=== PATIENT | female | born 1980 | race Caucasian/White ===

== ENCOUNTER 2017-05-10 17:30 | Outpatient (RCR) | payer OTHER, SELFPAY ==
--- NOTE | 2017-04-20 08:10 | HP.PTEVAL_ITS ---
Patient's Visit Information SHAE RIOS is a 37 year old F referred to Physical Therapy by Boni BURGESS with a diagnosis of R upper adominal wall, rib pain, referred lower thoracic pain vs muscle ten. Date of Evaluation: 04/19/17 Physical Therapist: Gallo Hernandez - Visit Plan Frequency: 1x/Week Duration: 5 weeks Plan: Start with thoracic ext progression with over pressure, PA rib mobility, STM to R lateral flank and QL stretching. - Subjective Subjective: Pt. is here today for her initial evaluation with diagnosis of R upper adominal wall, rib pain, referred lower thoracic pain vs muscle tension. Pt. is a plesant 37 y.o. female who denies any mecehanism of injury. She reports her symptoms started after getting a chair massage, but is unsure if this was the actual cause. Pt. reports symptoms started at tingling, shock like pain throughout my stomach. Then it is now just on the right side. She reports having R flank pain, side and into back as well as R sided upper abominal pain. Pt. reports having increased pain with prolonged walking or standing. Decreased pain: time. She says nothing really takes it away, but slowly reduces if she sits down. She reports her pain never goes away completely. Pt. reports no left sided pain. She had a pelvic MRI- normal reading. Pt. denies any numbness or tingling at this point. Pt has no changes in B/B. Pt. is able to complete all ADLs and work activities, but does notice increased symptoms with increased activity. She reports no changes in diet correlating with onset of symptoms. Pt. is hopeful to reduce symptoms to get back to recreational walking without issues. - Pain R flank Pain Intensity (Out of 10): 3 Pain Intensity Range: 1, 5 R upper abdomen Pain Intensity (Out of 10): 0 Pain Intensity Range: 0, 4 - Objective POSTURE: Pt. has slight increase in lumbar lordosis. Pt. has equal iliac crest heights. Pt. does not present with any pelvic torsion currently. PALPATION: Pt. has increased tenderness along 9-12 ribs on R side, worst at 10-12. Pt. has increased pain at QL on R side as well. Pt. did not have any pain throughout R abdominal wall during palpation. Pt. reports this carey comes and goes. Pt. reports minimal pain with spring testing. NEUROLOGICAL: Pt. has normal sensation throughout abdomen and LEs to light and sharp touch. Pt. has 2+ patellar and achilles DTR. Pt. is able to rise on heels and toes without issues. Pt. has minimal pain with spring testing (PA testing) at T10 and T11, but does not reproduce lateral symptoms. ROM: Pt. has full lumbar and thoracic ROM. Pt. does have mild increase in symptoms with thoracic over pressure into extension, increase NW. MMT: Pt. has 5/5 bilateral strength throughout no increase in symptoms. Pt. has 4/5 upper and lower abdominal strength- did not increase symptoms. Pt. had 4/5 oblique and QL testing without increase in symptoms bilaterally. - Special Tests Thoracic Sitting: Flexion - Mechanical Response: No effect Thoracic Sitting: Flexion - Symptoms During Testing: No effect Thoracic Sitting: Flexion - Symptoms After Testing: No effect Thoracic Sitting: Extension - Mechanical Response: No effect Thoracic Sitting: Extension - Symptoms During Testing: No effect Thoracic Sitting: Extension - Symptoms After Testing: No effect Comments:: mild increase in symptoms with over pressure. Thoracic Sitting: Right rotation - Mechanical Response: No effect Thoracic Sitting: Right Rotation - Symptoms During Testing: No effect Thoracic Sitting: Right Rotation - Symptoms After Testing: No effect Thoracic Sitting: Left rotation - Mechanical Response: No effect Thoracic Sitting: Left Rotation - Symptoms During Testing: No effect Thoracic Sitting: Left Rotation - Symptoms After Testing: No effect Thoracic Lying: Prone Extension - Mechanical Response: No effect Thoracic Lying: Prone Extension - Symptoms During Testing: Increases Thoracic Lying: Prone Extension - Symptoms After Testing: No worse - Goals Goal 1:: Pt. to be I with HEP. Goal Time Frame: 4-6 Weeks Goal 2:: Pt. have end range thoracic extension with out increase in symptoms. Goal Time Frame: 4-6 Weeks Goal 3:: Pt. to have 0-1/10 pain with all recreational walking allowing for increased healthy lifestyle. Goal Time Frame: 4-6 Weeks Goal 4:: Pt. to complete all work duties with 0-1/10 pain allowing for increased quality of life. - Rehabilitation Potential Physical Therapy Diagnosis: Pt. has signs and symptoms consistent with R thoracic flank pain. Pt. has no known mechanism of injury. Pt. has some increase in symptoms with palpation of QL and with lower ribs. Pt. did not have any movement that increases symptoms. I will trial some muscle tension relief interventions and progress into ext to see if reduces symptoms. Rehabilitation Potential: Good - Anticipated Interventions Patient/Client Instruction: Educate patient on: Condition, Plan of Care, Risk Factors, Benefits of Fitness Program For the Purpose of:: To improve health and function, To foster healthy habits, To improve decision making, To facilitate caregiver knowledge, To improve self management, To prevent re-injury, To improve ability to perform tasks related to life management, To improve tolerance to ADL's Therapeutic Exercise to Include: Strength training, Power training, Body mechanics, Postural training, Flexibilty training, Passive ROM, Active ROM, Dynamic Lumbar Stabilization, Yakov Exercises For the Purpose of:: To decrease pain, To increase ROM, To improve nutrient delivery to tissue, To increase oxygenation perfusion, To improve muscle performance and motor function, To improve ability to perform ADL's, To improve health of tissue, To decrease soft tissue restriction, To increase flexibility/ ROM IF ES: Yes Cryotherapy (ice pack, ice massage): Yes Thermo therapy (hot pack): Yes Ultrasound (thermal/non thermal): Yes For the Purpose of:: To decrease pain, To increase ROM, To improve nutrient delivery to tissue, To increase oxygenation perfusion, To improve muscle performance and motor function Thank you for the opportunity to evaluate your patient. For Medicare and Medicare HMO plans, please review the plan of care and approve it. It will need to be FAXED BACK to us at [phone] for Medicare purposes. Please let me know if there are questions or concerns regarding this plan of care. Physician Signature: Date:
--- NOTE | 2017-05-12 16:51 | HP.PTREVAL ---
DR.ESMITH Alanis It has been my pleasure to treat SHAE RIOS over the last 4 visits for R upper adominal wall, rib pain, referred lower thoracic pain vs muscle ten. Please see the progress note below for an update on the physical therapy plan of care! Subjective: Pt. reports no change in symptoms. She is getting an US tomorrow of her abdomen. She contiunes to report increased R sided abdominal pain, and R flank pain. Objective/Function: Pt. has made minimal gains in PT thus far. She had a negative effect with massage, no effect with US, and no changes with all postioning. Her pain does not appear to be mechanical in nature. She has tenderness to palpation of T10-T12 ribs, but similar bilaterally. I discussed with her about referral from [facility], to look into if she has greater pain with eating fatter foods, but denies. Pt. has trialed stretching and thoracic stability exercises without reduction in symptoms. She has possibly relief with chiropractor, but pt. is unsure if she is having a good response or not. I talked with patient and we decided to follow back up with physician at this point in time. Plan Plan: Pt. to follow up with physician to determine best course of action. Goals Goal 1:: Pt. to be I with HEP. Goal Time Frame: 4-6 Weeks Goal Progress: Goal Met Goal 2:: Pt. have end range thoracic extension with out increase in symptoms. Goal Time Frame: 4-6 Weeks Goal Progress: Goal Met Goal 3:: Pt. to have 0-1/10 pain with all recreational walking allowing for increased healthy lifestyle. Goal Time Frame: 4-6 Weeks Goal Progress: Not Progressing Goal 4:: Pt. to complete all work duties with 0-1/10 pain allowing for increased quality of life. Goal Progress: Not Progressing Anticipated Interventions Patient/Client Instruction: Educate patient on: Condition, Plan of Care, Risk Factors, Benefits of Fitness Program For the Purpose of:: To improve health and function, To foster healthy habits, To improve decision making, To facilitate caregiver knowledge, To improve self management, To prevent re-injury, To improve ability to perform tasks related to life management, To improve tolerance to ADL's Therapeutic Exercise to Include: Strength training, Power training, Body mechanics, Postural training, Flexibilty training, Passive ROM, Active ROM, Dynamic Lumbar Stabilization, Yakov Exercises For the Purpose of:: To decrease pain, To increase ROM, To improve nutrient delivery to tissue, To increase oxygenation perfusion, To improve muscle performance and motor function, To improve ability to perform ADL's, To improve health of tissue, To decrease soft tissue restriction, To increase flexibility/ROM IF ES: Yes Cryotherapy (ice pack, ice massage): Yes Thermo therapy (hot pack): Yes Ultrasound (thermal/non thermal): Yes For the Purpose of:: To decrease pain, To increase ROM, To improve nutrient delivery to tissue, To increase oxygenation perfusion, To improve muscle performance and motor function Please do not hesitate to contact me at [phone] by phone or if you have questions or concerns regarding this new plan of care! Sincerely, Gallo Hernandez
== END 2017-05-10 18:00 | disposition home or self-care (01) ==
LOC: PT 17:30
PROVIDERS: Family Provider Family Medicine; PCP Family Medicine; Visit Provider Family Medicine
DX: M54.6 Pain in thoracic spine (principal); R10.11 Right upper quadrant pain; R07.81 Pleurodynia
CPT/HCPCS: 97110; 97140; 97162

== ENCOUNTER → 2017-06-26 10:03 | Outpatient (CLI) | payer OTHER, SELFPAY ==
[2017-06-26 12:32] LABS: Absolute Lymphocyte Count 2.07 X10^3/ul (0.83-4.51); Absolute Neutrophil Count 3.9 X10^3/uL (2.0-7.7); Basophil# 0.04 X10^3/uL; Basophil% 0.6 % (0-1); Eosinophil# 0.46 X10^3/uL; Eosinophils% 6.7 % (0-5); Hematocrit 45.1 % (37-47); Hemoglobin 14.7 g/dl (12.0-15.0); Lymphocyte # 2.07 X10^3/ul (4.0); Mean Corp Hgb Conc 32.6 g/gl (32-36); Mean Corpuscular Hgb 26.4 pg (27.0-32.0); Mean Corpuscular Volume 81.1 fL (81-99); Mean Platelet Vol. 12.2 fl (6.2-12.0); Monocyte# 0.46 X10^3/uL; Monocyte% 6.7 % (0-10); Neutrophil # 3.87 X10^3/uL (2.7-7.7); Neutrophil % 55.9 % (47-70); POSITIVE COUNT NO; POSITIVE DIFFERENTIAL NO; POSITIVE MORPHOLOGY NO; Platelet Count 195 K/mm3 (150-450); RBC Distribution Width CV 14.9 % (11.6-14.6); RBC Distribution Width SD 45.1 fl (35.1-43.9); Red Blood Count 5.56 M/mm3 (4.2-5.4); White Blood Count 6.9 K/mm3 (4.4-11.0)
[2017-06-26 12:50] LABS: ALB/GLOB Ratio 0.8 RATIO (0.9-2.4); AST(SGOT) 15 U/L (15-37); Alanine Aminotransfer ALT/SGPT 18 U/L (13-56); Albumin, Serum 3.4 g/dL (3.2-5.0); Alkaline Phosphatase 122 U/L (45-117); Anion Gap 7 (5-15); BUN 14 mg/dL (7-18); Calcium,Total 8.6 mg/dL (8.5-10.1); Chloride 109 mmol/L (98-107); EST Glomerular Filtration Rate 67 mL/min (>60); Est Glom Filt Rate - Afr Amer 81 mL/min (>60); Ferritin 38 ng/mL (8-252); Globulin 4.2 g/dL (2.2-4.2); Glucose 81 mg/dL (74-106); Potassium 4.2 mmol/L (3.5-5.1); Protein, Total 7.6 g/dL (6.4-8.2); Sodium Level 141 mmol/L (136-145); Thyroid Stim Hormone (TSH) 1.75 uIU/mL (0.358-3.74)
== END ==
PROVIDERS: Family Provider Family Medicine; PCP Family Medicine; Visit Provider Family Medicine
DX: L60.8 Other nail disorders (principal); L60.9 Nail disorder, unspecified
CPT/HCPCS: 36415; 80053; 82728; 84443; 85025

== ENCOUNTER → 2017-06-29 08:10 | Outpatient (CLI) | payer OTHER, SELFPAY ==
--- NOTE | 2017-06-29 08:13 | US_ITS ---
STUDY: ABDOMINAL ULTRASOUND - RIGHT UPPER QUADRANT REASON FOR VISIT: Female, 37 years old. Right upper quadrant pain. TECHNIQUE: Ultrasound evaluation of the right upper quadrant was performed with real-time and static maier-scale imaging. TECHNICAL QUALITY: Adequate. COMPARISON: None. FINDINGS: Liver: The liver measures 15.5 cm. There is normal echogenicity of the liver. The bile ducts are within normal limits. There is hepatic color flow. The direction of portal flow is hepatopetal. There is no demonstrated mass lesion. Gallbladder: Normal distended gallbladder. The gallbladder wall measures 2.6 mm. There is a negative sonographic Tamez's sign. There is no pericholecystic fluid. There are no gallstones. There is a 2.6 mm gallbladder polyp adherent to the gallbladder wall. Common Bile Duct (C.B.D.): The common bile duct measures 5.8 mm. Pancreas: Normal size of the head, body and tail of the pancreas. There is normal echogenicity of the pancreas. There is no demonstrated pancreatic mass or cyst. Right Kidney: Normal size of the right kidney. The right kidney measures 10.2 cm x 5.5 cm x 4.6 cm. Normal renal cortex. The right cortex measures 1.5 cm. There is no demonstrated renal mass or cyst. There is no right hydronephrosis. US/Gallbladder IMPRESSION: Small gallbladder polyp. Electronically Signed: Ben Duval MD at 14:32 EST Tel [phone], Service support ,
== END ==
PROVIDERS: Family Provider Family Medicine; PCP Family Medicine; Visit Provider Specialist
DX: R10.11 Right upper quadrant pain (principal)
CPT/HCPCS: 76705

== ENCOUNTER → 2017-07-26 09:46 | Outpatient (CLI) | payer OTHER, SELFPAY ==
[2017-07-26 11:52] LABS: ALB/GLOB Ratio 0.9 RATIO (0.9-2.4); AST(SGOT) 15 U/L (15-37); Alanine Aminotransfer ALT/SGPT 19 U/L (13-56); Albumin, Serum 3.5 g/dL (3.2-5.0); Alkaline Phosphatase 126 U/L (45-117); Anion Gap 7 (5-15); BUN 14 mg/dL (7-18); BUN/Creat Ratio 15.6 RATIO (10-20); Calcium,Total 8.8 mg/dL (8.5-10.1); Chloride 104 mmol/L (98-107); EST Glomerular Filtration Rate 76 mL/min (>60); Est Glom Filt Rate - Afr Amer 92 mL/min (>60); Globulin 4.1 g/dL (2.2-4.2); Glucose 79 mg/dL (74-106); Protein, Total 7.6 g/dL (6.4-8.2); Sodium Level 140 mmol/L (136-145); Thyroid Stim Hormone (TSH) 1.26 uIU/mL (0.358-3.74)
== END ==
PROVIDERS: Family Provider Family Medicine; PCP Family Medicine; Visit Provider Internal Medicine Endocrinology, Diabetes & Metabolism
DX: E03.8 Other specified hypothyroidism (principal)
CPT/HCPCS: 36415; 80053; 84443

== ENCOUNTER 2017-08-02 08:31 | Outpatient (RCR) | payer OTHER, SELFPAY ==
--- NOTE | 2017-08-02 09:37 | HP.OTEVAL ---
Patient's Visit Information SHAE RIOS is a 37 year old F, referred to Occupational Therapy by Boni Quintanilla, with a diagnosis of bilateral lymphedema. Date of Evaluation: 08/02/17 Occupational Therapist: Romy Rodriguez, BRIELLE/Wilian, CHT - Subjective Subjective: This 37 year old female was seen for inital OT eval with dx of Bilateral Lymphedema. Pt states she has had 6 years of swelling of her LE. pt states swelling goes down at night and while she is up on her feet her swelling returns. 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 pt has woked there a little over a year. pt states she does have compression socks at home but only wore them for about a week. she is not wearning them at this time. - Lymphedema (Circumferential Measure) Mid-foot: R/L 23.5cm/22.5cm Ankle: R/L 25cm/26cm Lower calf: R/L 30.5cm/30/5cm Largest calf: R/L 44.5cm/43.5cm Below knee: R/L 40.5cm/40.5cm Lower Exremity Comments: pt denies toe swelling but with palpation noted some nodules on tops of each toe. - Sensation Sensation Comments: denies - Lower Limb Functional Index Lower Extremity Functional Score: 70 - Goals Demonstrate a 20% reduction in edema by d/c: Yes Demonstrate adequate knowledge of self-massage by 2nd week: Yes Demonstrate adequate knowledge skin care/prec by 2nd week: Yes Demonstrate adequate knowledge therapeutic exercises by d/c: Yes Select approp compression garment w/donning/care/wear by d/c: Yes Voice need to replace compression garment every 4-6mo by dc: Yes - Rehabilitation General Assessment: pt demo with edema in BLE. pt demo need for skilled OT services to ed. pt re. dx and self mtg. rec'd pt initiate wearing her compression hose daily, and start skin care and lymph ec. pt is starting a pool ex program this week as well which will be benefical for her. pt to return in 2-3 weeks to ensure compressio socks are helping her mtg. her edema. pt then will be ed. on self MLD. Rehabilitation Potential: Good - Anticipated Interventions Anticipated Interventions: Education re Diagnosis, Manual Lymph Drainage, Education re Life-long lymphedema Management, Education re Skin Care and Precautions, Education re Self Massage Techniques, Education re Correct Donning Tech,Care&Wearing Sched Comp Garments, Caregiver Training - Visit Plan Frequency: Monthly Duration: 2 Months TEXT: Thank you for the opportunity to evaluate your patient. For Medicare and Medicare HMO plans, please review the plan of care and approve it. It will need to be FAXED BACK to us at [phone] for Medicare purposes. Please let me know if there are questions or concerns regarding this plan of care. Physician Signature: Date:
--- NOTE | 2017-12-19 08:47 | HP.OT.NRP ---
HP - Discharge Summary - Patient Information SHAE RIOS was seen in my office for initial evaluation on 08/02/17. The following Plan of Care was established for this patient: Initial Frequency: Monthly Initial Duration: 2 Months - Anticipated Interventions Anticipated Interventions: Education re Diagnosis, Manual Lymph Drainage, Education re Life-long lymphedema Management, Education re Skin Care and Precautions, Education re Self Massage Techniques, Education re Correct Donning Tech,Care&Wearing Sched Comp Garments, Caregiver Training This patient was last seen in our office 08/02/17. Pertinent comments regarding their Occupational therapy will appear below: PT was seen for eval only- pt did not schedule further apts and due to time laps pt is D/C at this time. At this point I will be discontinuing this patient from occupational therapy. I would be happy to see this patient again in the future if found appropriate by the physician. Thank you! Romy Rodriguez, OTR/L, CHT
== END 2017-08-02 19:00 | disposition home or self-care (01) ==
LOC: OT 08:31
PROVIDERS: Family Provider Family Medicine; PCP Family Medicine; Visit Provider Family Medicine
DX: I89.0 Lymphedema, not elsewhere classified (principal)
CPT/HCPCS: 97166

== ENCOUNTER → 2017-08-22 09:03 | Outpatient (CLI) | payer OTHER, SELFPAY ==
[2017-08-23 12:08] LABS: RNP Ab <0.2 AI (0.0-0.9); Smith Ab <0.2 AI (0.0-0.9)
[2017-08-24 14:00] LABS: ANTINUCLEAR ANTIBODIES DIRECT Negative (Negative); Anti-dsDNA Ab 1 IU/mL (0-9)
== END ==
PROVIDERS: Family Provider Family Medicine; PCP Family Medicine; Visit Provider Dermatology Pediatric Dermatology
DX: L60.1 Onycholysis (principal)
CPT/HCPCS: 36415; 86038; 86225; 86235

== ENCOUNTER → 2017-11-30 09:43 | Outpatient (CLI) | payer OTHER, SELFPAY ==
[2017-11-30 12:20] LABS: Erythrocyte Sedimentation Rate 15 mm/hr (0-20)
[2017-11-30 12:23] LABS: Absolute Lymphocyte Count 2.06 X10^3/ul (0.83-4.51); Absolute Neutrophil Count 5.9 X10^3/uL (2.0-7.7); Basophil# 0.04 X10^3/uL; Basophil% 0.4 % (0-1); Eosinophil# 0.56 X10^3/uL; Eosinophils% 6.2 % (0-5); Hematocrit 44.2 % (37-47); Lymphocyte # 2.06 X10^3/ul (4.0); Mean Corp Hgb Conc 31.7 g/gl (32-36); Mean Corpuscular Hgb 26.7 pg (27.0-32.0); Mean Corpuscular Volume 84.4 fL (81-99); Mean Platelet Vol. 11.9 fl (6.2-12.0); Monocyte# 0.36 X10^3/uL; Neutrophil # 5.94 X10^3/uL (2.7-7.7); Neutrophil % 66.3 % (47-70); Platelet Count 172 K/mm3 (150-450); RBC Distribution Width CV 14.7 % (11.6-14.6); RBC Distribution Width SD 45.3 fl (35.1-43.9); Red Blood Count 5.24 M/mm3 (4.2-5.4)
[2017-11-30 12:27] LABS: POSITIVE COUNT NO; POSITIVE DIFFERENTIAL NO; POSITIVE MORPHOLOGY NO
[2017-11-30 12:33] LABS: CRP 9.84 mg/L (0.0-3.0)
[2017-12-01 09:01] LABS: Progesterone Level 10.17 ng/mL (See Comment)
[2017-12-03 03:05] LABS: Immunoglobulin A 190 mg/dL (87-352); Immunoglobulin G 1222 mg/dL (700-1600); Immunoglobulin M 94 mg/dL (26-217)
[2017-12-04 11:22] LABS: Immunoglobulin E 171 IU/mL (0-100)
== END ==
PROVIDERS: Family Provider Family Medicine; PCP Family Medicine; Visit Provider Family Medicine
DX: R51 Headache (principal); N97.9 Female infertility, unspecified; J30.2 Other seasonal allergic rhinitis
CPT/HCPCS: 36415; 82784; 82785; 84144; 85025; 85652; 86140

== ENCOUNTER → 2017-12-05 16:51 | Outpatient (CLI) | payer OTHER, SELFPAY ==
[2017-12-05 18:09] LABS: T4 Free Direct 0.91 ng/dL (0.76-1.46); Thyroid Stim Hormone (TSH) 1.17 uIU/mL (0.358-3.74)
== END ==
PROVIDERS: Family Provider Family Medicine; PCP Family Medicine; Visit Provider Internal Medicine Endocrinology, Diabetes & Metabolism
DX: E03.8 Other specified hypothyroidism (principal)
CPT/HCPCS: 36415; 84439; 84443

== ENCOUNTER → 2017-12-17 10:25 | Outpatient (CLI) | payer OTHER, SELFPAY ==
[2017-12-21 16:09] LABS: Cortisol, Urinary Free 49 ug/L (Undefined)
[2017-12-22 11:40] LABS: Cortisol, Free 24Ur 55 ug/24 hr (0-50)
== END ==
PROVIDERS: Family Provider Family Medicine; PCP Family Medicine
DX: E24.9 Cushing's syndrome, unspecified (principal)
CPT/HCPCS: 82530

== ENCOUNTER → 2018-01-13 07:45 | Outpatient (CLI) | payer OTHER, SELFPAY | PROVIDERS: Family Provider Family Medicine; PCP Family Medicine; Visit Provider Internal Medicine Endocrinology, Diabetes & Metabolism | DX: E24.9 Cushing's syndrome, unspecified (principal) | CPT/HCPCS: 36415; 82533 ==

== ENCOUNTER → 2018-04-03 09:43 | Outpatient (CLI) | payer OTHER, SELFPAY ==
[2018-04-03 12:34] LABS: Erythrocyte Sedimentation Rate 26 mm/hr (0-20)
[2018-04-03 12:54] LABS: CRP 9.53 mg/L (0.0-3.0); Cholesterol 201 mg/dL (200); High Density Lipoprotein 50 mg/dL; Triglycerides 146 mg/dL; Very Low Density Lipoprotein 29 mg/dL (5-40)
--- OUTSIDE RECORDS SUMMARY | 2018-05-20 09:39 | XMS RPT_ITS ---
:1980 Author Organization OHIP Support Name Relationship Address Phone MOISÉS BERNARD Unavailable Unavailable + MOISÉS BERNARD Unavailable Unavailable + MOISÉS BERNARD Unavailable [address] + [place] [address] BERTRAM BUNCH Unavailable [address] + [place] [address] [facility] Unavailable [address] + [place] [address] MOISÉS BERNARD Unavailable Unavailable + SHEREE BERNARD Unavailable Unavailable Unavailable MOISÉS BERNARD Unavailable Unavailable + SHEREE BERNARD Unavailable Unavailable Unavailable MOISÉS BERNARD Unavailable [address] + [place] [address] BERTRAM BUNCH Unavailable [address] + [place] [address] [facility] Unavailable [address] + [place] [address] Moisés Bernard Unavailable Unavailable + Johnson Matos Unavailable Unavailable + MOISÉS BERNARD Unavailable [address] + [place] [address] BERTRAM BUNCH Unavailable [address] + [place] [address] [facility] Unavailable [address] + [place] [address] MOISÉS BERNARD Unavailable Unavailable + [place] [address] MOISÉS BERNARD Unavailable Unavailable + [place] [address] MOISÉS BERNARD Unavailable Unavailable + MARCO ANTONIOSHEREE Unavailable Unavailable Unavailable MOISÉS BERNARD Unavailable Unavailable + MARCO ANTONIOSUNA Unavailable Unavailable Unavailable MOISÉS BERNARD Unavailable [address] + [place] [address] JULIO C, BERTRAM Unavailable [address] + [place] [address] [facility] Unavailable [address] + [place] [address] MOISÉS BERNARD Unavailable [address] + [place] [address] JULIO C, BERTRAM Unavailable [address] + [place] [address] [facility] Unavailable [address] + [place] [address] MOISÉS BERANRD Unavailable [address] + [place] [address] JULIO C, BERTRAM Unavailable [address] + [place] [address] [facility] Unavailable [address] + [place] [address] MOISÉS BERNARD Unavailable [address] + [place] [address] JULIO C, BERTRAM Unavailable [address] + [place] [address] [facility] Unavailable [address] + [place] [address] MOISÉS BERNARD Unavailable Unavailable + [place] [address] MOISÉS BERNARD Unavailable Unavailable + [place] [address] MOISÉS BERNARD Unavailable [address] + [place] [address] JULIO C, BERTRAM Unavailable [address] + [place] [address] [facility] Unavailable [address] + [place] [address] MOISÉS BERNARD Unavailable [address] + [place] [address] JULIO C, BERTRAM Unavailable [address] + [place] [address] [facility] Unavailable [address] + [place] [address] BERNARDMOISÉS Mckeon Unavailable [address] + [place] [address] JULIO C, BERTRAM Unavailable [address] + [place] [address] [facility] Unavailable [address] + [place] [address] MARCO ANTONIO MOISÉS Unavailable Unavailable + [place] [address] MARCO ANTONIO MOISÉS Unavailable Unavailable + [place] [address] BERNARDMOISÉS Mckeon Unavailable Unavailable + [place] [address] BERNARD MOISÉS Unavailable Unavailable + [place] [address] BERNARDMOISÉS Mckeon Unavailable [address] + [place] [address] JULIO C, BERTRAM Unavailable [address] + [place] [address] [facility] Unavailable [address] + [place] [address] BERNARD MOISÉS Unavailable [address] + [place] [address] JULIO C, BERTRAM Unavailable [address] + [place] [address] [facility] Unavailable [address] + [place] [address] Care Team Providers Name Role Phone KENDY UMAÑA Attending Unavailable KENDY UMAÑA Referring Unavailable Quintanilla, Rayna Primary Care Unavailable Rayna Quintanilla Attending Unavailable Dwight, Rayna Referring Unavailable Quintanilla, Rayna Primary Care Unavailable Dwight Rayna Attending Unavailable Dwight, Rayna Primary Care Unavailable Solomon Lowry Attending Unavailable Solomon Lowry Referring Unavailable Quintanilla, Rayna Primary Care Unavailable PJ NOVA Attending Unavailable PJ NOVA Referring Unavailable Quintanilla, Rayna Primary Care Unavailable KENDY UMAÑA Attending Unavailable KENDY UMAÑA Referring Unavailable Quintanilla, Rayna Primary Care Unavailable Quintanilla, Rayna Consulting Unavailable Quintanilla, Rayna Attending Unavailable Quintanilla, Rayna Referring Unavailable Quintanilla, Rayna Primary Care Unavailable Deloris, Denisse Attending Unavailable Deloris, Denisse Referring Unavailable Quintanilla, Rayna Primary Care Unavailable Quintanilla, Rayna Attending Unavailable Quintanilla, Rayna Referring Unavailable Quintanilla, Rayna Primary Care Unavailable Solomon Lowry Consulting Unavailable WIETECHA, PJ Attending Unavailable WIETECHA, PJ Referring Unavailable Quintanilla, Rayna Primary Care Unavailable KENDY UMAÑA Attending Unavailable Quintanilla, Rayna Primary Care Unavailable WIETECHA, PJ Attending Unavailable Quintanilla, Rayna Primary Care Unavailable WIETECHA, PJ Referring Unavailable CANDI MARROQUIN MD Attending Unavailable DWIGHT AMOR, RAYNA A Primary Care Unavailable CANDI MARROQUIN MD Attending Unavailable DWIGHT AMOR, RAYNA A Primary Care Unavailable SIMON SUAZO, KOBE Wade Attending Unavailable DWIGHT AMOR, RAYNA A Primary Care Unavailable SANTIAGO JOHNSON MD Attending Unavailable DWIGHT AMOR, RAYNA A Primary Care Unavailable DWIGHT AMOR, RAYNA A Primary Care Unavailable DWIGHT AMOR, RAYNA A Attending Unavailable DWIGHT MAOR, RAYNA A Referring Unavailable VINCENT, CMV CHRISTOPHER Attending Unavailable QUINTANILLA, RAYNA A Referring Unavailable QUINTANILLA, RAYNA A Primary Care Unavailable QUINTANILLA, RAYNA A Primary Care Unavailable VINCENT, CMV CHRISTOPHER Attending Unavailable VINCENT, CMV CHRISTOPHER Referring Unavailable VINCENT, CMV CHRISTOPHER Attending Unavailable VINCENT, CMV CHRISTOPHER Referring Unavailable QUINTANILLA, RAYNA A Primary Care Unavailable VINCENT, CMV CHRISTOPHER Attending Unavailable QUINTANILLA, RAYNA A Referring Unavailable QUINTANILLA, RAYNA A Primary Care Unavailable SHOSHANA ALLISON Attending Unavailable SHOSHANA ALLISON Attending Unavailable ROSA MARIA JHA (PT) Attending Unavailable QUINTANILLA, RAYNA OG Referring Unavailable ROSA MARIA JHA (PT) Attending Unavailable QUINTANILLA, RAYNA OG Referring Unavailable Santiago Johnson Attending Unavailable Quintanilla, Rayna Referring Unavailable Quintanilla, Rayna Primary Care Unavailable PROBLEMS PROBLEMS DATE TYPE CONDITION / CODE ATTENDING STATUS SOURCE 04/25/2018 Admitting Numbness / 75() VINCENT, CMV Active [place] [facility] diagnosis [facility] Repository 04/18/2018 Admitting Unspecified VINCENT, CMV Active [facility] diagnosis disturbances of [facility] skin sensation / [facility] R20.9(ICD-10) Center Repository 04/04/2018 Admitting Female infertility, Santiago Johnson Active [facility] Diagnosis unspecified / System N97.9(ICD-10) Repository 04/03/2018 Unknown R20.9 - Unspecified KENDY UMAÑA Active [place] disturbances of Community skin sensation / Hospital R20.9(ICD-10) Repository 04/03/2018 Unknown Z01.89 - Encounter KENDY UMAÑA Active [place] for other specified Community special [facility] examinations / Repository Z01.89(ICD-10) 03/20/2018 Admitting Trigeminal VINCENT, CMV Active [facility] diagnosis Neuralgia / [facility] [phone]() [facility] Repository 12/05/2017 Unknown E03.8 - Other WIPJ IVORY Active [place] specified Community hypothyroidism / Hospital E03.8(ICD-10) Repository 12/01/2017 Unknown R51 - Headache / Rayna Quintanilla Active [place] R51(ICD-10) [facility] Hospital Repository 12/01/2017 Unknown N97.9 - Female Rayna Quintanilla Active [facility] infertility, Community unspecified / Hospital N97.9(ICD-10) Repository 08/22/2017 Unknown L60.1 - Onycholysis DelorisDenisse villa Active [place] / L60.1(ICD-10) [facility] Hospital Repository 12/19/2017 Unknown I89.0 - Lymphedema, Rayna Quintanilla Active [place] not elsewhere Community classified / Hospital I89.0(ICD-10) Repository PROCEDURES PROCEDURES No Procedure Records FoundRESULTS RESULTS PROGRESS Observed: 05/10/2018 Status: COMPLETED Source: [place] 3:05 PM [facility] REPOSITORY HNO ID: [id number] Author: Shoshana Allison Service: (none) Author Type: Psychologist Type: Progress Notes Filed: 05/10/2018 3:11 PM Note Text: [facility] Progress Note Shereehugo Bernard 05/10/2018 [id number] Provider: Shoshana Allison, PHD CPT Code: 70357 Psychotherapy 38-52 minutes Time: Approximately 50 minutes was spent in therapy. Parties Present: Patient Patient Presentation/Concerns: reviews so far directed by Dr Quintanilla her PCP at [facility]... unclear why she has the facial head pain she has that comes and goes recently a 1 or 2 or 0 but can be more and more lasting considering having a child and needs tubes cleared first ... if too difficult.. they would consider adopting Pt doing well so far .... dont want to create a pt role unnecessarily... PLAN: see her PRN MEDS: Zoloft at 52 working well to reduce worries lots of follow ups ie r/o TMJ ... Allergic reaction etc Mental Status: Mood: variable Affect: mood-congruent Thoughts/Associations:goal directed Suicidal/Homicidal Ideation: None expressed or evidenced Other Observations: None Therapy Focus Self-care, Stress management, Mood/affect regulation and Self-esteem MEDICATIONS: Per medical record: No current outpatient prescriptions on file. No current facility-administered medications for this visit. 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 Smiley II: deferred Smiley III: see med record Smiley IV: med dx Smiley V: 52 Treatment Modality/Interventions: Cognitive Behavioral Reassurance/Supportive Problem solving TREATMENT ASSESSMENT/PROGRESS: . Progressing satisfactorily. TREATMENT PLAN/GOALS: Continue in therapy focusing on self- care, affect management and self-esteem. Next appointment: as scheduled Shoshana Allison, PHD ERYTHROCYTE SED RATE Collected: 05/01/2018 Status: F Source: [place] 9:13 AM [facility] REPOSITORY TYPE CODE TESTS RESULT OUT OF RANGE REFERENCE UNITS LAB L102.0000 0-20 mm/hr Normal SED RATE 7 Performed By: #### L101.9900, L100.0100, L509.1000, L501.3620, L501.9520 #### [facility] Laboratory [facility] [place], [address] #### L3100.3450, L3100.7000, L3200.1600 #### [facility] (refer to report for specific site) refer to report for address and phone number CBC W/DIFF, AUTOMATED Collected: 05/01/2018 Status: F Source: [place] 9:13 AM [facility] REPOSITORY TYPE CODE TESTS RESULT OUT OF RANGE REFERENCE UNITS LAB L100.1000 4.4-11.0 K/mm3 Normal WBC 8.1 LAB L100.1200 4.2-5.4 M/mm3 Normal RBC 5.18 LAB L100.1300 12.0-15.0 g/dl Normal HGB 14.2 LAB L100.1400 37-47 % Normal HCT 44.7 LAB L100.1500 81-99 fL Normal MCV 86.3 LAB L100.1600 27.0-32.0 pg Normal MCH 27.4 LAB L100.1700 32-36 g/gl Low MCHC 31.8 LAB L100.1810 11.6-14.6 % Normal RDW CV 14.5 LAB L100.1820 35.1-43.9 fl High RDW SD 45.5 LAB L100.1900 150-450 K/mm3 Normal PLT 204 LAB L100.2000 6.2-12.0 fl Normal MPV 11.8 LAB L100.2100 47-70 % Normal NEUT% 68.8 LAB L100.2200 19-41 % Normal LY% 21.9 LAB L100.2300 0-10 % Normal MONO% 5.6 LAB L100.2400 0-5 % Normal EO% 3.2 LAB L100.2500 0-1 % Normal BASO% 0.4 LAB L100.2550 0.0-0.9 % Normal IM GRAN % 0.100 Result Comment: IG% - Immature Granulocytes (promyelocytes, myelocytes and metamyelocytes) > 1% indicates that a LEFT SHIFT is Present. LAB L100.2620 2.0-7.7 X10 3/uL Normal Absolute Neut 5.5 LAB L100.2720 0.83-4.51 X10 3/ul Normal Absolute Lymph 1.76 Performed By: #### L101.9900, L100.0100, L509.1000, L501.3620, L501.9520 #### [facility] [address] [place], [address] #### L3100.3450, L3100.7000, L3200.1600 #### [facility] (refer to report for specific site) refer to report for address and phone number PTHIN Collected: 05/01/2018 Status: F Source: [place] 9:13 AM [facility] REPOSITORY TYPE CODE TESTS RESULT OUT OF RANGE REFERENCE UNITS LAB L509.1000 18.4-80.1 pg/mL Normal PTHIN 77.7 Performed By: #### L101.9900, L100.0100, L509.1000, L501.3620, L501.9520 #### [facility] [address], [place], [id number] #### L3100.3450, L3100.7000, L3200.1600 #### [facility] (refer to report for specific site) refer to report for address and phone number CPK TOTAL, CREATINE Collected: 05/01/2018 Status: F Source: [place]IN[place] 9:13 AM [facility] REPOSITORY TYPE CODE TESTS RESULT OUT OF RANGE REFERENCE UNITS LAB L501.3620 26-192 U/L Normal CPK TOTAL 52 Performed By: #### L101.9900, L100.0100, L509.1000, L501.3620, L501.9520 #### [facility] [address] [place] [address], [id number] #### L3100.3450, L3100.7000, L3200.1600 #### [facility] (refer to report for specific site) refer to report for address and phone number THYROID STIM HORMONE Collected: 05/01/2018 Status: F Source: [place] (TSH) 9:13 AM [facility] REPOSITORY TYPE CODE TESTS RESULT OUT OF RANGE REFERENCE UNITS LAB L501.9520 0.358-3.74 uIU/mL Normal TSH 1.39 Performed By: #### L101.9900, L100.0100, L509.1000, L501.3620, L501.9520 #### [facility] [address] [place] [address], [id number] #### L3100.3450, L3100.7000, L3200.1600 #### [facility] (refer to report for specific site) refer to report for address and phone number PROTEIN ELECTROPH, S Collected: 05/01/2018 Status: F Source: [place] 9:13 AM [facility] REPOSITORY TYPE CODE TESTS RESULT OUT OF RANGE REFERENCE UNITS LAB L3100.3500 6.0-8.5 g/dL Normal PROTEIN,TOTAL 6.8 LAB L3100.3600 2.9-4.4 g/dL Normal ALBUMIN 3.7 LAB L3100.3700 0.0-0.4 g/dL Normal ALPHA-1 GLOBUL 0.2 LAB L3100.3800 0.4-1.0 g/dL Normal ALPHA-2 GLOBUL 0.7 LAB L3100.3900 0.7-1.3 g/dL Normal BETA GLOBULIN 1.1 LAB L3100.4000 0.4-1.8 g/dL Normal GAMMA GLOBULIN 1.1 LAB L3100.4110 Normal M-SPIKE Result Comment: NOT OBSERVED LAB L3100.4200 2.2-3.9 g/dL GLOBULIN, TOTAL Normal 3.1 LAB L3100.4300 0.7-1.7 A/G RATIO Normal 1.2 LAB L3100.4320 . INTERPRETATION Normal Comment Result Comment: Protein electrophoresis scan will follow via computer, mail, or parking meter servicer delivery. LAB L3100.4340 . Normal NOTE: Comment Result Comment: The SPE pattern appears essentially unremarkable. Evidence of monoclonal protein is not apparent. Performed By: #### L101.9900, L100.0100, L509.1000, L501.3620, L501.9520 #### [facility] [address] [place] [address]. [place], [place], [address] #### L3100.3450, L3100.7000, L3200.1600 #### [facility] (refer to report for specific site) refer to report for address and phone number ALDOLASE Collected: 05/01/2018 Status: F Source: [place] 9:13 AM [facility] REPOSITORY TYPE CODE TESTS RESULT OUT OF REFERENCE UNITS RANGE LAB L3100.7000 3.3-10.3 U/L Low ALDOLASE 2030 3.2 Result Comment: Performed at: - [facility] [id number] Vp Site: Alexandru Haque PhD, Phone: [phone] Performed at: - [facility] [id number] Vp Site: Patricio Quiroz MD, Phone: [phone] Performed By: #### L101.9900, L100.0100, L509.1000, L501.3620, L501.9520 #### [facility] [address] [place], [address] #### L3100.3450, L3100.7000, L3200.1600 #### [facility] (refer to report for specific site) refer to report for address and phone number IMMUNOGLOBULIN E Collected: 05/01/2018 Status: F Source: [place] 9:13 AM [facility] REPOSITORY TYPE CODE TESTS RESULT OUT OF REFERENCE UNITS RANGE LAB L3200.1600 0-100 IU/mL High IMMUNO E 150 Performed By: #### L101.9900, L100.0100, L509.1000, L501.3620, L501.9520 #### [facility] [address] [place], [address] #### L3100.3450, L3100.7000, L3200.1600 #### [facility] (refer to report for specific site) refer to report for address and phone number CRP Collected: 05/01/2018 Status: F Source: [place] 9:13 AM [facility] REPOSITORY TYPE CODE TESTS RESULT OUT OF RANGE REFERENCE UNITS LAB L501.6710 0.0-3.0 mg/L High 13.90 C-REACTIVE PROT Result Comment: C-Reactive Protein (CRP) provides useful information for the diagnosis, therapy and monitoring of inflammatory processes and associated diseases. For the evaluation of Relative Risk for Cardiovascular Disease, a High Sensitivity CRP (HSCRP) should be ordered. Performed By: #### L501.6710 #### [facility] [address] [facility] [place], [address] MRI BRAIN WITH AND Observed: 04/19/2018 Status: F Source: [facility] WITHOUT CONTRAST 9:31 AM [facility] REPOSITORY EXAM: MRI BRAIN WITH AND WITHOUT CONTRAST, 04/18/2018 19:03 PM COMPARISON: No prior studies available for comparison. CLINICAL INDICATIONS: 38 years Female atypical facial pains, rule out MS; RELEVANT CLINICAL HISTORY: R20.9:Facial paresthesia Attention brainstem and trigeminal nerve and include brain images to rule out MS as well.; TECHNIQUE: A series of multisequence, multiplanar images of the brain are obtained both before and after intravenous administration of gadolinium-based contrast using standard protocol. Study was performed at 1.5 Magali. CONTRAST: gadoterate Meglumine (DOTAREM) 5 MMOL/10ML injection 3-60 mL; Route of Administration: Intravenous; Dose: 19 mL. FINDINGS: No parenchymal signal abnormality. The 7th and 8th cranial nerve complexes are within normal limits. No significant angle mass The trigeminal nerves are unremarkable. No abnormal enhancement. The ventricles are normal in size and configuration for the patient's age. There is no diffusion abnormality to indicate an acute infarct. There is no evidence of intracranial hemorrhage. There is no mass lesion, mass effect, or shift of the midline structures. There is no basal cistern effacement. There is no abnormal extra-axial collection. No abnormal parenchymal enhancement. The major intracranial flow voids are present. The paranasal sinuses and mastoid air cells are clear. The orbits are unremarkable. The calvarium is intact. IMPRESSION: Normal MRI of the brain. No parenchymal signal abnormality to suggest multiple sclerosis. No abnormality of the IACs or trigeminal nerves. *CRE/GFR POC DEVICE Collected: 04/18/2018 Status: F Source: [facility] 5:25 PM [facility] REPOSITORY TYPE CODE TESTS RESULT OUT OF REFERENCE UNITS RANGE LAB CREPC 0.50-1.20 mg/dL Creatinine (poc 1.01 device) LAB GFRPC >60 mL/min/1.7 3 sq m est GFR, (poc device) >60 LAB PCSTYP *POC SAMPLE TYPE Venous ERYTHROCYTE SED RATE Collected: 04/10/2018 Status: F Source: [place] 12:23 PM [facility] REPOSITORY TYPE CODE TESTS RESULT OUT OF RANGE REFERENCE UNITS LAB L102.0000 0-20 mm/hr High SED RATE 21 Performed By: #### L101.9900 #### [facility] [place], [address] CRP Collected: 04/10/2018 Status: F Source: [place] 12:23 PM [facility] REPOSITORY TYPE CODE TESTS RESULT OUT OF RANGE REFERENCE UNITS LAB L501.6710 0.0-3.0 mg/L High 7.03 C-REACTIVE PROT Result Comment: C-Reactive Protein (CRP) provides useful information for the diagnosis, therapy and monitoring of inflammatory processes and associated diseases. For the evaluation of Relative Risk for Cardiovascular Disease, a High Sensitivity CRP (HSCRP) should be ordered. Performed By: #### L501.6710 #### [facility] [address] [place], [address] REAL COMPREHENSIVE PANEL Collected: 04/10/2018 Status: F Source: [place] 12:23 PM [facility] REPOSITORY TYPE CODE TESTS RESULT OUT OF RANGE REFERENCE UNITS LAB L3100.5500 0-9 IU/mL Normal dsDNA AB 1 Result Comment: Negative <5 Equivocal 5 - 9 Positive >9 LAB L3100.9200 0.0-0.9 AI Anti-SS-A Normal < 0.2 LAB L3100.9300 0.0-0.9 AI Anti-SS-B Normal < 0.2 LAB L3410.0427 0.0-0.9 AI ANTICHROMATIN Normal <0.2 LAB L3410.0500 0.0-0.9 AI ANTI-QUETA Normal <0.2 LAB L3410.0700 0.0-0.9 AI ANTISCLER Normal <0.2 LAB L3410.1200 0.0-0.9 AI WIRE MILL OPERATOR Ab Normal <0.2 LAB L3410.1300 0.0-0.9 AI QUINTANILLA Ab Normal <0.2 LAB L3410.4010 0.0-0.9 AI ANTI-CENT B Normal <0.2 LAB L3410.4150 . COMMENT Normal Comment Result Comment: Autoantibody Disease Association Condition Frequency --------- Antinuclear Antibody, SLE, mixed connective Direct (REAL-D) tissue diseases --------- dsDNA SLE 40 - 60% --------- Chromatin Drug induced SLE 90% SLE 48 - 97% --------- SSA (Ro) SLE 25 - 35% Sjogren's Syndrome 40 - 70% Lupus 100% --------- SSB (La) SLE 10% Sjogren's Syndrome 30% --------- Sm (anti-Quintanilla) SLE 15 - 30% --------- WIRE MILL OPERATOR Mixed Connective Tissue Disease 95% (U1 nRNP, SLE 30 - 50% anti-ribonucleoprotein) Polymyositis and/or Dermatomyositis 20% --------- Scl-70 (antiDNA Scleroderma (diffuse) 20 - 35% topoisomerase) Crest 13% --------- Queta-1 Polymyositis and/or Dermatomyositis 20 - 40% --------- Centromere B Scleroderma - Crest variant 80% Performed at: - [facility] [address] [id number] Vp Site: Alexandru Haque PhD, Phone: [phone] Performed By: #### L3100.5440 #### [facility] (refer to report for specific site) refer to report for address and phone number RF HYSTEROSALPINGOGRAPHY S/I Observed: Status: F Source: [facility] 04/04/2018 1:47 PM [facility] REPOSITORY Patient Name: SHEREE BERNARD Fluoroscopy Exam Date/Time 04/04/2018 13:37:02 EST Exam RF Hysterosalpingography S/I Ordering Physician SANTIAGO JOHNSON Accession Number [id number] [facility] Codes [id number] () Reason For Exam infertility Report Hysterosalpingogram: 04/04/2018. CLINICAL INFORMATION: Infertility testing. FINDINGS: A hysterosalpingogram was performed by Dr. Johnson. 0.1 minutes of fluoroscopic time was used for the examination. He submitted two fluoroscopic spot films for interpretation following cessation of the examination. I was not present for the examination. There is mild irregularity along the uterine cavity at the level of the fundus. This could suggest mild synechia or small submucosal fibroids. The right fallopian tube does not opacify. The left fallopian tube opacifies. 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 The fimbriated end of the left fallopian tube does not completely distend. I cannot determine whether there is free spill of contrast from the left fallopian tube. Report Dictated on Final Dictated: 04/04/2018 1:43 pm Dictating Physician: MD RENO RISA Signed Date and Time: 04/04/2018 1:52 pm Signed by: MD RENO RISA Transcribed Date and Time: 04/04/2018 1:47 ERYTHROCYTE SED RATE Collected: 04/03/2018 Status: F Source: [place] 9:50 AM [facility] REPOSITORY Order Comment: ORDERED LIPID ORDERED CRP AND SED TYPE CODE TESTS RESULT OUT OF RANGE REFERENCE UNITS LAB L102.0000 0-20 mm/hr High SED RATE 26 Performed By: #### L101.9900 #### [facility] [address] [place], [place], [address] LIPID PROFILE Collected: 04/03/2018 Status: F Source: [place] 9:50 AM [facility] REPOSITORY Order Comment: ORDERED LIPID ORDERED CRP AND SED TYPE CODE TESTS RESULT OUT OF RANGE REFERENCE UNITS LAB L501.4900 200 mg/dL High CHOL 201 Result Comment: <200 mg/dL Desirable 200-240 mg/dL Borderline >240 mg/dL High Risk LAB L501.5000 mg/dL Normal TRIG 146 Result Comment: The drugs N-Acetylcysteine and Metamizole may falsely depress this assay. Serum Triglycerides Reference Interval Normal <150 mg/dL Borderline high 150 - 199 mg/dL High 200 - 499 mg/dL Very High > or = 500 mg/dL LAB L501.6400 mg/dL Normal HDL 50 Result Comment: The drugs N-Acetylcysteine and Metamizole may falsely depress this assay. Reference Range HDL <40 mg/dL Low HDL Cholesterol HDL >or= 60 mg/dL High HDL Cholesterol LAB L501.6500 0-130 mg/dL Normal LDL 122 LAB L501.6600 5-40 mg/dL Normal VLDL 29 Performed By: #### L500.4100, L501.6710 #### [facility] [address] [place], [place], [address] CRP Collected: 04/03/2018 Status: F Source: [place] 9:50 AM [facility] REPOSITORY Order Comment: ORDERED LIPID ORDERED CRP AND SED TYPE CODE TESTS RESULT OUT OF RANGE REFERENCE UNITS LAB L501.6710 0.0-3.0 mg/L High 9.53 C-REACTIVE PROT Result Comment: C-Reactive Protein (CRP) provides useful information for the diagnosis, therapy and monitoring of inflammatory processes and associated diseases. For the evaluation of Relative Risk for Cardiovascular Disease, a High Sensitivity CRP (HSCRP) should be ordered. Performed By: #### L500.4100, L501.6710 #### [facility] [place], [address] CBC Collected: 03/29/2018 Status: F Source: [facility] 9:27 AM [facility] REPOSITORY TYPE CODE TESTS RESULT OUT OF REFERENCE UNITS RANGE LAB WBC(LOINC) 4.60-10.80 10 3/mcL WBC 8.30 LAB RBCCT(LOINC 4.20-5.40 10 6/mcL ) RBC 5.39 LAB HGB(LOINC) 12.0-16.0 G/dL Hgb 14.4 LAB HCT(LOINC) 37.0-47.0 % Hct 44.5 LAB MCV(LOINC) 80.0-94.0 fL MCV 82.6 LAB MCH(LOINC) 27.0-31.2 pg Low MCH 26.7 LAB MCHC(LOINC) 33.0-37.0 G/dL Low MCHC 32.3 LAB RDW(LOINC) 11.5-14.5 % RDW 14.5 LAB PLT(LOINC) 130-400 10 3/mcL Platelet 182 LAB MPV(LOINC) 7.4-10.4 fL MPV 9.8 Performed By: #### CBC, ADIFF, ANEU, ABOG, ANSG, REID, HPROG #### [facility] [address] [place], [place] [address] #### TESTO,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 [place] REPOSITORY Order Comment: DR LOWRY ORDERED PROGESTERONE DR DWIGHT GALE CBCD/CRP.ESR/IG TYPE CODE TESTS RESULT OUT OF RANGE REFERENCE UNITS LAB L501.6710 0.0-3.0 mg/L High 9.84 C-REACTIVE PROT Result Comment: C-Reactive Protein (CRP) provides useful information for the diagnosis, therapy and monitoring of inflammatory processes and associated diseases. For the evaluation of Relative Risk for Cardiovascular Disease, a High Sensitivity CRP (HSCRP) should be ordered. Performed By: #### L501.6710 #### [facility] [address] [place], [place], [address] PROGESTERONE LEVEL Collected: 11/30/2017 Status: F Source: [place] 9:49 [facility] REPOSITORY Order Comment: DR LOWRY ORDERED PROGESTERONE DR DWIGHT GALE CBCD/CRP.ESR/IG TYPE CODE TESTS RESULT OUT OF REFERENCE UNITS RANGE LAB L509.4001 See Comment ng/mL Progesterone Normal 10.17 Result Comment: Progesterone Reference Table: UNITS Female: Follicular 0.15 - 1.40 ng/mL Luteal 3.34 - 25.56 ng/mL Mid-luteal 4.44 - 28.03 ng/mL Postmenopausal 0.0 - 0.73 ng/mL : 1st Trimester 11.22 - 90.00 ng/mL 2nd Trimester 25.55 - 89.40 ng/mL 3rd Trimester 48.40 -422.50 ng/mL Performed By: #### L509.4001 #### [facility] [address] [place], [address] IMMUNOGLOBULINS G/A/M/E Collected: 11/30/2017 Status: F Source: [place] 9:49 AM [facility] [place] REPOSITORY Order Comment: DR LORWY ORDERED PROGESTERONE DR QUINTANILLA ORDRED CBCD/CRP.ESR/IG Is Patient Fasting? N TYPE CODE TESTS RESULT OUT OF RANGE REFERENCE UNITS LAB L3200.7275 233-4458 mg/dL Normal IMMUNO G 1222 LAB L3200.1400 87-352 mg/dL Normal IMMUNO A 190 LAB L3200.1500 26-217 mg/dL Normal IMMUNOGL M 94 LAB L3200.1600 0-100 IU/mL High IMMUNO E 171 Result Comment: Performed at: - [facility] [id number] Vp Site: Alexandru Haque PhD, Phone: [phone] Performed at: - [facility] [address] [id number] Vp Site: Prakash Cho MD, Phone: [phone] Performed By: #### L3200.1100 #### [facility] (refer to report for specific site) refer to report for address and phone number PROGRESS Observed: 08/31/2017 Status: COMPLETED Source: [place] 12:30 PM [facility] [place] REPOSITORY HNO ID: [id number] Author: Rosa Maria Jha (Pt) Service: (none) Author Type: Physical Therapist Type: Progress Notes Filed: 08/31/2017 12:31 PM Note Text: [facility] REHABILITATION AND SPORTS THERAPY PHYSICAL THERAPY DISCONTINUANCE OF CARE Plan of Care Period: Start of Care Date: 06/05/17 Last Visit Date: 07/13/2017 Therapy Program: Patient did not return for follow up care as planned. Please refer to last visit note for interventions provided for this episode of care. Assessment: Unable to formally assess goal achievement due to non-compliance with therapy plan of care. Reason for Discontinuation of Care: Patient has not returned to therapy or scheduled additional follow-up appointments. Rosa Maria Jha, PT ANTINUCLEAR ANTIBODIES Collected: 08/22/2017 Status: F Source: [place] DIRECT 9:09 AM [facility] [place] REPOSITORY TYPE CODE TESTS RESULT OUT OF RANGE REFERENCE UNITS LAB L3100.5475 Negative Normal Negative REAL-DIRECT Result Comment: Performed at: - [facility] [address] [id number] Vp Site: Alexandru Haque PhD, Phone: [phone] Performed By: #### L3100.5475, L3100.5500, L3410.1110 #### [facility] (refer to report for specific site) refer to report for address and phone number ANTI-DSDNA AB Collected: 08/22/2017 Status: F Source: [place] 9:09 AM [facility] [place] REPOSITORY TYPE CODE TESTS RESULT OUT OF RANGE REFERENCE UNITS LAB L3100.5500 0-9 IU/mL Normal dsDNA AB 1 Result Comment: Negative <5 Equivocal 5 - 9 Positive >9 Performed By: #### L3100.5475, L3100.5500, L3410.1110 #### [facility] (refer to report for specific site) refer to report for address and phone number ANTIEXTRACTABLE NUG AG Collected: 08/22/2017 Status: F Source: [place] 9:09 AM [facility] [place] REPOSITORY TYPE CODE TESTS RESULT OUT OF RANGE REFERENCE UNITS LAB L3410.1200 0.0-0.9 AI Normal WIRE MILL OPERATOR Ab <0.2 LAB L3410.1300 0.0-0.9 AI Normal QUINTANILLA Ab <0.2 Performed By: #### L3100.5475, L3100.5500, L3410.1110 #### [facility] (refer to report for specific site) refer to report for address and phone number OT GENERAL EVALUATION Observed: 08/04/2017 Status: F Source: [place] 7:41 AM [facility] [place] REPOSITORY [facility] Occupational Therapy [address] [place], [place] [address] Fax REHABILITATION SERVICES INITIAL EVALUATION MR#: [id number] Acct: [id number] Name: SHEREE BERNARD Rep #: [id number] : 1980 37 From: Romy Rodriguez OTR/L, CHT Referring Dr.: Rayna Quintanilla MD Status: REG RCR Insurance: [facility] Eval Date: SELF PAY INSURANCE Patient's Visit Information SHEREE BERNARD is a 37 year old F, referred to Occupational Therapy by Rayna Quintanilla, with a diagnosis of bilateral lymphedema. Date of Evaluation: 08/02/17 Occupational Therapist: Romy Rodriguez, OTR/L, CHT - Subjective Subjective: This 37 year old female was seen for inital OT eval with dx of Bilateral Lymphedema. Pt states she has had 6 years of swelling of her LE. pt states swelling goes down at night and while she is up on her feet her swelling returns. 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 pt has woked there a little over a year. pt states she does have compression socks at home but only wore them for about a week. she is not wearning them at this time. - Lymphedema (Circumferential Measure) Mid-foot: R/L 23.5cm/22.5cm Ankle: R/L 25cm/26cm Lower calf: R/L 30.5cm/30/5cm Largest calf: R/L 44.5cm/43.5cm Below knee: R/L 40.5cm/40.5cm Lower Exremity Comments: pt denies toe swelling but with palpation noted some nodules on tops of each toe. - Sensation Sensation Comments: denies - Lower Limb Functional Index Lower Extremity Functional Score: 70 - Goals Demonstrate a 20% reduction in edema by d/c: Yes Demonstrate adequate knowledge of self-massage by 2nd week: Yes Demonstrate adequate knowledge skin care/prec by 2nd week: Yes Demonstrate adequate knowledge therapeutic exercises by d/c: Yes Select approp compression garment w/donning/care/wear by d/c: Yes Voice need to replace compression garment every 4-6mo by dc: Yes - Rehabilitation General Assessment: pt demo with edema in BLE. pt demo need for skilled OT services to ed. pt re. dx and self mtg. rec'd pt initiate wearing her compression hose daily, and start skin care and lymph ec. pt is starting a pool ex program this week as well which will be benefical for her. pt to return in 2-3 weeks to ensure compressio socks are helping her mtg. her edema. pt then will be ed. on self MLD. Rehabilitation Potential: Good - Anticipated Interventions Anticipated Interventions: Education re Diagnosis, Manual Lymph Drainage, Education re Life-long lymphedema Management, Education re Skin Care and Precautions, Education re Self Massage Techniques, Education re Correct Donning Tech,Care AND Wearing Sched Comp Garments, Caregiver Training - Visit Plan Frequency: Monthly Duration: 2 Months TEXT: Thank you for the opportunity to evaluate your patient. For Medicare and Medicare HMO plans, please review the plan of care and approve it. It will need to be FAXED BACK to us at [phone] for Medicare purposes. Please let me know if there are questions or concerns regarding this plan of care. Physician Signature: Date: <Electronically signed by Romy SANCHEZ CHT> 08/04/17 0741 CC: Rayna Quintanilla MD MK Signed For Medicare only, by signing this I certify the plan of care. Physicians Signature Date COMPREHENSIVE METABOLIC Collected: 07/26/2017 Status: F Source: [place] DARCY 9:55 AM [facility] [place] REPOSITORY TYPE CODE TESTS RESULT OUT OF RANGE REFERENCE UNITS LAB L501.0100 74-106 mg/dL Normal GLU 79 Result Comment: Please note revised GLUCOSE reference range effective 2017. LAB L501.1000 7-18 mg/dL Normal BUN 14 LAB L501.1100 0.55-1.02 mg/dL Normal CREAT,SERUM 0.90 Result Comment: The validity of the calculated GFR AND GFRAA in patients over 70 years has not been determined. Clinical correlation is essential. LAB L501.1110 >60 mL/min Normal EST GFR 76 Result Comment: Non- GFR Calc LAB L501.1115 >60 mL/min Normal EST GFR - AA 92 Result Comment: GFR Calc LAB L501.1300 10-20 RATIO Normal BUN/CRE 15.6 LAB L501.1500 6.4-8.2 g/dL T Normal PROT 7.6 LAB L501.1800 3.2-5.0 g/dL Normal ALB 3.5 LAB L501.1950 2.2-4.2 g/dL Normal GLOB 4.1 LAB L501.2000 0.9-2.4 RATIO Normal A/G 0.9 LAB L501.2200 8.5-10.1 mg/dL CA Normal 8.8 LAB L501.4100 15-37 U/L Normal AST 15 LAB L501.4305 45-117 U/L High ALK P 126 LAB L501.4405 13-56 U/L Normal ALT 19 Result Comment: Please note revised ALT reference range effective 2017. LAB L501.4600 0.20-1.00 mg/dL Normal T BILI 0.60 LAB L501.5300 136-145 mmol/L Normal NA 140 LAB L501.5600 3.5-5.1 mmol/L Normal K 4.0 LAB L501.5900 98-107 mmol/L Normal CL 104 LAB L501.6100 21.0-32.0 mmol/L Normal CO2 29.0 LAB L501.6200 5-15 Normal GAP 7 Performed By: #### L500.4050, L501.9520 #### [facility] [address], [place], [id number] THYROID STIM HORMONE Collected: 07/26/2017 Status: F Source: [place] (TSH) 9:55 AM [facility] [place] REPOSITORY TYPE CODE TESTS RESULT OUT OF RANGE REFERENCE UNITS LAB L501.9520 0.358-3.74 uIU/mL Normal TSH 1.26 Performed By: #### L500.4050, L501.9520 #### [facility] [address], [place], [address] PROGRESS Observed: 07/13/2017 Status: COMPLETED Source: [place] 1:37 PM [facility] [place] REPOSITORY O ID: [id number] Author: Rosa Maria Jha Service: (none) Author Type: Physical Therapist Type: Progress Notes Filed: 07/13/2017 3:09 PM Note Text: Episode Visit Count: 2 Therapist That Will Oversee The Plan Of Care: Rosa Maria Jha Start of Care Date: 06/05/17 Onset Date: 01/26/18 REHABILITATION AND SPORTS THERAPY PHYSICAL THERAPY PROGRESS REPORT PLAN OF CARE UPDATE: Assessment: Sheree Bernard exhibits no change of sx since last seen. Reports poor compliance to exs. Worried about possible cardiac problems. Pain sx unchanged with exs today . She continues to be limited with functional activities d/t pain in abdominal lateral rib to back region. She is progressing slower than expected towards her therapy goals as demonstrated by: home exercise program compliance, documented subjective information on progress and appointment compliance. She will benefit from continued skilled therapy requiring progression of exs in order to improve core strength. Functional gains: None at this time Goals for Episode of Care: created on 06/05/17 through 07/03/17 Independent in home exercises/ partially achieved. Patient will decrease pain rating by 2 points to meet minimal clinical important difference for numeric pain rating scale/ not achieved yet. Stand / Walk without pain/symptoms/ not achieved. Sit 30 minutes without pain/symptoms to allow for improved functional stauts/not achieved Patient will be able to tolerate functional activities without increased symptoms./ not achieved Planned Interventions, Frequency, and Duration: 1x/week, 4 weeks Total Number of Visits Planned: 4 Patient to be seen for Therapeutic exercise PLAN FOR NEXT VISIT: May try quadriped exs, partial curl ups SUBJECTIVE: Pt had ultrasound of abdomen which was negative, seeing cardiology for swelling in legs and heart palpitations. No change of abdominal and flank pain. Pain Score: 3/10 Pain Location: Low Back/Lumbar Spine - Right Description: Aching Frequency: Continuous Post Treatment Pain Score: No Change Post Treatment Pain Description: Aching OBJECTIVE MEASURES WITH LEVEL OF FUNCTION: right anterior innominate improved with mm energy TREATMENT: Therapeutic Exercise: 1: seated isometric abdominals with scapular retraction orange rep band seated 2x10 2: hooklying isometric abdominals with alternate arm lifts 1x10 3: isometric right hip extension 8 sec hold with increased hip flexion x3 cues for improved form 4: hooklying bridges 1x10 5: prone leg lifts 1x10 6: hooklying isometric shld extension to thighs with orange rep band 2x10 7: seated purple rep band trunk flexion 2x10 Skilled Intervention: Patient was educated in proper exercise technique and purpose for exercises. Skilled judgment was provided in selection of appropriate interventions. Provided written instruction for home exercise program to facilitate proper performance and compliance. Correct performance of therapeutic exercises was facilitated with verbal and visual cuing. Educated patient on rationale for performing exercises in regards to ROM and function Billing: [facility]: Therapeutic Exercise (92184): 1:1 time: 40 minutes (3 units: 38-52 mins) Total time: 40 minutes Rosa Maria Jha PT CNTHERAPY Observed: 07/13/2017 Status: COMPLETED Source: [place] 11:00 AM [facility] REPOSITORY OT/PT/Speech Visit (PTWS) SHEREE BERNARD ([id number]) 1980 F Date Time Provider Department 07/13/17 11:00 AM ROSA MARIA JHA (PT) PTWS Date Time Provider Department Center 07/13/2017 11:00 AM [id number], LISA (PT) PTWS [facility] [place] Reason for Visit: PT Progress Note [8214] PT Discharge [752] Reason For Visit History Recorded Primary Visit Diagnosis:Chronic right-sided low back pain without sciatica [M54.5, G89.29] Allergies As of Date: 07/13/2017 (Not on File) Date Reviewed: Never Reviewed Progress Notes: Rosa Maria Jha (Pt) 07/13/2017 3:09 PM Signed Episode Visit Count: 2 Therapist That Will Oversee The Plan Of Care: Rosa Maria Jha Start of Care Date: 06/05/17 Onset Date: 01/26/18 REHABILITATION AND SPORTS THERAPY PHYSICAL THERAPY PROGRESS REPORT PLAN OF CARE UPDATE: Assessment: Sheree Marco Antonio exhibits no change of sx since last seen. Reports poor compliance to exs. Worried about possible cardiac problems. Pain sx unchanged with exs today . She continues to be limited with functional activities d/t pain in abdominal lateral rib to back region. She is progressing slower than expected towards her therapy goals as demonstrated by: home exercise program compliance, documented subjective information on progress and appointment compliance. She will benefit from continued skilled therapy requiring progression of exs in order to improve core strength. Functional gains: None at this time Goals for Episode of Care: created on 06/05/17 through 07/03/17 Independent in home exercises/ partially achieved. Patient will decrease pain rating by 2 points to meet minimal clinical important difference for numeric pain rating scale/ not achieved yet. Stand / Walk without pain/symptoms/ not achieved. Sit 30 minutes without pain/symptoms to allow for improved functional stauts/not achieved Patient will be able to tolerate functional activities without increased symptoms./ not achieved Planned Interventions, Frequency, and Duration: 1x/week, 4 weeks Total Number of Visits Planned: 4 Patient to be seen for Therapeutic exercise PLAN FOR NEXT VISIT: May try quadriped exs, partial curl ups SUBJECTIVE: Pt had ultrasound of abdomen which was negative, seeing cardiology for swelling in legs and heart palpitations. No change of abdominal and flank pain. Pain Score: 3/10 Pain Location: Low Back/Lumbar Spine - Right Description: Aching Frequency: Continuous Post Treatment Pain Score: No Change Post Treatment Pain Description: Aching OBJECTIVE MEASURES WITH LEVEL OF FUNCTION: right anterior innominate improved with mm energy TREATMENT: Therapeutic Exercise: 1: seated isometric abdominals with scapular retraction orange rep band seated 2x10 2: hooklying isometric abdominals with alternate arm lifts 1x10 3: isometric right hip extension 8 sec hold with increased hip flexion x3 cues for improved form 4: hooklying bridges 1x10 5: prone leg lifts 1x10 6: hooklying isometric shld extension to thighs with orange rep band 2x10 7: seated purple rep band trunk flexion 2x10 Skilled Intervention: Patient was educated in proper exercise technique and purpose for exercises. Skilled judgment was provided in selection of appropriate interventions. Provided written instruction for home exercise program to facilitate proper performance and compliance. Correct performance of therapeutic exercises was facilitated with verbal and visual cuing. Educated patient on rationale for performing exercises in regards to ROM and function Billing: [facility]: Therapeutic Exercise (99414): 1:1 time: 40 minutes (3 units: 38-52 mins) Total time: 40 minutes DEX Chilel Lisa (Pt) 08/31/2017 12:31 PM Signed [facility] REHABILITATION AND SPORTS THERAPY PHYSICAL THERAPY DISCONTINUANCE OF CARE Plan of Care Period: Start of Care Date: 06/05/17 Last Visit Date: 07/13/2017 Therapy Program: Patient did not return for follow up care as planned. Please refer to last visit note for interventions provided for this episode of care. Assessment: Unable to formally assess goal achievement due to non-compliance with therapy plan of care. Reason for Discontinuation of Care: Patient has not returned to therapy or scheduled additional follow-up appointments. Rosa Maria Jha PT LIPID Collected: 07/04/2017 Status: F Source: [employer] 11:41 AM [facility] REPOSITORY TYPE CODE TESTS RESULT OUT OF REFERENCE UNITS RANGE LAB CHOL(LOINC 131-200 mg/dL ) Cholesterol 187 Result Comment: Cholesterol Reference Interval: Less than 200 Desirable 200-239 Borderline high risk 240 and above High risk LAB TRIG(LOINC) 40-150 mg/dL Triglycerides 132 Result Comment: Triglyceride Reference Interval: Less than 150 Normal 150-199 Borderline high risk 200-499 High risk 500 or higher Very high risk LAB HD(LOINC) 35-90 mg/dL HDL Cholesterol 54 Result Comment: HDL Reference Interval: Less than 40 Low - high risk 60 or above Optimal/lowers risk LAB LDL(LOINC) 0-130 mg/dL LDL Cholesterol 107 Result Comment: LDL is a calculated result and requires a 12-hr fast. LDL Reference Interval: Less than 100 Optimal 100-129 Near or above optimal 130-159 Borderline high risk 160-189 High risk 190 and above Very high risk Performed By: #### LIPID #### [facility] [address] [place], [place] [address] GALLBLADDER Observed: 06/29/2017 Status: F Source: [place] 8:13 AM [facility] [place] REPOSITORY [facility] Imaging [place] [address] Gallbladder MR#: [id number] Acct: [id number] Name: SHEREE BERNARD Rep #: [id number] : 1980 F 37 From: Ben Duval MD PCP: Rayna Quintanilla MD Status: REG CLI Study: Gallbladder Date of Exam: 06/29/17 Exam# [id number] Ordering Dr: Solomon Lowry DO STUDY: ABDOMINAL ULTRASOUND - RIGHT UPPER QUADRANT REASON FOR VISIT: Female, 37 years old. Right upper quadrant pain. TECHNIQUE: Ultrasound evaluation of the right upper quadrant was performed with real-time and static maier-scale imaging. TECHNICAL QUALITY: Adequate. COMPARISON: None. FINDINGS: Liver: The liver measures 15.5 cm. There is normal echogenicity of the liver. The bile ducts are within normal limits. There is hepatic color flow. The direction of portal flow is hepatopetal. There is no demonstrated mass lesion. Gallbladder: Normal distended gallbladder. The gallbladder wall measures 2.6 mm. There is a negative sonographic Tamez's sign. There is no pericholecystic fluid. There are no gallstones. There is a 2.6 mm gallbladder polyp adherent to the gallbladder wall. Common Bile Duct (C.B.D.): The common bile duct measures 5.8 mm. Pancreas: Normal size of the head, body and tail of the pancreas. There is normal echogenicity of the pancreas. There is no demonstrated pancreatic mass or cyst. Right Kidney: Normal size of the right kidney. The right kidney measures 10.2 cm x 5.5 cm x 4.6 cm. Normal renal cortex. The right cortex measures 1.5 cm. There is no demonstrated renal mass or cyst. There is no right hydronephrosis. US/Gallbladder IMPRESSION: Small gallbladder polyp. Electronically Signed: Ben Duval MD at 14:32 EST Tel [phone], Service support , CC: Rayna Quintanilla MD; Solomon Lowry DO [employer]ing Machine Operator: Signed CBC W/DIFF, AUTOMATED Collected: 06/26/2017 Status: F Source: [place] 10:05 AM [facility] REPOSITORY TYPE CODE TESTS RESULT OUT OF RANGE REFERENCE UNITS LAB L100.1000 4.4-11.0 K/mm3 Normal WBC 6.9 LAB L100.1200 4.2-5.4 M/mm3 High RBC 5.56 LAB L100.1300 12.0-15.0 g/dl Normal HGB 14.7 LAB L100.1400 37-47 % Normal HCT 45.1 LAB L100.1500 81-99 fL Normal MCV 81.1 LAB L100.1600 27.0-32.0 pg Low MCH 26.4 LAB L100.1700 32-36 g/gl Normal MCHC 32.6 LAB L100.1810 11.6-14.6 % High RDW CV 14.9 LAB L100.1820 35.1-43.9 fl High RDW SD 45.1 LAB L100.1900 150-450 K/mm3 Normal PLT 195 LAB L100.2000 6.2-12.0 fl High MPV 12.2 LAB L100.2100 47-70 % Normal NEUT% 55.9 LAB L100.2200 19-41 % Normal LY% 30.0 LAB L100.2300 0-10 % Normal MONO% 6.7 LAB L100.2400 0-5 % High EO% 6.7 LAB L100.2500 0-1 % Normal BASO% 0.6 LAB L100.2550 0.0-0.9 % Normal IM GRAN % 0.100 Result Comment: IG% - Immature Granulocytes (promyelocytes, myelocytes and metamyelocytes) > 1% indicates that a LEFT SHIFT is Present. LAB L100.2620 2.0-7.7 X10 3/uL Normal Absolute Neut 3.9 LAB L100.2720 0.83-4.51 X10 3/ul Normal Absolute Lymph 2.07 Performed By: #### L100.0100 #### [facility] [address] [place], [place], [id number] COMPREHENSIVE METABOLIC Collected: 06/26/2017 Status: F Source: [facility] 10:05 AM [facility] REPOSITORY TYPE CODE TESTS RESULT OUT OF RANGE REFERENCE UNITS LAB L501.0100 74-106 mg/dL Normal GLU 81 Result Comment: Please note revised GLUCOSE reference range effective 2017. LAB L501.1000 7-18 mg/dL Normal BUN 14 LAB L501.1100 0.55-1.02 mg/dL Normal CREAT,SERUM 1.00 Result Comment: The validity of the calculated GFR AND GFRAA in patients over 70 years has not been determined. Clinical correlation is essential. LAB L501.1110 >60 mL/min Normal EST GFR 67 Result Comment: Non- GFR Calc LAB L501.1115 >60 mL/min Normal EST GFR - AA 81 Result Comment: GFR Calc LAB L501.1300 10-20 RATIO Normal BUN/CRE 14.0 LAB L501.1500 6.4-8.2 g/dL T Normal PROT 7.6 LAB L501.1800 3.2-5.0 g/dL Normal ALB 3.4 LAB L501.1950 2.2-4.2 g/dL Normal GLOB 4.2 LAB L501.2000 0.9-2.4 RATIO Low A/G 0.8 LAB L501.2200 8.5-10.1 mg/dL CA Normal 8.6 LAB L501.4100 15-37 U/L Normal AST 15 LAB L501.4305 45-117 U/L High ALK P 122 LAB L501.4405 13-56 U/L Normal ALT 18 Result Comment: Please note revised ALT reference range effective 2017. LAB L501.4600 0.20-1.00 mg/dL Normal T BILI 0.30 LAB L501.5300 136-145 mmol/L Normal NA 141 LAB L501.5600 3.5-5.1 mmol/L Normal K 4.2 LAB L501.5900 98-107 mmol/L High CL 109 LAB L501.6100 21.0-32.0 mmol/L Normal CO2 25.0 LAB L501.6200 5-15 Normal GAP 7 Performed By: #### L500.4050, L501.9520, L503.6550 #### [facility] [address] [place], [place], [address] THYROID STIM HORMONE Collected: 06/26/2017 Status: F Source: [place] (TSH) 10:05 AM [facility] REPOSITORY TYPE CODE TESTS RESULT OUT OF RANGE REFERENCE UNITS LAB L501.9520 0.358-3.74 uIU/mL Normal TSH 1.75 Performed By: #### L500.4050, L501.9520, L503.6550 #### [place] [facility] [address] [place], [address] FERRITIN Collected: 06/26/2017 Status: F Source: [place] 10:05 AM [facility] REPOSITORY TYPE CODE TESTS RESULT OUT OF RANGE REFERENCE UNITS LAB L503.6550 8-252 ng/mL Normal FERRITIN 38 Performed By: #### L500.4050, L501.9520, L503.6550 #### [place] [facility] [address] [place], [address] PROGRESS Observed: 06/05/2017 Status: COMPLETED Source: [place] 3:04 PM [facility] REPOSITORY HNO ID: [id number] Author: Rosa Maria (Pt) Gaurav Service: (none) Author Type: Physical Therapist Type: Progress Notes Filed: 06/05/2017 3:27 PM Note Text: Episode Visit Count: 1 Therapist That Will Oversee The Plan Of Care: Rosa Maria Jha Start of Care Date: 06/05/17 Onset Date: 01/26/18 Patient Identified by Name and Date of : Yes REHABILITATION AND SPORTS THERAPY PHYSICAL THERAPY EVALUATION PLAN OF CARE: Assessment: Sheree Bernard presents with the chief complaint of pain in right laterl rib/ flank and abominal reigon. Also history of right low back pain with sciatica to anterior right thigh. Pt with previous therapy for 2 weeks mainly stretching which failed with some increased pain. Now some relief with chiropractic treatments. Unable to reproduce pain with testing but feel that postural correction/ core strength and improvement of pelvic symmetry may improve sx. . She presents with impairments of pain and limited functional status d/t pain in right side. She may benefit from skilled therapy services to improve pain and functional status. Low Back Pain Subgroup Classification Low Back Pain Subgroup Classification: Core stabilization subgroup: recommended visits 10. Prognosis: Fair Fair due to: poor past response to therapy intervention Goals for Episode of Care: created on 06/05/17 through 07/03/17 Independent in home exercises. Patient will decrease pain rating by 2 points to meet minimal clinical important difference for numeric pain rating scale. Stand / Walk without pain/symptoms. Sit 30 minutes without pain/symptoms to allow for improved functional stauts Patient will be able to tolerate functional activities without increased symptoms. Planned Interventions, Frequency, and Duration: Current Frequency: 1x/week Duration: 4 weeks Total Number of Visits Planned: 4 Patient to be see for Planned Treatment Interventions: Therapeutic exercise;Patient/Family/Caregiver Education;Self-skilled nursing management PLAN FOR NEXT VISIT: Will advance core exs with flexion to neutral bias. check pelvic alignment Patient demonstrates good understanding of plan of care and treatment. The above goals and plan of care were discussed and agreed upon by patient/family. 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 Spine History Pain is Worse Sometimes: Sitting;Standing;Prolonged positions Sleeping Position: Side lying right > left Sleep Affected by Pain: Not affected by pain Pain Score: 3/10 Pain Location: ( right lateral rib region into flank/ abdominal / pelvis) Description: Aching Frequency: Continuous Post Treatment Pain Score: No Change Pain Location: (same) Post Treatment Pain Description: Aching OBJECTIVE MEASURES WITH LEVEL OF FUNCTION: Spine Palpation R Lumbar Spine Palpation Tenderness: ( distal lateral rib region) Lumbar Spine AROM Lumbar Flexion: Normal Lumbar Extension: ( not tested report of increased pain) Lumbar R Side-Bend: Normal Lumbar L Side-Bend: Normal Repeated Test Movements - Lumbar RFIS - Symptoms During: no effect Static Testing - Lumbar Sit Erect: no effect Repeated Test Movements - Thoracic Thoracic EXT in Sitting - Symptoms During: no effect Other Thoracic Repeated Test Movements: ( rotations are negative) Static Testing - Thoracic Sustained Thoracic Rotation/R Sitting: no effect Sustained Thoracic Rotation/L Sitting: no effect LE Strength R LE Strength: 5/5 L LE Strength: 5/5 Special Tests - Thoracic Thoracic Special Tests: Rib Compression tests Rib Compression Test: Right Positive Special Tests - Hip and Spine Hip and Spine Special Tests: ( supine long sit is long to short right for S-I) Education: Education Learning Preferences: Demonstration;Explanation;Performance;Printed Materials Barriers: None Learning/educational needs: Home exercise program;Plan of Care TREATMENT: Evaluation Therapeutic Exercise: 1: seated isometric abdominals with scapular retraction seated 2: hooklying isometric abdominals with alternate arm lifts 1x10 3: isometric right hip extension 8 sec hold with increased hip flexion x3 Skilled Intervention: Patient was educated in proper exercise technique and purpose for exercises. Skilled judgment was provided in selection of appropriate interventions. Provided written instruction for home exercise program to facilitate proper performance and compliance. Correct performance of therapeutic exercises was facilitated with verbal and visual cuing. Education regarding posture correction Patient education as noted. Assigned Home Exercise Program: 1: seated isometric abdominals with scapular retraction seated 2: hooklying isometric abdominals with alternate arm lifts 1x10 3: isometric right hip extension 8 sec hold with increased hip flexion x3 Self-Halfway Management: 1: use of towel roll for pillow sleeping/ cervical 2: improved sitting posture. Avoid left lateral lean Skilled Intervention: Skilled judgment in the selection of proper modification for activity of daily living/home management based on clinical presentation, deficits, and needs. Billing: [facility]: Evaluation - Low Complexity (59264) Therapeutic Exercise (88871): 1:1 time: 20 minutes (1 unit: 8-22 mins) Educ Home Mgmt (88384): 1:1 time: 15 minutes (1 unit: 8-22 mins) Total time: 55 minutes Rosa Maria Jha PT CNTHERAPY Observed: 06/05/2017 Status: COMPLETED Source: [place] 11:45 AM [facility] REPOSITORY OT/PT/Speech Visit (PTWS) SHEREE BERNARD ([id number]) 1980 F Date Time Provider Department 06/05/17 11:45 AM ROSA MARIA JHA (PT) PTWS Date Time Provider Department Center 06/05/2017 11:45 AM [id number]-IAIZXISAROSA MARIA JHAPT) PTWS [facility] [place] Reason for Visit: PT Eval [747] Patient Education [91] Visit Diagnosis:Chronic right-sided low back pain without sciatica [M54.5, G89.29] Allergies As of Date: 06/05/2017 (Not on File) Date Reviewed: Never Reviewed Progress Notes: Rosa Maria Jha, PT 06/05/2017 3:27 PM Signed Episode Visit Count: 1 Therapist That Will Oversee The Plan Of Care: Rosa Maria Jha Start of Care Date: 06/05/17 Onset Date: 01/26/18 Patient Identified by Name and Date of : Yes REHABILITATION AND SPORTS THERAPY PHYSICAL THERAPY EVALUATION PLAN OF CARE: Assessment: Sheree Bernard presents with the chief complaint of pain in right laterl rib/ flank and abominal reigon. Also history of right low back pain with sciatica to anterior right thigh. Pt with previous therapy for 2 weeks mainly stretching which failed with some increased pain. Now some relief with chiropractic treatments. Unable to reproduce pain with testing but feel that postural correction/ core strength and improvement of pelvic symmetry may improve sx. . She presents with impairments of pain and limited functional status d/t pain in right side. She may benefit from skilled therapy services to improve pain and functional status. Low Back Pain Subgroup Classification Low Back Pain Subgroup Classification: Core stabilization subgroup: recommended visits 10. Prognosis: Fair Fair due to: poor past response to therapy intervention Goals for Episode of Care: created on 06/05/17 through 07/03/17 Independent in home exercises. Patient will decrease pain rating by 2 points to meet minimal clinical important difference for numeric pain rating scale. Stand / Walk without pain/symptoms. Sit 30 minutes without pain/symptoms to allow for improved functional stauts Patient will be able to tolerate functional activities without increased symptoms. Planned Interventions, Frequency, and Duration: Current Frequency: 1x/week Duration: 4 weeks Total Number of Visits Planned: 4 Patient to be see for Planned Treatment Interventions: Therapeutic exercise;Patient/Family/Caregiver Education;Self-skilled nursing management PLAN FOR NEXT VISIT: Will advance core exs with flexion to neutral bias. check pelvic alignment Patient demonstrates good understanding of plan of care and treatment. The above goals and plan of care were discussed and agreed upon by patient/family. 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 Spine History Pain is Worse Sometimes: Sitting;Standing;Prolonged positions Sleeping Position: Side lying right > left Sleep Affected by Pain: Not affected by pain Pain Score: 3/10 Pain Location: ( right lateral rib region into flank/ abdominal / pelvis) Description: Aching Frequency: Continuous Post Treatment Pain Score: No Change Pain Location: (same) Post Treatment Pain Description: Aching OBJECTIVE MEASURES WITH LEVEL OF FUNCTION: Spine Palpation R Lumbar Spine Palpation Tenderness: ( distal lateral rib region) Lumbar Spine AROM Lumbar Flexion: Normal Lumbar Extension: ( not tested report of increased pain) Lumbar R Side-Bend: Normal Lumbar L Side-Bend: Normal Repeated Test Movements - Lumbar RFIS - Symptoms During: no effect Static Testing - Lumbar Sit Erect: no effect Repeated Test Movements - Thoracic Thoracic EXT in Sitting - Symptoms During: no effect Other Thoracic Repeated Test Movements: ( rotations are negative) Static Testing - Thoracic Sustained Thoracic Rotation/R Sitting: no effect Sustained Thoracic Rotation/L Sitting: no effect LE Strength R LE Strength: 5/5 L LE Strength: 5/5 Special Tests - Thoracic Thoracic Special Tests: Rib Compression tests Rib Compression Test: Right Positive Special Tests - Hip and Spine Hip and Spine Special Tests: ( supine long sit is long to short right for S-I) Education: Education Learning Preferences: Demonstration;Explanation;Performance;Printed Materials Barriers: None Learning/educational needs: Home exercise program;Plan of Care TREATMENT: Evaluation Therapeutic Exercise: 1: seated isometric abdominals with scapular retraction seated 2: hooklying isometric abdominals with alternate arm lifts 1x10 3: isometric right hip extension 8 sec hold with increased hip flexion x3 Skilled Intervention: Patient was educated in proper exercise technique and purpose for exercises. Skilled judgment was provided in selection of appropriate interventions. Provided written instruction for home exercise program to facilitate proper performance and compliance. Correct performance of therapeutic exercises was facilitated with verbal and visual cuing. Education regarding posture correction Patient education as noted. Assigned Home Exercise Program: 1: seated isometric abdominals with scapular retraction seated 2: hooklying isometric abdominals with alternate arm lifts 1x10 3: isometric right hip extension 8 sec hold with increased hip flexion x3 Self-Halfway Management: 1: use of towel roll for pillow sleeping/ cervical 2: improved sitting posture. Avoid left lateral lean Skilled Intervention: Skilled judgment in the selection of proper modification for activity of daily living/home management based on clinical presentation, deficits, and needs. Billing: [facility]: Evaluation - Low Complexity (90105) Therapeutic Exercise (06547): 1:1 time: 20 minutes (1 unit: 8-22 mins) Educ Home Mgmt (39736): 1:1 time: 15 minutes (1 unit: 8-22 mins) Total time: 55 minutes Rosa Maria Jha PT ALLERGIES ALLERGIES DATE TYPE / CODE NAME / CODE REACTION SEVERITY SOURCE Drug ranitidine Hives Unknown [place] [facility] Allergy/829431352( HCl/V457231314(RXN [facility]) ORM) Hospital Repository Drug Penicillins/O60340 Hives Unknown [place] [facility] Allergy/309028423( 0476(RXNORM) [facility]) Hospital Repository Drug ethinyl Other Unknown [place] [facility] Allergy/599750677( estradiol/T0378973 [facility]) 86(RXNORM) Hospital Repository Drug codeine/[id number] Rash Unknown [place] [facility] Allergy/319516402( (RXNORM) [facility]) Hospital Repository Drug amphetamine/Y20157 Chest Unknown [place] [facility] Allergy/684572427( 1790(RXNORM) tightness [facility]) Hospital Repository Drug benzoyl Swelling Unknown [place] [facility] Allergy/978516662( peroxide/C51486720 [facility]) 5(RXNORM) Hospital Repository Drug levothyroxine Other Unknown [place] [facility] Allergy/621511131( sodium/F719464783( [facility]) RXNORM) Hospital Repository Drug prednisone/N761102 Other Unknown [place] [facility] Allergy/314274749( 164(RXNORM) [facility]) Hospital Repository Drug norgestimate/F0060 Other Unknown [place] [facility] Allergy/673119040( 11374(RXNORM) [facility]) Hospital Repository Miscellaneous TIROSINT Chest Unknown [place] [facility] Allergy/105392572( tightness [facility]) Hospital Repository ENCOUNTERS ENCOUNTERS ADMIT/DISCHARGE ACCOUNT NUMBER ADMITTING ENCOUNTER LOCATION SOURCE CLASS 05/11/2018 [id number] Ambulatory BBuilding:[facility] Repository 05/10/2018/05/10/19 [id number] Ambulatory [address] Repository 05/01/2018 [id number] Ambulatory [facility] ding:MTLAB Repository 04/25/2018 [id number] Ambulatory Building:[facility] Repository 04/18/2018 [id number] Ambulatory Building:[facility] Repository 04/10/2018 [id number] Ambulatory [facility] ding:MTLAB Repository 04/04/2018 [id number] Ambulatory [facility] Repository 04/03/2018 [id number] Ambulatory [facility] ding:MTLAB Repository 03/29/2018/03/29/20 [id number] Ambulatory BBuilding:[address] Repository 03/22/2018/03/22/20 [id number] Ambulatory [address] Repository 03/20/2018 [id number] Ambulatory Building:[facility] Repository 03/20/2018 [id number] Ambulatory Building:[facility] Repository 01/13/2018 [id number] Ambulatory [facility] ding:LAB.FUT Repository URE 12/17/2017 [id number] Ambulatory [facility] ding:LAB.FUT Repository URE 12/05/2017 [id number] Ambulatory [facility] ding:MTLAB Repository 11/30/2017 [id number] Ambulatory [facility] ding:MTLAB Repository 10/28/2017/10/29/19 [id number] Ambulatory ABuilding:[address] Repository 08/22/2017 [id number] Ambulatory [facility] ding:MTLAB Repository 08/02/2017/08/03/19 [id number] Ambulatory [address] ding:OT Repository 07/26/2017 [id number] Ambulatory [facility] ding:LAB Repository 07/19/2017/07/20/19 [id number] Ambulatory BBuilding:[place] [address] Repository 07/13/2017/07/15/19 [id number] Ambulatory [address] Repository 07/04/2017/07/05/19 [id number] Ambulatory BBuilding:[address] Repository 06/29/2017 [id number] Ambulatory [facility] ding:USHP Repository 06/26/2017 [id number] Ambulatory [facility] ding:MFPLAB Repository 06/05/2017/06/08/19 [id number] Ambulatory [address] Repository PAYERS PAYERS ENCOUNTER GUARANTOR PAYER SUBSCRIBER SOURCE 05/11/2018 SHEREE Cinthia Lovelace [facility]: [facility] [id number] [facility] INSCOPolicy [id number] Repository [address] Number: [address] [place], [place] [id number] [place] [address]~BULSCS_APP Date:2018-05-09 04497Iif: (150) [email or web address] [id number] [phone] : Name:ROBERT CONTI 2310Mt ()Tel: ([phone]) (HA)Tel: (251) RADHA Pryor [address]HH: [phone] (wp) [phone] (wp) 05/01/2018 [facility]4[address] Insurance:[facility] [address] [place] Number: [id number] [address]Nvy: [id number] Repository Date:8977-68-39RK [address] () [address] [address]HG: 05/01/2018 Secondary NOT GIVENUNK [place] Insurance:SELF PAY [facility] Number: Effective Repository Date:2018-05-01 04/25/2018 SHEREE Primary [facility]: [place] [facility] [id number] [facility] Number: [place], [place] [id number] [place], [place] Repository [address]Mcw: (234) Date:6614-12-43Wzje [phone] Name:MANAGED CARE () () 04/18/2018 SHEREE Primary [facility] [place] [facility] [id number] [facility] Number: [place], [place] [id number] [place], [place] Repository [address]Rnc: (234) Date:2472-50-13Fuwn [phone] Name:MANAGED CARE () (WP) 04/10/2018 SHEREE E Primary SHEREE E [place] [id number] [address]ER Insurance:[facility] traci HILL Number: [id number] View Regional [facility] [address]Kph: [id number] Repository Date:9696-92-94LO BOX () [address]ST[address] [address]OZ: 04/10/2018 Secondary NOT GIVENUNK [place] Insurance:SELF PAY [facility] Number: Effective Repository Date:2018-04-10 04/04/2018 Sheree Primary Sheree Araiza [facility] ChoicePolicy Number: [id number] Repository [place] Effective Date: [place] [address]Eqj: () 04/03/2018 SHEREE E Primary SHEREE E [place] [id number] [address]ER Insurance:[facility]: [facility] SITKA tr[address] [place] Number: [id number] View Regional Medical [facility] [address]Yin: [id number] Repository Date:1686-92-76NT BOX () [address] PR[address] [address]VR: 04/03/2018 Secondary NOT GIVENUNK [place] Insurance:SELF PAY [facility] Number: Effective Repository Date:2018-04-03 03/29/2018 SHEREE E Primary SHEREE Vicente [facility]: [facility] INSCOPolicy [id number] Repository [address] Number: [address] [facility] [place] [id number] [place] [address]~BULSCS_APP Date:2018-03-29 99378Fmt: (244) [email or web address] [id number] [phone] : Name:ROBERT CONTI 2310Mt ()Tel: ([phone]) ()Tel: (462) RADHA Pryor [address]XP: [phone] (wp) [phone] (wp) 03/20/2018 SHEREE E Primary Insurance:[facility] SHEREE [facility] NORMANDOB: [facility]: [place] [facility] Hospital[facility] [id number] [facility] [address] Number: [facility] [place], [place] [id number] [place] Repository 16[address]Jpv: (234) Date:6525-69-75Xcec [id number] 66 Name:MANAGED CARE () () 03/20/2018 SHEREE E Primary Insurance:[facility] SHEREE [facility] NORMANDOB: PRIME CARE FRANKSDOB: [place] [id number] [facility] [id number] [facility] SITKA Number: [place], [place] [id number] [place], [place] Repository [address]Gxu: (234) Date:4911-46-16Qrti 31339 21 Name:MANAGED CARE () () 01/13/2018 SHEREE E Primary SHEREE E [place] [id number] DEER Insurance[facility]CORESOURCEP [facility] Number: [id number] View Regional Medical Center [address]Muo: [id number] Repository Date:6822-91-92WM [address] () [address] [place] [address]SK: 01/13/2018 Secondary NOT GIVENUNK [place] Insurance:SELF PAY [facility] Number: Effective Repository Date:2017-12-29 12/17/2017 SHEREE E Primary SHEREE E [place] [id number] DEER Insurance:CORESOURCEP [facility] Number: [id number] View Regional Medical Center [address]Vhq: [id number] Repository Date:8075-50-84QS [address] () [address] [place] [address]SL: 12/17/2017 Secondary NOT GIVENUNK [place] Insurance:SELF PAY [facility] Number: Effective Repository Date:2017-12-14 12/05/2017 SHEREE E Primary SHEREE E [place] [id number] DEER Insurance:CORESOURCEP [facility] Number: [id number] View Regional Medical Center [address]89[address]Qlq: [id number] Repository Date:8786-92-89ZW [address] ([address]) [address] [place], [place] [address]IX: 12/05/2017 Secondary NOT GIVENUNK [place] Insurance:SELF PAY [facility] Number: Effective Repository Date:2017-12-05 11/30/2017 SHEREE E Primary SHEREE E [place] [id number] DEER Insurance:CORESOURCEP FRANKSDOB: [facility] SITKA [facility] Number: [id number] View Regional Medical Center [address]Ksh: [id number] Repository Date:6195-05-62SL [address] () [address] [place] [address]AQ: 11/30/2017 Secondary NOT GIVENUNK [place] Insurance:SELF PAY [facility] Number: Effective Repository Date:2017-11-30 10/28/2017 SHEREE E Primary [facility]OURCE FRANKFLOB: [facility] [id number] [facility] Number: [id number] Repository [place] [id number] [address] [place] [address] Date:2017-10-28 - [place] [address]~BULSCS_APP [id number] 14058Ydp: (479) [email or web address] Name:[address] [phone] : Konstantin RADHA [address]QD: (HP)Tel: ([phone]) (HP)Tel: (WP) [phone] (WP) 08/22/2017 SHEREE E Primary SHEREE Penaloza [id number] Insurance:CORESOURCEP [facility] Number: [id number] Repository [address]Dnd: (685) Date:2878-52-81TS [phone] ([address]) [address] [place]YOR [address]WV: 08/22/2017 Secondary NOT GIVENUNK [place] Insurance:SELF PAY [facility] Number: Effective Repository Date:2017-08-22 08/02/2017 SHEREE E Primary SHEREE Cinthia [place] [id number] Insurance:CORESOURCEP [facility] Number: [id number], [place] [id number] Repository [address]Jyu: (234) Date:3878-97-72BB [phone] ([address]) [address] [place] [address]JL: 08/02/2017 Secondary NOT GIVENUNK [place] Insurance:SELF PAY [facility] Number: Effective Repository Date:2017-08-01 07/26/2017 SHEREE E Primary SHEREE Cinthia [place] [id number] Insurance:CORESOURCEP [facility] Number: [id number], [place] [id number] Repository [address]Kyp: (234) Date:4439-22-45DA [phone] () [address] [place] [address]OK: 07/26/2017 Secondary NOT GIVENUNK [place] Insurance:SELF PAY [facility] Number: Effective Repository Date:2017-07-26 07/19/2017 SHEREE E Primary [facility]EE [facility]: [facility] Number: [id number] Repository [facility] [id number] [place], [place] Date:2017-07-04 - [place] [address]~BULMAS_APP 8345-96-94Copd [address]40[address]Two: (311) [email or web address] Name:DOMENIC CONTI [address] [phone] : RAD[place] Pryor [address]QA: (HP)Tel: ([phone]) (HP)Tel: (WP) [phone] (WP) 07/04/2017 SHEREE E Primary SHEREE [facility]: [facility]: [facility] Number: [id number] Repository [facility] [id number] [place], [place] Date:2017-07-04 - [place] [address]~BULMAS_APP 5913-52-63Orko 25[address]Kac: ([phone]) [email or web address] Name:[address] [phone] : [place] Pryor [address]IX: (HP)Tel: (624) (HP)Tel: (WP) [phone] (WP) 06/29/2017 Sheree Primary Sheree [facility] Insurance:[facility]: [facility] Number: [id number], [place] [id number] Repository [address]Nnb: (234) Date:1451-03-93KA [phone] (HP) [address] [place]OR [address]RY: 06/29/2017 Secondary NOT GIVENUNK [place] Insurance:SELF PAY [facility] Number: Effective Repository Date:2017-06-27 06/26/2017 Sheree Primary Sheree [place] [id number] Insurance:[facility]: [facility] Number: [id number], [place] [id number] Repository [address]Zne: (234) Date:5198-75-99RP [phone] (HP) [address] [place] [address]HX: 06/26/2017 Secondary NOT GIVENUNK [place] Insurance:SELF PAY [facility] Number: Effective Repository Date:2017-06-26
== END ==
PROVIDERS: Family Provider Family Medicine; PCP Family Medicine
DX: R20.9 Unspecified disturbances of skin sensation (principal); Z01.89 Encounter for other specified special examinations
CPT/HCPCS: 36415; 80061; 85652; 86140

== ENCOUNTER → 2018-04-10 12:17 | Outpatient (CLI) | payer OTHER, SELFPAY ==
[2018-04-10 13:46] LABS: Erythrocyte Sedimentation Rate 21 mm/hr (0-20)
[2018-04-10 14:01] LABS: CRP 7.03 mg/L (0.0-3.0)
[2018-04-11 14:07] LABS: Anti-Centromere B Ab <0.2 AI (0.0-0.9); Anti-Chromatin <0.2 AI (0.0-0.9); Anti-Jo <0.2 AI (0.0-0.9); Anti-Scleroderma-70 AB <0.2 AI (0.0-0.9); RNP Ab <0.2 AI (0.0-0.9); SJOGREN'S Anti-SS-A test < 0.2 AI (0.0-0.9); SJOGREN'S Anti-SS-B test < 0.2 AI (0.0-0.9); Smith Ab <0.2 AI (0.0-0.9)
[2018-04-11 14:24] LABS: Anti-dsDNA Ab 1 IU/mL (0-9)
--- OUTSIDE RECORDS SUMMARY | 2018-07-12 22:06 | XMS RPT_ITS ---
:1980 Author Organization OHIP Support Name Relationship Address Phone MOISÉS BERNARD Unavailable Unavailable + MOISÉS BERNARD Unavailable Unavailable + MOISÉS BERNARD Unavailable [address] + [place] [address] BERTRAM BUNCH Unavailable [address] + [place] [address] [facility] Unavailable [address] + [place] [address] MOISÉS BERNARD Unavailable Unavailable + SHEREE BERNARD Unavailable Unavailable Unavailable MOISÉS BERNARD Unavailable Unavailable + SHEREE BERNARD Unavailable Unavailable Unavailable MOISÉS BERNARD Unavailable [address] + [place] [address] BERTRAM BUNCH Unavailable [address] + [place] [address] [facility] Unavailable [address] + [place] [address] Moisés Bernard Unavailable Unavailable + Johnson Matos Unavailable Unavailable + MOISÉS BERNARD Unavailable [address] + [place] [address] BERTRAM BUNCH Unavailable [address] + [place] [address] [facility] Unavailable [address] + [place] [address] MOISÉS BERNARD Unavailable Unavailable + [place] [address] MOISÉS BERNARD Unavailable Unavailable + [place] [address] MOISÉS BERNARD Unavailable Unavailable + MARCO ANTONIOSHEREE Unavailable Unavailable Unavailable MOISÉS BERNARD Unavailable Unavailable + MARCO ANTONIOSUNA Unavailable Unavailable Unavailable MOISÉS BERNARD Unavailable [address] + [place] [address] JULIO C, BERTRAM Unavailable [address] + [place] [address] [facility] Unavailable [address] + [place] [address] MOISÉS BERNARD Unavailable [address] + [place] [address] JULIO C, BERTRAM Unavailable [address] + [place] [address] [facility] Unavailable [address] + [place] [address] MOISÉS BERNARD Unavailable [address] + [place] [address] JULIO C, BERTRAM Unavailable [address] + [place] [address] [facility] Unavailable [address] + [place] [address] MOISÉS BERNARD Unavailable [address] + [place] [address] JULIO C, BERTRAM Unavailable [address] + [place] [address] [facility] Unavailable [address] + [place] [address] MOISÉS BERNARD Unavailable Unavailable + [place] [address] MOISÉS BERNARD Unavailable Unavailable + [place] [address] MOISÉS BERNARD Unavailable [address] + [place] [address] JULIO C, BERTRAM Unavailable [address] + [place] [address] [facility] Unavailable [address] + [place] [address] MOISÉS BERNARD Unavailable [address] + [place] [address] JULIO C, BERTRAM Unavailable [address] + [place] [address] [facility] Unavailable [address] + [place] [address] MOISÉS BERNARD Unavailable [address] + [place] [address] JLUIO C, BERTRAM Unavailable [address] + [place] [address] [facility] Unavailable [address] + [place] [address] MOISÉS BERNARD Unavailable Unavailable + [place] [address] MOISÉS BERNARD Unavailable Unavailable + [place] [address] MOISÉS BERNARD Unavailable Unavailable + [place] [address] MOISÉS BERNARD Unavailable Unavailable + [place] [address] MOISÉS BERNARD Unavailable [address] + [place] [address] JULIO C, BERTRAM Unavailable [address] + [place] [address] [facility] Unavailable [address] + [place] [address] MOISÉS BERNARD Unavailable [address] + [place] [address] JULIO C BERTRAM Unavailable [address] + [place] [address] [facility] Unavailable [address] + [place] [address] Care Team Providers Name Role Phone ALEXANDRU, CMV CHRISTLISAER Attending Unavailable QUINTANILLA, RAYNA A Referring Unavailable QUINTANILLA, RAYNA A Primary Care Unavailable QUINTANILLA, RAYNA A Primary Care Unavailable VINCENT, CMV CHRISTOPHER Attending Unavailable VINCENT, CMV CHRISTOPHER Referring Unavailable VINCENT, CMV CHRISTOPHER Attending Unavailable VINCENT, CMV CHRISTOPHER Referring Unavailable QUINTANILLA, RAYNA A Primary Care Unavailable VINCENT, CMV CHRISTOPHER Attending Unavailable QUINTANILLA, RAYNA A Referring Unavailable QUINTANILLA, RAYNA A Primary Care Unavailable Santiago Johnson Attending Unavailable Quintanilla, Rayna Referring Unavailable Quintanilla, Rayna Primary Care Unavailable CANDI MARROQUIN MD Attending Unavailable JIMMIE AMOR, RAYNA A Primary Care Unavailable CANDI MARROQUIN MD Attending Unavailable JIMMIE AMOR, RAYNA A Primary Care Unavailable KOBE MONTES MD Attending Unavailable JIMMIE AMOR, RAYNA A Primary Care Unavailable SANTIAGO JOHNSON MD Attending Unavailable JIMMIE AMOR, RAYNA A Primary Care Unavailable JIMMIE AMOR, RAYNA A Primary Care Unavailable JIMMIE AMOR, RAYNA A Attending Unavailable JIMMIE AMOR, RAYNA A Referring Unavailable NEERAJ ALLISON Attending Unavailable KEEGAN GENE Leif Attending Unavailable ROSA MARIA JHA (PT) Attending Unavailable QUINTANILLA, RAYNA OG Referring Unavailable ROSA MARIA JHA (PT) Attending Unavailable QUINTANILLA, RAYNA OG Referring Unavailable KENDY UMAÑA Attending Unavailable KENDY UMAÑA Referring Unavailable Quintanilla, Rayna Primary Care Unavailable Quintanilla, Rayna Attending Unavailable Quintanilla, Rayna Referring Unavailable Quintanilla, Rayna Primary Care Unavailable Solomon Lowry Attending Unavailable Sherock, Solomon Referring Unavailable Quintanilla, Rayna Primary Care Unavailable WIETECHA, PJ Attending Unavailable WIETECHA, PJ Referring Unavailable Quintanilla, Rayna Primary Care Unavailable Deloris, Denisse Attending Unavailable Deloris, Denisse Referring Unavailable Quintanilla, Rayna Primary Care Unavailable WIETECHA, PJ Attending Unavailable WIETECHA, PJ Referring Unavailable Quintanilla, Rayna Primary Care Unavailable WIETECHA, PJ Attending Unavailable Quintanilla, Rayna Primary Care Unavailable WIETECHA, PJ Referring Unavailable Quintanilla, Rayna Attending Unavailable Quintanilla, Rayna Referring Unavailable Quintanilla, Rayna Primary Care Unavailable SherockoRlfSolomon Consulting Unavailable Quintanilla, Rayna Attending Unavailable Quintanilla, Rayna Referring Unavailable Quintanilla, Rayna Primary Care Unavailable Quintanilla, Rayna Attending Unavailable Quintanilla, Rayna Primary Care Unavailable KENDY UMAÑA Attending Unavailable KENDY UMAÑA Referring Unavailable Quintanilla, Rayna Primary Care Unavailable Quintanilla, Rayna Consulting Unavailable KENDY UMAÑA Attending Unavailable Quintanilla, Rayna Primary Care Unavailable PROBLEMS PROBLEMS DATE TYPE CONDITION / CODE ATTENDING STATUS SOURCE 04/25/2018 Admitting Numbness / 75() VINCENT, CMV Active [facility] diagnosis [facility] Repository 04/18/2018 Admitting Unspecified VINCENT, CMV Active [facility] diagnosis disturbances of [facility] skin sensation / [facility] R20.9(ICD-10) Center Repository 04/04/2018 Admitting Female infertility, Santiago Johnson Active [facility] Diagnosis unspecified / System N97.9(ICD-10) Repository 04/03/2018 Unknown R20.9 - Unspecified KENDY UMAÑA Active [place] disturbances of Community skin sensation / Hospital R20.9(ICD-10) Repository 04/03/2018 Unknown Z01.89 - Encounter KENDY UMAÑA Active [place] for other specified Community special Hospital examinations / Repository Z01.89(ICD-10) 03/20/2018 Admitting Trigeminal VINCENT, 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 / [facility] [id number]() [facility] Repository 12/05/2017 Unknown E03.8 - Other WIPJ IVORY Active [place] specified Community hypothyroidism / Hospital E03.8(ICD-10) Repository 12/01/2017 Unknown R51 - Headache / Rayna Quintanilla Active [place] R51(ICD-10) Replaced By [facility] Repository 12/01/2017 Unknown N97.9 - Female Rayna Quintanilla Active [place] infertility, Community unspecified / Hospital N97.9(ICD-10) Repository 08/22/2017 Unknown L60.1 - Onycholysis DelorisDenisse villa Active [place] / L60.1(ICD-10) Replaced By [facility] Repository 12/19/2017 Unknown I89.0 - Lymphedema, Rayna Quintanilla Active [place] not elsewhere Community classified / Hospital I89.0(ICD-10) Repository PROCEDURES PROCEDURES No Procedure Records FoundRESULTS RESULTS PROGRESS Observed: 05/10/2018 Status: COMPLETED Source: [place] 3:05 PM [facility] REPOSITORY HNO ID: [id number] Author: Neeraj Allison Service: (none) Author Type: Psychologist Type: Progress Notes Filed: 05/10/2018 3:11 PM Note Text: [facility] Progress Note Shereeleif Bernard 05/10/2018 [id number] Provider: Neeraj Allison, PHD CPT Code: 47851 Psychotherapy 38-52 minutes Time: Approximately 50 minutes was spent in therapy. Parties Present: Patient Patient Presentation/Concerns: reviews so far directed by Dr Quintanilla her PCP at [facility]... 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 [place] II: deferred [place] III: see med record [place] IV: med dx [place] V: 52 Treatment Modality/Interventions: Cognitive Behavioral Reassurance/Supportive Problem solving TREATMENT ASSESSMENT/PROGRESS: . Progressing satisfactorily. TREATMENT PLAN/GOALS: Continue in therapy focusing on self- care, affect management and self-esteem. Next appointment: as scheduled Neeraj Allison, PHD ERYTHROCYTE SED RATE Collected: 05/01/2018 Status: F Source: [place] 9:13 AM [facility] REPOSITORY TYPE CODE TESTS RESULT OUT OF RANGE REFERENCE UNITS LAB L102.0000 0-20 mm/hr Normal SED RATE 7 Performed By: #### L101.9900, L100.0100, L509.1000, L501.3620, L501.9520 #### [facility] [place], [address] #### L3100.3450, L3100.7000, L3200.1600 #### [facility] (refer to report for specific site) refer to report for address and phone number CBC W/DIFF, AUTOMATED Collected: 05/01/2018 Status: F Source: [place] 9:13 AM [facility] REPOSITORY TYPE CODE TESTS RESULT [...] #### L101.9900, L100.0100, L509.1000, L501.3620, L501.9520 #### [facility] [address] [place], [address] #### L3100.3450, L3100.7000, L3200.1600 #### [facility] (refer to report for specific site) refer to report for address and phone number PTHIN Collected: 05/01/2018 Status: F Source: [place] 9:13 AM [facility] REPOSITORY TYPE CODE TESTS RESULT OUT OF RANGE REFERENCE UNITS LAB L509.1000 18.4-80.1 pg/mL Normal PTHIN 77.7 Performed By: #### L101.9900, L100.0100, L509.1000, L501.3620, L501.9520 #### [facility] [address] [place], [place], [id number] #### L3100.3450, L3100.7000, L3200.1600 #### [facility] (refer to report for specific site) refer to report for address and phone number CPK TOTAL, CREATINE Collected: 05/01/2018 Status: F Source: [place] 9:13 AM [facility] REPOSITORY TYPE CODE TESTS RESULT OUT OF RANGE REFERENCE UNITS LAB L501.3620 26-192 U/L Normal CPK TOTAL 52 Performed By: #### L101.9900, L100.0100, L509.1000, L501.3620, L501.9520 #### [facility] [address] [place] [address], [id number] #### L3100.3450, L3100.7000, L3200.1600 #### [facility] (refer to report for specific site) refer to report for address and phone number THYROID STIM HORMONE Collected: 05/01/2018 Status: F Source: [place] (TSH) 9:13 AM [facility] REPOSITORY TYPE CODE TESTS RESULT OUT OF RANGE REFERENCE UNITS LAB L501.9520 0.358-3.74 uIU/mL Normal TSH 1.39 Performed By: #### L101.9900, L100.0100, L509.1000, L501.3620, L501.9520 #### [facility] [address] [place] [address], [id number] #### L3100.3450, L3100.7000, L3200.1600 #### [facility] (refer to report for specific site) refer to report for address and phone number PROTEIN ELECTROPH, S Collected: 05/01/2018 Status: F Source: [place] 9:13 AM [facility] REPOSITORY TYPE CODE TESTS RESULT [...] scan will follow via computer, mail, or wash box operator delivery. LAB L3100.4340 . Normal NOTE: Comment Result Comment: The SPE pattern appears essentially unremarkable. Evidence of monoclonal protein is not apparent. Performed By: #### L101.9900, L100.0100, L509.1000, L501.3620, L501.9520 #### [facility] [address] [place] [address]. [place], [place], [address] #### L3100.3450, L3100.7000, L3200.1600 #### [facility] (refer to report for specific site) refer to report for address and phone number ALDOLASE Collected: 05/01/2018 Status: F Source: [place] 9:13 AM [facility] REPOSITORY TYPE CODE TESTS RESULT OUT OF REFERENCE UNITS RANGE LAB L3100.7000 3.3-10.3 U/L Low ALDOLASE 2030 3.2 Result Comment: Performed at: - [facility] [id number] Print Production Manager: Alexandru Haque PhD, Phone: [phone] Performed at: - [facility] [id number] Print Production Manager: Patricio Quiroz MD, Phone: [phone] Performed By: #### L101.9900, L100.0100, L509.1000, L501.3620, L501.9520 #### [facility] [address] [place], [address] #### L3100.3450, L3100.7000, L3200.1600 #### [facility] (refer to report for specific site) refer to report for address and phone number IMMUNOGLOBULIN E Collected: 05/01/2018 Status: F Source: [place] 9:13 AM [facility] REPOSITORY TYPE CODE TESTS RESULT OUT OF REFERENCE UNITS RANGE LAB L3200.1600 0-100 IU/mL High IMMUNO E 150 Performed By: #### L101.9900, L100.0100, L509.1000, L501.3620, L501.9520 #### [facility] [address] [place], [address] #### L3100.3450, L3100.7000, L3200.1600 #### [facility] (refer to report for specific site) refer to report for address and phone number CRP Collected: 05/01/2018 Status: F Source: [place] 9:13 AM [facility] REPOSITORY TYPE CODE TESTS RESULT OUT OF RANGE REFERENCE UNITS LAB L501.6710 0.0-3.0 mg/L High 13.90 C-REACTIVE PROT Result Comment: C-Reactive Protein (CRP) provides useful information for the diagnosis, therapy and monitoring of inflammatory processes and associated diseases. For the evaluation of Relative Risk for Cardiovascular Disease, a High Sensitivity CRP (HSCRP) should be ordered. Performed By: #### L501.6710 #### [facility] [address] [facility] [place], [address] MRI BRAIN WITH AND Observed: 04/19/2018 Status: F Source: [facility] WITHOUT CONTRAST 9:31 AM [facility] REPOSITORY EXAM: MRI BRAIN WITH AND [...] POC DEVICE Collected: 04/18/2018 Status: F Source: [facility] 5:25 PM [facility] REPOSITORY TYPE CODE TESTS RESULT OUT OF REFERENCE UNITS RANGE LAB CREPC 0.50-1.20 mg/dL Creatinine (poc 1.01 device) LAB GFRPC >60 mL/min/1.7 3 sq m est GFR, (poc device) >60 LAB PCSTYP *POC SAMPLE TYPE Venous ERYTHROCYTE SED RATE Collected: 04/10/2018 Status: F Source: [place] 12:23 PM [facility] REPOSITORY TYPE CODE TESTS RESULT OUT OF RANGE REFERENCE UNITS LAB L102.0000 0-20 mm/hr High SED RATE 21 Performed By: #### L101.9900 #### [facility] [place], [address] CRP Collected: 04/10/2018 Status: F Source: [place] 12:23 PM [facility] REPOSITORY TYPE CODE TESTS RESULT OUT OF RANGE REFERENCE UNITS LAB L501.6710 0.0-3.0 mg/L High 7.03 C-REACTIVE PROT Result Comment: C-Reactive Protein (CRP) provides useful information for the diagnosis, therapy and monitoring of inflammatory processes and associated diseases. For the evaluation of Relative Risk for Cardiovascular Disease, a High Sensitivity CRP (HSCRP) should be ordered. Performed By: #### L501.6710 #### [facility] [address] [place], [address] REAL COMPREHENSIVE PANEL Collected: 04/10/2018 Status: F Source: [place] 12:23 PM [facility] REPOSITORY TYPE CODE TESTS RESULT [...] ANTISCLER Normal <0.2 LAB L3410.1200 0.0-0.9 AI ROLLER PRINTER Ab Normal <0.2 LAB L3410.1300 0.0-0.9 AI [...] Sm (anti-Quintanilla) SLE 15 - 30% --------- ROLLER PRINTER Mixed Connective Tissue Disease 95% (U1 nRNP, SLE 30 - 50% anti-ribonucleoprotein) Polymyositis and/or Dermatomyositis 20% --------- Scl-70 (antiDNA Scleroderma (diffuse) 20 - 35% topoisomerase) Crest 13% --------- Queta-1 Polymyositis and/or Dermatomyositis 20 - 40% --------- Centromere B Scleroderma - Crest variant 80% Performed at: - [facility] [address] [id number] Print Production Manager: Alexandru Haque PhD, Phone: [phone] Performed By: #### L3100.5440 #### [facility] (refer to report for specific site) refer to report for address and phone number RF HYSTEROSALPINGOGRAPHY S/I Observed: Status: F Source: [facility] 04/04/2018 1:47 PM [facility] REPOSITORY Patient Name: SHEREE BERNARD Fluoroscopy Exam Date/Time 04/04/2018 13:37:02 EST Exam RF Hysterosalpingography S/I Ordering Physician SANTIAGO JOHNSON Accession Number [id number] [facility] Codes 56987 () Reason For Exam infertility Report Hysterosalpingogram: [...] 04/03/2018 Status: F Source: [place] 9:50 AM [facility] REPOSITORY Order Comment: ORDERED LIPID ORDERED CRP AND SED TYPE CODE TESTS RESULT OUT OF RANGE REFERENCE UNITS LAB L102.0000 0-20 mm/hr High SED RATE 26 Performed By: #### L101.9900 #### [facility] [address] [place], [place], [address] LIPID PROFILE Collected: 04/03/2018 Status: F Source: [place] 9:50 AM [facility] REPOSITORY Order Comment: ORDERED LIPID ORDERED CRP [...] 29 Performed By: #### L500.4100, L501.6710 #### [facility] [address] [place], [place], [address] CRP Collected: 04/03/2018 Status: F Source: [place] 9:50 AM [facility] REPOSITORY Order Comment: ORDERED LIPID ORDERED CRP [...] ordered. Performed By: #### L500.4100, L501.6710 #### [facility] [place], [address] CBC Collected: 03/29/2018 Status: F Source: [facility] 9:27 AM [facility] REPOSITORY TYPE CODE TESTS RESULT OUT OF [...] ADIFF, ANEU, ABOG, ANSG, REID, HPROG #### [facility] [address] [place], [place] [address] #### TESTO, PROG, VIDH, E2, LH, PROL, FSH, INSLN, RFP, TSH, FT4, HCGQ, GFR, HFP, RUBIS, DHEAS #### [address] [address] .AUTO DIFF Collected: 03/29/2018 Status: F Source: [facility] 9:27 AM [facility] REPOSITORY TYPE CODE TESTS RESULT OUT OF [...] ADIFF, ANEU, ABOG, ANSG, REID, HPROG #### [place] [address] #### TESTO, PROG, VIDH, E2, LH, PROL, FSH, INSLN, RFP, TSH, FT4, HCGQ, GFR, HFP, RUBIS, DHEAS #### [place] [address] .NEUABS Collected: 03/29/2018 Status: F Source: [facility] 9:27 AM [facility] REPOSITORY TYPE CODE TESTS RESULT OUT OF REFERENCE UNITS RANGE LAB ANEU(LOINC) 2.85-6.16 10 3/mcL Neutrophil, 5.80 Absolute Performed By: #### CBC, ADIFF, ANEU, ABOG, ANSG, REID, HPROG #### [place] [address] #### TESTO, PROG, VIDH, E2, LH, PROL, FSH, INSLN, RFP, TSH, FT4, HCGQ, GFR, HFP, RUBIS, DHEAS #### [place] [address] GEL ABO Collected: 03/29/2018 Status: F Source: [facility] 9:27 AM [facility] REPOSITORY TYPE CODE TESTS RESULT OUT OF RANGE REFERENCE UNITS LAB ABORH(LOINC ) Unknown ABO/Rh B POS Interp Performed By: #### CBC, ADIFF, ANEU, ABOG, ANSG, REID, HPROG #### [address] [address] #### TESTO, PROG, VIDH, E2, LH, PROL, FSH, INSLN, RFP, TSH, FT4, HCGQ, GFR, HFP, RUBIS, DHEAS #### [place] [address] GEL ABS Collected: 03/29/2018 Status: F Source: [facility] 9:27 AM [facility] REPOSITORY TYPE CODE TESTS RESULT OUT OF REFERENCE UNITS RANGE LAB ANSG(LOINC ) Antibody Negative ABSC Screen Gel Performed By: #### CBC, ADIFF, ANEU, ABOG, ANSG, REID, HPROG #### [place] [address] #### TESTO, PROG, VIDH, E2, LH, PROL, FSH, INSLN, RFP, TSH, FT4, HCGQ, GFR, HFP, RUBIS, DHEAS #### [place] [address] TESTO Collected: 03/29/2018 Status: F Source: [facility] 9:27 AM [facility] REPOSITORY TYPE CODE TESTS RESULT OUT OF REFERENCE UNITS RANGE LAB TESTO(LOIN 14.0-76.0 ng/dL C) Testosterone Lvl 45.3 Performed By: #### CBC, ADIFF, ANEU, ABOG, ANSG, REID, HPROG #### [place] [address] #### TESTO, PROG, VIDH, E2, LH, PROL, FSH, INSLN, RFP, TSH, FT4, HCGQ, GFR, HFP, RUBIS, DHEAS #### [place] [address] PROG Collected: 03/29/2018 Status: F Source: [facility] 9:27 AM [facility] REPOSITORY TYPE CODE TESTS RESULT OUT OF [...] ADIFF, ANEU, ABOG, ANSG, REID, HPROG #### [address] [address] #### TESTO, PROG, VIDH, E2, LH, PROL, FSH, INSLN, RFP, TSH, FT4, HCGQ, GFR, HFP, RUBIS, DHEAS #### [address] [address] VIDH Collected: 03/29/2018 Status: F Source: [facility] 9:27 AM [facility] REPOSITORY TYPE CODE TESTS RESULT OUT OF RANGE REFERENCE UNITS LAB VIDH(LOINC) ng/mL Vit. D 19 25-Hydroxy Result Comment: Interpretive Values Based on Total 25(OH)D: Severe Deficiency <20 ng/mL Mild to Moderate Deficiency 20-30 ng/mL Optimum Levels 30-100 ng/mL Toxicity Possible >100 ng/mL Performed By: #### CBC, ADIFF, ANEU, ABOG, ANSG, REID, HPROG #### [place] [address] #### TESTO, PROG, VIDH, E2, LH, PROL, FSH, INSLN, RFP, TSH, FT4, HCGQ, GFR, HFP, RUBIS, DHEAS #### [address] [address] E2 Collected: 03/29/2018 Status: F Source: [facility] 9:27 AM [facility] REPOSITORY TYPE CODE TESTS RESULT OUT OF REFERENCE UNITS RANGE LAB E2(LOINC) pg/mL Estradiol Level 30 Result Comment: Adult Female E2 Reference Ranges (04/29/11): Follicular phase 21 - 165 pg/mL Midcycle 50 - 367 pg/mL Luteal phase 40 - 259 pg/mL Post menopausal 11 - 58 pg/mL Performed By: #### CBC, ADIFF, ANEU, ABOG, ANSG, REID, HPROG #### [place] [id number] #### TESTO, PROG, VIDH, E2, LH, PROL, FSH, INSLN, RFP, TSH, FT4, HCGQ, GFR, HFP, RUBIS, DHEAS #### [address] [address] LH Collected: 03/29/2018 Status: F Source: [facility] 9:27 AM [facility] REPOSITORY TYPE CODE TESTS RESULT OUT OF RANGE REFERENCE UNITS LAB LH(LOINC) mIU/mL LH 2.8 Result Comment: Adult Female LH Reference Ranges (04/29/11): Follicular phase 1.7 - 15.0 mIU/mL Midcycle phase 21.9 - 56.6 mIU/mL Luteal phase 0.6 - 16.3 mIU/mL Post menopausal 14.2 - 52.3 mIU/mL Performed By: #### CBC, ADIFF, ANEU, ABOG, ANSG, REID, HPROG #### [address] [address] #### TESTO, PROG, VIDH, E2, LH, PROL, FSH, INSLN, RFP, TSH, FT4, HCGQ, GFR, HFP, RUBIS, DHEAS #### [address] [address] PROL Collected: 03/29/2018 Status: F Source: [facility] 9:27 AM [facility] REPOSITORY TYPE CODE TESTS RESULT OUT OF REFERENCE UNITS RANGE LAB PROL(LOINC 2.0-30.0 ng/mL ) Prolactin 15.6 Performed By: #### CBC, ADIFF, ANEU, ABOG, ANSG, REID, HPROG #### [address] [address] #### TESTO, PROG, VIDH, E2, LH, PROL, FSH, INSLN, RFP, TSH, FT4, HCGQ, GFR, HFP, RUBIS, DHEAS #### [place] [address] FSH Collected: 03/29/2018 Status: F Source: [facility] 9:27 AM [facility] REPOSITORY TYPE CODE TESTS RESULT OUT OF RANGE REFERENCE UNITS LAB FSH(LOINC) mIU/mL FSH 7.0 Result Comment: Adult Female FSH Reference Ranges (03/17/99): Follicular phase 2.5 - 10.2 mIU/mL Midcycle phase 3.4 - 33.4 mIU/mL Luteal phase 1.5 - 9.1 mIU/mL Post menopausal 23.0 -116.3 mIU/mL Adult Male: 1.4 - 18.1 mIU/mL Performed By: #### CBC, ADIFF, ANEU, ABOG, ANSG, REID, HPROG #### [address] [address] #### TESTO, PROG, VIDH, E2, LH, PROL, FSH, INSLN, RFP, TSH, FT4, HCGQ, GFR, HFP, RUBIS, DHEAS #### [place] [address] INSLN Collected: 03/29/2018 Status: F Source: [facility] 9:27 AM [facility] EMERGENCY DEPARTMENT REPOSITORY TYPE CODE TESTS RESULT OUT OF REFERENCE UNITS RANGE LAB INSLN(LOINC 2.60-37.60 mcIU/mL ) Insulin 13.10 Performed By: #### CBC, ADIFF, ANEU, ABOG, ANSG, REID, HPROG #### [place] [address] #### TESTO, PROG, VIDH, E2, LH, PROL, FSH, INSLN, RFP, TSH, FT4, HCGQ, GFR, HFP, RUBIS, DHEAS #### [place] [address] RFP Collected: 03/29/2018 Status: F Source: [facility] 9:27 AM [facility] EMERGENCY DEPARTMENT REPOSITORY TYPE CODE TESTS RESULT OUT OF [...] ADIFF, ANEU, ABOG, ANSG, REID, HPROG #### [place] [address] #### TESTO, PROG, VIDH, E2, LH, PROL, FSH, INSLN, RFP, TSH, FT4, HCGQ, GFR, HFP, RUBIS, DHEAS #### [place] [address] TSH Collected: 03/29/2018 Status: F Source: [facility] 9:27 AM [facility] EMERGENCY DEPARTMENT REPOSITORY TYPE CODE TESTS RESULT OUT OF RANGE REFERENCE UNITS LAB TSH(LOINC) 0.36-3.74 mcIU/mL TSH 1.58 Performed By: #### CBC, ADIFF, ANEU, ABOG, ANSG, REID, HPROG #### [place] [address] #### TESTO, PROG, VIDH, E2, LH, PROL, FSH, INSLN, RFP, TSH, FT4, HCGQ, GFR, HFP, RUBIS, DHEAS #### [place] [address] FT4 Collected: 03/29/2018 Status: F Source: [facility] 9:27 AM [facility] EMERGENCY DEPARTMENT REPOSITORY TYPE CODE TESTS RESULT OUT OF RANGE REFERENCE UNITS LAB FT4(LOINC) 0.76-1.46 ng/dL Free T4 1.05 Performed By: #### CBC, ADIFF, ANEU, ABOG, ANSG, REID, HPROG #### [place] [address] #### TESTO, PROG, VIDH, E2, LH, PROL, FSH, INSLN, RFP, TSH, FT4, HCGQ, GFR, HFP, RUBIS, DHEAS #### [place] [address] HCGQ Collected: 03/29/2018 Status: F Source: [facility] 9:27 AM [facility] EMERGENCY DEPARTMENT REPOSITORY TYPE CODE TESTS RESULT OUT OF [...] ADIFF, ANEU, ABOG, ANSG, REID, HPROG #### [address] [address] #### TESTO, PROG, VIDH, E2, LH, PROL, FSH, INSLN, RFP, TSH, FT4, HCGQ, GFR, HFP, RUBIS, DHEAS #### [address] [address] .GFR Collected: 03/29/2018 Status: F Source: [facility] 9:27 AM [facility] EMERGENCY DEPARTMENT REPOSITORY TYPE CODE TESTS RESULT OUT OF REFERENCE UNITS RANGE LAB GFRAA(LOINC ml/min/1.73 ) sqm GFR 90 Wallisian Result Comment: GFR Population mean for , [...] ADIFF, ANEU, ABOG, ANSG, REID, HPROG #### [address] [address] #### TESTO, PROG, VIDH, E2, LH, PROL, FSH, INSLN, RFP, TSH, FT4, HCGQ, GFR, HFP, RUBIS, DHEAS #### [address] [address] HFP Collected: 03/29/2018 Status: F Source: [facility] 9:27 AM [facility] REPOSITORY TYPE CODE TESTS [...] ADIFF, ANEU, ABOG, ANSG, REID, HPROG #### [address] [address] #### TESTO, PROG, VIDH, E2, LH, PROL, FSH, INSLN, RFP, TSH, FT4, HCGQ, GFR, HFP, RUBIS, DHEAS #### [address] [address] RUBIS Collected: 03/29/2018 Status: F Source: [facility] 9:27 AM [facility] EMERGENCY DEPARTMENT REPOSITORY TYPE CODE TESTS RESULT OUT OF [...] ADIFF, ANEU, ABOG, ANSG, REID, HPROG #### [address] [address] #### TESTO, PROG, VIDH, E2, LH, PROL, FSH, INSLN, RFP, TSH, FT4, HCGQ, GFR, HFP, RUBIS, DHEAS #### [address] [address] REID Collected: 03/29/2018 Status: F Source: [facility] 9:27 AM [facility] EMERGENCY DEPARTMENT REPOSITORY TYPE CODE TESTS RESULT OUT OF REFERENCE UNITS RANGE LAB AMH(LOINC) 0.15-7.49 ng/mL Anti Mullerian 0.95 Hormone Result Comment: Performed By: [facility] [address] [place] [address] Print Production Manager: Mayelin Simon M.D. CLIA#: [id number] Phone#: Performed By: #### CBC, ADIFF, ANEU, ABOG, ANSG, REID, HPROG #### [address] [address] #### TESTO, PROG, VIDH, E2, LH, PROL, FSH, INSLN, RFP, TSH, FT4, HCGQ, GFR, HFP, RUBIS, DHEAS #### [address] [address] 17OHP Collected: 03/29/2018 Status: F Source: [facility] 9:27 AM [facility] EMERGENCY DEPARTMENT REPOSITORY TYPE CODE TESTS RESULT OUT OF RANGE REFERENCE UNITS LAB HYPROG(LOIN C) 13.87 17-Hydroxypr ogesterone Result Comment: Reference range: <=206.00 Unit: ng/dL (NOTE) INTERPRETIVE INFORMATION for 17-Hydroxyprogesterone in females: Follicular 15 to 70 ng/dL Luteal 35 to 290 ng/dL REFERENCE INTERVAL: 17-Hydroxyprogesterone Qnt, HPLC-MS/MS Access complete set of age- and/or gender-specific reference intervals for this test in the [facility] Test Directory ([facility]). Test developed and characteristics determined by [facility]. See Compliance Statement B: [facility]/CS Performed by [facility], [address] [place] [id number] [email or web address], Gonzalez Quintero MD, Lab. Director Performed By: #### CBC, ADIFF, ANEU, ABOG, ANSG, REID, HPROG #### [address] [address] #### TESTO, PROG, VIDH, E2, LH, PROL, FSH, INSLN, RFP, TSH, FT4, HCGQ, GFR, HFP, RUBIS, DHEAS #### [address] [address] DHEAS Collected: 03/29/2018 Status: F Source: [facility] 9:27 AM [facility] EMERGENCY DEPARTMENT REPOSITORY TYPE CODE TESTS RESULT OUT OF RANGE REFERENCE UNITS LAB DHEAS(LOINC 35-430 mcg/dL ) DHEA-SO4 214 Performed By: #### CBC, ADIFF, ANEU, ABOG, ANSG, REID, HPROG #### [address] [place], [place] [address] #### TESTO, PROG, VIDH, E2, LH, PROL, FSH, INSLN, RFP, TSH, FT4, HCGQ, GFR, HFP, RUBIS, DHEAS #### [facility] [address] [place] [address] PROGRESS Observed: 03/22/2018 Status: COMPLETED Source: [place] 6:33 PM [facility] REPOSITORY HNO ID: [id number] Author: Neeraj Allison Service: (none) Author Type: Psychologist Type: Progress Notes Filed: 03/22/2018 6:49 PM Note Text: [facility] Progress Note Sheree Bernard 03/22/2018 [id number] Provider: Neeraj Allison, PHD CPT Code: 31510 Psychiatric diagnostic evaluation Time: Approximately 50 minutes [...] of complications of gastric bipass job at [employer] and loved it mom sick so returned ... still alive from cancer they said would kill her Dated long distance and secretly fellow she after 7 yrs discovered he had been cheating and gender identity issues Now to good partner ... both work at [employer]... 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 Progressing satisfactorily. TREATMENT PLAN/GOALS: Continue in therapy focusing on self- care, stress management, affect management, anxiety management and self-esteem. Next appointment: as scheduled Neeraj Allison, PHD C REACTIVE PROTEIN Collected: 03/20/2018 Status: F Source: [facility] 11:32 AM [facility] REPOSITORY TYPE CODE TESTS RESULT OUT OF REFERENCE UNITS RANGE LAB CRP <10.00 mg/L C Reactive 6.60 Protein Performed By: #### CRP, ESR, B12B, FOLSB, ANASR, SPEB, LYME #### [facility] [address] [place] [address] [address] ESR WESTERGREN Collected: 03/20/2018 Status: F Source: [facility] 11:32 AM [facility] REPOSITORY TYPE CODE TESTS RESULT OUT OF REFERENCE UNITS RANGE LAB ESR <20 mm/hr ESR Westergren 13 Performed By: #### CRP, ESR, B12B, FOLSB, ANASR, SPEB, LYME #### [facility] [address] [place] [address] [facility] [address] [place] [address] VITAMIN B12 Collected: 03/20/2018 Status: F Source: [facility] 11:32 AM [facility] REPOSITORY TYPE CODE TESTS RESULT OUT OF RANGE REFERENCE UNITS LAB B12 211-911 pg/mL 490 *Vitamin*B12 Performed By: #### CRP, ESR, B12B, FOLSB, ANASR, SPEB, LYME #### [facility] [address] [place] [address] [facility] [address] [place] [address] FOLATE, SERUM Collected: 03/20/2018 Status: F Source: [facility] 11:32 AM [facility] REPOSITORY TYPE CODE TESTS RESULT OUT OF RANGE REFERENCE UNITS LAB FOLS >5.38 ng/mL >24.0 *Folate*Seru m Performed By: #### CRP, ESR, B12B, FOLSB, ANASR, SPEB, LYME #### [facility] [address] [place] [address] [place] [address] REAL SCREEN W REFLEX Collected: 03/20/2018 Status: F Source: [facility] ABS, MULTIPLEX 11:32 AM [facility] REPOSITORY TYPE CODE TESTS RESULT OUT OF REFERENCE UNITS RANGE LAB ANARES Negative Negative REAL Screen, Multiplex LAB ANACOM This multiplexed COMMENT REAL screening detects the following autoantibodies (dsDNA, Sm, Sm/ROLLER PRINTER, ROLLER PRINTER, SS-A/Ro, SS-B/La, Queta-1, Scl-70, Chromatin, Centromere B, and Ribosomal P). Result Comment: If the original order contained any of the individual antibodies ordered separately those would have been canceled as duplicate order. Performed By: #### CRP, ESR, B12B, FOLSB, ANASR, SPEB, LYME #### [facility] [address] [place] [address] [address] [place] [address] PROTEIN ELECTROPHORESIS Collected: 03/20/2018 Status: F Source: [facility] WITH REFLEX 11:32 AM [facility] REPOSITORY TYPE CODE TESTS RESULT OUT [...] B12B, FOLSB, ANASR, SPEB, LYME #### [facility] [address] [place] [address] [facility] [address] [place] [address] LYME ANTIBODY Collected: 03/20/2018 Status: F Source: [facility] 11:32 AM [facility] REPOSITORY TYPE CODE TESTS RESULT OUT OF REFERENCE UNITS RANGE LAB LYME Negative Lyme Antibody Negative Performed By: #### CRP, ESR, B12B, FOLSB, ANASR, SPEB, LYME #### [facility] [address] [place] [address] [facility] [address] [place], [place] [address] CORTISOL SERUM Collected: 01/13/2018 Status: F Source: [place] 8:00 AM [facility] REPOSITORY TYPE CODE TESTS RESULT OUT OF REFERENCE UNITS RANGE LAB L509.6000 3.09-22.40 ug/dL Low CORTISOL 0.70 Result Comment: Adult (AM) 4.30 - 22.40 ug/dL Adult (PM) 3.09 - 16.66 ug/dL Performed By: #### L509.6000 #### [facility] [address] [place], [address] OT D/C OF NON Observed: 12/19/2017 Status: F Source: [facility] PT 9:22 AM [facility] REPOSITORY [facility] Occupational Therapy [facility] [address] [facility] [address] [place], [place] [address] Fax REHABILITATION SERVICES DISCHARGE SUMMARY MR#: [id number] Acct: [id number] Name: SHEREE BERNARD Rep #: [id number] : 1980 37 From: Romy Rodriguez OTR/L, [...] Status: F Source: [place] FREE 9:15 AM [facility] REPOSITORY TYPE CODE TESTS RESULT OUT OF RANGE REFERENCE UNITS LAB L3600.5500 Undefined ug/L Normal 49 CORTISOL,U FREE LAB L3600.5600 0-50 ug/24 hr High 55 CORTISOL,FR U24 Result Comment: This test was developed and its performance characteristics determined by [employer]. It has not been cleared or approved by the Food and Drug Administration. Performed at: [address] [id number] Print Production Manager: Prakash Cho MD, Phone: [phone] Performed By: #### L3600.5400 #### [facility] (refer to report for specific site) refer to report for address and phone number THYROID STIM HORMONE Collected: 12/05/2017 Status: F Source: [place] (TSH) 4:54 PM [facility] REPOSITORY TYPE CODE TESTS RESULT OUT OF RANGE REFERENCE UNITS LAB L501.9520 0.358-3.74 uIU/mL Normal TSH 1.17 Performed By: #### L501.9520, L506.0400 #### [facility] [address] [place], [address] T4 FREE DIRECT Collected: 12/05/2017 Status: F Source: [place] 4:54 PM [facility] REPOSITORY TYPE CODE TESTS RESULT OUT OF RANGE REFERENCE UNITS LAB L506.0400 0.76-1.46 ng/dL Normal T4 FREE 0.91 DIRECT Performed By: #### L501.9520, L506.0400 #### [facility] [address] [place], [address] ERYTHROCYTE SED RATE Collected: 11/30/2017 Status: F Source: [place] 9:49 AM [facility] REPOSITORY Order Comment: DR LOWRY ORDERED PROGESTERONE DR JIMMIE GALE CBCD/CRP.ESR/IG TYPE CODE TESTS RESULT OUT OF RANGE REFERENCE UNITS LAB L102.0000 0-20 mm/hr Normal SED RATE 15 Performed By: #### L101.9900, L100.0100 #### [facility] [address] [place], [address] CBC W/DIFF, AUTOMATED Collected: 11/30/2017 Status: F Source: [place] 9:49 AM [facility] REPOSITORY Order Comment: DR LOWRY ORDERED PROGESTERONE DR JIMMIE GALE CBCD/CRP.ESR/IG TYPE CODE TESTS RESULT OUT [...] 2.06 Performed By: #### L101.9900, L100.0100 #### [facility] [address] [place], [address] CRP Collected: 11/30/2017 Status: F Source: [place] 9:49 AM [facility] REPOSITORY Order Comment: DR LOWRY ORDERED PROGESTERONE DR JIMMIE GALE CBCD/CRP.ESR/IG TYPE CODE TESTS RESULT OUT OF RANGE REFERENCE UNITS LAB L501.6710 0.0-3.0 mg/L High 9.84 C-REACTIVE PROT Result Comment: C-Reactive Protein (CRP) provides useful information for the diagnosis, therapy and monitoring of inflammatory processes and associated diseases. For the evaluation of Relative Risk for Cardiovascular Disease, a High Sensitivity CRP (HSCRP) should be ordered. Performed By: #### L501.6710 #### [facility] [address] [facility] [place], [place], [address] PROGESTERONE LEVEL Collected: 11/30/2017 Status: F Source: [place] 9:49 [facility] REPOSITORY Order Comment: DR LOWRY ORDERED PROGESTERONE DR JIMMIE GALE CBCD/CRP.ESR/IG TYPE CODE TESTS RESULT OUT [...] -422.50 ng/mL Performed By: #### L509.4001 #### [facility] [address] [place], [address] IMMUNOGLOBULINS G/A/M/E Collected: 11/30/2017 Status: F Source: [place] 9:49 AM [facility] REPOSITORY Order Comment: DR LOWRY ORDERED PROGESTERONE DR QUINTANILLA ORDRED CBCD/CRP.ESR/IG Is Patient Fasting? N TYPE CODE TESTS RESULT OUT OF RANGE REFERENCE UNITS LAB L3200.9738 292-7800 mg/dL Normal IMMUNO G 1222 LAB L3200.1400 87-352 mg/dL Normal IMMUNO A 190 LAB L3200.1500 26-217 mg/dL Normal IMMUNOGL M 94 LAB L3200.1600 0-100 IU/mL High IMMUNO E 171 Result Comment: Performed at: - [facility] [id number] Print Production Manager: Alexandru Haque PhD, Phone: [phone] Performed at: - [facility] [address] [id number] Print Production Manager: Prakash Cho MD, Phone: [phone] Performed By: #### L3200.1100 #### [facility] (refer to report for specific site) refer to report for address and phone number PROGRESS Observed: 08/31/2017 Status: COMPLETED Source: [place] 12:30 PM [facility]IN [facility] REPOSITORY HNO ID: [id number] Author: Rosa Maria Jha (Pt) Service: (none) Author Type: Physical Therapist Type: Progress Notes Filed: 08/31/2017 12:31 PM Note Text: [facility] PHYSICAL THERAPY DISCONTINUANCE [...] Status: F Source: [place] DIRECT 9:09 AM [facility] REPOSITORY TYPE CODE TESTS RESULT OUT OF RANGE REFERENCE UNITS LAB L3100.5475 Negative Normal Negative REAL-DIRECT Result Comment: Performed at: - [facility] [address] [id number] Print Production Manager: Alexandru Haque PhD, Phone: [phone] Performed By: #### L3100.5475, L3100.5500, L3410.1110 #### [facility] (refer to report for specific site) refer to report for address and phone number ANTI-DSDNA AB Collected: 08/22/2017 Status: F Source: [place] 9:09 AM [facility] REPOSITORY TYPE CODE TESTS RESULT OUT OF RANGE REFERENCE UNITS LAB L3100.5500 0-9 IU/mL Normal dsDNA AB 1 Result Comment: Negative <5 Equivocal 5 - 9 Positive >9 Performed By: #### L3100.5475, L3100.5500, L3410.1110 #### [facility] (refer to report for specific site) refer to report for address and phone number ANTIEXTRACTABLE NUG AG Collected: 08/22/2017 Status: F Source: [place] 9:09 AM [facility] REPOSITORY TYPE CODE TESTS RESULT OUT OF RANGE REFERENCE UNITS LAB L3410.1200 0.0-0.9 AI Normal ROLLER PRINTER Ab <0.2 LAB L3410.1300 0.0-0.9 AI Normal QUINTANILLA Ab <0.2 Performed By: #### L3100.5475, L3100.5500, L3410.1110 #### [facility] (refer to report for specific site) refer to report for address and phone number OT GENERAL EVALUATION Observed: 08/04/2017 Status: F Source: [place] 7:41 AM [facility] REPOSITORY [facility] Occupational Therapy [address] [place], [place] [address] Fax REHABILITATION SERVICES INITIAL EVALUATION MR#: [id number] Acct: [id number] Name: SHEREE BERNARD Rep #: [id number] : 1980 37 From: Romy Rodriguez OTR/L, CHT Referring Dr.: Rayna Quintanilla MD Status: REG RCR Insurance: [facility] Eval Date: SELF PAY INSURANCE Patient's Visit [...] returns. 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 pt [...] to be FAXED BACK to us at [phone] for Medicare purposes. Please let me know if there are questions or concerns regarding this plan of care. Physician Signature: Date: <Electronically signed by Romy SANCHEZ CHT> 08/04/17 0741 CC: Rayna Quintanilla MD MK Signed For Medicare only, by signing this I certify the plan of care. Physicians Signature Date COMPREHENSIVE METABOLIC Collected: 07/26/2017 Status: F Source: [place] 9:55 AM [facility] REPOSITORY TYPE CODE TESTS RESULT [...] 7 Performed By: #### L500.4050, L501.9520 #### [facility] [address] [place], [place], [address] THYROID STIM HORMONE Collected: 07/26/2017 Status: F Source: [place] (TSH) 9:55 AM [facility] REPOSITORY TYPE CODE TESTS RESULT OUT OF RANGE REFERENCE UNITS LAB L501.9520 0.358-3.74 uIU/mL Normal TSH 1.26 Performed By: #### L500.4050, L501.9520 #### [facility] [address] [place], [place], [address] PROGRESS Observed: 07/13/2017 Status: COMPLETED Source: [place] 1:37 PM [facility] REPOSITORY O ID: [id number] Author: Rosa Maria Jha Service: (none) Author [...] in regards to ROM and function Billing: [facility]: Therapeutic Exercise (25294): 1:1 time: 40 minutes (3 units: 38-52 mins) Total time: 40 minutes Rosa Maria Jha PT CNTHERAPY Observed: 07/13/2017 Status: COMPLETED Source: [place] 11:00 AM [facility] REPOSITORY OT/PT/Speech Visit (PTWS) SHEREE BERNARD ([id number]) 1980 F Date Time Provider Department 07/13/17 11:00 AM ROSA MARIA JHA (PT) PTWS Date Time Provider Department Center 07/13/2017 11:00 AM [id number], LISA (PT) PTWS [facility] [place] Reason for Visit: PT Progress Note [0385] PT Discharge [752] Reason For Visit History [...] in regards to ROM and function Billing: [facility]: Therapeutic Exercise (16078): 1:1 time: 40 minutes (3 units: 38-52 mins) Total time: 40 minutes DEX Chilel Lisa (Pt) 08/31/2017 12:31 PM Signed [facility] PHYSICAL THERAPY DISCONTINUANCE [...] PT LIPID Collected: 07/04/2017 Status: F Source: [id number] 11:41 AM [facility] EMERGENCY DEPARTMENT REPOSITORY TYPE CODE TESTS RESULT OUT OF [...] high risk Performed By: #### LIPID #### [facility] [address] [place], [place] [address] GALLBLADDER Observed: 06/29/2017 Status: F Source: [place] 8:13 AM [facility] REPOSITORY [facility] Imaging [place] [address] Gallbladder MR#: [id number] Acct: [id number] Name: SHEREE BERNARD Rep #: [id number] : 1980 F 37 From: Ben Duval MD PCP: Rayna Quintanilla MD Status: REG CLI Study: Gallbladder Date of Exam: 06/29/17 Exam# [id number] Ordering Dr: Solomon Lowry DO STUDY: ABDOMINAL [...] Ben Duval MD at 14:32 EST Tel [phone], Service support , CC: Rayna Quintanilla MD; Solomon Lowry DO Fulfillment Mail Clerk: Signed CBC W/DIFF, AUTOMATED Collected: 06/26/2017 Status: F Source: [place] 10:05 AM [facility] REPOSITORY TYPE CODE TESTS RESULT [...] Lymph 2.07 Performed By: #### L100.0100 #### [facility] [address] [place], [place], [id number] COMPREHENSIVE METABOLIC Collected: 06/26/2017 Status: F Source: [facility] 10:05 AM [facility] REPOSITORY TYPE CODE TESTS RESULT [...] Performed By: #### L500.4050, L501.9520, L503.6550 #### [facility] [address] [place], [place], [address] THYROID STIM HORMONE Collected: 06/26/2017 Status: F Source: [place] (TSH) 10:05 AM [facility] REPOSITORY TYPE CODE TESTS RESULT OUT OF RANGE REFERENCE UNITS LAB L501.9520 0.358-3.74 uIU/mL Normal TSH 1.75 Performed By: #### L500.4050, L501.9520, L503.6550 #### [facility] [address] [place], [address] FERRITIN Collected: 06/26/2017 Status: F Source: [place] 10:05 AM [facility] REPOSITORY TYPE CODE TESTS RESULT OUT OF RANGE REFERENCE UNITS LAB L503.6550 8-252 ng/mL Normal FERRITIN 38 Performed By: #### L500.4050, L501.9520, L503.6550 #### [facility] [address] 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 Avoid left lateral lean Skilled Intervention: Skilled judgment in the selection of proper modification for activity of daily living/home management based on clinical presentation, deficits, and needs. Billing: [facility]: Evaluation - Low Complexity (14270) Therapeutic Exercise (91436): 1:1 time: 20 minutes (1 unit: 8-22 mins) Educ Home Mgmt (92757): 1:1 time: 15 minutes (1 unit: 8-22 mins) Total time: 55 minutes Rosa Maria Jha PT CNTHERAPY Observed: 06/05/2017 Status: COMPLETED Source: [place] 11:45 AM [facility] REPOSITORY OT/PT/Speech Visit (PTWS) SHEREE BERNARD ([id number]) 1980 F Date Time Provider Department 06/05/17 11:45 AM ROSA MARIA JHA (PT) PTWS Date Time Provider Department Center 06/05/2017 11:45 AM [id number] MARIA JHAPT) PTWS [facility] TREMAINE Reason for Visit: PT [...] see for Planned Treatment Interventions: Therapeutic exercise;Patient/Family/Caregiver Education;Self-nursing home management PLAN FOR NEXT VISIT: Will advance [...] (sciatica right with pain in front) 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 Avoid left lateral lean Skilled Intervention: Skilled judgment in the selection of proper modification for activity of daily living/home management based on clinical presentation, deficits, and needs. Billing: [facility]: Evaluation - Low Complexity (23629) Therapeutic Exercise (83129): 1:1 time: 20 minutes (1 unit: 8-22 mins) Educ Home Mgmt (91059): 1:1 time: 15 minutes (1 unit: 8-22 mins) Total time: 55 minutes Rosa Maria Jha PT ALLERGIES ALLERGIES DATE TYPE / CODE NAME / CODE REACTION SEVERITY SOURCE Drug ranitidine Hives Unknown [place] 7 Allergy/726938414( HCl/Z853410843(RXN Community SNOMED CT) ORM) Hospital Repository Drug Penicillins/H87664 Hives Unknown [place] 7 Allergy/180630792( 0476(RXNORM) Community SNOMED CT) Hospital Repository Drug ethinyl Other Unknown [place] 7 Allergy/356386700( estradiol/G0479706 Community SNOMED CT) 86(RXNORM) Hospital Repository Drug codeine/[id number] Rash Unknown [place] 7 Allergy/692412985( (RXNORM) Community SNOMED CT) Hospital Repository Drug amphetamine/B10033 Chest Unknown [place] 7 Allergy/203259472( 1790(RXNORM) tightness Community SNOM[facility]) Hospital Repository Drug benzoyl Swelling Unknown [place] 7 Allergy/547616653( peroxide/W68072045 Community SNOM[facility]) 5(RXNORM) Hospital Repository Drug levothyroxine Other Unknown [place] 7 Allergy/026388366( sodium/U815746001( Community SNOMED CT) RXNORM) Hospital Repository Drug prednisone/J785523 Other Unknown [place] 7 Allergy/719245449( 164(RXNORM) Community SNOMED [facility]) Hospital Repository Drug norgestimate/F0060 Other Unknown [place] 7 Allergy/240636914( 05302(RXNORM) Community SNOMED [facility]) Hospital Repository Miscellaneous TIROSINT Chest Unknown [place] 7 Allergy/598872923( tightness Community SNOM[facility]) Hospital Repository ENCOUNTERS ENCOUNTERS ADMIT/DISCHARGE ACCOUNT NUMBER ADMITTING ENCOUNTER LOCATION SOURCE CLASS 05/11/2018 [id number] Ambulatory BBuilding:[facility] Repository 05/10/2018/05/10/19 [id number] Ambulatory [address] Repository 05/01/2018 [id number] Ambulatory [facility] ding:MTLAB Repository 04/25/2018 [id number] Ambulatory Building:[facility] Repository 04/18/2018 [id number] Ambulatory Building:[facility] Repository 04/10/2018 [id number] Ambulatory [facility] ding:MTLAB Repository 04/04/2018 [id number] Ambulatory [facility] Repository 04/03/2018 [id number] Ambulatory [facility] ding:MTLAB Repository 03/29/2018/03/29/20 [id number] Ambulatory BBuilding:[address] Repository 03/22/2018/03/22/20 [id number] Ambulatory [address] Repository 03/20/2018 [id number] Ambulatory Building:[facility] Repository 03/20/2018 [id number] Ambulatory Building:[facility] Repository 01/13/2018 [id number] Ambulatory [facility] ding:LAB.FUT Repository URE 12/17/2017 [id number] Ambulatory [facility] ding:LAB.FUT Repository URE 12/05/2017 [id number] Ambulatory [facility] ding:MTLAB Repository 11/30/2017 [id number] Ambulatory [facility] ding:MTLAB Repository 10/28/2017/10/29/19 [id number] Ambulatory ABuilding:[address] Repository 08/22/2017 [id number] Ambulatory [facility] ding:MTLAB Repository 08/02/2017/08/03/19 [id number] Ambulatory [address] ding:OT Repository 07/26/2017 [id number] Ambulatory [facility] ding:LAB Repository 07/19/2017/07/20/19 [id number] Ambulatory BBuilding:[place] [address] Repository 07/13/2017/07/15/19 [id number] Ambulatory [address] Repository 07/04/2017/07/05/19 [id number] Ambulatory BBuilding:[address] Repository 06/29/2017 [id number] Ambulatory [facility] ding:USHP Repository 06/26/2017 [id number] Ambulatory [facility] ding:MFPLAB Repository 06/05/2017/06/08/19 [id number] Ambulatory [address] Repository PAYERS PAYERS ENCOUNTER GUARANTOR PAYER SUBSCRIBER SOURCE 05/11/2018 SHEREE [facility] [id number] [facility] INSCOPolicy [id number] Repository [address]ER MAKAH Number: [address] [place], [place] [id number] [place] [address]~BULNMS_APP Date:2018-05-09 49904Fze: (104) GABRIEL@[facility] [phone] [phone] : Name:ROBERT CONTI [address] ()Tel: (023) (DK)Tel: (335) RADHA Pryor [address]JZ: [phone] (wp) [phone] (wp) 05/01/2018 [facility]EE [facility]4[address] DEER Insurance:[facility]OB: Replaced By [facility] MAKAH traci [place] Number: [id number] New [facility] Medical Center [address]Anx: [id number] Repository Date:2979-56-49TF [address]OX () [address] [place] [address]HO: 05/01/2018 Secondary NOT GIVENUNK [place] Insurance:SELF PAY [facility] Number: Effective Repository Date:2018-05-01 04/25/2018 SHEREE Primary [facility]OB: [facility]OB: [place] [facility] [id number] [facility] Number: [place], [place] [id number] [place], [place] Repository [address]Lwk: (234) Date:1323-08-97Hank [phone] Name:MANAGED CARE () () 04/18/2018 SHEREE Primary Insurance:[facility]OB: [facility]OB: [place] [facility] [id number] [facility] Number: [place], [place] [id number] [place], [place] Repository [address]Nqm: (234) Date:8187-71-60Bhbj [phone] Name:MANAGED CARE () (WP) 04/10/2018 SHEREE E Primary SHEREE E [place] [id number] DEER Insurance:[facility]: [facility] traci [place] Number: [id number] New Mexico Medical Center [address]Hsw: [id number] Repository Date:8974-64-79BE BOX () [address] [address]OT: 04/10/2018 Secondary NOT GIVENUNK [place] Insurance:SELF PAY Community [facility] Number: Effective Repository Date:2018-04-10 04/04/2018 Sheree Primary Sheree Araiza [facility] HealthcareOB: Insurance:[facility]OB: System ChoicePolicy Number: [id number] Repository [place] Effective Date: [place] [address] () 04/03/2018 SHEREE E Primary SHEREE E [place] [id number] DEER Insurance:[facility]RE[facility]OB: [facility]placed [facility] MAKAH traci [place] Number: [id number] New Mexico Medical Center [address]Tdu: [id number] Repository Date:8110-58-60TV BOX () [address] RADHA PRYOR [address]FT: 04/03/2018 Secondary NOT GIVENUNK [place] Insurance:SELF PAY [facility] Number: Effective Repository Date:2018-04-03 03/29/2018 SHEREE E Primary SHEREE Vicente [facility]OB: Insurance:[facility]: [facility] INSCOPolicy [id number] Repository [place] MAKAH Number: [address] [facility]ITALMAHOGANYRAVALLI, [place] [id number] [place] [address]~BULNMS_APP Date:2018-03-29 53464Ocm: (019) GABRIEL@[facility] [phone] [phone] : Name:ROBERT CONTI [address]10M[address] ()Tel: (894) ()Tel: (478) RADHA Pryor [address]MR: [phone] (wp) [phone] (wp) 03/20/2018 SHEREE E Primary Insurance:[facility] SHEREE [facility] NORMANDOB: [facility]OB: [place] ADVANTAGEWickenburg Regional Hospitalicy [id number] [facility] DEER MAKAH Number: [facility] [place], [place] [id number] [place], [place] Repository [address]Mwa: (234) Date:6243-04-92Wvwh [phone] 61 Name:MANAGED CARE () () 03/20/2018 SHEREE E Primary Insurance:[facility] SHEREE [facility] NORMANDOB: PRIME CARE FRANKSDOB: [place] [id number] [facility] [id number] [facility] MAKAH Number: [place], [place] [id number] [place], [place] Repository [address]Mvz: (234) Date:1800-26-49Npgc [phone] Name:MANAGED CARE () () 01/13/2018 SHEREE E Primary SHEREE E [place] [id number] DEER Insurance:CORES[facility]P [facility]ISOB: [facility] Number: [id number] New Mexico Medical Center [address]Nak: [id number] Repository Date:3253-43-16UP BOX () [address] [place] [address]WG: 01/13/2018 Secondary NOT GIVENUNK [place] Insurance:SELF PAY [facility] Number: Effective Repository Date:2017-12-29 12/17/2017 SHEREE E Primary SHEREE E [place] [id number] DEER Insurance:CORES[facility]P [facility]ISOB: [facility] Number: [id number] [facility] [address]Xsi: [id number] Repository Date:1276-75-99ZQ BOX () [address] [place] [address]CP: 12/17/2017 Secondary NOT GIVENUNK [place] Insurance:SELF PAY [facility] Number: Effective Repository Date:2017-12-14 12/05/2017 SHEREE E Primary SHEREE E [place] [id number] DEER Insurance:COR[facility]P [facility]ISOB: [facility] Number: [id number] New Mexico Medical Center [address]Ygv: [id number] Repository Date:5141-30-99CH BOX (HP) [address]. [place], RADHA [address]SQ: 12/05/2017 Secondary NOT GIVENUNK [place] Insurance:SELF PAY [facility] Number: Effective Repository Date:2017-12-05 11/30/2017 SHEREE E Primary SHEREE E [place] [id number] DEER Insurance:CORESOURCEP FRANKSDOB: Replaced By [facility] MAKAH [facility] Number: [id number] New Mexico Medical Center [address]Bsw: [id number] Repository Date:7967-45-06UO BOX () [address] KONSTANTINRADHA BA[place] [address]IU: 11/30/2017 Secondary NOT GIVENUNK [place] Insurance:SELF PAY [facility] Number: Effective Repository Date:2017-11-30 10/28/2017 SHEREE E Primary SHEREE E [facility]OB: Insurance:CORESOURCE FRANKCTOB: [facility] [id number] [facility] Number: [id number] Repository [facility] [id number] [address] [place] [address] Date:2017-10-28 - [place] [address]~BULNMS_APP 6090-90-91Xuqw 83[address]Pge: (755) GABRIEL@[facility] Name:AP [address] [phone] : Konstantin RADHA [address]XT: (HP)Tel: (396) (HP)Tel: (WP) [phone] (WP) 08/22/2017 SHEREE E Primary SHEREE Penaloza [id number] Insurance:COR[facility]P [facility]OUISOB: [facility] Number: [id number], [place] [id number] Repository [address]Yer: (012) Date:3841-36-11CV [phone] (HP) [address] RAD[address] PRYOR [address]PJ: 08/22/2017 Secondary NOT GIVENUNK [place] Insurance:SELF PAY [facility] Number: Effective Repository Date:2017-08-22 08/02/2017 SHEREE E Primary SHEREE Cinthia [place] [id number] Insurance:[facility]P [facility]OB: [facility]placed By [facility] Number: [id number], [place] [id number] Repository [address]Hmx: (234) Date:9824-21-33XU [phone] (HP) [address]MI. RADHA PRYOR [address]AA: 08/02/2017 Secondary NOT GIVENUNK [place] Insurance:SELF PAY [facility] Number: Effective Repository Date:2017-08-01 07/26/2017 SHEREE E Primary SHEREE Cinthia [place] [id number] Insurance:CORES[facility]P [facility] LOUISOB: [facility] Number: [id number] [place], [place] [id number] Repository [address]Udt: (234) Date:8773-96-64LO [phone] () [address]. RADHA PRYOR [address]XC: 07/26/2017 Secondary NOT GIVENUNK [place] Insurance:SELF PAY [facility] Number: Effective Repository Date:2017-07-26 07/19/2017 SHEREE E Primary SHEREE [facility]OB: Insurance:[facility]ENTEROB: [facility] Number: [id number] Repository [facility] [id number] [place] Date:2017-07-04 - [place] [address]~BULMAS_APP [id number] 17[address]Ntc: (061) GABRIEL@[facility] Name:DOMENIC CONTI 2310Vt [phone] : RADHA Pryor [address]VO: (HP)Tel: (112) (HP)Tel: (WP) [phone] (WP) 07/04/2017 SHEREE E Primary SHEREE [facility]: Insurance:[facility]OUR[facility] CENTEROB: [facility] Number: [id number] Repository [facility] [id number] [place], [place] Date:2017-07-04 - [place] [address]~BULMAS_APP [id number] 58[address]Axr: (468) GABRIEL@[facility] Name:AP [address] [phone] : RADHA Pryor [address]PR: (HP)Tel: (542) (HP)Tel: (WP) [phone] (WP) 06/29/2017 Sheree Primary Sheree [facility] Insurance:[facility]: [facility] Number: [id number] City, [place] [id number] Repository [address]Blv: (234) Date:9616-97-99VC [phone] (HP) [address]. RADHA PRYOR [address]VT: 06/29/2017 Secondary NOT GIVENUNK [place] Insurance:SELF PAY [facility] Number: Effective Repository Date:2017-06-27 06/26/2017 Sheree Primary Sheree [place] [id number] Insurance:[facility]: [facility] Number: [id number] City, [place] [id number] Repository [address]Cxu: (234) Date:2188-86-04DZ [phone] (HP) 2315MT. RADHA PRYOR [address]NC: 06/26/2017 Secondary NOT GIVENUNK [place] Insurance:SELF PAY [facility] Number: Effective Repository Date:2017-06-26
== END ==
PROVIDERS: Family Provider Family Medicine; PCP Family Medicine; Referring Provider Family Medicine; Visit Provider Family Medicine
DX: R70.0 Elevated erythrocyte sedimentation rate (principal)
CPT/HCPCS: 36415; 85652; 86140; 86225; 86235

== ENCOUNTER → 2018-05-01 09:06 | Outpatient (CLI) | payer OTHER, SELFPAY ==
[2018-05-01 10:43] LABS: Erythrocyte Sedimentation Rate 7 mm/hr (0-20)
[2018-05-01 10:45] LABS: Absolute Lymphocyte Count 1.76 X10^3/ul (0.83-4.51); Absolute Neutrophil Count 5.5 X10^3/uL (2.0-7.7); Basophil# 0.03 X10^3/uL; Basophil% 0.4 % (0-1); Eosinophil# 0.26 X10^3/uL; Eosinophils% 3.2 % (0-5); Hematocrit 44.7 % (37-47); Hemoglobin 14.2 g/dl (12.0-15.0); Lymphocyte # 1.76 X10^3/ul (4.0); Lymphocyte % 21.9 % (19-41); Mean Corp Hgb Conc 31.8 g/gl (32-36); Mean Corpuscular Hgb 27.4 pg (27.0-32.0); Mean Corpuscular Volume 86.3 fL (81-99); Mean Platelet Vol. 11.8 fl (6.2-12.0); Monocyte# 0.45 X10^3/uL; Monocyte% 5.6 % (0-10); Neutrophil # 5.54 X10^3/uL (2.7-7.7); Neutrophil % 68.8 % (47-70); POSITIVE COUNT NO; POSITIVE DIFFERENTIAL NO; POSITIVE MORPHOLOGY NO; Platelet Count 204 K/mm3 (150-450); RBC Distribution Width CV 14.5 % (11.6-14.6); RBC Distribution Width SD 45.5 fl (35.1-43.9); Red Blood Count 5.18 M/mm3 (4.2-5.4); White Blood Count 8.1 K/mm3 (4.4-11.0)
[2018-05-01 11:00] LABS: PTHIN 77.7 pg/mL (18.4-80.1)
[2018-05-01 11:04] LABS: CPK Total, Creatine Kinase 52 U/L (26-192); Thyroid Stim Hormone (TSH) 1.39 uIU/mL (0.358-3.74)
[2018-05-04 08:12] LABS: Immunoglobulin E 150 IU/mL (0-100); PROEL- A/G Ratio 1.2 (0.7-1.7); PROEL- Albumin 3.7 g/dL (2.9-4.4); PROEL- Alpha-1 Globulin 0.2 g/dL (0.0-0.4); PROEL- Alpha-2 Globulin 0.7 g/dL (0.4-1.0); PROEL- Beta Globulin 1.1 g/dL (0.7-1.3); PROEL- Gamma Globulin 1.1 g/dL (0.4-1.8); PROEL- Globulin, Total 3.1 g/dL (2.2-3.9); PROEL- TOTAL PROTEIN 6.8 g/dL (6.0-8.5)
[2018-05-04 12:31] LABS: Aldolase 3.2 U/L (3.3-10.3)
== END ==
PROVIDERS: Family Provider Family Medicine; PCP Family Medicine
DX: M79.10 Myalgia, unspecified site (principal); R20.9 Unspecified disturbances of skin sensation
CPT/HCPCS: 82085; 82550; 82785; 83970; 84165; 84443; 85025; 85652; 86140

== ENCOUNTER → 2018-07-24 09:35 | Outpatient (CLI) | payer OTHER, SELFPAY ==
[2018-07-24 12:17] LABS: Absolute Lymphocyte Count 2.21 X10^3/ul (0.83-4.51); Absolute Neutrophil Count 6.5 X10^3/uL (2.0-7.7); Basophil# 0.03 X10^3/uL; Basophil% 0.3 % (0-1); Eosinophil# 0.26 X10^3/uL; Eosinophils% 2.7 % (0-5); Hemoglobin 14.4 g/dl (12.0-15.0); Lymphocyte # 2.21 X10^3/ul (4.0); Lymphocyte % 23.2 % (19-41); Mean Corp Hgb Conc 32.7 g/gl (32-36); Mean Corpuscular Hgb 27.2 pg (27.0-32.0); Mean Platelet Vol. 11.7 fl (6.2-12.0); Monocyte# 0.48 X10^3/uL; Neutrophil # 6.54 X10^3/uL (2.7-7.7); Neutrophil % 68.6 % (47-70); Platelet Count 208 K/mm3 (150-450); RBC Distribution Width CV 14.2 % (11.6-14.6); RBC Distribution Width SD 42.8 fl (35.1-43.9); White Blood Count 9.5 K/mm3 (4.4-11.0)
[2018-07-24 12:20] LABS: Erythrocyte Sedimentation Rate 12 mm/hr (0-20); POSITIVE COUNT NO; POSITIVE DIFFERENTIAL NO; POSITIVE MORPHOLOGY NO
[2018-07-24 12:41] LABS: ALB/GLOB Ratio 0.9 RATIO (0.9-2.4); AST(SGOT) 16 U/L (15-37); Alanine Aminotransfer ALT/SGPT 22 U/L (13-56); Albumin, Serum 3.6 g/dL (3.2-5.0); Alkaline Phosphatase 121 U/L (45-117); Anion Gap 7 (5-15); BUN 15 mg/dL (7-18); BUN/Creat Ratio 16.6 RATIO (10-20); Calcium,Total 8.8 mg/dL (8.5-10.1); Chloride 104 mmol/L (98-107); EST Glomerular Filtration Rate 75 mL/min (>60); Est Glom Filt Rate - Afr Amer 91 mL/min (>60); Globulin 3.8 g/dL (2.2-4.2); Glucose 89 mg/dL (74-106); Potassium 4.3 mmol/L (3.5-5.1); Protein, Total 7.4 g/dL (6.4-8.2); Sodium Level 139 mmol/L (136-145); Thyroid Stim Hormone (TSH) 1.48 uIU/mL (0.358-3.74)
[2018-07-26 14:08] LABS: Anti-Nuclear Antibody Test Negative (.)
== END ==
PROVIDERS: Family Provider Family Medicine; PCP Family Medicine; Referring Provider Family Medicine; Visit Provider Family Medicine
DX: J30.2 Other seasonal allergic rhinitis (principal); M79.89 Other specified soft tissue disorders
CPT/HCPCS: 80053; 84443; 85025; 85652; 86038; 86140

== ENCOUNTER → 2018-08-29 14:09 | Outpatient (CLI) | payer OTHER, SELFPAY ==
[2018-08-29 15:22] LABS: Color, Urine Yellow (Yellow); Glucose, Dipstick Normal (Normal); Ketone-Dipstick Negative (Negative); Leukocyte Esterase-Dipstick 25 /ul (Negative); Nitrite-Dipstick Negative (Negative); Occult Blood-Urine Negative /ul (Negative); Protein-Dipstick Negative (Negative); Specific Gravity, Urine 1.015 (1.002-1.030); Urine Bilirubin Dipstick Negative (Negative); Urine Clarity Clear (Clear); Urine Urobilinogen Normal (Normal)
[2018-08-29 15:36] LABS: Prothrombin Time (Protime)PT. 13.3 SECONDS (11.7-14.9)
[2018-08-29 15:38] LABS: Absolute Lymphocyte Count 2.03 X10^3/ul (0.83-4.51); Absolute Neutrophil Count 7.9 X10^3/uL (2.0-7.7); Basophil# 0.03 X10^3/uL; Basophil% 0.3 % (0-1); Eosinophil# 0.33 X10^3/uL; Hemoglobin 14.2 g/dl (12.0-15.0); Lymphocyte # 2.03 X10^3/ul (4.0); Lymphocyte % 18.6 % (19-41); Mean Corpuscular Hgb 27.4 pg (27.0-32.0); Mean Corpuscular Volume 82.9 fL (81-99); Mean Platelet Vol. 11.3 fl (6.2-12.0); Monocyte# 0.67 X10^3/uL; Monocyte% 6.1 % (0-10); Neutrophil # 7.85 X10^3/uL (2.7-7.7); Neutrophil % 71.8 % (47-70); Platelet Count 191 K/mm3 (150-450); RBC Distribution Width CV 14.4 % (11.6-14.6); RBC Distribution Width SD 43.6 fl (35.1-43.9); Red Blood Count 5.19 M/mm3 (4.2-5.4); White Blood Count 10.9 K/mm3 (4.4-11.0)
[2018-08-29 15:40] LABS: POSITIVE COUNT NO; POSITIVE DIFFERENTIAL NO; POSITIVE MORPHOLOGY NO
[2018-08-29 15:50] LABS: EXAGEN MAILED SPECIMEN
[2018-08-29 15:58] LABS: ALB/GLOB Ratio 0.9 RATIO (0.9-2.4); AST(SGOT) 15 U/L (15-37); Alanine Aminotransfer ALT/SGPT 26 U/L (13-56); Albumin, Serum 3.7 g/dL (3.2-5.0); Alkaline Phosphatase 119 U/L (45-117); Anion Gap 6 (5-15); BUN 13 mg/dL (7-18); BUN/Creat Ratio 15.8 RATIO (10-20); Calcium,Total 8.7 mg/dL (8.5-10.1); Chloride 105 mmol/L (98-107); Creatinine, Serum 0.82 mg/dL (0.55-1.02); EST Glomerular Filtration Rate 83 mL/min (>60); Erythrocyte Sedimentation Rate 22 mm/hr (0-20); Est Glom Filt Rate - Afr Amer 101 mL/min (>60); Globulin 4.2 g/dL (2.2-4.2); Glucose 82 mg/dL (74-106); Potassium 3.7 mmol/L (3.5-5.1); Protein, Total 7.9 g/dL (6.4-8.2); Sodium Level 138 mmol/L (136-145)
[2018-08-29 19:49] LABS: Protein, Urine (Random) 15.4 mg/dL (<11.9); Protein:Creat Ratio 84 mg/g CRE (0-200)
[2018-09-01 03:06] LABS: Hexagonal Phase Phospholipid 6 sec (0-11)
== END ==
LOC: MTLAB 14:11 → LAB 14:41
PROVIDERS: Family Provider Family Medicine; PCP Family Medicine; Referring Provider Internal Medicine Rheumatology; Visit Provider Internal Medicine Rheumatology
DX: M06.4 Inflammatory polyarthropathy (principal); F32.89 Other specified depressive episodes; F41.9 Anxiety disorder, unspecified; J30.9 Allergic rhinitis, unspecified; K21.9 Gastro-esophageal reflux disease without esophagitis
CPT/HCPCS: 36415; 80053; 81002; 82570; 84156; 85025; 85598; 85610; 85652; 85730; 86140

== ENCOUNTER → 2019-02-18 | Outpatient (CLI) | payer OTHER, SELFPAY ==
--- NOTE | 2019-02-18 09:55 | RAD_ITS ---
STUDY: X-RAY - LUMBAR SPINE REASON FOR EXAM: Female, 39 years old. abnormality. TECHNIQUE: 5 view(s) of the lumbar spine were obtained. COMPARISON: None FINDINGS: Normal lumbar lordosis. There is mild scoliosis, convexity to the left. There is a normal alignment of the vertebrae. Normal vertebral bodies and endplates. Normal disc space heights. There is no demonstrated fracture. There is no demonstrated spondylolysis of the pars interarticulares. The soft tissue structures are unremarkable. RAD/L/S Spine Min 4 Views IMPRESSION: Mild scoliosis as described above, otherwise unremarkable x-ray examination of the lumbar spine. Electronically Signed: Angela Valencia MD at 0:49 EDT , Service support ,
--- NOTE | 2019-02-18 09:55 | RAD_ITS ---
STUDY: X-RAY - THORACIC SPINE REASON FOR EXAM: Female, 39 years old. Posture abnormality. TECHNIQUE: 2 view(s) of the thoracic spine were obtained. COMPARISON: None. FINDINGS: Normal kyphosis of the thoracic spine. There is minimal scoliosis, convexity to the right. Normal thoracic vertebrae and endplates. Normal disc space heights. The soft tissue structures are unremarkable. RAD/Thoracic Spine 2 Views IMPRESSION: Possible minimal scoliosis as described above. Otherwise normal x-ray examination of the thoracic spine. Electronically Signed: Angela Valencia MD at 0:58 EDT , Service support ,
--- NOTE | 2019-02-18 09:55 | RAD_ITS ---
STUDY: X-RAY - CERVICAL SPINE REASON FOR EXAM: Female, 39 years old. Cervicalgia, head leans forward, painful TECHNIQUE: 6 view(s) of the cervical spine were obtained. COMPARISON: None FINDINGS: Normal anterior atlantoaxial articulation. Normal odontoid process. Normal cervical lordosis. Normal vertebral bodies and endplates. Normal disc space heights. Normal visualized intervertebral neuroforamina. The soft tissue structures are unremarkable. RAD/Cerv Spine 4 or 5 Views IMPRESSION: Within normal limits x-ray examination of the visualized cervical spine. Electronically Signed: Carin Terrell MD at 16:51 EDT Tel , Service support ,
[2019-02-18 12:55] LABS: BUN 14 mg/dL (7-18); Creatinine, Serum 0.93 mg/dL (0.55-1.02); Glucose 90 mg/dL (74-106)
[2019-02-18 12:56] LABS: ALB/GLOB Ratio 0.8 RATIO (0.9-2.4); AST(SGOT) 14 U/L (15-37); Alanine Aminotransfer ALT/SGPT 17 U/L (13-56); Albumin, Serum 3.4 g/dL (3.2-5.0); Alkaline Phosphatase 111 U/L (45-117); Anion Gap 6 (5-15); BUN/Creat Ratio 15.1 RATIO (10-20); Calcium,Total 8.9 mg/dL (8.5-10.1); Chloride 106 mmol/L (98-107); EST Glomerular Filtration Rate 72 mL/min (>60); Est Glom Filt Rate - Afr Amer 87 mL/min (>60); Free T3 3.3 pg/mL (2.18-3.98); Globulin 4.1 g/dL (2.2-4.2); Potassium 3.9 mmol/L (3.5-5.1); Protein, Total 7.5 g/dL (6.4-8.2); Sodium Level 138 mmol/L (136-145); T4 Free Direct 0.91 ng/dL (0.76-1.46); Thyroid Stim Hormone (TSH) 4.24 uIU/mL (0.358-3.74)
== END | disposition home or self-care (01) ==
PROVIDERS: Family Provider Family Medicine; PCP Family Medicine; Referring Provider Family Medicine; Visit Provider Family Medicine
DX: M54.2 Cervicalgia (principal); R29.3 Abnormal posture; E03.8 Other specified hypothyroidism
CPT/HCPCS: 36415; 72050; 72070; 72100; 72110; 80053; 84439; 84443; 84481

== ENCOUNTER → 2019-05-20 09:23 | Outpatient (CLI) | payer OTHER, SELFPAY ==
[2019-05-20 12:46] LABS: T4 Free Direct 1.17 ng/dL (0.76-1.46); Thyroid Stim Hormone (TSH) 2.44 uIU/mL (0.358-3.74)
== END ==
PROVIDERS: PCP Family Medicine; Referring Provider Internal Medicine Endocrinology, Diabetes & Metabolism; Visit Provider Internal Medicine Endocrinology, Diabetes & Metabolism
DX: E03.8 Other specified hypothyroidism (principal)
CPT/HCPCS: 36415; 84439; 84443

== ENCOUNTER → 2019-07-05 | Outpatient (CLI) | payer OTHER, SELFPAY ==
[2019-07-05 13:33] LABS: T4 Free Direct 1.07 ng/dL (0.76-1.46); Thyroid Stim Hormone (TSH) 1.11 uIU/mL (0.358-3.74)
== END | disposition home or self-care (01) ==
LOC: MTLAB 11:15
PROVIDERS: PCP Family Medicine; Referring Provider Internal Medicine Endocrinology, Diabetes & Metabolism; Visit Provider Internal Medicine Endocrinology, Diabetes & Metabolism
DX: E03.8 Other specified hypothyroidism (principal)
CPT/HCPCS: 36415; 84439; 84443

== ENCOUNTER → 2019-12-06 | Outpatient (CLI) | payer OTHER, SELFPAY ==
[2019-12-06 15:37] LABS: ALB/GLOB Ratio 0.8 RATIO (0.9-2.4); AST(SGOT) 13 U/L (15-37); Alanine Aminotransfer ALT/SGPT 25 U/L (13-56); Albumin, Serum 3.4 g/dL (3.2-5.0); Alkaline Phosphatase 101 U/L (45-117); Anion Gap 7 (5-15); BUN 14 mg/dL (7-18); BUN/Creat Ratio 17.3 RATIO (10-20); Calcium,Total 8.6 mg/dL (8.5-10.1); Chloride 105 mmol/L (98-107); Creatinine, Serum 0.81 mg/dL (0.55-1.02); EST Glomerular Filtration Rate 85 mL/min (>60); Est Glom Filt Rate - Afr Amer 102 mL/min (>60); Globulin 4.1 g/dL (2.2-4.2); Glucose 76 mg/dL (74-106); Potassium 3.8 mmol/L (3.5-5.1); Protein, Total 7.5 g/dL (6.4-8.2); Sodium Level 138 mmol/L (136-145); Thyroid Stim Hormone (TSH) 1.11 uIU/mL (0.358-3.74)
== END | disposition home or self-care (01) ==
LOC: MTLAB 11:29
PROVIDERS: PCP Family Medicine; Referring Provider Internal Medicine Endocrinology, Diabetes & Metabolism; Visit Provider Internal Medicine Endocrinology, Diabetes & Metabolism
DX: E03.8 Other specified hypothyroidism (principal); E55.9 Vitamin D deficiency, unspecified
CPT/HCPCS: 36415; 80053; 82306; 84443

== ENCOUNTER → 2019-12-13 | Outpatient (CLI) | payer OTHER, SELFPAY | END | disposition home or self-care (01) | LOC: LABSPEC 11:08 | PROVIDERS: PCP Family Medicine; Referring Provider Obstetrics & Gynecology Reproductive Endocrinology; Visit Provider Obstetrics & Gynecology Reproductive Endocrinology | DX: Z11.59 Encounter for screening for other viral diseases (principal) | CPT/HCPCS: 87635; 94799; U0003 ==

== ENCOUNTER → 2020-01-06 | Outpatient (CLI) | payer OTHER, SELFPAY | END | disposition home or self-care (01) | LOC: MTDU 17:11 | PROVIDERS: PCP Family Medicine; Referring Provider Obstetrics & Gynecology Reproductive Endocrinology; Visit Provider Obstetrics & Gynecology Reproductive Endocrinology | DX: Z11.59 Encounter for screening for other viral diseases (principal) | CPT/HCPCS: 87635; C9803; U0003 ==

== ENCOUNTER → 2020-02-27 14:50 | Outpatient (CLI) | payer OTHER, SELFPAY ==
[2020-02-27 18:05] LABS: T4 Free Direct 1.37 ng/dL (0.76-1.46); Thyroid Stim Hormone (TSH) 0.46 uIU/mL (0.358-3.74)
== END ==
PROVIDERS: PCP Family Medicine; Referring Provider Internal Medicine Endocrinology, Diabetes & Metabolism; Visit Provider Internal Medicine Endocrinology, Diabetes & Metabolism
DX: E03.8 Other specified hypothyroidism (principal)
CPT/HCPCS: 36415; 84439; 84443

== ENCOUNTER → 2020-05-18 16:21 | Outpatient (CLI) | payer OTHER, SELFPAY ==
[2020-05-24 07:24] LABS: Anti-Mullerian Hormone,Serum 0.935 ng/mL (.)
== END ==
PROVIDERS: PCP Family Medicine; Referring Provider Obstetrics & Gynecology Reproductive Endocrinology; Visit Provider Obstetrics & Gynecology Reproductive Endocrinology
DX: E28.9 Ovarian dysfunction, unspecified (principal)
CPT/HCPCS: 36415; 83516

== ENCOUNTER → 2020-06-01 08:52 | Outpatient (CLI) | payer OTHER, SELFPAY ==
[2020-06-01 12:44] LABS: Progesterone Level 0.43 ng/mL (See Comment)
[2020-06-01 12:45] LABS: Estradiol 29.6 pg/mL; Follicle Stimulating Hormone 5.7 mIU/mL; Luteinizing Hormone 2.8 mIU/mL
[2020-06-02 15:02] LABS: ANTINUCLEAR ANTIBODIES DIRECT Negative (Negative)
[2020-06-05 14:09] LABS: Dilute Prothrombin Time (dPT) 37.2 sec (0.0-55.0); Dilute Russell Viper Venom 45.2 sec (0.0-47.0); PTT-LA 39.4 sec (0.0-51.9); Thrombin Time 16.8 sec (0.0-23.0); dPT Confirm Ratio 1.06 Ratio (0.00-1.40)
[2020-06-05 20:46] LABS: Anti-Cardiolipin Ab, IgA, Qn < 9 APL U/mL (0-11); Anti-Cardiolipin Ab, IgG, Qn < 9 GPL U/mL (0-14); Anti-Cardiolipin Ab, IgM, Qn < 9 MPL U/mL (0-12); Anti-Thrombin 3 AG, Immunol 94 % (72-124); Antithrombin 3 Function 107 % (75-135); Beta-2-Glycoprotein I IgA <9 (0-25); Beta-2-Glycoprotein I IgG <9 (0-20); Beta-2-Glycoprotein I IgM <9 (0-32); Interpretation Comment: (.); Protein C, Functional 140 % (73-180); Protein S, Funtional 97 % (63-140)
== END ==
PROVIDERS: PCP Family Medicine; Referring Provider Obstetrics & Gynecology Reproductive Endocrinology; Visit Provider Obstetrics & Gynecology Reproductive Endocrinology
DX: E28.9 Ovarian dysfunction, unspecified (principal); Z31.41 Encounter for fertility testing
CPT/HCPCS: 36415; 81240; 81241; 81291; 82670; 83001; 83002; 83090; 84144; 85300; 85301; 85303; 85306; 86038; 86146; 86147

== ENCOUNTER → 2020-06-30 10:52 | Outpatient (CLI) | payer OTHER, SELFPAY ==
[2020-06-30 12:19] LABS: Estradiol 29.7 pg/mL; Progesterone Level 11.14 ng/mL (See Comment); hCG Titer Quant., Serum < 1 mIU/mL (1-3)
[2020-06-30 13:19] LABS: ALB/GLOB Ratio 0.9 RATIO (0.9-2.4); AST(SGOT) 10 U/L (15-37); Alanine Aminotransfer ALT/SGPT 20 U/L (13-56); Albumin, Serum 3.8 g/dL (3.2-5.0); Alkaline Phosphatase 119 U/L (45-117); Anion Gap 10 (5-15); BUN 18 mg/dL (7-18); BUN/Creat Ratio 18.8 RATIO (10-20); Calcium,Total 9.1 mg/dL (8.5-10.1); Chloride 106 mmol/L (98-107); Cholesterol 181 mg/dL (200); Creatinine, Serum 0.96 mg/dL (0.55-1.02); EST Glomerular Filtration Rate 69 mL/min (>60); Est Glom Filt Rate - Afr Amer 84 mL/min (>60); Globulin 4.3 g/dL (2.2-4.2); Glucose 85 mg/dL (74-106); High Density Lipoprotein 49 mg/dL; Potassium 3.8 mmol/L (3.5-5.1); Protein, Total 8.1 g/dL (6.4-8.2); Sodium Level 139 mmol/L (136-145); Thyroid Stim Hormone (TSH) 0.93 uIU/mL (0.358-3.74); Triglycerides 97 mg/dL; Very Low Density Lipoprotein 19 mg/dL (5-40)
== END ==
PROVIDERS: Internal Medicine Endocrinology, Diabetes & Metabolism; PCP Family Medicine
DX: E03.8 Other specified hypothyroidism (principal); E78.00 Pure hypercholesterolemia, unspecified; E04.2 Nontoxic multinodular goiter; Z32.00 Encounter for pregnancy test, result unknown
CPT/HCPCS: 36415; 80053; 80061; 82670; 84144; 84443; 84702

== ENCOUNTER 2020-07-26 01:50 | Emergency (ER) | payer OTHER, SELFPAY ==
[2020-07-26 01:51] VITALS: BP 132/72; PULSE 76; RESP 16; TEMP 36.6; O2SAT 100; BMI 45.1
--- NOTE | 2020-07-26 02:20 | CT_ITS ---
STUDY: CT BRAIN WITHOUT CONTRAST REASON FOR EXAM: Female, 40 years old. Double vision, vertigo RADIATION DOSAGE (If Supplied By Facility): CTDIvol = ( 44.99 ) mGy, DLP = ( 762.36 ) mGycm TECHNIQUE: Transaxial CT imaging of the brain was performed without administration of intravenous contrast material. Individualized dose optimization techniques were used for this CT. COMPARISON: September 09, 2016 CT scan head FINDINGS: Spur study there is either interval visualization or interval development of a well-circumscribed right parotid nodule measuring 5.1 mm. Normal calvarium. Normal size ventricles and extra-axial spaces for the patient''s age. Normal white matter tracts of the cerebral hemispheres. Normal basal ganglia and thalami. Normal brainstem. Normal cerebellum. There is no intracranial hemorrhage. There are no findings of an acute ischemic infarction. Normal visualized paranasal sinuses. CT/Brain/Head without Contrast IMPRESSION: No visualized acute hemorrhage infarct or edema. Incidental visualization of a 5.1 mm well-circumscribed nodule within the right parotid which may represent a small lymph node versus a pleomorphic adenoma or other. Given interval visualization further evaluation is suggested. Consider routine follow-up MRI with gadolinium for further evaluation. Electronically Signed: Alva De La Cruz MD at 3:28 EDT Tel , Service support ,
--- NOTE | 2020-07-26 02:20 | EKG12_ITS ---
Test Reason : DIZZINESS Blood Pressure : / mmHG Vent. Rate : 069 BPM Atrial Rate : 069 BPM P-R Int : 130 ms QRS Dur : 082 ms QT Int : 390 ms P-R-T Axes : 054 074 022 degrees QTc Int : 417 ms Normal sinus rhythm Possible Left atrial enlargement Nonspecific ST abnormality Abnormal ECG Confirmed by ORA SUAZO, DEEPTI ([id number]), newspaper editor CLINT NAPIER ([id number]) on 07/29/2020 7:49:12 AM Referred By: REYNALDO Confirmed By:DEEPTI PAYAN MD
[2020-07-26 02:46] LABS: Absolute Lymphocyte Count 2.86 X10^3/uL (0.83-4.51); Absolute Neutrophil Count 6.2 X10^3/uL (2.0-7.7); Basophil# 0.05 X10^3/uL; Basophil% 0.5 % (0-1); Eosinophil# 0.27 X10^3/uL; Eosinophils% 2.7 % (0-5); Hematocrit 44.2 % (37-47); Hemoglobin 13.9 g/dL (12.0-15.0); Lymphocyte # 2.86 X10^3/ul (4.0); Lymphocyte % 28.4 % (19-41); Mean Corp Hgb Conc 31.4 g/dL (32-36); Mean Corpuscular Hgb 26.8 pg (27.0-32.0); Mean Corpuscular Volume 85.2 fL (81-99); Mean Platelet Vol. 11.8 fl (6.2-12.0); Monocyte# 0.69 X10^3/uL; Monocyte% 6.9 % (0-10); NRBC Flagged by Analyzer 0 % (0-5); Neutrophil # 6.17 X10^3/uL (2.7-7.7); Neutrophil % 61.3 % (47-70); Platelet Count 192 K/mm3 (150-450); RBC Distribution Width CV 14.6 % (11.6-14.6); RBC Distribution Width SD 45.7 fl (35.1-43.9); Red Blood Count 5.19 M/mm3 (4.2-5.4); White Blood Count 10.1 K/mm3 (4.4-11.0)
[2020-07-26 02:55] LABS: Internal QC Validated? YES +Cl - CLEAR BKGD; Pregnancy, Serum, hCG Quali. NEGATIVE Negative
[2020-07-26 03:05] LABS: Anion Gap 5 (5-15); BUN 17 mg/dL (7-18); BUN/Creat Ratio 19.7 RATIO (10-20); Chloride 103 mmol/L (98-107); Creatinine, Serum 0.86 mg/dL (0.55-1.02); EST Glomerular Filtration Rate 78 mL/min (>60); Est Glom Filt Rate - Afr Amer 94 mL/min (>60); Estimated Creatinine Clearance 70.15 ml/min; Glucose 105 mg/dL (74-106); Potassium 3.5 mmol/L (3.5-5.1); Sodium Level 137 mmol/L (136-145)
--- NOTE | 2020-07-26 03:07 | RAD_ITS ---
STUDY: X-RAY CHEST REASON FOR EXAM: Female, 40 years old. Pt became dizzy and had double vision around 0130. TECHNIQUE: Single AP portable view of the chest. COMPARISON: November 04, 2015 chest x-ray FINDINGS: The lungs are clear and expanded. There is no demonstrated pleural abnormality. Normal size heart. Normal mediastinum and natalia. Normal visualized pulmonary arteries. Normal visualized aortic arch and descending thoracic aorta. Normal visualized thoracic spine. Normal visualized ribs, clavicles, and shoulders. There is no demonstrated abnormality of the visualized soft tissue structures of the upper abdomen. RAD/Chest 1 View (Portable) IMPRESSION: Normal x-ray examination of the chest. Electronically Signed: Alva De La Cruz MD at 3:43 EDT Tel , Service support ,
[2020-07-26] MEDS: 0.9% Normal Saline 1,000 ML 150 ML IV (03:29)
--- NOTE | 2020-07-26 03:37 | ED.DCSUM_ITS ---
History of Present Illness Chief Complaint: Dizziness Informant: Patient Onset: Today Current Severity: Mild Maximum Severity: Moderate Narrative: Patient presents secondary to dizziness and double vision. Patient states that she was sitting on her bed looking at Facebook around 1:30 AM when she suddenly felt dizzy as if the room was spinning. She states it felt like her vision was double as well. She was able to get up and walk down the butler to find her . He is not able to drive currently secondary to seizure history so 911 was called. On arrival here patient was able to ambulate into the exam room wi thout difficulty. Patient states that her symptoms are improved but not completely resolved. She denies headache. She does state that they were at a yesterday and have had a lot of stress recently. She did not sleep much last night. She states she is a history of anxiety and panic attacks but has not had one in quite some time. There were certain aspects of sharad's episode that were similar, but not all could be attributed to her panic disorder. - Past Medical History (1) Hypothyroid Status: Chronic (2) Anxiety Status: Chronic Past Medical History - Allergies and Home Meds Allergies/Adverse Reactions: Allergies codeine Allergy (Verified 07/26/20 01:56) Rash Penicillins Allergy (Verified 07/26/20 01:56) Hives amphetamine Adverse Reaction (Verified 07/26/20 01:56) Chest tightness benzoyl peroxide Adverse Reaction (Verified 07/26/20 01:56) Swelling ethinyl estradiol [From Ortho Tri-Cyclen (28)] Adverse Reaction (Verified 07/26/20 01:56) Other norgestimate [From Ortho Tri-Cyclen (28)] Adverse Reaction (Verified 07/26/20 01:56) Other prednisone Adverse Reaction (Verified 07/26/20 01:56) Other ranitidine HCl [From Zantac] Adverse Reaction (Verified 07/26/20 01:56) Hives TIROSINT Adverse Reaction (Uncoded 09/09/16 14:09) Chest tightness Primary Care Physician: Boni Quintanilla MD [Primary Care Provider] - Prior records reviewed: Yes Lives: Spouse/ Significant Other Smoking Status: Never smoker Review of Systems General: Denies: Chills, Fever Eyes: Reports: Diplopia ENT: Denies: Bilateral ear pain Cardiovascular: Denies: Chest pain, Palpitations Respiratory: Denies: Dyspnea, Cough Gastrointestinal: Denies: Abdominal pain, Nausea, Vomiting Musculoskeletal: Denies: Swelling, Extremity Pain Skin: Denies: Rash Neurological: Denies: Headache, Parasthesia Hematologic: Denies: Easy bruising, Easy bleeding Allergy: Denies: Uticaria Physical Exam Vital Signs/Narrative: Vital Signs Temp Pulse Resp BP Pulse Ox 07/26/20 01:51 97.9 F 76 16 132/72 H 100 Inital Vital Signs reviewed: Yes General: Well nourished, Well developed Head: Normocephalic Neck: Supple Cardiovascular: Regular rate, Regular rhythm Respiratory: No distress, CTA bilaterally Abdomen: Soft, Nontender Extremities: Nontender Skin: Normal color, No rash Neurological: Alert, Oriented x3, Normal Strength, Normal Sensation, - - NIH equals 0 including normal [id number] testing. Psychological: Normal affect Diagnostic/Tx/Re-eval Chest X-Ray - ED: 1 View, Read by ED Physician, Normal, Heart, Lungs, Mediastinum Impressions Brain CT 07/26/20 02:20 IMPRESSION: No visualized acute hemorrhage infarct or edema. Incidental visualization of a 5.1 mm well-circumscribed nodule within the right parotid which may represent a small lymph node versus a pleomorphic adenoma or other. Given interval visualization further evaluation is suggested. Consider routine follow-up MRI with gadolinium for further evaluation. Electronically Signed: Alva De La Cruz MD at 3:28 EDT Tel , Service support , 07/26/20 02:20 Brain/Head without Contrast [CT] Stat 07/26/20 03:07 Chest 1 View (Portable) [RAD] Stat Laboratory Results 07/26/20 07/26/20 07/26/20 02:40 02:40 02:40 WBC 10.1 RBC 5.19 Hgb 13.9 Hct 44.2 MCV 85.2 MCH 26.8 L MCHC 31.4 L RDW Std Deviation 45.7 H RDW Coeff of Gerard 14.6 Plt Count 192 MPV 11.8 Immature Gran % (Auto) 0.200 Neut % (Auto) 61.3 Lymph % (Auto) 28.4 [place] % (Auto) 6.9 Eos % (Auto) 2.7 Baso % (Auto) 0.5 Absolute Neuts (auto) 6.2 Absolute Lymphs (auto) 2.86 Nucleated RBC % 0 Sodium 137 Potassium 3.5 Chloride 103 Carbon Dioxide 29.0 Anion Gap 5 BUN 17 Creatinine 0.86 Estim Creat Clear Calc 70.15 Est GFR (MDRD) Af Amer 94 Est GFR (MDRD) Non-Af 78 BUN/Creatinine Ratio 19.7 Glucose 105 Calcium 9.0 Troponin I < 0.015 Serum , Qual NEGATIVE - EKG Initial EKG Interpretation: Sinus Rhythm - Sinus at 69 with no acute ischemia. - Medical Decision Making Portable chest x-ray per my interpretation is unremarkable. Lab work is unremarkable. CT scan of the head is normal. On repeat evaluation patient states that she feels significantly improved. She did turn her head to the side a little bit ago and had some slight dizzy sensation. I did discuss with her that this may very well be peripheral in nature. We discussed the possibility of this being central or stroke etiology. At this time symptoms do not all correlate. Patient feels comfortable discharge to home and will follow up closely with her primary care physician. She was advised if she has any rec urrent issues she should return to the emergency room immediately. ED Disposition - Plan for ED Patient: Disposition: Home or Assisted Living Diagnosis: Vertigo Instructions: ED BPV Vertigo Referrals: Boni Quintanilla MD [Primary Care Provider] - As soon as possible
[2020-07-26 03:52] VITALS: BP 111/61; PULSE 70; RESP 18; O2SAT 99
== END 2020-07-26 03:56 | disposition home or self-care (01) ==
PROVIDERS: Emergency Provider Emergency Medicine; PCP Family Medicine
DX: R42 Dizziness and giddiness (principal); E03.9 Hypothyroidism, unspecified; Z79.899 Other long term (current) drug therapy
CPT/HCPCS: 70450; 71045; 80048; 84484; 84703; 85025; 93005; 99285; J7030; A4216

== ENCOUNTER → 2020-08-04 15:09 | Outpatient (CLI) | payer OTHER, SELFPAY ==
[2020-07-26 01:51] VITALS: BMI 45.1
--- NOTE | 2020-08-04 15:14 | US_ITS ---
STUDY: SUPERFICIAL ULTRASOUND - RIGHT PAROTID GLAND REASON FOR EXAM: Female, 40 years old. MASS OF SALIVARY GLAND,OTHER DISEASES OF SALIVARY GLANDS TECHNIQUE: A superficial ultrasound was performed with real-time and static maier-scale imaging. COMPARISON: None. FINDINGS: Multiple longitudinal and transverse ultrasound images the right parotid gland demonstrate a 6 x 5 mm oval hypoechoic mass with some central increased echogenicity likely consistent with a lymph node. US/Head/Neck Soft Tissue IMPRESSION: Ultrasound confirms a 6 mm probable lymph node within the right parotid gland. Electronically Signed: Ronal Fuller MD at 8:13 EDT Tel , Service support ,
== END ==
PROVIDERS: PCP Family Medicine; Referring Provider Otolaryngology; Visit Provider Otolaryngology
DX: K11.8 Other diseases of salivary glands (principal)
CPT/HCPCS: 76536

== ENCOUNTER → 2020-08-31 10:42 | Outpatient (CLI) | payer OTHER, SELFPAY ==
[2020-08-31 12:44] LABS: Estradiol 63.8 pg/mL
[2020-08-31 12:56] LABS: Progesterone Level 3.69 ng/mL (See Comment); hCG Titer Quant., Serum < 1 mIU/mL (1-3)
== END ==
PROVIDERS: PCP Family Medicine
DX: Z32.00 Encounter for pregnancy test, result unknown (principal)
CPT/HCPCS: 36415; 82670; 84144; 84702

== ENCOUNTER → 2020-12-25 12:14 | Outpatient (CLI) | payer OTHER, SELFPAY ==
[2020-12-25 14:59] LABS: Absolute Lymphocyte Count 2.28 X10^3/uL (0.83-4.51); Absolute Neutrophil Count 5.6 X10^3/uL (2.0-7.7); Basophil# 0.05 X10^3/uL; Basophil% 0.6 % (0-1); Eosinophil# 0.36 X10^3/uL; Eosinophils% 4.2 % (0-5); Hematocrit 42.6 % (37-47); Hemoglobin 13.8 g/dL (12.0-15.0); Lymphocyte # 2.28 X10^3/ul (0.83-4.51); Lymphocyte % 26.4 % (19-41); Mean Corp Hgb Conc 32.4 g/dL (32-36); Mean Corpuscular Hgb 26.4 pg (27.0-32.0); Mean Corpuscular Volume 81.5 fL (81-99); Mean Platelet Vol. 11.6 fl (6.2-12.0); Monocyte# 0.38 X10^3/uL; Monocyte% 4.4 % (0-10); NRBC Flagged by Analyzer 0 % (0-5); Neutrophil # 5.57 X10^3/uL (2.7-7.7); Neutrophil % 64.3 % (47-70); Platelet Count 208 K/mm3 (150-450); RBC Distribution Width CV 14.3 % (11.6-14.6); RBC Distribution Width SD 41.9 fl (35.1-43.9); Red Blood Count 5.23 M/mm3 (4.2-5.4); White Blood Count 8.7 K/mm3 (4.4-11.0)
[2020-12-25 15:14] LABS: Anion Gap 5 (5-15); BUN 15 mg/dL (7-18); BUN/Creat Ratio 19.5 RATIO (10-20); Calcium,Total 8.8 mg/dL (8.5-10.1); Chloride 105 mmol/L (98-107); Cholesterol 174 mg/dL (200); Creatinine, Serum 0.77 mg/dL (0.55-1.02); EST Glomerular Filtration Rate 89 mL/min (>60); Est Glom Filt Rate - Afr Amer 107 mL/min (>60); Glucose 85 mg/dL (74-106); High Density Lipoprotein 57 mg/dL; Potassium 4.1 mmol/L (3.5-5.1); Sodium Level 136 mmol/L (136-145); Triglycerides 107 mg/dL; Very Low Density Lipoprotein 21 mg/dL (5-40)
== END ==
PROVIDERS: PCP Family Medicine; Referring Provider Family Medicine; Visit Provider Family Medicine
DX: E66.01 Morbid (severe) obesity due to excess calories (principal)
CPT/HCPCS: 36415; 80048; 80061; 85025

== ENCOUNTER 2021-01-07 15:38 | Outpatient (RCR) | payer OTHER, SELFPAY | END 2021-01-21 23:59 | LOC: NS 15:38 | PROVIDERS: PCP Family Medicine; Visit Provider Family Medicine | DX: Z71.3 Dietary counseling and surveillance (principal); E66.01 Morbid (severe) obesity due to excess calories; Z68.42 Body mass index [BMI] 45.0-49.9, adult | CPT/HCPCS: 97802 ==

== ENCOUNTER → 2021-01-07 16:37 | Outpatient (CLI) | payer OTHER, SELFPAY ==
[2021-01-07 17:45] LABS: CRP 8.65 mg/L (0.0-3.0)
[2021-01-10 09:59] LABS: ANTINUCLEAR ANTIBODIES DIRECT Negative (Negative)
[2021-01-14 16:09] LABS: Complement C3 158 mg/dL (82-167)
[2021-01-14 17:10] LABS: HLA B27 Negative (.)
== END ==
PROVIDERS: PCP Family Medicine; Visit Provider Family Medicine
DX: M35.00 Sjogren syndrome, unspecified (principal)
CPT/HCPCS: 36415; 81374; 86038; 86140; 86160

== ENCOUNTER 2021-01-08 15:30 | Outpatient (RCR) | payer OTHER, SELFPAY ==
--- NOTE | 2020-11-25 18:47 | HP.PTEVAL_ITS ---
Patient's Visit Information SHAE RIOS is a 40 year old F referred to Physical Therapy by Dr. 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 Date of Evaluation: 11/25/20 Physical Therapist: SURINDER Chun - Visit Plan Frequency: 1-2x /Week Duration: 6 Weeks Plan: 1-2X/ week (as pt has a high co-pay) for foam rolling, gastroc stretching, DF strengthening, gait training with HEP and modalities if needed. Pt was fitted for orthotics today as well - Subjective Pt reports that she is not sure she can do $40 a visit for 12 visits and wants more of a HEP when we can. Pt reports that she has had foot pain for several years and mentioned it recently that if she stretches her achilles and it keene and almost vibrates. The arches of her feet have hurt for years and had to stop roller sakating cause it hurt to bad. If she does zacarias litter she has to squat for each scoop. She has increase pain first thing in the morning and increase pain for those first 10 steps. Sitting for too long and go to get up then her feet hurt and aching. She does have a foot massager at home and it has the balls under her foot and it aches when she is done with it. She uses it about once a week. Now her achilles bother her also. She does not get a lot of physical activity outside of work or everynight they go for about 1 mile loop walk and her feet are ok doing that.. She is more sore after resting and getting back up. She stands on the outside of her feet, she sits with her toes curled under her. She has one hip longer than the other - Pain R foot pain Pain Intensity (Out of 10): 3 L foot pain Pain Intensity (Out of 10): 3 - Objective R ankle DF -6 degrees from neutral. L ankle DF -2 degrees from neutral. Palpation: tender along the achilles of B Ankles but worse on the L, tender along the bottom of her feet along the medial arch/plantar fascia. B ankle MMT: DF, PF, INV and EV 4/5. Extremely tight B achilles tendons. Posture: sits in a chair with PPT with toes PF under B feet. Gait: walks with decrease DF but walks with increase toe extension only. She walks on the ouside of B feet. Pt can heel and toe raise but does increase some pain - Goals Goal 1:: I HEP Goal Time Frame: 6-8 Weeks Goal 2:: Pt to be able to get out of bed in the morning or after sitting for awhile with decreased pain by 50% Goal Time Frame: 6-8 Weeks Goal 3:: Increase B ankle DF to neutral Goal Time Frame: 6-8 Weeks - Rehabilitation Potential Rehabilitation Potential: Good - Anticipated Interventions Patient/Client Instruction: Educate patient on: Condition, Plan of Care For the Purpose of:: To decrease pain, To increase ROM, To improve nutrient delivery to tissue, To improve muscle performance and motor function, To improve ability to perform ADL's, To increase tolerance to activity/condition/position, To improve performance and independence with ADL's, To improve gait and locomotor functions, To improve health of tissue, To decrease soft tissue restriction, To increase flexibility/ROM, To improve balance Therapeutic Exercise to Include: Strength training, Balance training, Flexibilty training, Gait and locomotor training, Neuromotor development, Passive ROM, Acti ve ROM For the Purpose of:: To decrease pain, To increase ROM, To improve nutrient delivery to tissue, To improve muscle performance and motor function, To improve ability to perform ADL's, To increase tolerance to activity/condition/position, To improve performance and independence with ADL's, To improve gait and locomotor functions, To improve health of tissue, To decrease soft tissue restriction, To increase flexibility/ROM, To improve balance Functional Training to Include: Gait training For the Purpose of:: To improve gait and locomotor functions Manual Therapy Techniques to Include: Mobilization, Passive ROM, Soft tissue mobilization For the Purpose of:: To decrease pain, To increase ROM, To improve nutrient delivery to tissue, To improve muscle performance and motor function Cryotherapy (ice pack, ice massage): Yes Thermo therapy (hot pack): Yes Ultrasound (thermal/non thermal): Yes For the Purpose of:: To decrease pain, To increase ROM, To improve nutrient delivery to tissue Thank you for the opportunity to evaluate your patient. For Medicare and Medicare HMO plans, please review the plan of care and approve it. It will need to be FAXED BACK to us at [phone] for Medicare purposes. For Medicare only, by signing this I certify the plan of care. Please let me know if there are questions or concerns regarding this plan of care. Physician Signature: Date:
--- NOTE | 2021-03-31 17:06 | HP.PT.NRP ---
SHAE RIOS was seen in my office for initial evaluation on 11/25/20. The following Plan of Care was established for this patient: Initial Frequency: 1-2x /Week Initial Duration: 6 Weeks Patient/Client Instruction: Educate patient on: Condition, Plan of Care For the Purpose of:: To decrease pain, To increase ROM, To improve nutrient delivery to tissue, To improve muscle performance and motor function, To improve ability to perform ADL's, To increase tolerance to activity/condition/position, To improve performance and independence with ADL's, To improve gait and locomotor functions, To improve health of tissue, To decrease soft tissue restriction, To increase flexibility/ROM, To improve balance Therapeutic Exercise to Include: Strength training, Balance training, Flexibilty training, Gait and locomotor training, Neuromotor development, Passive ROM, Active ROM For the Purpose of:: To decrease pain, To increase ROM, To improve nutrient delivery to tissue, To improve muscle performance and motor function, To improve ability to perform ADL's, To increase tolerance to activity/condition/position, To improve performance and independence with ADL's, To improve gait and locomotor functions, To improve health of tissue, To decrease soft tissue restriction, To increase flexibility/ROM, To improve balance Functional Training to Include: Gait training For the Purpose of:: To improve gait and locomotor functions Manual Therapy Techniques to Include: Mobilization, Passive ROM, Soft tissue mobilization For the Purpose of:: To decrease pain, To increase ROM, To improve nutrient delivery to tissue, To improve muscle performance and motor function Cryotherapy (ice pack, ice massage): Yes Thermo therapy (hot pack): Yes Ultrasound (thermal/non thermal): Yes For the Purpose of:: To decrease pain, To increase ROM, To improve nutrient delivery to tissue This patient was last seen in our office 01/08/21. Pertinent comments regarding their Physical therapy will appear below: Pt no showed for her last PT appointment and did not reschedule and will be discharged from our care at this time. At this point I will be discontinuing this patient from physical therapy. I would be happy to see this patient again in the future if found appropriate by the physician. Thank you! Perla Aburto, MPT Balance/Gait/Functional tests - Balance/Special Test Scores Lower Extremity Functional Score: 46
== END 2021-01-08 19:00 | disposition home or self-care (01) ==
LOC: PT 15:30
PROVIDERS: PCP Family Medicine; Visit Provider Family Medicine
DX: M72.2 Plantar fascial fibromatosis (principal); M76.62 Achilles tendinitis, left leg
CPT/HCPCS: 97110; 97162; 97760; 97763

== ENCOUNTER 2021-01-25 11:46 | Outpatient (RCR) | payer OTHER, SELFPAY | END 2021-02-21 23:59 | LOC: NS 11:46 | PROVIDERS: PCP Family Medicine; Visit Provider Family Medicine | DX: Z71.3 Dietary counseling and surveillance (principal); E66.01 Morbid (severe) obesity due to excess calories; Z68.42 Body mass index [BMI] 45.0-49.9, adult | CPT/HCPCS: 97802 ==

== ENCOUNTER → 2021-02-03 11:30 | Outpatient (CLI) | payer OTHER, SELFPAY ==
[2021-02-03 15:38] LABS: Vitamin D,25 Hydroxy 38.3 ng/mL
[2021-02-03 15:49] LABS: ALB/GLOB Ratio 0.8 RATIO (0.9-2.4); AST(SGOT) 13 U/L (15-37); Alanine Aminotransfer ALT/SGPT 21 U/L (13-56); Albumin, Serum 3.4 g/dL (3.2-5.0); Alkaline Phosphatase 106 U/L (45-117); Anion Gap 9 (5-15); BUN 15 mg/dL (7-18); BUN/Creat Ratio 17.9 RATIO (10-20); Calcium,Total 8.9 mg/dL (8.5-10.1); Chloride 103 mmol/L (98-107); Cholesterol 186 mg/dL (200); Creatinine, Serum 0.84 mg/dL (0.55-1.02); EST Glomerular Filtration Rate 80 mL/min (>60); Est Glom Filt Rate - Afr Amer 97 mL/min (>60); Globulin 4.1 g/dL (2.2-4.2); Glucose 82 mg/dL (74-106); High Density Lipoprotein 54 mg/dL; Potassium 3.8 mmol/L (3.5-5.1); Protein, Total 7.5 g/dL (6.4-8.2); Sodium Level 138 mmol/L (136-145); Thyroid Stim Hormone (TSH) 1.19 uIU/mL (0.358-3.74); Triglycerides 147 mg/dL; Very Low Density Lipoprotein 29 mg/dL (5-40)
== END ==
PROVIDERS: PCP Family Medicine; Referring Provider Internal Medicine Endocrinology, Diabetes & Metabolism; Visit Provider Internal Medicine Endocrinology, Diabetes & Metabolism
DX: E03.8 Other specified hypothyroidism (principal); E55.9 Vitamin D deficiency, unspecified; E78.00 Pure hypercholesterolemia, unspecified
CPT/HCPCS: 36415; 80053; 80061; 82306; 84443

== ENCOUNTER → 2021-03-02 | Outpatient (CLI) | payer OTHER, SELFPAY | END | disposition home or self-care (01) | PROVIDERS: PCP Family Medicine; Visit Provider Family Medicine | DX: Z11.52 Encounter for screening for COVID-19 (principal) | CPT/HCPCS: 87635; U0005; U0003 ==

== ENCOUNTER 2021-03-08 10:00 | Outpatient (RCR) | payer OTHER, SELFPAY | END 2021-03-23 23:59 | LOC: NS 10:00 | PROVIDERS: PCP Family Medicine; Referring Provider Family Medicine; Visit Provider Family Medicine | DX: Z71.3 Dietary counseling and surveillance (principal); E66.01 Morbid (severe) obesity due to excess calories; Z68.42 Body mass index [BMI] 45.0-49.9, adult | CPT/HCPCS: 97803 ==

== ENCOUNTER 2021-04-01 11:24 | Outpatient (RCR) | payer OTHER, SELFPAY | END 2021-04-23 23:59 | LOC: NS 11:24 | PROVIDERS: PCP Family Medicine; Referring Provider Family Medicine; Visit Provider Family Medicine | DX: Z71.3 Dietary counseling and surveillance (principal); E66.01 Morbid (severe) obesity due to excess calories; Z68.42 Body mass index [BMI] 45.0-49.9, adult | CPT/HCPCS: 97803 ==

== ENCOUNTER 2021-04-08 14:00 | Emergency (ER) | payer OTHER, SELFPAY ==
[2021-04-08 14:01] VITALS: BP 143/77; PULSE 80; RESP 16; TEMP 36.1; O2SAT 99; BMI 43.9
--- NOTE | 2021-04-08 15:04 | ED.VIS.DYS ---
HPI History of Present Illness Chief Complaint: Shortness of Breath Narrative Narrative: 41-year-old female presenting with right-sided flank pain and tightness across the upper abdomen which has been going on for years intermittently. She states she does feel dyspneic at times. She is also a chronic issue. She was seen by her primary care doctor in the past and put on medication for allergies and she states this was not helping after about a week and she followed up with another doctor in the office and they told her she might have asthma and gave her albuterol. She does admit that the albuterol intermittently helps with shortness of breath. She states she was lost to follow-up last year due to the Covid pandemic and has not seen anybody from pulmonology. Patient is concerned because she has a 9 pound weight loss that is unintentional and she thinks she might have cancer. She denies fever, chills but does admit to a recent increase in her cough. She thought this was due to GERD that she has been taking Tums and this has improved the symptoms so her primary care provider put her on Protonix for the last 4 days and she seems to have 1 coffee a day. She states that she had COVID-19 in March of last year and she had mild symptoms of a headache but no respiratory issues. [facility] Medical History Allergies Anxiety Hypothyroidism Home Medications cholecalciferol (vitamin D3) [Vitamin D] 1,000 unit PO DAILY 06/11/15 [History Last Taken Unknown] hydroxychloroquine 600 mg PO DAILY 07/26/20 [History Last Taken Unknown] levothyroxine 75 mcg PO DAILY 07/26/20 [History Last Taken Unknown] [id number] acid 1 each PO DAILY 07/26/20 [History Last Taken Unknown] progesterone micronized 100 mg PO DAILY 07/26/20 [History Last Taken Unknown] Allergy/AdvReac Type Severity Reaction Status Date / Time codeine Allergy Rash Verified 04/08/21 14:05 Penicillins Allergy Hives Verified 04/08/21 14:05 amphetamine AdvReac Chest Verified 04/08/21 14:05 tightness benzoyl peroxide AdvReac Swelling Verified 04/08/21 14:05 ethinyl estradiol AdvReac Other Verified 04/08/21 14:05 [From Ortho Tri-Cyclen (28)] norgestimate AdvReac Other Verified 04/08/21 14:05 [From Ortho Tri-Cyclen (28)] prednisone AdvReac Other Verified 04/08/21 14:05 ranitidine HCl [From Zantac] AdvReac Hives Verified 04/08/21 14:05 TIROSINT AdvReac Chest Uncoded 04/08/21 14:05 tightness Social History Smoking Status: Never smoker ROS ROS ED Constitutional Constitutional ED: Denies chills or fever(s) Eyes Eyes: Denies blurry vision or diplopia ENT ENT ED: Denies rhinorrhea or sore throat Respiratory/Chest Respiratory/Chest: Reports cough, dyspnea and dyspnea on exertion Gastrointestinal Gastrointestinal: Reports other Details: Right flank pain ; Denies constipation, diarrhea, nausea or vomiting Genitourinary Genitourinary ED: Denies dysuria or hematuria Musculoskeletal Musculoskeletal: Denies arthralgias or myalgias Integumentary Denies abscess or rash Neurologic Neurologic: Denies headache(s) or paresthesias Psychiatric Psychiatric: Reports anxiety; Denies depression EXAM Physical Exam Const Vital Signs: 04/08/21 14:01 04/08/21 15:40 04/08/21 16:53 Temperature 96.9 F L Temperature Source Temporal Pulse Rate 80 70 Respiratory Rate 16 21 H Blood Pressure 143/77 H 145/77 H Blood Pressure Mean 99 99 Pulse Ox 99 100 98 Oxygen Delivery Method Room Air Room Air Room Air Positive well nourished General Appearance ED: NAD; Negative for pallor HEENT Reports moist mucous membranes atraumatic Eyes PERRL and EOMs intact bilaterally Resp normal respiratory effort and clear to auscultation bilaterally Cardio regular rate and regular rhythm Back/Spine normal to inspection Extremity normal to inspection General Extremety ED: Negative for edema or tenderness General Extremity: Negative for edema Neuro oriented x3, CN's II-XII intact bilaterally and no sensory deficits noted Sensorium / Orientation: alert Motor Exam: strength 5/5 throughout Psych mental status grossly normal Mood & Affect: anxious Skin General Skin Exam: Negative for jaundice or pallor Rashes: no rashes MDM MDM MDM Narrative Medical decision making narrative: Patient presenting with multiple complaints including lower back pain, right upper back pain, right flank pain, shortness of breath. She states she has unintentional weight loss of 9 pounds. Given this I did do blood work and imaging and I did check an EKG. EKG on my interpretation shows normal sinus rhythm ventricular rate of 70 bpm without sign of ischemic change. CBC and CMP are unremarkable with exception of an alkaline phosphatase of 119 potassium of 3.3. D-dimer is negative at 0.31. High-sensitivity troponin is 4. TSH and T4 are normal. Chest x-ray my interpretation shows no acute cardiopulmonary process and the radiologist does agree. Urinalysis is negative for infection. Patient was counseled that her work-up is ultimately negative for any acute findings and that she will need to follow-up with her PCP. After discussion she and her believe they might have been Google searching symptoms too much. The patient does admit that she is anxious. I counseled her that we found nothing acute and that she would be safe for follow-up outpatient. She is amenable to this. Impression: 1. Unintentional weight loss 2. Dyspnea 3. Lumbar back pain 4. Right flank pain Lab Data Attestation: I reviewed the patient's lab results. Labs: Laboratory Results - last 24 hr 04/08/21 04/08/21 04/08/21 15:20 15:20 15:20 WBC 9.8 RBC 5.43 H Hgb 14.6 Hct 44.9 MCV 82.7 MCH 26.9 L MCHC 32.5 RDW Std Deviation 41.9 RDW Coeff of Gerard 14.0 Plt Count 207 MPV 11.3 Immature Gran % (Auto) 0.200 Neut % (Auto) 74.7 H Lymph % (Auto) 19.5 [place] % (Auto) 4.1 Eos % (Auto) 1.0 Baso % (Auto) 0.5 Absolute Neuts (auto) 7.3 Absolute Lymphs (auto) 1.92 Nucleated RBC % 0 D-Dimer Quant (PE/DVT) 0.31 Sodium 139 Potassium 3.3 L Chloride 105 Carbon Dioxide 26.0 Anion Gap 8 BUN 16 Creatinine 0.96 Estim Creat Clear Calc 62.23 Est GFR (MDRD) Af Amer 84 Est GFR (MDRD) Non-Af 69 BUN/Creatinine Ratio 16.7 Glucose 97 Calcium 8.7 Total Bilirubin 0.70 Direct Bilirubin 0.15 AST 14 L ALT 24 Alkaline Phosphatase 119 H Troponin I High Sens 4 Total Protein 8.6 H Albumin 3.9 Globulin 4.7 H TSH 0.74 Free T4 1.34 Urine Color Urine Clarity Urine pH Ur Specific [place] Urine Protein Urine Glucose (UA) Urine Ketones Urine Occult Blood Urine Nitrite Urine Bilirubin Urine Urobilinogen Ur Leukocyte Esterase Urine RBC Urine WBC Ur Squamous Epith Cells Urine Bacteria Urine Mucus 04/08/21 Unknown WBC RBC Hgb Hct MCV MCH MCHC RDW Std Deviation RDW Coeff of Gerard Plt Count MPV Immature Gran % (Auto) Neut % (Auto) Lymph % (Auto) [place] % (Auto) Eos % (Auto) Baso % (Auto) Absolute Neuts (auto) Absolute Lymphs (auto) Nucleated RBC % D-Dimer Quant (PE/DVT) Sodium Potassium Chloride Carbon Dioxide Anion Gap BUN Creatinine Estim Creat Clear Calc Est GFR (MDRD) Af Amer Est GFR (MDRD) Non-Af BUN/Creatinine Ratio Glucose Calcium Total Bilirubin Direct Bilirubin AST ALT Alkaline Phosphatase Troponin I High Sens Total Protein Albumin Globulin TSH Free T4 Urine Color Yellow Urine Clarity Clear Urine pH 6.0 Ur Specific [place] 1.015 Urine Protein Negative Urine Glucose (UA) Normal Urine Ketones Negative Urine Occult Blood 10 H Urine Nitrite Negative Urine Bilirubin Negative Urine Urobilinogen Normal Ur Leukocyte Esterase Negative Urine RBC 0 SEEN Urine WBC 0 SEEN Ur Squamous Epith Cells 0-5 SEEN Urine Bacteria 0 SEEN Urine Mucus 0 SEEN Radiography Diagnostic Testing: Clinical Impression(s) from Imaging Studies Chest X-Ray 04/08/21 15:34 IMPRESSION: Normal x-ray examination of the chest. Electronically Signed: Ben Duval MD at 15:49 EST , Service support , Discharge Plan Triage Chief Complaint: Shortness of Breath Other Complaint: General Illness ED Provider: [place] Dx/Rx/DC Orders Instructions: ED Dyspnea, ED Back and Neck Pain, General Prescriptions: No Action cholecalciferol (vitamin D3) [Vitamin D3] 1,000 UNIT tablet 1,000 unit PO DAILY RF: 0 levothyroxine 75 MCG tablet 75 mcg PO DAILY RF: 0 hydroxychloroquine 200 MG tablet 600 mg PO DAILY RF: 0 progesterone micronized 100 MG capsule 100 mg PO DAILY RF: 0 [id number] 1 EACH tablet 1 each PO DAILY RF: 0 Primary Care Provider: Boni Quintanilla Referrals: Boni Quintanilla MD [Primary Care Provider] - Disposition Disposition: Home, Self Care Discharge Date/Time: 04/08/21 17:24
--- NOTE | 2021-04-08 15:08 | EKG12_ITS ---
Test Reason : Blood Pressure : / mmHG Vent. Rate : 070 BPM Atrial Rate : 070 BPM P-R Int : 136 ms QRS Dur : 090 ms QT Int : 382 ms P-R-T Axes : 033 027 005 degrees QTc Int : 412 ms Normal sinus rhythm Nonspecific ST abnormality Abnormal ECG Confirmed by GA SUAZO, JANA ([id number]), editorial cartoonist JOHN NULL ([id number]) on 04/09/2021 12:29:10 PM Referred By: SKY Confirmed By:JANA KOROMA MD
[2021-04-08 15:15] LABS: Bacteria 0 SEEN /hpf (None Seen); Mucous, Urine 0 SEEN /hpf (<or=2+); Red Blood Cells-Urine 0 SEEN /hpf (0-5); White Blood Cells 0 SEEN /hpf (0-5)
[2021-04-08 15:18] LABS: Color, Urine Yellow (Yellow); Glucose, Dipstick Normal (Normal); Ketone-Dipstick Negative (Negative); Leukocyte Esterase-Dipstick Negative /ul (Negative); Nitrite-Dipstick Negative (Negative); Occult Blood-Urine 10 /ul (Negative); Protein-Dipstick Negative (Negative); Specific Gravity, Urine 1.015 (1.002-1.030); Urine Bilirubin Dipstick Negative (Negative); Urine Clarity Clear (Clear); Urine Urobilinogen Normal (Normal)
[2021-04-08 15:29] LABS: Squamous Epithelial Cells - UA 0-5 SEEN /hpf (5-10)
--- NOTE | 2021-04-08 15:34 | RAD_ITS ---
STUDY: X-RAY CHEST REASON FOR EXAM: Female, 41 years old. Chest pain TECHNIQUE: Single AP portable view of the chest. COMPARISON: Comparison is made with prior study dated 07/26/2020. FINDINGS: EKG electrodes are seen. The lungs are clear and expanded. There is no demonstrated pleural abnormality. Normal size heart. Normal mediastinum and natalia. Normal visualized pulmonary arteries. Normal visualized aortic arch and descending thoracic aorta. Normal visualized thoracic spine. Normal visualized ribs, clavicles, and shoulders. There is no demonstrated abnormality of the visualized soft tissue structures of the upper abdomen. RAD/Chest 1 View (Portable) IMPRESSION: Normal x-ray examination of the chest. Electronically Signed: Ben Duval MD at 15:49 EST , Service support ,
[2021-04-08 15:37] LABS: Absolute Lymphocyte Count 1.92 X10^3/uL (0.83-4.51); Absolute Neutrophil Count 7.3 X10^3/uL (2.0-7.7); Basophil# 0.05 X10^3/uL; Basophil% 0.5 % (0-1); Hematocrit 44.9 % (37-47); Hemoglobin 14.6 g/dL (12.0-15.0); Lymphocyte # 1.92 X10^3/ul (0.83-4.51); Lymphocyte % 19.5 % (19-41); Mean Corp Hgb Conc 32.5 g/dL (32-36); Mean Corpuscular Hgb 26.9 pg (27.0-32.0); Mean Corpuscular Volume 82.7 fL (81-99); Mean Platelet Vol. 11.3 fl (6.2-12.0); Monocyte% 4.1 % (0-10); NRBC Flagged by Analyzer 0 % (0-5); Neutrophil # 7.34 X10^3/uL (2.7-7.7); Neutrophil % 74.7 % (47-70); Platelet Count 207 K/mm3 (150-450); RBC Distribution Width SD 41.9 fl (35.1-43.9); Red Blood Count 5.43 M/mm3 (4.2-5.4); White Blood Count 9.8 K/mm3 (4.4-11.0)
[2021-04-08 15:40] VITALS: O2SAT 100
[2021-04-08 15:53] LABS: D-Dimer Quantitative (DVT/PE) 0.31 FEU/ug/m (0.27-0.49)
[2021-04-08 16:27] LABS: AST(SGOT) 14 U/L (15-37); Alanine Aminotransfer ALT/SGPT 24 U/L (13-56); Albumin, Serum 3.9 g/dL (3.2-5.0); Alkaline Phosphatase 119 U/L (45-117); Anion Gap 8 (5-15); BUN 16 mg/dL (7-18); BUN/Creat Ratio 16.7 RATIO (10-20); Bilirubin, Direct 0.15 mg/dL (0.00-0.30); Calcium,Total 8.7 mg/dL (8.5-10.1); Chloride 105 mmol/L (98-107); Creatinine, Serum 0.96 mg/dL (0.55-1.02); EST Glomerular Filtration Rate 69 mL/min (>60); Est Glom Filt Rate - Afr Amer 84 mL/min (>60); Estimated Creatinine Clearance 62.23 ml/min; Globulin 4.7 g/dL (2.2-4.2); Glucose 97 mg/dL (74-106); Potassium 3.3 mmol/L (3.5-5.1); Protein, Total 8.6 g/dL (6.4-8.2); Sodium Level 139 mmol/L (136-145); T4 Free Direct 1.34 ng/dL (0.76-1.46); Thyroid Stim Hormone (TSH) 0.74 uIU/mL (0.358-3.74); Troponin-I HS 4 pg/mL (3.0-54.0)
[2021-04-08 16:53] VITALS: BP 145/77; PULSE 70; RESP 21; O2SAT 98
== END 2021-04-08 17:24 | disposition home or self-care (01) ==
PROVIDERS: Emergency Provider Student in an Organized Health Care Education/Training Program; PCP Family Medicine
DX: R63.4 Abnormal weight loss (principal); Z68.41 Body mass index [BMI] 40.0-44.9, adult; R06.02 Shortness of breath; R10.11 Right upper quadrant pain; M54.50 Low back pain, unspecified; E03.9 Hypothyroidism, unspecified; Z79.899 Other long term (current) drug therapy
CPT/HCPCS: 71045; 80048; 80076; 81001; 84439; 84443; 84484; 85025; 85379; 93005; 99284; J7030; A4216

== ENCOUNTER 2021-04-20 18:20 | Outpatient (CLI) | payer OTHER, SELFPAY ==
[2021-04-20 18:38] VITALS: BP 133/82; PULSE 66; RESP 16; TEMP 36.9; O2SAT 100; BMI 43.9
[2021-04-20] MEDS: 0.9% Saline Lock 10 ML Syringe IV (18:48)
[2021-04-20 19:17] VITALS: BP 128/82; PULSE 64; RESP 16; TEMP 37.1; O2SAT 100
[2021-04-20 20:14] VITALS: BP 130/84; PULSE 62; RESP 16; TEMP 36.9; O2SAT 99
== END 2021-04-20 20:20 | disposition home or self-care (01) ==
LOC: MS3OUT 18:20 → MS3 18:21
PROVIDERS: PCP Family Medicine; Referring Provider Nurse Practitioner Adult Health; Visit Provider Nurse Practitioner Adult Health
DX: U07.1 COVID-19 (principal)
CPT/HCPCS: J7050; M0245; Q0245; A4216

== ENCOUNTER 2021-06-21 13:30 | Outpatient (RCR) | payer OTHER, SELFPAY | END 2021-06-21 23:59 | LOC: NS 13:30 | PROVIDERS: PCP Family Medicine; Referring Provider Family Medicine; Visit Provider Family Medicine | DX: Z71.3 Dietary counseling and surveillance (principal); E66.01 Morbid (severe) obesity due to excess calories; Z68.42 Body mass index [BMI] 45.0-49.9, adult | CPT/HCPCS: 97803 ==

== ENCOUNTER 2021-07-19 13:00 | Outpatient (RCR) | payer OTHER, SELFPAY | END 2021-07-22 23:59 | LOC: NS 13:00 | PROVIDERS: PCP Family Medicine; Referring Provider Family Medicine; Visit Provider Family Medicine | DX: Z71.3 Dietary counseling and surveillance (principal); E66.01 Morbid (severe) obesity due to excess calories; Z68.42 Body mass index [BMI] 45.0-49.9, adult | CPT/HCPCS: 97803 ==

== ENCOUNTER 2021-08-18 13:02 | Outpatient (RCR) | payer OTHER, SELFPAY | END 2021-08-21 23:59 | LOC: NS 13:02 | PROVIDERS: PCP Family Medicine; Referring Provider Family Medicine; Visit Provider Family Medicine | DX: Z71.3 Dietary counseling and surveillance (principal); E66.01 Morbid (severe) obesity due to excess calories; Z68.42 Body mass index [BMI] 45.0-49.9, adult | CPT/HCPCS: 97803 ==

== ENCOUNTER 2021-09-06 14:32 | Outpatient (RCR) | payer OTHER, SELFPAY | END 2021-09-21 23:59 | LOC: NS 14:32 | PROVIDERS: PCP Family Medicine; Referring Provider Family Medicine; Visit Provider Family Medicine | DX: Z71.3 Dietary counseling and surveillance (principal); E66.01 Morbid (severe) obesity due to excess calories; Z68.42 Body mass index [BMI] 45.0-49.9, adult | CPT/HCPCS: 97803 ==

== ENCOUNTER → 2021-09-22 | Outpatient (CLI) | payer OTHER, SELFPAY ==
[2021-09-22 13:42] LABS: ALB/GLOB Ratio 0.9 RATIO (0.9-2.4); AST(SGOT) 12 U/L (15-37); Alanine Aminotransfer ALT/SGPT 22 U/L (13-56); Albumin, Serum 3.5 g/dL (3.2-5.0); Alkaline Phosphatase 99 U/L (45-117); Anion Gap 7 (5-15); BUN 18 mg/dL (7-18); BUN/Creat Ratio 20.8 RATIO (10-20); Calcium,Total 9.1 mg/dL (8.5-10.1); Chloride 105 mmol/L (98-107); Creatinine, Serum 0.87 mg/dL (0.55-1.02); EST Glomerular Filtration Rate 77 mL/min (>60); Est Glom Filt Rate - Afr Amer 93 mL/min (>60); Globulin 4.1 g/dL (2.2-4.2); Glucose 93 mg/dL (74-106); Potassium 4.1 mmol/L (3.5-5.1); Protein, Total 7.6 g/dL (6.4-8.2); Sodium Level 139 mmol/L (136-145); Thyroid Stim Hormone (TSH) 1.26 uIU/mL (0.358-3.74); Vitamin D,25 Hydroxy 60.6 ng/mL
== END | disposition home or self-care (01) ==
LOC: LAB 11:41
PROVIDERS: PCP Family Medicine; Visit Provider Internal Medicine Endocrinology, Diabetes & Metabolism
DX: E03.8 Other specified hypothyroidism (principal); E04.2 Nontoxic multinodular goiter; E55.9 Vitamin D deficiency, unspecified
CPT/HCPCS: 36415; 80053; 82306; 84443

== ENCOUNTER 2021-10-18 10:30 | Outpatient (RCR) | payer OTHER, SELFPAY | END 2021-10-21 23:59 | LOC: NS 10:30 | PROVIDERS: PCP Family Medicine; Referring Provider Family Medicine; Visit Provider Family Medicine | DX: Z71.3 Dietary counseling and surveillance (principal); E66.01 Morbid (severe) obesity due to excess calories; Z68.42 Body mass index [BMI] 45.0-49.9, adult | CPT/HCPCS: 97803 ==

== ENCOUNTER → 2021-10-26 | Outpatient (CLI) | payer OTHER, SELFPAY ==
--- NOTE | 2021-10-26 16:16 | RAD_ITS ---
EXAM: XR ABDOMEN, 2 VIEWS AND XR CHEST, 1 VIEW CLINICAL INDICATION: EPIGASTRIC PAIN TECHNIQUE: Frontal view of the chest, frontal view of the abdomen/pelvis and upright or decubitus view of the abdomen. This report was created using [employer] report generation technology. COMPARISON: None. FINDINGS: CHEST: LUNGS AND PLEURAL SPACES: Unremarkable. No consolidation or edema. No pneumothorax. No effusion. HEART: Unremarkable. Cardiac silhouette not enlarged. MEDIASTINUM: Central airways and mediastinal contour are unremarkable. ABDOMEN: INTRAPERITONEAL SPACE: No free air. GASTROINTESTINAL TRACT: Unremarkable. Non-obstructive. No bowel or stomach distention. ORGANS: Unremarkable as visualized. No organomegaly. No abnormal calcifications. TUBES, LINES AND DEVICES: None. BONES/JOINTS: No acute findings. SOFT TISSUES: No acute findings. RAD/Acute Abdomen Inc Chest IMPRESSION: Negative chest and abdominal series. Electronically Signed: Chase Hui MD at 20:49 EDT Reading Location ID and State: [facility] / [place] , Service support ,
== END | disposition home or self-care (01) ==
LOC: MTRAD 16:12
PROVIDERS: PCP Family Medicine; Referring Provider Family Medicine; Visit Provider Family Medicine
DX: R10.13 Epigastric pain (principal)
CPT/HCPCS: 74022

== ENCOUNTER 2021-11-09 11:33 | Outpatient (RCR) | payer OTHER, SELFPAY | END 2021-11-21 23:59 | LOC: NS 11:33 | PROVIDERS: PCP Family Medicine; Referring Provider Family Medicine; Visit Provider Family Medicine | DX: Z71.3 Dietary counseling and surveillance (principal); E66.01 Morbid (severe) obesity due to excess calories; Z68.42 Body mass index [BMI] 45.0-49.9, adult | CPT/HCPCS: 97803 ==

== ENCOUNTER 2021-11-23 10:08 | Outpatient (RCR) | payer OTHER, SELFPAY | END 2021-12-22 23:59 | LOC: NS 10:08 | PROVIDERS: PCP Family Medicine; Referring Provider Family Medicine; Visit Provider Family Medicine | DX: Z71.3 Dietary counseling and surveillance (principal); E66.01 Morbid (severe) obesity due to excess calories; Z68.42 Body mass index [BMI] 45.0-49.9, adult | CPT/HCPCS: 97803 ==

== ENCOUNTER 2022-01-20 10:00 | Outpatient (RCR) | payer OTHER, SELFPAY | END 2022-01-21 23:59 | LOC: NS 10:00 | PROVIDERS: PCP Family Medicine; Referring Provider Family Medicine; Visit Provider Family Medicine | DX: Z71.3 Dietary counseling and surveillance (principal); E66.01 Morbid (severe) obesity due to excess calories; Z68.42 Body mass index [BMI] 45.0-49.9, adult | CPT/HCPCS: 97803 ==

== ENCOUNTER 2022-02-10 11:04 | Outpatient (RCR) | payer BC, SELFPAY | END 2022-02-21 23:59 | LOC: NS 11:04 | PROVIDERS: PCP Family Medicine; Referring Provider Family Medicine; Visit Provider Family Medicine | DX: Z71.3 Dietary counseling and surveillance (principal); E66.01 Morbid (severe) obesity due to excess calories; Z68.42 Body mass index [BMI] 45.0-49.9, adult | CPT/HCPCS: 97803 ==

== ENCOUNTER 2022-03-10 11:34 | Outpatient (RCR) | payer BC, SELFPAY | END 2022-03-23 23:59 | LOC: NS 11:34 | PROVIDERS: PCP Family Medicine; Referring Provider Family Medicine; Visit Provider Family Medicine | DX: Z71.3 Dietary counseling and surveillance (principal); E66.01 Morbid (severe) obesity due to excess calories; Z68.42 Body mass index [BMI] 45.0-49.9, adult | CPT/HCPCS: 97803 ==

== ENCOUNTER 2022-03-31 11:06 | Outpatient (RCR) | payer BC, SELFPAY | END 2022-04-23 23:59 | LOC: NS 11:06 | PROVIDERS: PCP Family Medicine; Referring Provider Family Medicine; Visit Provider Family Medicine | DX: Z71.3 Dietary counseling and surveillance (principal); E66.01 Morbid (severe) obesity due to excess calories; Z68.42 Body mass index [BMI] 45.0-49.9, adult | CPT/HCPCS: 97803 ==

== ENCOUNTER 2022-05-18 11:00 | Outpatient (RCR) | payer BC, SELFPAY | END 2022-05-24 23:59 | LOC: NS 11:00 | PROVIDERS: PCP Family Medicine; Referring Provider Family Medicine; Visit Provider Family Medicine | DX: Z71.3 Dietary counseling and surveillance (principal); E66.01 Morbid (severe) obesity due to excess calories; Z68.42 Body mass index [BMI] 45.0-49.9, adult | CPT/HCPCS: 97803 ==

== ENCOUNTER → 2022-05-26 | Outpatient (CLI) | payer BC, SELFPAY ==
[2022-05-26 18:12] LABS: Vitamin D,25 Hydroxy 49.1 ng/mL
[2022-05-26 18:30] LABS: ALB/GLOB Ratio 0.9 RATIO (0.9-2.4); AST(SGOT) 16 U/L (15-37); Alanine Aminotransfer ALT/SGPT 22 U/L (13-56); Albumin, Serum 3.5 g/dL (3.2-5.0); Alkaline Phosphatase 96 U/L (45-117); Anion Gap 7 (5-15); BUN 17 mg/dL (7-18); BUN/Creat Ratio 18.2 RATIO (10-20); Chloride 106 mmol/L (98-107); Creatinine, Serum 0.93 mg/dL (0.55-1.02); EST Glomerular Filtration Rate 71 mL/min (>60); Est Glom Filt Rate - Afr Amer 85 mL/min (>60); Glucose 108 mg/dL (74-106); Potassium 3.9 mmol/L (3.5-5.1); Protein, Total 7.5 g/dL (6.4-8.2); Sodium Level 140 mmol/L (136-145); Thyroid Stim Hormone (TSH) 1.02 uIU/mL (0.358-3.74)
== END | disposition home or self-care (01) ==
LOC: MTLAB 14:38
PROVIDERS: PCP Family Medicine; Referring Provider Internal Medicine Endocrinology, Diabetes & Metabolism; Visit Provider Internal Medicine Endocrinology, Diabetes & Metabolism
DX: E03.8 Other specified hypothyroidism (principal); E55.9 Vitamin D deficiency, unspecified
CPT/HCPCS: 36415; 80053; 82306; 84443

== ENCOUNTER → 2022-06-03 | Outpatient (CLI) | payer BC, SELFPAY ==
[2022-06-03 15:50] LABS: ALB/GLOB Ratio 0.8 RATIO (0.9-2.4); AST(SGOT) 16 U/L (15-37); Alanine Aminotransfer ALT/SGPT 22 U/L (13-56); Albumin, Serum 3.4 g/dL (3.2-5.0); Alkaline Phosphatase 87 U/L (45-117); Anion Gap 8 (5-15); BUN 20 mg/dL (7-18); BUN/Creat Ratio 23.1 RATIO (10-20); Calcium,Total 9.2 mg/dL (8.5-10.1); Chloride 104 mmol/L (98-107); Creatinine, Serum 0.87 mg/dL (0.55-1.02); EST Glomerular Filtration Rate 77 mL/min (>60); Est Glom Filt Rate - Afr Amer 93 mL/min (>60); Globulin 4.1 g/dL (2.2-4.2); Glucose 78 mg/dL (74-106); Potassium 3.8 mmol/L (3.5-5.1); Protein, Total 7.5 g/dL (6.4-8.2); Sodium Level 139 mmol/L (136-145); Thyroid Stim Hormone (TSH) 1.16 uIU/mL (0.358-3.74)
== END | disposition home or self-care (01) ==
LOC: MTLAB 11:39
PROVIDERS: PCP Family Medicine; Referring Provider Internal Medicine Endocrinology, Diabetes & Metabolism; Visit Provider Internal Medicine Endocrinology, Diabetes & Metabolism
DX: E03.8 Other specified hypothyroidism (principal)
CPT/HCPCS: 36415; 80053; 84439; 84443

== ENCOUNTER → 2022-06-24 | Outpatient (CLI) | payer BC, SELFPAY ==
[2022-06-24 11:08] LABS: Progesterone Level 0.53 ng/mL (See Comment)
[2022-06-24 11:12] LABS: hCG Titer Quant., Serum < 1 mIU/mL (1-3)
[2022-06-24 11:23] LABS: Estradiol 29.9 pg/mL; Follicle Stimulating Hormone 5.4 mIU/mL; Luteinizing Hormone 1.6 mIU/mL
== END | disposition home or self-care (01) ==
LOC: WOBLAB 10:08
PROVIDERS: Visit Provider Obstetrics & Gynecology Reproductive Endocrinology
DX: Z31.83 Encounter for assisted reproductive fertility procedure cycle (principal)
CPT/HCPCS: 36415; 82670; 83001; 83002; 84144; 84443; 84702

== ENCOUNTER → 2022-06-29 | Outpatient (CLI) | payer BC, SELFPAY ==
[2022-06-29 11:47] LABS: Estradiol 76.8 pg/mL; Luteinizing Hormone 2.1 mIU/mL; Progesterone Level 0.29 ng/mL (See Comment)
== END | disposition home or self-care (01) ==
LOC: WOBLAB 10:55
PROVIDERS: Visit Provider Obstetrics & Gynecology Reproductive Endocrinology
DX: Z31.83 Encounter for assisted reproductive fertility procedure cycle (principal)
CPT/HCPCS: 36415; 82670; 83002; 84144

== ENCOUNTER → 2022-07-01 | Outpatient (CLI) | payer BC, SELFPAY ==
[2022-07-01 10:38] LABS: Luteinizing Hormone 1.3 mIU/mL
[2022-07-01 11:41] LABS: Progesterone Level < 0.21 ng/mL (See Comment)
== END | disposition home or self-care (01) ==
LOC: WOBLAB 09:42
PROVIDERS: Visit Provider Obstetrics & Gynecology Reproductive Endocrinology
DX: Z31.83 Encounter for assisted reproductive fertility procedure cycle (principal)
CPT/HCPCS: 36415; 82670; 83002; 84144

== ENCOUNTER → 2022-07-04 | Outpatient (CLI) | payer BC, SELFPAY ==
[2022-07-04 11:36] LABS: Estradiol 397.2 pg/mL; Luteinizing Hormone 1.1 mIU/mL
[2022-07-04 11:38] LABS: Progesterone Level < 0.21 ng/mL (See Comment)
== END | disposition home or self-care (01) ==
LOC: WOBLAB 10:36
PROVIDERS: Visit Provider Obstetrics & Gynecology Reproductive Endocrinology
DX: Z31.83 Encounter for assisted reproductive fertility procedure cycle (principal)
CPT/HCPCS: 36415; 82670; 83002; 84144

== ENCOUNTER 2022-07-13 11:30 | Outpatient (RCR) | payer BC, SELFPAY | END 2022-07-22 23:59 | LOC: NS 11:30 | PROVIDERS: PCP Family Medicine; Referring Provider Family Medicine; Visit Provider Family Medicine | DX: Z71.3 Dietary counseling and surveillance (principal); E66.01 Morbid (severe) obesity due to excess calories; Z68.42 Body mass index [BMI] 45.0-49.9, adult | CPT/HCPCS: 97803 ==

== ENCOUNTER → 2022-08-16 | Outpatient (CLI) | payer OTHER, SELFPAY ==
[2022-08-16 11:31] LABS: Progesterone Level 0.33 ng/mL (See Comment)
[2022-08-16 11:32] LABS: hCG Titer Quant., Serum < 1 mIU/mL (1-3)
[2022-08-16 11:37] LABS: Estradiol 127.7 pg/mL; Luteinizing Hormone 3.4 mIU/mL; Thyroid Stim Hormone (TSH) 1.36 uIU/mL (0.358-3.74)
== END | disposition home or self-care (01) ==
LOC: WOBLAB 10:22
PROVIDERS: PCP Family Medicine; Visit Provider Obstetrics & Gynecology Reproductive Endocrinology
DX: Z31.83 Encounter for assisted reproductive fertility procedure cycle (principal)
CPT/HCPCS: 36415; 82670; 83001; 83002; 84144; 84443; 84702

== ENCOUNTER → 2022-08-23 | Outpatient (CLI) | payer OTHER, SELFPAY ==
[2022-08-23 09:59] LABS: Estradiol 134.8 pg/mL; Luteinizing Hormone 2.4 mIU/mL
[2022-08-23 10:00] LABS: Progesterone Level 0.34 ng/mL (See Comment)
== END | disposition home or self-care (01) ==
LOC: WOBLAB 09:06
PROVIDERS: PCP Family Medicine; Visit Provider Obstetrics & Gynecology Reproductive Endocrinology
DX: Z31.49 Encounter for other procreative investigation and testing (principal)
CPT/HCPCS: 36415; 82670; 83002; 84144

== ENCOUNTER 2022-08-31 11:14 | Outpatient (RCR) | payer OTHER, SELFPAY | END 2022-09-21 23:59 | LOC: NS 11:14 | PROVIDERS: PCP Family Medicine; Referring Provider Family Medicine; Visit Provider Family Medicine | DX: Z71.3 Dietary counseling and surveillance (principal); E66.01 Morbid (severe) obesity due to excess calories; Z68.42 Body mass index [BMI] 45.0-49.9, adult | CPT/HCPCS: 97803 ==

== ENCOUNTER → 2022-09-13 | Outpatient (CLI) | payer OTHER, SELFPAY | END | disposition home or self-care (01) | PROVIDERS: PCP Family Medicine; Referring Provider Obstetrics & Gynecology Reproductive Endocrinology; Visit Provider Obstetrics & Gynecology Reproductive Endocrinology | DX: Z31.41 Encounter for fertility testing (principal) | CPT/HCPCS: 36415 ==

== ENCOUNTER → 2022-09-28 | Outpatient (CLI) | payer OTHER, SELFPAY ==
[2022-09-28 15:47] LABS: Absolute Lymphocyte Count 2.51 X10^3/uL (0.83-4.51); Absolute Neutrophil Count 5.2 X10^3/uL (2.0-7.7); Basophil# 0.04 X10^3/uL; Basophil% 0.5 % (0-1); Eosinophil# 0.17 X10^3/uL; Eosinophils% 2.1 % (0-5); Hematocrit 41.2 % (37-47); Hemoglobin 12.9 g/dL (12.0-15.0); Lymphocyte # 2.51 X10^3/ul (0.83-4.51); Lymphocyte % 30.5 % (19-41); Mean Corp Hgb Conc 31.3 g/dL (32-36); Mean Corpuscular Volume 86.4 fL (81-99); Mean Platelet Vol. 12.4 fl (6.2-12.0); Monocyte# 0.34 X10^3/uL; Monocyte% 4.1 % (0-10); NRBC Flagged by Analyzer 0 % (0-5); Neutrophil # 5.16 X10^3/uL (2.7-7.7); Neutrophil % 62.7 % (47-70); Platelet Count 202 K/mm3 (150-450); RBC Distribution Width CV 13.8 % (11.6-14.6); RBC Distribution Width SD 43.8 fl (35.1-43.9); Red Blood Count 4.77 M/mm3 (4.2-5.4); White Blood Count 8.2 K/mm3 (4.4-11.0)
== END | disposition home or self-care (01) ==
PROVIDERS: PCP Family Medicine; Referring Provider Family Medicine; Visit Provider Family Medicine
DX: R10.9 Unspecified abdominal pain (principal)
CPT/HCPCS: 36415; 85025

== ENCOUNTER → 2022-09-29 | Outpatient (CLI) | payer OTHER, SELFPAY ==
--- NOTE | 2022-09-29 07:51 | CT_ITS ---
STUDY: CT ABDOMEN AND PELVIS WITHOUT CONTRAST REASON FOR EXAM: Female, 42 years old. Diffuse abdominal pain worse in the left lower quadrant. RADIATION DOSAGE (If Supplied By Facility): CTDIvol = ( 22.4 ) mGy, DLP = ( 1068.88 ) mGycm TECHNIQUE: Transaxial images were obtained from the dome of the diaphragm to the symphysis pubis without oral contrast, and without intravenous contrast. Sagittal and coronal images were reconstructed. Individualized dose optimization techniques were used for this CT. COMPARISON: None. FINDINGS: The visualized lung bases are unremarkable. The visualized portions of the heart are within normal limits. Normal liver. Normal gallbladder and extrahepatic biliary system. Normal spleen. Normal pancreas. Normal bilateral adrenal glands. Normal right kidney. Normal left kidney. Normal visualized stomach. Normal small intestine. Normal colon. The appendix is visualized and appears normal. Normal abdominal aorta. Normal inferior vena cava. There is borderline retroperitoneal lymphadenopathy with enlarged nodes no greater than 10mm in the short axis diameter. Normal urinary bladder. Follicles are seen in the left ovary. Normal abdominal wall. Normal osseous structures. CT/Abdomen/Pel W ORAL Cont Only IMPRESSION: Follicles seen in the left ovary. No acute abnormality is seen. Electronically Signed: Ben Duval MD at 13:15 EDT ,
== END | disposition home or self-care (01) ==
PROVIDERS: PCP Family Medicine; Referring Provider Family Medicine; Visit Provider Family Medicine
DX: R10.9 Unspecified abdominal pain (principal)
CPT/HCPCS: 74176

== ENCOUNTER → 2022-10-04 | Outpatient (CLI) | payer OTHER, SELFPAY ==
[2022-10-04 09:55] LABS: Erythrocyte Sedimentation Rate 16 mm/hr (0-30)
[2022-10-04 09:57] LABS: Absolute Lymphocyte Count 2.17 X10^3/uL (0.83-4.51); Absolute Neutrophil Count 5.1 X10^3/uL (2.0-7.7); Basophil# 0.05 X10^3/uL; Basophil% 0.6 % (0-1); Eosinophil# 0.22 X10^3/uL; Eosinophils% 2.7 % (0-5); Hematocrit 42.5 % (37-47); Hemoglobin 13.5 g/dL (12.0-15.0); Lymphocyte # 2.17 X10^3/ul (0.83-4.51); Lymphocyte % 27.1 % (19-41); Mean Corp Hgb Conc 31.8 g/dL (32-36); Mean Corpuscular Hgb 27.2 pg (27.0-32.0); Mean Corpuscular Volume 85.7 fL (81-99); Mean Platelet Vol. 11.8 fl (6.2-12.0); Monocyte# 0.49 X10^3/uL; Monocyte% 6.1 % (0-10); NRBC Flagged by Analyzer 0 % (0-5); Neutrophil # 5.07 X10^3/uL (2.7-7.7); Neutrophil % 63.3 % (47-70); Platelet Count 188 K/mm3 (150-450); RBC Distribution Width SD 43.5 fl (35.1-43.9); Red Blood Count 4.96 M/mm3 (4.2-5.4)
[2022-10-04 10:29] LABS: ALB/GLOB Ratio 0.9 RATIO (0.9-2.4); AST(SGOT) 14 U/L (15-37); Alanine Aminotransfer ALT/SGPT 16 U/L (13-56); Albumin, Serum 3.3 g/dL (3.2-5.0); Alkaline Phosphatase 95 U/L (45-117); Anion Gap 5 (5-15); BUN 18 mg/dL (7-18); BUN/Creat Ratio 21.3 RATIO (10-20); CRP 5.97 mg/L (0.0-3.0); Calcium,Total 8.5 mg/dL (8.5-10.1); Chloride 107 mmol/L (98-107); Creatinine, Serum 0.84 mg/dL (0.55-1.02); EST Glomerular Filtration Rate 79 mL/min (>60); Est Glom Filt Rate - Afr Amer 96 mL/min (>60); Globulin 3.6 g/dL (2.2-4.2); Glucose 94 mg/dL (74-106); Protein, Total 6.9 g/dL (6.4-8.2); Sodium Level 138 mmol/L (136-145)
== END | disposition home or self-care (01) ==
PROVIDERS: PCP Family Medicine; Referring Provider Family Medicine; Visit Provider Family Medicine
DX: R10.9 Unspecified abdominal pain (principal); R59.0 Localized enlarged lymph nodes
CPT/HCPCS: 36415; 80053; 85025; 85652; 86140

== ENCOUNTER 2022-10-16 19:51 | Emergency (ER) | payer OTHER, SELFPAY ==
[2022-10-16 19:52] VITALS: BP 142/85; PULSE 88; RESP 19; TEMP 36.8; O2SAT 99; BMI 44.9
--- NOTE | 2022-10-16 20:18 | CT_ITS ---
STUDY: CT ABDOMEN AND PELVIS WITHOUT CONTRAST REASON FOR EXAM: Female, 42 years old. LLQ pain RADIATION DOSAGE (If Supplied By Facility): CTDIvol = ( 22.30 ) mGy, DLP = ( 1063.88 ) mGycm TECHNIQUE: Transaxial images were obtained from the dome of the diaphragm to the symphysis pubis with oral contrast, and without intravenous contrast. Sagittal and coronal images were reconstructed. Individualized dose optimization techniques were used for this CT. COMPARISON: 09/29/2022 FINDINGS: The visualized lung bases are unremarkable. The visualized portions of the heart are within normal limits. Normal liver. The gallbladder is contracted. Normal spleen. Normal pancreas. Normal bilateral adrenal glands. Normal right kidney. Normal left kidney. Normal visualized stomach. Normal small intestine. Normal colon. The appendix is visualized and appears normal. Normal abdominal aorta. Normal inferior vena cava. Normal retroperitoneum. Normal urinary bladder. Normal abdominal wall. Mild levoscoliosis of the lumbar spine. CT/Abdomen/Pel W ORAL Cont Only IMPRESSION: Normal unenhanced CT of the abdomen and pelvis. Electronically Signed: Ronal Fuller MD at 22:30 EDT ,
--- NOTE | 2022-10-16 20:19 | EX.ED.DYSGE1 ---
HPI History of Present Illness Chief Complaint: Abd Pain Informant: patient and spouse/S.O. Onset/Context/Timing Onset: Month(s) Current Severity: Moderate Maximum Severity: Moderate Narrative Narrative: Patient presents secondary to left lower quadrant abdominal pain. She has had pain for the last 2 months. She initially thought it was secondary to an ovarian cyst. She has been undergoing fertility treatment. She states she is not currently on any hormones. She had a pelvic ultrasound that showed no evidence of a left ovarian cyst. She had a saline ultrasound that revealed an abnormal lining to her uterus. She is currently awaiting hysteroscopy. Patient has been seen by her PCP and had blood work as well as a CT scan performed that showed no significant abnormalities. She is scheduled to see Dr. Salas for GI consult as well as a possible MRI of her abdomen. She states this morning she rolled over in bed and felt as if something was pushing in her abdomen and this triggered her anxiety and she is concerned that she has a tumor in her abdomen that has not been diagnosed. [facility] Medical History (Updated 10/16/22 @ 22:[address] Barby Wu MD) Allergies Anxiety Hypothyroidism IBS (irritable bowel syndrome) Home Medications cholecalciferol (vitamin D3) 25 mcg (1,000 unit) tablet (Vitamin D3) 1,000 unit PO DAILY 06/11/15 [History Last Taken Unknown] hydroxychloroquine 200 mg tablet 600 mg PO DAILY 07/26/20 [History Last Taken Unknown] levothyroxine 75 mcg tablet 75 mcg PO DAILY 07/26/20 [History Last Taken Unknown] vit 122-ferrous fumarate 27 mg iron-folic acid 800 mcg tablet 1 each PO DAILY 07/26/20 [History Last Taken Unknown] albuterol sulfate 90 mcg/actuation aerosol inhaler 90 mcg inhalation PRN PRN Shortness Of Breath 04/20/21 [History Last Taken Unknown] coenzyme Q10 150 mg capsule (Co Q-10) 150 mg PO DAILY 04/20/21 [History Last Taken Unknown] fluticasone propionate 50 mcg/actuation nasal spray,suspension 2 spray intranasal DAILY 04/20/21 [History Last Taken Unknown] loratadine 10 mg tablet 10 mg PO DAILY 04/20/21 [History Last Taken Unknown] montelukast 10 mg tablet (Singulair) 10 mg PO DAILY 04/20/21 [History Last Taken Unknown] pantoprazole 20 mg tablet,delayed release (Protonix) 20 mg PO DAILY 04/20/21 [History Last Taken Unknown] Allergy/AdvReac Type Severity Reaction Status Date / Time codeine Allergy Rash Verified 10/16/22 19:52 Penicillins Allergy Hives Verified 10/16/22 19:52 amphetamine AdvReac Chest Verified 10/16/22 19:52 tightness benzoyl peroxide AdvReac Swelling Verified 10/16/22 19:52 ethinyl estradiol AdvReac Other Verified 10/16/22 19:52 [From Ortho Tri-Cyclen (28)] norgestimate AdvReac Other Verified 10/16/22 19:52 [From Ortho Tri-Cyclen (28)] prednisone AdvReac Other Verified 10/16/22 19:52 ranitidine HCl [From Zantac] AdvReac Hives Verified 10/16/22 19:52 Family History (Updated 10/16/22 @ 20:23 by Waleska Crocker) Other Infertility Social History Smoking Status: Never smoker ROS ROS ED Constitutional Constitutional ED: Denies chills or fever(s) Eyes Eyes: Denies change in vision or discharge from eye(s) ENT ENT ED: Denies discharge from eye(s), rhinorrhea or sore throat Cardiovascular Cardiovascular: Denies chest pain or palpitations Respiratory/Chest Respiratory/Chest: Denies cough or dyspnea Gastrointestinal Gastrointestinal: Reports abdominal pain and diarrhea; Denies nausea or vomiting Genitourinary Genitourinary ED: Denies difficulty urinating or dysuria Musculoskeletal Musculoskeletal: Denies back pain or extremity pain Integumentary Denies Abrasions or rash Neurologic Neurologic: Denies headache(s) or weakness Psychiatric Psychiatric: Reports anxiety; Denies depression Allergic/Immunologic Allergic/Immunologic ED: Denies lip swelling or urticaria EXAM Physical Exam Const Vital Signs: 10/16/22 19:52 Temperature 98.3 F Temperature Source Temporal Pulse Rate 88 Respiratory Rate 19 H Blood Pressure 142/85 H Blood Pressure Mean 104 Pulse Ox 99 Positive well nourished and well developed General Appearance ED: well developed HEENT Reports moist mucous membranes Eyes PERRL and EOMs intact bilaterally Chest Wall inspection of chest normal and palpation of chest normal Resp normal respiratory effort and clear to auscultation bilaterally Cardio regular rate and regular rhythm GI GI Narrative: Abdomen is soft with mild tenderness in the left lower quadrant. No guarding or rebound. No palpable masses. No hernias Extremity normal to inspection Neuro oriented x3 and no sensory deficits noted Motor Exam: strength 5/5 throughout Psych Mood & Affect: anxious Skin no rashes or lesions noted MDM MDM MDM Narrative Medical decision making narrative: Labwork obtained to evaluate for leukocytosis, anemia, and electrolyte derangement. Urinalysis obtained to evaluate for infection/hematuria. CT scan of the abdomen pelvis obtained with p.o. contrast. I did have a long talk with the patient regarding the work-up she is already had. I explained that I can repeat her lab work and imaging studies, however I am not able to obtain any biopsies or an MRI tonight. Lab Data Attestation: I reviewed the patient's lab results. Labs: Laboratory Results - last 24 hr 10/16/22 10/16/22 10/16/22 20:26 20:30 20:30 WBC 10.7 RBC 5.08 Hgb 13.8 Hct 42.6 MCV 83.9 MCH 27.2 MCHC 32.4 RDW Std Deviation 42.2 RDW Coeff of Gerard 13.7 Plt Count 245 MPV 11.5 Immature Gran % (Auto) 0.300 Neut % (Auto) 72.1 H Lymph % (Auto) 21.9 Graham % (Auto) 4.2 Eos % (Auto) 1.0 Baso % (Auto) 0.5 Absolute Neuts (auto) 7.7 Absolute Lymphs (auto) 2.34 Nucleated RBC % 0 Sodium 140 Potassium 3.5 Chloride 104 Carbon Dioxide 27.0 Anion Gap 9 BUN 19 H Creatinine 1.09 H Estim Creat Clear Calc 54.26 Est GFR (MDRD) Af Amer 71 Est GFR (MDRD) Non-Af 59 L BUN/Creatinine Ratio 17.4 Glucose 161 H Calcium 9.1 Serum , Qual Urine Color Yellow Urine Clarity Clear Urine pH 5.0 Ur Specific [place] 1.030 Urine Protein 30 H Urine Glucose (UA) 50 H Urine Ketones 5 H Urine Occult Blood Negative Urine Nitrite Negative Urine Bilirubin Negative Urine Urobilinogen Normal Ur Leukocyte Esterase Negative Urine RBC 0 SEEN Urine WBC 0 SEEN Ur Squamous Epith Cells 0-5 SEEN Urine Bacteria 0 SEEN Urine Mucus 0 SEEN 10/16/22 20:30 WBC RBC Hgb Hct MCV MCH MCHC RDW Std Deviation RDW Coeff of Gerard Plt Count MPV Immature Gran % (Auto) Neut % (Auto) Lymph % (Auto) Graham % (Auto) Eos % (Auto) Baso % (Auto) Absolute Neuts (auto) Absolute Lymphs (auto) Nucleated RBC % Sodium Potassium Chloride Carbon Dioxide Anion Gap BUN Creatinine Estim Creat Clear Calc Est GFR (MDRD) Af Amer Est GFR (MDRD) Non-Af BUN/Creatinine Ratio Glucose Calcium Serum , Qual NEGATIVE Urine Color Urine Clarity Urine pH Ur Specific [place] Urine Protein Urine Glucose (UA) Urine Ketones Urine Occult Blood Urine Nitrite Urine Bilirubin Urine Urobilinogen Ur Leukocyte Esterase Urine RBC Urine WBC Ur Squamous Epith Cells Urine Bacteria Urine Mucus Radiography Diagnostic Testing: Clinical Impression(s) from Imaging Studies Abdomen CT 10/16/22 20:18 IMPRESSION: Normal unenhanced CT of the abdomen and pelvis. Electronically Signed: Ronal Fuller MD at 22:30 EDT , Treatment and Re-Evaluation :: CBC reveals a white count of 10.7 with hemoglobin of 13.8. 72% neutrophils noted. Chemistry studies remarkable only for a BUN of 19 and a creatinine of 1.09. Appears her baseline creatinine is around 0.85. Her glucose is 161 but she did state that she just ate prior to arrival. test is negative. Urinalysis does reveal 50 of glucose in her urine and 5 ketones. No evidence of infection. At this time I attempted to reassure the patient that her work-up for me is unremarkable. I see no evidence of any masses or tumors. I did recommend follow-up for her hysteroscopy as well as her GI appointment. Discharge Plan Triage Chief Complaint: Abd Pain ED Provider: Barby Wu Dx/Rx/DC Orders Clinical Impression: Abdominal pain Instructions: ED Abdominal Pain Unkn Cause Fem Prescriptions: No Action cholecalciferol (vitamin D3) [Vitamin D3] 1,000 UNIT tablet 1,000 unit PO DAILY levothyroxine 75 MCG tablet 75 mcg PO DAILY Label Comments: take 1 tablet by mouth every morning hydroxychloroquine 200 MG tablet 600 mg PO DAILY [id number] 1 EACH tablet 1 each PO DAILY Co Q-10 150 mg Capsule 150 mg PO DAILY pantoprazole [Protonix] 20 mg Tablet,Delayed Release (Dr/Ec) 20 mg PO DAILY montelukast [Singulair] 10 mg Tablet 10 mg PO DAILY albuterol sulfate 90 mcg/actuation HFA aerosol inhaler 90 mcg INHALATION PRN PRN (Reason: Shortness Of Breath) fluticasone propionate [Flonase] 50 mcg/actuation [place],Suspension 2 spray INTRANASAL DAILY loratadine 10 mg Tablet 10 mg PO DAILY Primary Care Provider: Boni Quintanilla Referrals: Boni Quintanilla MD [Primary Care Provider] - Activity Restrictions/Additional Instructions: Follow-up with Dr. Salas for your GI appointment as well as with [facility] for your hysteroscopy. Disposition Disposition: Home, Self Care
[2022-10-16 20:33] LABS: Bacteria 0 SEEN /hpf (None Seen); Mucous, Urine 0 SEEN /hpf (<or=2+); Red Blood Cells-Urine 0 SEEN /hpf (0-5); White Blood Cells 0 SEEN /hpf (0-5)
[2022-10-16 20:38] LABS: Absolute Lymphocyte Count 2.34 X10^3/uL (0.83-4.51); Absolute Neutrophil Count 7.7 X10^3/uL (2.0-7.7); Basophil# 0.05 X10^3/uL; Basophil% 0.5 % (0-1); Eosinophil# 0.11 X10^3/uL; Hematocrit 42.6 % (37-47); Hemoglobin 13.8 g/dL (12.0-15.0); Lymphocyte # 2.34 X10^3/ul (0.83-4.51); Lymphocyte % 21.9 % (19-41); Mean Corp Hgb Conc 32.4 g/dL (32-36); Mean Corpuscular Hgb 27.2 pg (27.0-32.0); Mean Corpuscular Volume 83.9 fL (81-99); Mean Platelet Vol. 11.5 fl (6.2-12.0); Monocyte# 0.45 X10^3/uL; Monocyte% 4.2 % (0-10); NRBC Flagged by Analyzer 0 % (0-5); Neutrophil # 7.72 X10^3/uL (2.7-7.7); Neutrophil % 72.1 % (47-70); Platelet Count 245 K/mm3 (150-450); RBC Distribution Width CV 13.7 % (11.6-14.6); RBC Distribution Width SD 42.2 fl (35.1-43.9); Red Blood Count 5.08 M/mm3 (4.2-5.4); White Blood Count 10.7 K/mm3 (4.4-11.0)
[2022-10-16 20:52] LABS: Color, Urine Yellow (Yellow); Glucose, Dipstick 50 mg/dl (Normal); Ketone-Dipstick 5 mg/dl (Negative); Leukocyte Esterase-Dipstick Negative /ul (Negative); Nitrite-Dipstick Negative (Negative); Occult Blood-Urine Negative /ul (Negative); Protein-Dipstick 30 mg/dl (Negative); Urine Bilirubin Dipstick Negative (Negative); Urine Clarity Clear (Clear); Urine Urobilinogen Normal (Normal)
[2022-10-16 20:56] LABS: Internal QC Validated? YES +Cl - CLEAR BKGD; Pregnancy, Serum, hCG Quali. NEGATIVE Negative
[2022-10-16 20:58] LABS: Squamous Epithelial Cells - UA 0-5 SEEN /hpf (5-10)
[2022-10-16 21:01] LABS: Anion Gap 9 (5-15); BUN 19 mg/dL (7-18); BUN/Creat Ratio 17.4 RATIO (10-20); Calcium,Total 9.1 mg/dL (8.5-10.1); Chloride 104 mmol/L (98-107); Creatinine, Serum 1.09 mg/dL (0.55-1.02); EST Glomerular Filtration Rate 59 mL/min (>60); Est Glom Filt Rate - Afr Amer 71 mL/min (>60); Estimated Creatinine Clearance 54.26 ml/min; Glucose 161 mg/dL (74-106); Potassium 3.5 mmol/L (3.5-5.1); Sodium Level 140 mmol/L (136-145)
[2022-10-16 22:45] VITALS: RESP 16
== END 2022-10-16 22:46 | disposition home or self-care (01) ==
PROVIDERS: Emergency Provider Emergency Medicine; PCP Family Medicine; Visit Provider Emergency Medicine
DX: R10.32 Left lower quadrant pain (principal); F41.9 Anxiety disorder, unspecified
CPT/HCPCS: 74176; 80048; 81001; 84703; 85025; 99283

== ENCOUNTER 2022-11-08 09:33 | Outpatient (RCR) | payer OTHER, SELFPAY | END 2022-11-21 23:59 | LOC: NS 09:33 | PROVIDERS: PCP Family Medicine; Referring Provider Family Medicine; Visit Provider Family Medicine | DX: Z71.3 Dietary counseling and surveillance (principal); E66.01 Morbid (severe) obesity due to excess calories; Z68.42 Body mass index [BMI] 45.0-49.9, adult | CPT/HCPCS: 97803 ==

== ENCOUNTER → 2022-11-23 | Outpatient (CLI) | payer OTHER, SELFPAY ==
[2022-11-23 12:51] LABS: Anion Gap 2 (5-15); BUN 19 mg/dL (7-18); BUN/Creat Ratio 18.6 RATIO (10-20); Calcium,Total 8.8 mg/dL (8.5-10.1); Chloride 105 mmol/L (98-107); Creatinine, Serum 1.02 mg/dL (0.55-1.02); EST Glomerular Filtration Rate 64 mL/min (>60); Est Glom Filt Rate - Afr Amer 77 mL/min (>60); Glucose 113 mg/dL (74-106); Sodium Level 138 mmol/L (136-145)
== END | disposition home or self-care (01) ==
PROVIDERS: PCP Family Medicine; Referring Provider Family Medicine; Visit Provider Family Medicine
DX: R79.89 Other specified abnormal findings of blood chemistry (principal)
CPT/HCPCS: 36415; 80048

== ENCOUNTER → 2022-12-27 | Outpatient (CLI) | payer OTHER, SELFPAY ==
[2022-12-27 13:03] LABS: ALB/GLOB Ratio 0.9 RATIO (0.9-2.4); AST(SGOT) 13 U/L (15-37); Alanine Aminotransfer ALT/SGPT 20 U/L (13-56); Albumin, Serum 3.4 g/dL (3.2-5.0); Alkaline Phosphatase 113 U/L (45-117); Anion Gap 6 (5-15); BUN 19 mg/dL (7-18); BUN/Creat Ratio 19.3 RATIO (10-20); Calcium,Total 8.4 mg/dL (8.5-10.1); Chloride 108 mmol/L (98-107); Creatinine, Serum 0.99 mg/dL (0.55-1.02); EST Glomerular Filtration Rate 66 mL/min (>60); Est Glom Filt Rate - Afr Amer 80 mL/min (>60); Globulin 3.8 g/dL (2.2-4.2); Glucose 100 mg/dL (74-106); Potassium 4.3 mmol/L (3.5-5.1); Protein, Total 7.2 g/dL (6.4-8.2); Sodium Level 139 mmol/L (136-145); T4 Free Direct 1.13 ng/dL (0.76-1.46); Thyroid Stim Hormone (TSH) 1.02 uIU/mL (0.358-3.74)
== END | disposition home or self-care (01) ==
PROVIDERS: PCP Family Medicine; Referring Provider Internal Medicine Endocrinology, Diabetes & Metabolism; Visit Provider Internal Medicine Endocrinology, Diabetes & Metabolism
DX: E03.8 Other specified hypothyroidism (principal)
CPT/HCPCS: 36415; 80053; 84439; 84443

== ENCOUNTER 2023-01-18 10:44 | Outpatient (RCR) | payer OTHER, SELFPAY | END 2023-01-21 23:59 | LOC: NS 10:44 | PROVIDERS: PCP Family Medicine; Referring Provider Family Medicine; Visit Provider Family Medicine | DX: Z71.3 Dietary counseling and surveillance (principal); E66.01 Morbid (severe) obesity due to excess calories; Z68.42 Body mass index [BMI] 45.0-49.9, adult | CPT/HCPCS: 97803 ==

== ENCOUNTER 2023-02-07 10:45 | Outpatient (CLI) | payer OTHER, SELFPAY ==
[2023-02-07 15:12] LABS: Absolute Lymphocyte Count 2.31 X10^3/uL (0.83-4.51); Absolute Neutrophil Count 4.7 X10^3/uL (2.0-7.7); Basophil# 0.05 X10^3/uL; Basophil% 0.6 % (0-1); Eosinophil# 0.24 X10^3/uL; Eosinophils% 3.1 % (0-5); Hematocrit 44.6 % (37-47); Hemoglobin 13.9 g/dL (12.0-15.0); Lymphocyte # 2.31 X10^3/ul (0.83-4.51); Lymphocyte % 29.8 % (19-41); Mean Corp Hgb Conc 31.2 g/dL (32-36); Mean Corpuscular Hgb 25.8 pg (27.0-32.0); Mean Corpuscular Volume 82.7 fL (81-99); Mean Platelet Vol. 11.5 fl (6.2-12.0); Monocyte# 0.44 X10^3/uL; Monocyte% 5.7 % (0-10); NRBC Flagged by Analyzer 0 % (0-5); Neutrophil # 4.67 X10^3/uL (2.7-7.7); Neutrophil % 60.3 % (47-70); Platelet Count 193 K/mm3 (150-450); RBC Distribution Width CV 14.5 % (11.6-14.6); RBC Distribution Width SD 43.1 fl (35.1-43.9); Red Blood Count 5.39 M/mm3 (4.2-5.4); White Blood Count 7.8 K/mm3 (4.4-11.0)
[2023-02-07 15:41] LABS: hCG Titer Quant., Serum < 1 mIU/mL (1-3)
[2023-02-07 17:07] LABS: HIV - WCH Non-Reactive (Nonreactive); Hepatitis B Surface Antigen Non-Reactive (Nonreactive); Hepatitis C Antibody Non-Reactive (Nonreactive); Progesterone Level 2.61 ng/mL (See Comment); Rubella IgG Reactive (Nonreactive); Syphilis Antibodies Non-reactive; Vitamin D,25 Hydroxy 67.5 ng/mL
[2023-02-07 19:32] LABS: Hemoglobin A1c 5.4 % (3.8-5.6)
[2023-02-07 20:45] LABS: ALB/GLOB Ratio 0.8 RATIO (0.9-2.4); AST(SGOT) 17 U/L (15-37); Alanine Aminotransfer ALT/SGPT 24 U/L (13-56); Albumin, Serum 3.4 g/dL (3.2-5.0); Alkaline Phosphatase 96 U/L (45-117); Anion Gap 5 (5-15); BUN 18 mg/dL (7-18); Calcium,Total 8.8 mg/dL (8.5-10.1); Chloride 106 mmol/L (98-107); Creatinine, Serum 0.95 mg/dL (0.55-1.02); EST Glomerular Filtration Rate 69 mL/min (>60); Est Glom Filt Rate - Afr Amer 84 mL/min (>60); Estradiol 76.2 pg/mL; Follicle Stimulating Hormone 5.2 mIU/mL; Glucose 99 mg/dL (74-106); Luteinizing Hormone 7.2 mIU/mL; Potassium 4.4 mmol/L (3.5-5.1); Prolactin 8.8 ng/mL; Protein, Total 7.4 g/dL (6.4-8.2); Sodium Level 137 mmol/L (136-145); T4 Free Direct 1.27 ng/dL (0.76-1.46)
[2023-02-11 18:07] LABS: Anti-Mullerian Hormone,Serum 0.609 ng/mL (.); V-Zoster IgG (Immunity) 542 index (Immune >165)
== END 2023-02-07 23:59 | disposition home or self-care (01) ==
LOC: MTLAB 10:45
PROVIDERS: PCP Family Medicine; Referring Provider Internal Medicine Endocrinology, Diabetes & Metabolism; Visit Provider Internal Medicine Endocrinology, Diabetes & Metabolism
DX: E03.8 Other specified hypothyroidism (principal); E04.2 Nontoxic multinodular goiter; E55.9 Vitamin D deficiency, unspecified; Z31.41 Encounter for fertility testing
CPT/HCPCS: 36415; 80053; 82306; 82670; 83001; 83002; 83036; 83516; 84144; 84146; 84403; 84439; 84443; 84702; 85025; 86703; 86762; 86780; 86787; 86803; 87340

== ENCOUNTER 2023-04-04 10:40 | Outpatient (RCR) | payer OTHER, SELFPAY | END 2023-04-23 23:59 | LOC: NS 10:40 | PROVIDERS: PCP Family Medicine; Referring Provider Family Medicine; Visit Provider Family Medicine | DX: Z71.3 Dietary counseling and surveillance (principal); E66.01 Morbid (severe) obesity due to excess calories; Z68.42 Body mass index [BMI] 45.0-49.9, adult; F45.21 Hypochondriasis | CPT/HCPCS: 97803 ==

== ENCOUNTER → 2023-04-10 | Outpatient (CLI) | payer OTHER, SELFPAY ==
[2023-04-10 10:51] LABS: hCG Titer Quant., Serum 6 mIU/mL (1-3)
[2023-04-10 10:58] LABS: Progesterone Level 46.69 ng/mL (See Comment)
== END | disposition home or self-care (01) ==
LOC: LAB 09:39
PROVIDERS: PCP Family Medicine; Referring Provider Obstetrics & Gynecology Reproductive Endocrinology; Visit Provider Obstetrics & Gynecology Reproductive Endocrinology
DX: Z32.00 Encounter for pregnancy test, result unknown (principal)
CPT/HCPCS: 36415; 84144; 84702

== ENCOUNTER → 2023-04-12 | Outpatient (CLI) | payer OTHER, SELFPAY ==
[2023-04-12 10:56] LABS: hCG Titer Quant., Serum 1 mIU/mL (1-3)
[2023-04-12 10:59] LABS: Estradiol 861.5 pg/mL; Thyroid Stim Hormone (TSH) 2.37 uIU/mL (0.358-3.74)
== END | disposition home or self-care (01) ==
LOC: LAB 10:20
PROVIDERS: PCP Family Medicine; Referring Provider Obstetrics & Gynecology Reproductive Endocrinology; Visit Provider Obstetrics & Gynecology Reproductive Endocrinology
DX: Z32.01 Encounter for pregnancy test, result positive (principal)
CPT/HCPCS: 36415; 82670; 84144; 84443; 84702

== ENCOUNTER → 2023-05-06 | Outpatient (CLI) | payer OTHER, SELFPAY ==
--- OUTSIDE RECORDS SUMMARY | 2023-05-06 08:33 | XMS RPT_ITS | CCD ---
Author Name Unknown Address [address] [facility] [address] [place] [address] Organization [facility] Care Team Providers Care Ekg/Ecg Technician Name Role Phone Santiago Johnson Attending Unavailable Dwight, Rayna Referring Unavailable Dwight, Rayna Primary Care Unavailable Santiago Johnson Attending Unavailable Quintanilla, Rayna Referring Unavailable Quintanilla, Rayna Primary Care Unavailable Santiago Johnson Attending Unavailable Quintanilla, Rayna Referring Unavailable Dwight, Rayna Primary Care Unavailable RAYNA QUINTANILLA MD Primary Care Physician Laurel PT, Rosa Maria Unavailable Unavailable Rayna Quintanilla MD Primary Care Provider CHECK, MARCO H Attending Unavailable CHECK, MARCO H Attending Unavailable CHECK, MARCO H Attending Unavailable Rayna Quintanilla MD Primary Care Provider Rayna Quintanilla MD Primary Care Provider Rayna Quintanilla MD Primary Care Provider Rayna Quintanilla MD Primary Care Provider KATYA ARTIS Attending Unavailable QUINTANILLA, RAYNA OG Primary Care Unavailable KATYA ARTIS Attending Unavailable DWIGHT, RAYNA OG Primary Care Unavailable DWIGHT RAYNA OG Primary Care Unavailable KATYA ARTIS Attending Unavailable RAYNA QUINTANILLA MD Primary Care Physician Rayna Quintanilla MD Primary Care Provider RAYNA QUINTANILLA Primary Care Unavailable SANTIAGO JOHNSON Attending UnavailDAFNE Osman Attending Unavailable QUINTANILLA, RAYNA A Primary Care Unavailable QUINTANILLA, RAYNA A Primary Care Unavailable SANTIAGO JOHNSON Admitting UnavailSANTIAGO Elliott Attending Unavailabl e QUINTANILLA, RAYNA A Primary Care Unavailable SIMONE QUINTANA Referring Unavailable QUINTANILLA, RAYNA A Primary Care Unavailable SANTIAGO JOHNSON Referring UnavailSUN Farr Referring Unavailable QUINTANILLA, RAYNA A Primary Care Unavailable QUINTANILLA, RAYNA A Primary Care Unavailable KATYA ARTIS Referring Unavailable KATYA ARTIS Attending Unavailable QUINTANILLA, RAYNA A Primary Care Unavailable QUINTANILLA, RAYNA A Primary Care Unavailable NANY SWEET Attending Unavailable DAFNE VALDIVIA Referring Unavailable QUINTANILLA, RAYNA A Primary Care Unavailable SUN ELMORE Referring Unavailable QUINTANILLA, RAYNA A Primary Care Unavailable JOSE MANUEL MIRAMONTES Referring Unavaila ADARSH Madodx Attending Unavailable DWIGHT SUAZO, RAYNA A Primary Care Unavailable CATARINA SUAZO, SUN LANDIN Attending Srinivas ELMORE MD, SUN LANDIN Attending Srinivas QUINTANILLA MD, RAYNA A Primary Care Unavailable SOLOMON LOWRY DO Attending Unavailab Petrona SUAZO, RAYNA A Primary Care Unavailable CATARINA SUAZO, SUN LANDIN Attending Srinivas QUINTANILLA MD, RAYNA A Primary Care Unavailable DWIGHT SUAZO, RAYNA A Primary Care Unavailable TORIBIO EID, ERICKSON George Attending Unavailuriel ELMORE MD, SUN LANDIN Attending Srinivas QUINTANILLA MD, RAYNA A Primary Care Unavailable CATARINA SUAZO, SUN LANDIN Attending Srinivas QUINTANILLA MD, RAYNA A Primary Care Unavailable DWIGHT SUAZO, RAYNA A Primary Care Unavailable CATARINA SUAZO, SUN LANDIN Attending Srinivas QUINTANILLA MD, RAYNA A Primary Care Unavailable CATARINA SUAZO, SUN LANDIN Attending Srinivas QUINTANILLA MD, RAYNA A Primary Care Unavailable CATARINA SUAZO, SUN LANDIN Attending Srinivas QUINTANILLA MD, RAYNA A Primary Care Unavailable CATARINA SUAZO, SUN LANDIN Attending Srinivas elias Allergies Allergy Classification Reported Allergen(s) Allergy Type Date of Onset Reaction(s) Facility (20 sources) Acetaminophen / HYDROcodone; Translations: [acetaminophen-hyd rocodone] Drug Allergy 2 Rash [facility] Work Phone: (6 sources) Albuterol; Translations: [albuterol] Drug Allergy [facility] Work Phone: (6 sources) Amphetamine / Dextroamphetamine; Translations: [amphetamine-dextr oamphetamine] Drug Allergy Irregular heart rate [facility] Work Phone: (20 sources) Benzoyl Peroxide; Translations: [benzoyl peroxide topical] Drug Allergy 8 Swelling [facility] Work Phone: (20 sources) Codeine; Translations: [codeine] Drug Allergy 8 Rash [facility] Work Phone: (6 sources) Ethinyl Estradiol / norgestimate; Translations: [ethinyl estradiol-norgesti mate] Drug Allergy [facility] Work Phone: (20 sources) levothyroxine; Translations: [levothyroxine] Drug Allergy 8 Mental Status Change, Other: See Comments [facility] Work Phone: Medications Current Medications Medication Drug Class(es) Dates Sig (Normalized) Sig (Original) Alpha Lipoic Acid (4 sources) Start: 01-26-2022 Alpha Lipoic Acid Oral, 0 Refill(s) Start Date: 01/26/22 Status: Ordered docusate sodium 100 mg oral capsule (2 sources) Start: 12-01-2022 End: 12-04-2022 take 1 capsule by mouth every twelve hours as needed docusate sodium (COLACE) 100 mg capsule Take 1 capsule by mouth twice daily as needed for constipation for up to 3 days. 12 capsule 1 12/01/2022 12/04/2022 Active Completed/Discontinued Medications Medication Drug Class(es) Dates Sig (Normalized) Sig (Original) acetaminophen 500 mg oral tablet (3 sources) Start: 12-01-2022 End: 12-06-2022 take 2 tablets by mouth every eight hours acetaminophen (TYLENOL EXTRA STRENGTH) 500 mg tablet Take 2 tablets by mouth every 8 hours for 5 days. 30 tablet 1 12/01/2022 12/06/2022 Problems Active Problems Problem Classification Problem Date Documented Da te Episodic/Chronic Abdominal pain (20 sources) Abdominal colic; Translations: [Abdominal pain] Onset: 03-04-2019 05-30-2019 Episodic Adjustment disorders (4 sources) Adjustment disorder with mixed anxiety and depressed mood; Translations: [Adjustment disorder with mixed anxiety and depressed mood] Onset: 03-08-2022 Chronic Cardiac dysrhythmias (6 sources) Palpitations 05-30-2019 Episodic Past or Other Problems Problem Classification Problem Date Documented Da te Episodic/Chronic Allergic reactions (5 sources) Allergy to penicillin; Translations: [Allergy status to penicillin] Onset: 12-05-2022 12-01-2022 Episodic E Codes: Adverse effects of medical drugs (2 sources) Ranitidine adverse reaction; Translations: [Adverse effect of histamine H2-receptor blockers, initial encounter] Onset: 12-05-2022 12-05-2022 Episodic Headache; including migraine (20 sources) Chronic daily headache; Translations: [Chronic daily headache] Onset: 05-13-2019 05-13-2019 Episodic Inflammatory diseases of female pelvic organs (8 sources) Female pelvic peritoneal adhesions (postinfective); Translations: [Female pelvic peritoneal adhesions] Onset: 05-31-2018 12-09-2022 Episodic Malaise and fatigue (20 sources) Malaise and fatigue; Translations: [Other malaise] Onset: 12-06-2018 12-06-2018 Episodic Other connective tissue disease (20 sources) Muscle pain; Translations: [Myalgia, unspecified site] Onset: 12-06-2018 12-06-2018 Episodic Other connective tissue disease (20 sources) Transient neurological symptoms; Translations: [Other symptoms and signs involving the nervous system] Onset: 12-09-2020 12-09-2020 Episodic Other eye disorders (20 sources) Pain of bilateral eyes; Translations: [Ocular pain, bilateral] Onset: 10-01-2019 10-01-2019 Episodic Other female genital disorders (6 sources) Polyp of corpus uteri; Translations: [Polyp of corpus uteri] Onset: 12-09-2022 12-09-2022 Episodic Other gastrointestinal disorders (20 sources) Diarrhea; Translations: [Diarrhea, unspecified] Onset: 03-04-2019 03-04-2019 Episodic Other nervous system disorders (20 sources) Trigeminal nerve disorder; Translations: [Disorder of trigeminal nerve, unspecified] Onset: 12-06-2018 12-06-2018 Episodic Other nervous system disorders (20 sources) Atypical facial pain; Translations: [Atypical facial pain] Onset: 05-13-2019 05-13-2019 Episodic Other nervous system disorders (20 sources) Paresthesia; Translations: [Paresthesia of skin] Onset: 05-13-2019 05-13-2019 Episodic Other non-traumatic joint disorders (20 sources) Multiple joint pain; Translations: [Pain in unspecified joint] Onset: 12-06-2018 12-06-2018 Episodic Other skin disorders (1 source) Localized swelling, mass and lump, unspecified; Translations: [Localized superficial swelling, mass, or lump] Onset: 05-13-2022 Episodic Spondylosis; intervertebral disc disorders; other back problems (20 sources) Chronic low back pain; Translations: [Chronic right-sided low back pain] Onset: 06-05-2017 06-05-2017 Episodic Viral infection (1 source) Disease caused by 2019-nCoV; Translations: [COVID-19] Onset: 04-23-2021 Results Test Name Value Interpretation Reference Range Facil ity Vital Signs Date Time Vital Sign Value Performing Clinician Facility 12-05-2022 12:10-0400 Body temperature 97.9 [degF] Adarsh Griffith APRN.EARTH SCIENCE TECHNICIAN Work Phone: [facility] 12-05-2022 12:10-0400 Diastolic blood pressure 84 mm[Hg] Adarsh Griffith LAMINATION ASSEMBLER.EARTH SCIENCE TECHNICIAN Work Phone: [facility] 12-05-2022 12:10-0400 Heart rate 59 /min Adarsh Griffith APRN.EARTH SCIENCE TECHNICIAN Work Phone: [facility] 12-05-2022 12:10-0400 Respiratory rate 16 /min Adarsh Griffith APRN.EARTH SCIENCE TECHNICIAN Work Phone: [facility] 12-05-2022 12:10-0400 SaO2% (BldA) [Mass fraction] 98 % Adarsh Griffith LAMINATION ASSEMBLER.EARTH SCIENCE TECHNICIAN Work Phone: [facility] 12-05-2022 12:10-0400 Systolic blood pressure 123 mm[Hg] Adarsh Griffith LAMINATION ASSEMBLER.EARTH SCIENCE TECHNICIAN Work Phone: [facility] 12-05-2022 10:10-0400 Body height 157.5 cm Adarsh Griffith LAMINATION ASSEMBLER.EARTH SCIENCE TECHNICIAN Work Phone: [facility] 12-05-2022 10:10-0400 Body weight 112.04 kg Adarsh Griffith LAMINATION ASSEMBLER.EARTH SCIENCE TECHNICIAN Work Phone: [facility] 12-02-2022 14:30-0400 Body height 157.5 cm Pst 1 [facility] 12-02-2022 14:30-0400 Body temperature 98.6 [degF] Pst 1 [facility] 12-02-2022 14:30-0400 Body weight 112.76 kg Pst 1 [facility] 12-02-2022 14:30-0400 Diastolic blood pressure 84 mm[Hg] Pst 1 [facility] 12-02-2022 14:30-0400 Heart rate 71 /min Pst 1 [facility] 12-02-2022 14:30-0400 Respiratory rate 16 /min Pst 1 [facility] 12-02-2022 14:30-0400 SaO2% (BldA) [Mass fraction] 99 % Pst 1 [facility] 12-02-2022 14:30-0400 Systolic blood pressure 130 mm[Hg] Pst 1 [facility] 10-26-2022 08:34-0400 Body height 157.5 cm Santiago Johnson MD Work Phone: [facility] 10-26-2022 08:34-0400 Body weight 111.58 kg Santiago Johnson MD Work Phone: [facility] 10-26-2022 08:34-0400 Diastolic blood pressure 68 mm[Hg] Santiago Johnson MD Work Phone: [facility] 10-26-2022 08:34-0400 Heart rate 58 /min Santiago Johnson MD Work Phone: [facility] 10-26-2022 08:34-0400 Systolic blood pressure 129 mm[Hg] Santiago Johnson MD Work Phone: [facility] 03-29-2022 12:46-0500 Body height 157.5 cm Wendy Escobar MD Work Phone: [facility] 03-29-2022 12:46-0500 Body weight 113.4 kg Wendy Escobar MD Work Phone: [facility] 03-01-2022 08:19-0500 Body height 157.5 cm Santiago Johnson MD Work Phone: [facility] 03-01-2022 08:19-0500 Body weight 108.86 kg Santiago Johnson MD Work Phone: [facility] 03-01-2022 08:19-0500 Diastolic blood pressure 74 mm[Hg] Santiago Johnson MD Work Phone: [facility] 03-01-2022 08:19-0500 Systolic blood pressure 133 mm[Hg] Santiago Johnson MD Work Phone: [facility] 02-21-2022 12:25-0400 Diastolic blood pressure 61 mm[Hg] Rhea Pham MD Work Phone: [facility] 02-21-2022 12:25-0400 Heart rate 52 /min Rhea Pham MD Work Phone: [facility] 02-21-2022 12:25-0400 Respiratory rate 16 /min Rhea Pham MD Work Phone: [facility] 02-21-2022 12:25-0400 SaO2% (BldA) [Mass fraction] 96 % Rhea Pham MD Work Phone: [facility] 02-21-2022 12:25-0400 Systolic blood pressure 125 mm[Hg] Rhea Pham MD Work Phone: [facility] 02-21-2022 11:56-0400 Body temperature 97.7 [degF] Rhea Pham MD Work Phone: [facility] 02-21-2022 10:19-0400 Body height 157.5 cm Rhea Pham MD Work Phone: [facility] 02-21-2022 10:19-0400 Body weight 111.13 kg Rhea Pham MD Work Phone: [facility] 11-22-2021 09:29-0400 Body temperature 97.7 [degF] Prakash Arevalo Jr., MD Work Phone: [facility] 11-22-2021 09:29-0400 Body weight 111.4 kg Prakash Arevalo Jr., MD Work Phone: [facility] 11-22-2021 09:29-0400 Diastolic blood pressure 74 mm[Hg] Prakash Arevalo Jr., MD Work Phone: [facility] 11-22-2021 09:29-0400 Heart rate 52 /min Prakash Arevalo Jr., MD Work Phone: [facility] 11-22-2021 09:29-0400 Respiratory rate 20 /min Prakash Arevalo Jr., MD Work Phone: [facility] 11-22-2021 09:29-0400 SaO2% (BldA) [Mass fraction] 99 % Prakash Arevalo Jr., MD Work Phone: [facility] 11-22-2021 09:29-0400 Systolic blood pressure 122 mm[Hg] Prakash Arevalo Jr., MD Work Phone: [facility] 06-29-2021 08:17-0500 Body height 157.5 cm Santiago Johnson MD Work Phone: [facility] 06-29-2021 08:17-0500 Body weight 104.33 kg Santiago Johnson MD Work Phone: [facility] 04-23-2021 09:50-0500 Diastolic blood pressure 89 mm[Hg] DR JEFFERY CEDENO MD [facility] 04-23-2021 09:50-0500 Heart rate 68 /min DR JEFFERY CEDENO MD [facility] 04-23-2021 09:50-0500 Mean blood pressure 108 mm[Hg] DR JEFFERY CEDENO MD [facility] 04-23-2021 09:50-0500 Respiratory rate 18 /min DR JEFFERY CEDENO MD [facility] 04-23-2021 09:50-0500 Systolic blood pressure 147 mm[Hg] DR JEFFERY CEDENO MD [facility] 04-23-2021 06:57-0500 Diastolic blood pressure 96 mm[Hg] DR JEFFERY CEDENO MD [facility] 04-23-2021 06:57-0500 Heart rate 65 /min DR JEFFERY CEDENO MD [facility] 04-23-2021 06:57-0500 Mean blood pressure 115 mm[Hg] DR JEFFERY CEDENO MD [facility] 04-23-2021 06:57-0500 Respiratory rate 18 /min DR JEFFERY CEDENO MD [facility] 04-23-2021 06:57-0500 Systolic blood pressure 153 mm[Hg] DR JEFFERY CEDENO MD [facility] 04-23-2021 00:58-0500 Diastolic blood pressure 96 mm[Hg] DR JEFFERY CEDENO MD [facility] 04-23-2021 00:58-0500 Heart rate 70 /min DR JEFFERY CEDENO MD [facility] 04-23-2021 00:58-0500 Respiratory rate 20 /min DR JEFFERY CEDENO MD [facility] 04-23-2021 00:58-0500 Systolic blood pressure 153 mm[Hg] DR JEFFERY CEDENO MD [facility] 04-22-2021 16:53-0500 Body temperature 98.06 [degF] DR JEFFERY CEDENO MD [facility] 04-22-2021 16:53-0500 Body weight 108.[address] JEFFERY CEDENO MD [facility] 04-18-2021 00:56-0500 Body temperature 97.52 [degF] DR AKANKSHA FITZPATRICK DO [facility] 04-18-2021 00:56-0500 Diastolic blood pressure 96 mm[Hg] DR AKANKSHA FITZPATRICK DO [facility] 04-18-2021 00:56-0500 Heart rate 75 /min DR AKANKSHA FITZPATRICK DO [facility] 04-18-2021 00:56-0500 Mean blood pressure 112 mm[Hg] DR AKANKSHA FITZPATRICK DO [facility] 04-18-2021 00:56-0500 Respiratory rate 16 /min DR AKANKSHA FITZPATRICK DO [facility] 04-18-2021 00:56-0500 Systolic blood pressure 144 mm[Hg] DR AKANKSHA FITZPATRICK DO [facility] Encounters Encounter Date Encounter Type Care Provider Facility Start: 04-26-2023 End: 04-27-2023 ambulatory RAYNA QUINTANILLA MD Facility:[facility] Start: 04-26-2023 End: 04-26-2023 Patient encounter procedure SUN ELMORE MD [facility] Start: 04-19-2023 End: 04-20-2023 ambulatory SUN ELMORE MD Facility:[facility] Start: 04-03-2023 End: 04-04-2023 ambulatory RAYNA QUINTANILLA Facility:[facility] Start: 03-31-2023 End: 03-31-2023 ambulatory RAYNA QUINTANILLA Facility:[facility] Start: 03-31-2023 End: 03-31-2023 ambulatory Nany Quintanilla PT [facility] Phone[facility] Start: 03-31-2023 End: 03-31-2023 Manual pelvic examination Nany Quintanilla PT Work Phone: [facility] Physical Therapy Procedures Date Procedure Procedure Detail Performing Clinician Start: 12-05-2022 ALLERGEN SKIN TEST-PENICILLIN Adarsh todd LAMINATION ASSEMBLER.EARTH SCIENCE TECHNICIAN Work Phone: Start: 02-21-2022 End: 02-21-2022 Follicle puncture oocyte retrieval any method Rhea Pham MD Work Phone: Start: 02-19-2022 Us pelvic nonobstetric image dcmtn limited/f/u Za Mindzora LAMINATION ASSEMBLER.[employer] Work Phone: Start: 02-18-2022 Us pelvic nonobstetric image dcmtn limited/f/u Za Mindzora LAMINATION ASSEMBLER.[employer] Work Phone: Start: 02-18-2022 Assay of estradiol Za Mindzora LAMINATION ASSEMBLER.[employer] Work Phone: Start: 02-15-2022 Us pelvic nonobstetric image dcmtn limited/f/u Za Mindzora LAMINATION ASSEMBLER.[employer] Work Phone: Start: 02-15-2022 Assay of estradiol Za Mindzora LAMINATION ASSEMBLER.[employer]ER Work Phone: Start: 02-09-2022 Us pelvic nonobstetric image dcmtn limited/f/u Za Mindzora LAMINATION ASSEMBLER.[employer] Work Phone: Start: 02-09-2022 Assay of estradiol Za Mindzora LAMINATION ASSEMBLER.[employer] Work Phone: Start: 12-23-2021 Mri lower extrem oth/thn jt w/o & w/contr matr Simone Quintana PA-C Work Phone: Start: 11-21-2021 Adult depression screening assessment Prakash Arevalo Jr., MD Work Phone: Start: 11-14-2021 [facility] ULTRASOUND GUIDED PROCEDURE Juan Jose Meyer MD Work Phone: Start: 11-12-2021 Radiologic examination tibia & fibula 2 views Simone Quintana PA-C Work Phone: Start: 11-12-2021 Assay of estradiol Kim Dudziak LAMINATION ASSEMBLER.[facility] Work Phone: Start: 07-09-2021 Adult depression screening assessment Santiago Johnson MD Work Phone: Start: 03-24-2019 Electrocardiographic monitor and recorder, device (physical object) DR AKANKSHA FITZPATRICK DO Plan of Treatment Date Care Activity Detail Author Start: 06-16-2032 Urine microalbumin profile DTaP,Tdap,Td Vaccine (2 - Td or Tdap) [facility] Start: 12-23-2022 Influenza vaccination [facility] Start: 11-21-2022 Adult depression screening assessment DEPRESSION SCREENING [facility] Start: 07-09-2022 Adult depression screening assessment DEPRESSION SCREENING [facility] Start: 04-24-2022 DEPRESSION ASSESSMENT DEPRESSION ASSESSMENT [facility] Start: 04-13-2022 End: 03-20-2023 Mri lower extrem oth/thn jt w/o & w/contr matr MRI LOWER LEG WO/W IVCON RT Radiology Routine Localized superficial swelling, mass, or lump Expected: 04/13/2022, Expires: 03/20/2023 [facility] Work Phone: Immunizations Immunization Date Immunization Notes Care Provider Fa cility 04-01-2022 influenza virus vacc ine, unspecified formulation Santiago Johnson MD Work Phone: [facility] 03-24-2021 influenza, injectabl e, quadrivalent, preservative free Santiago Johnson MD Work Phone: [facility] 02-12-2020 influenza, injectabl e, quadrivalent, contains preservative Santiago Johnson MD Work Phone: [facility] 04-24-2011 TD(adult) unspecifie d formulation Santiago Johnson MD Work Phone: [facility] Payers Date Payer Category Payer Unknown [id number] 2022 Unknown [id number] 2022 Unknown [id number] 2022 Unknown 2022 Unknown [id number] 2020 Private Health Insurance [facility] CHO[facility] PLUS [id number] 2020-Present [phone] [id number] 2020 Private Health Insurance [facility] CHOICE PLUS [id number] 2020-Present [phone] [address] [place] [address] O [id number] 2020 Unknown [id number] 1982 Unknown [id number] [id number]. 2.8 1982 Unknown [id number] [id number]. 2. 1982 Unknown [id number] 2.16.840.1.402598.3.579. 2. 1982 Unknown [id number] 2.16.840.1.547008.3.579. 2. 1982 Unknown [id number] 2.16.840.1.562573.3.579. 2. 1982 Unknown [id number] 2.16.840.1.985279.3.579. 2. 1982 Unknown [id number] 2.16.840.1.182774.3.579. 2. 1982 Unknown [id number] 2.16.840.1.533762.3.579. 2. 1982 Unknown [id number] 2.16.840.1.703647.3.579. 2. 1982 Unknown [id number] 2.16.840.1.023087.3.579. 2. 1982 Unknown [id number] 2.16.840.1.661219.3.579. 2. 1982 Unknown [id number] 2.16.840.1.174369.3.579. 2. 1982 Unknown [id number] 2.16.840.1.450482.3.579. 2. 1982 Unknown [id number] 2.16.840.1.815488.3.579. 2. 1982 Unknown [id number] 2.16.840.1.682717.3.579. 2. 1982 Unknown [id number] 2.16.840.1.427702.3.579. 2.627 1982 Unknown [id number]. 2.627 Social History Date Type Detail Facility Start: 06-07-2019 End: 02-18-2022 Never smoked tobacco (finding) [facility] Start: 1980 Sex Assigned At Female A [facility] Start: 07-14-2018 End: 02-18-2022 Tobacco use and exposure Smokeless tobacco non-user [facility] Work Phone: Start: 06-29-2021 End: 12-21-2022 Alcohol intake Current drinker of alcohol (finding) [facility] Start: 02-10-2021 History SDOH Alcohol Comment rarely [facility] Start: 06-29-2021 End: 03-01-2022 Exposure to SARS-CoV-2 (event) Not sure [facility] Start: 10-22-2021 End: 11-01-2021 Exposure to SARS-CoV-2 (event) Unable to assess [facility] Start: 06-10-2022 End: 10-26-2022 History of Social function [facility] Start: 06-10-2022 End: 10-26-2022 Tobacco use panel [facility] Adult Depression Screening Assessment 3 [facility] Start: 03-17-2021 Gender identity Identifies as female gender (finding) [facility] Start: 03-17-2021 Sexual orientation Heterosexual (fin oralia) [facility] Medical Equipment Procedure Code Equipment Code Equipment Origin al Text Equipment Identifier Dates Start: 10-18-2021 End: 12-01-2022 Clinical Notes 05-13-2019 to 04-26-2023 Nany Sweet, PT - 03/31/2023 11:27 AM Nany Camarillo, PT - 03/31/2023 10:39 AM ESTTelephone Encounter - Dafne Valdivia PA-C - 01/04/2023 5:38 PM EDTPatient InstructionsRadiology Note Date & Type Note Facility 01-03-2024 Note ORIGINAL EXAMINATION: TRANSVAGINAL PELVIC ULTRASOUND 04/26/2023 TECHNIQUE: Transvaginal pelvic ultrasound was performed. COMPARISON: 04/19/2023 HISTORY: ORDERING SYSTEM PROVIDED HISTORY: Reason for Exam: Z31.83 ENCOUNTER FOR ASSISTED REPRODUCTIVE FERTILITY PROCEDURE CYCLE FINDINGS: Measurements: Uterus: 8.7 x 4 x 3.7 cm Endometrial stripe: 9.5 mm Right Ovary:3.5 x 2.7 x 2.1 cm Left Ovary: 3.3 x 2.2 x 1.9 cm Ultrasound Findings: Uterus: Uterus demonstrates normal myometrial echotexture. Endometrial stripe: Endometrial stripe is within normal limits and trilaminar. Right Ovary: There are 3 follicles in the ovary 2 of which are more than 1 cm. These are 12 x 13 x 13 mm and 13 x 12 x 12 mm. Left Ovary: There are only 2 subcentimeter follicles in the ovary that are 8 mm and 9 mm. Free Fluid: No evidence of free fluid. IMPRESSION: Multiple ovarian follicles as described above. I have personally reviewed the images of this examination and agree with the resident's findings and interpretation. Interpreted by: Brandt Prescott MD Preliminary Report By: Brandt Prescott MD Electronically signed By Brandt Prescott MD Dictated Date: 04/26/2023 12:09:41 PM Prelim Date: 04/26/2023 12:14:33 PM Sign Date: 04/26/2023 12:14:33 PM Ordering Provider: [facility] 03-31-2023 Note HNO ID: [id number] Author: Nany Sweet, DEX Service: ? Author Type: Physical Therapist Type: Progress Notes Filed: 03/31/2023 11:45 AM Note Text: Episode Visit Count: 1 Therapist That Will Accept/Oversee The Plan Of Care: Nany Quintanilla Start of Care Date: 03/31/23 Onset Date: 12/09/22 Patient Identified by Name and Date of : Yes REHABILITATION AND SPORTS THERAPY PHYSICAL THERAPY EVALUATION PLAN OF CARE: Assessment: Sheree Bernard presents with chief complaint of pelvic pain that interferes with altered sexual function, bladder function, physical activities . She presents with impairments in decreased flexibility in BLE; impaired bladder, bowel, and sexual function. Pelvic floor muscle assessment deferred this date. PROMIS? (Patient-Reported Outcomes Measurement Information System) scores were reviewed and physical function domain and self efficacy domain identified as within normal limits. Prognosis for therapy is Good due to: current objective clinical presentation . She will benefit from skilled therapy services to meet the goals established for this plan of care as noted below. Goals for Episode of Care: created on 03/31/23 through 06/29/23 [place] in home exercise program. Patient will increase flexibility of BLE to WNL to decrease pain. Patient to correctly isolate pelvic floor muscles without compensatory patterns to improve bladder control.-TBA Patient reports nocturia 0-1 times to demonstrate normalized bladder function. Patient reports at least 85% less bladder urgency to avoid incontinent episodes. Patient reports at least 85% improvement in bladder leaks while coughing/sneezing compared to evaluation in order to increase bladder function in activities of daily living. Patient reports increased ability to fully empty bladder/bowels at least 85% of the time to normalize bladder/bowel function. Patient displays decreased muscle spasms in pelvic floor to allow for decreased pain levels, improved bladder/bowel function.-TBA Patient to report at least 85% improvement in pain with sexual intercourse. Patient Goals: improve pain Planned Interventions, Frequency, and Duration: Current Frequency: 1x/week Duration: 4 weeks (reassess at 4 weeks and progress as indicated) Total Number of Visits Planned: 4 Planned Treatment Interventions: Therapeutic exercise (45950), Manual therapy (49710), Self-long term management (50046), Patient/Family/Caregiver Education PLAN FOR NEXT VISIT: possible PF mm assessment, progress stretches Patient demonstrates good understanding of plan of care and treatment. The above goals and plan of care were discussed and agreed upon by patient/family. SUBJECTIVE: Pt reports long history of infertility. Pt reports multiple trials of IVF. Pt reports having a transvaginal US in in August 2022. Pt reports severe abdominal pain afterwards, had HSG testing the next day. Pt reports abnormalities were found, HSG testing cancelled. Pt reports continued pelvic pain since then. Pt reports having surgery in November to look for endometriosis, no endo tissue found. Pt reports cervical pain and abdominal tension has gone away since then for the most part but occasionally has abdominal tension during stressful situations. Pt reports LLQ pain is present. Pt reports since surgery, she has had painful orgasm, has been avoiding sex because of this. 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 Pt reports experiencing a lot of loss, has anxiety over health concerns. Pt reports she's had bladder issues her entire life, chronic UI. 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 Intake Information: Prescription present PAST MEDICAL HISTORY Diagnosis Date GERD (gastroesophageal reflux disease) Hypothyroidism (acquired) Irritable bowel syndrome (IBS) Migraines Trigeminal neuralgia Raynaud's syndrome PAST SURGICAL HISTORY Procedure Laterality Date EXCISION PILONIDAL CYST/SINUS SIMPLE 1999 PAST SURGICAL HISTORY OF wisdom teeth PAST SURGICAL HISTORY OF egg retrival x 6 TRANSCERVICAL CATHJ FALLOPIAN TUBE RSANDI Bilateral reopened occluded bilateral fallopian tubes Previous Treatment: Surgery , Muscle relaxer , NSAIDs Falls Interview: No positive findings with falls interview Aquatic Screen: No Pain: Post Treatment Pain Post Treatment Pain Level: No Change PROMIS Scales Higher is Better 03/31/2023 01/05/2021 Phys Func - Score 49 (within normal limits) 47 (within normal limits) Phys Func - Percentile 46% 38% Self-Eff Symptom - Score 40 (Average) - Self-Eff Symptom - Percentile 16% - T-scores: m (more content not included)... [facility] 03-31-2023 History of Present illness Narrative Program_ID:[id number] Access Code: [email or web address] URL: [email or web address] Date: 03-31-2023 Prepared By: Nany Program Notes Exercises - Supine Hamstring Stretch - 1 x daily - x weekly - 3 sets - reps - Supine Figure 4 Piriformis Stretch - 1 x daily - x weekly - 3 sets - reps - Supine Diaphragmatic Breathing - 1 x daily - x weekly - sets - reps - Supine Butterfly Groin Stretch - 1 x daily - x weekly - sets - reps Patient Education - cc Pelvic Floor - Urgency Triggers - cc Pelvic Floor - Bladder Aldo - Irritants - cc Pelvic Floor - Bladder Retention and Urge Suppression - Pelvic Floor - Bladder Emptying Ideas - Pelvic Floor - Bladder Health & Emptying Techniques - Pelvic Floor - Bowel Movement Education - cc Pelvic Floor - Constipation Massage Episode Visit Count: 1 Therapist That Will Accept/Oversee The Plan Of Care: Nany Quintanilla Start of Care Date: 03/31/23 Onset Date: 12/09/22 Patient Identified by Name and Date of : Yes REHABILITATION AND SPORTS THERAPY PHYSICAL THERAPY EVALUATION PLAN OF CARE: Assessment: Sheree Bernard presents with chief complaint of pelvic pain that interferes with altered sexual function, bladder function, physical activities . She presents with impairments in decreased flexibility in BLE; impaired bladder, bowel, and sexual function. Pelvic floor muscle assessment deferred this date. PROMIS (Patient-Reported Outcomes Measurement Information System) scores were reviewed and physical function domain and self efficacy domain identified as within normal limits. Prognosis for therapy is Good due to: current objective clinical presentation . She will benefit from skilled therapy services to meet the goals established for this plan of care as noted below. Goals for Episode of Care: created on 03/31/23 through 06/29/23 [place] in home exercise program. Patient will increase flexibility of BLE to WNL to decrease pain. Patient to correctly isolate pelvic floor muscles without compensatory patterns to improve bladder control.-TBA Patient reports nocturia 0-1 times to demonstrate normalized bladder function. Patient reports at least 85% less bladder urgency to avoid incontinent episodes. Patient reports at least 85% improvement in bladder leaks while coughing/sneezing compared to evaluation in order to increase bladder function in activities of daily living. Patient reports increased ability to fully empty bladder/bowels at least 85% of the time to normalize bladder/bowel function. Patient displays decreased muscle spasms in pelvic floor to allow for decreased pain levels, improved bladder/bowel function.-TBA Patient to report at least 85% improvement in pain with sexual intercourse. Patient Goals: improve pain Planned Interventions, Frequency, and Duration: Current Frequency: 1x/week Duration: 4 weeks (reassess at 4 weeks and progress as indicated) Total Number of Visits Planned: 4 Planned Treatment Interventions: Therapeutic exercise (82607), Manual therapy (86118), Self-long term management (59349), Patient/Family/Caregiver Education PLAN FOR NEXT VISIT: possible PF mm assessment, progress stretches Patient demonstrates good understanding of plan of care and treatment. The above goals and plan of care were discussed and agreed upon by patient/family. SUBJECTIVE: Pt reports long history of infertility. Pt reports multiple trials of IVF. Pt reports having a transvaginal US in in August 2022. Pt reports severe abdominal pain afterwards, had HSG testing the next day. Pt reports abnormalities were found, HSG testing cancelled. Pt reports continued pelvic pain since then. Pt reports having surgery in November to look for endometriosis, no endo tissue found. Pt reports cervical pain and abdominal tension has gone away since then for the most part but occasionally has abdominal tension during stressful situations. Pt reports LLQ pain is present. Pt reports since surgery, she has had painful orgasm, has been avoiding sex because of this. 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 Pt reports experiencing a lot of loss, has anxiety over health concerns. Pt reports she's had bladder issues her entire life, chronic UI. 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 Intake Information: Prescription present PAST MEDICAL HISTORY Diagnosis Date GERD (gastroesophageal reflux disease) Hypothyroidism (acquired) Irritable bowel syndrome (IBS) Migraines Trigeminal neuralgia Raynaud's syndrome PAST SURGICAL HISTORY Procedure Laterality Date EXCISION PILONIDAL CYST/SINUS SIMPLE 1999 PAST SURGICAL HISTORY OF wisdom teeth PAST SURGICAL HISTORY OF egg retrival x 6 TRANSCERVICAL CATHJ FALLOPIAN TUBE RS&I Bilateral reopened occluded bilateral fallopian tubes Previous Treatment: Surgery , Muscle relaxer , NSAIDs Falls Interview: No positive findings with falls interview Aquatic Screen: No Pain: Post Treatment Pain Post Treatment Pain Level: No Change PROMIS Scales Higher is Better 03/31/2023 01/05/2021 Phys Func - Score 49 (within normal limits) 47 (within normal limits) Phys Func - Percentile 46% 38% Self-Eff Symptom - Score 40 (Average) - Self-Eff Symptom - Percentile 16% - T-scores: mean of general population = 50. 5 points is clinically meaningfully difference Percentiles provide an indication of how the patient's score ranks in relation to the general population. Higher percentile rankings indicate better function/quality of life. 50th percentile is the average of the general population and indicates half of respondents had a worse score. OBJECTIVE MEASURES WITH LEVEL OF FUNCTION: Pelvic Floor Pregnancies: 0 Pain with penetration: Pain with orgasm Urinary/Bowel History : Urinary History, Bowel History Difficulty starting stream: No Incomplete emptying: Sometimes Stress Incontinence: Laughing, Cough/sneeze Urgency: Yes Frequency of Urgency Episodes: feels like someone is always pressing on my bladder Frequency of Leaks Secondary to Urge: my underwear always has a wet spot Nocturia (times per night): 5 Daytime Frequency (hours): 2-3 Fluid Intake: Water (8 oz measurements) Water : 4 Difficulty evacuating / Excessive Straining: No Incomplete emptying: Sometimes Bowel Movement Frequency: 2x/day Fecal incontinence: No Pelvic Floor Muscle Assessment Consent for pelvic assessment/testing and treatment: (PF mm assessment deferred this date.) LE AROM R LE AROM: WFL L LE AROM: WFL LE Flexibility Flexibility: Hamstring Flexibility, Hip Adductor, Hip External Rotation Flexibility, Hip Internal Rotation Flexibility R Hamstring Flexibility: Mod restrictions L Hamstring Flexibility: Mod restrictions R Adductor Flexibility: WNL L Adductor Flexibility: WNL R Hip Internal Rotation Flexibility: Min restrictions L Hip Internal Rotation Flexibility: Min restrictions R Hip External Rotation Flexibility: Min restrictions L Hip External Rotation Flexibility: Min restrictions LE Strength Trunk Strength: Lower Abdominals: 5/5 R LE Strength: 5/5 L LE Strength: 5/5 Education: Education Learning Preferences: Demonstration, Explanation, Performance, Printed Materials Barriers: None Learning/educational needs: Home exercise program, Plan of Care Education Provided: Yes, see treatment interventions for education provided Education Provided To: Patient Education Mode/Type: Demonstration, Explanation/Discussion, Literature/Printed Materials, Performance Response to Education/Teach Back: States/Identifies, Return Demonstration TREATMENT: PT Treatment Interventions: Therapeutic Exercise, Self-Usp Management Evaluation Therapeutic Exercise: 1: *supine 90/90 hamstring stretch, [id number] each 2: *figure-4 stretch, [id number] each 3: *diaphragmatic breathing paired with supine adductor stretch, x5min Skilled Intervention: Patient was educated in proper exercise technique and purpose for exercises. Reviewed and educated patient on additions/changes for home exercise program as above (*). Skilled judgment was used in selection of appropriate interventions. Provided written instruction for home exercise program to facilitate proper performance and compliance. Self-Usp Management: 1: Reviewed pelvic floor anatomy and function with 3D pelvic model 2: Reviewed typical vs dysfunctional bladder and bowel health 3: Reviewed bladder irritants, importance of water intake 4: Reviewed urinary urgency suppression techniques 5: Reviewed toileting techniques to fully empty bladder and bowels without straining 6: *self-colon massage Skilled Intervention: Skilled judgment in the selection of proper modification for activity of daily living/home management based on clinical presentation, deficits, and needs. Provided written instruction for activities of daily living techniques to facilitate proper performance and compliance. Billing * Evaluation Moderate Complexity: 1 Unit Therapeutic Exercise Treatment Minutes: 10 Self-Care/Home Management Treatment Minutes: 16 Skilled Treatment Time Minutes (timed and untimed codes): 58 Total Session Time (minutes): 58 Session Start Time : 1041 Session Stop Time : 1139 Nany Quintanilla PT documented in this encounter [facility] 03-17-2023 Note ORIGINAL EXAMINATION: TRANSVAGINAL PELVIC ULTRASOUND 03/17/2023 8:13 am COMPARISON: Prior hysterosonogram dated 09/12/2022. HISTORY: ORDERING SYSTEM PROVIDED HISTORY: Reason for Exam: Encounter for assisted reproductive fertility procedure cycle FINDINGS: Transabdominal sonographic examination of the pelvis was performed. Transvaginal scanning was also performed. The uterus is 6.7 x 4.2 x 3.2 cm. The endometrium does not appear thickened, and measures 3.3 mm. The endometrium demonstrates a homogeneous appearance. Right ovary: The right ovary measures 2.7 x 2.4 x 2.3 cm. There is positive arterial and venous Doppler flow and waveforms to the right ovary. No adnexal mass is seen. There is a single follicle appreciated measuring 1.9 x 2.1 x 1.6 cm. There is a single rounded septation seen within this follicle. Left ovary: The left ovary measures 2.2 x 2.2 x 1.4 cm. There is positive arterial and venous Doppler flow and waveforms to the left ovary. No adnexal mass is seen. There are a total of 4 follicle seen. The largest follicles measure 0.7 x 0.8 x 0.3 cm and 0.9 x 0.9 x 0.7 cm respectively. There is no free fluid within the cul-de-sac. IMPRESSION: Non thickened endometrium measuring 3.3 mm as above. 4 follicles seen of the left ovary and a single follicle seen of the right ovary containing a single septation. Interpreted by: Salomón Kee MD Preliminary Report By: Salomón Kee MD Electronically signed By Salomón Kee MD Dictated Date: 03/17/2023 8:19:23 AM Prelim Date: 03/17/2023 8:26:13 AM Sign Date: 03/17/2023 8:26:13 AM Ordering Provider: [facility] 01-04-2023 Miscellaneous Notes Pt is planning FET with [facility], since that's where the embryo's are. There is no HSG order from Dr. Johnson in the chart. Sent a SC to Dr. Johnson to verify if chromopertubation was done during her laparoscopy with hysteroscopy. Dafne Valdivia PA-C January 04, 2023 5:[address] Johnson, tubal patency was checked with Saline. Tubes patent Sending a MC to the pt. Dafne Valdivia PA-C January 05, 2023 4:57 PM Patient had a surgery with Dr. Johnson recently and wanted to know if any dye was flushed through her tubes during the procedure. And if so, would she still need to have the HSG that he had ordered. documented in this encounter [facility] 12-29-2022 Miscellaneous Notes Duplicate message. Closing encounter. Dafne Valdivia PA-C December 29, 2022 11:01 AM documented in this encounter [facility] 12-21-2022 Note HNO ID: [id number] Author: Dafne Valdivia PA-C Service: ? Author Type: Physician Spray I Painter Type: Progress Notes Filed: 12/21/2022 3:36 PM Note Text: VIRTUAL VISIT PROGRESS NOTE This is a virtual visit. It required patient-provider interaction for the medical decision making as documented below. Patient name and birthday verified: Yes Location of patient: [place] Persons Present: patient I have communicated my name and active licensure. The patient's identity and physical location were verified at the time of this visit. Either the patient or their legal real estate representative has been informed of the risks and benefits of -- and alternatives to -- treatment through a remote evaluation and consents to proceed with the evaluation remotely. FLEET DIRECTOR POSTOP PROGRESS NOTE SERVICE DATE: 12/21/2022 SERVICE TIME: 12/09/2022 POST-OP DAY # 13 SUBJECTIVE: Sheree Bernard is a 42 year old POD# 13 s/p LAPAROSCOPIC DIAGNOSTIC LOOK ABDOMEN / PERITONEUM / OMENTUM [92431] HYSTEROSCOPY SURGICAL W/SAMPLING BIOPSY OF ENDOMETRIUM AND/OR POLYPECTOMY W/ OR W/O DANDC (TRUCLEAR) . H/o dysmenorrhea, abdominal pain. PLAN: Laparoscopy endometriosis, possible lysis of adhesions Hysteroscopy DANDC The truclear morcellator was used to remove multiple endometrial polyps. Then the truclear morcellator was used to globally sample the endometrial lining. The hysteroscopy was removed and the Humi manipulator was placed. Findings: Uterus: multiple endometrial polyps, otherwise normal appearing endometrium. Right Ovary: Normal Left Ovary: Normal Right Fallopian Tube: Normal Left Fallopian Tube: Normal Posterior cul-de-sac: Normal Appendix: Seen: normal Liver: Seen: normal Other: no endometriosis visualized FINAL DIAGNOSIS A. Endometrium, curettage: - Proliferative endometrium with focal features consistent with polyp. Patient pt is doing well overall. Has had pelvic pain , especially in the RLQ for a about a week after the surgery, but then it subsided. Has been alternating Advil and Tylenol at that time, which helped. States she is still experiencing the upper abdominal pain and LLQ pain , as before the surgery. Rates as 3/10 on pain scale. Not taking OTC pain meds any more. Still has pain at the navel when pressing it to the hard object. States had minimal bleed from the navel, due to scraping off the scab. Currently denies any abnormal vaginal discharge, fever/chills, SOB, chest pain, swelling of the extremities. Incisions are healing well: no redness, swelling or puss discharge. Pt is planning FET with [facility], since that's where the embryo's are. OBJECTIVE: General: well nourished, in no distress ASSESSMENT AND PLAN Discussed with Dr. Johnson. message with feedback provided SIGNATURE: Dafne Valdivia PA-C PATIENT NAME: Sheree Bernard DATE: December 21, 2022 TIME: 12:26 PM PAGER/CONTACT #: I spent a total of 40 minutes on the date of the service which included preparing to see the patient, obtaining and/or reviewing separately obtained history, counseling and educating the patient/family/caregiver, communicating with other HCPs (not separately reported), and communicating results to the patient/family/caregiver. [facility] 12-21-2022 History of Present illness Narrative VIRTUAL VISIT PROGRESS NOTE This is a virtual visit. It required patient-provider interaction for the medical decision making as documented below. Patient name and birthday verified: Yes Location of patient: [place] Persons Present: patient I have communicated my name and active licensure. The patient's identity and physical location were verified at the time of this visit. Either the patient or their legal real estate representative has been informed of the risks and benefits of -- and alternatives to -- treatment through a remote evaluation and consents to proceed with the evaluation remotely. FLEET DIRECTOR POSTOP PROGRESS NOTE SERVICE DATE: 12/21/2022 SERVICE TIME: 12/09/2022 POST-OP DAY # 13 SUBJECTIVE: Sheree Bernard is a 42 year old POD# 13 s/p LAPAROSCOPIC DIAGNOSTIC LOOK ABDOMEN / PERITONEUM / OMENTUM [74720] HYSTEROSCOPY SURGICAL W/SAMPLING BIOPSY OF ENDOMETRIUM &/OR POLYPECTOMY W/ OR W/O D&C (TRUCLEAR) . H/o dysmenorrhea, abdominal pain. PLAN: Laparoscopy endometriosis, possible lysis of adhesions Hysteroscopy D&C The truclear morcellator was used to remove multiple endometrial polyps. Then the truclear morcellator was used to globally sample the endometrial lining. The hysteroscopy was removed and the Humi manipulator was placed. Findings: Uterus: multiple endometrial polyps, otherwise normal appearing endometrium. Right Ovary: Normal Left Ovary: Normal Right Fallopian Tube: Normal Left Fallopian Tube: Normal Posterior cul-de-sac: Normal Appendix: Seen: normal Liver: Seen: normal Other: no endometriosis visualized FINAL DIAGNOSIS A. Endometrium, curettage: - Proliferative endometrium with focal features consistent with polyp. Patient pt is doing well overall. Has had pelvic pain , especially in the RLQ for a about a week after the surgery, but then it subsided. Has been alternating Advil and Tylenol at that time, which helped. States she is still experiencing the upper abdominal pain and LLQ pain , as before the surgery. Rates as 3/10 on pain scale. Not taking OTC pain meds any more. Still has pain at the navel when pressing it to the hard object. States had minimal bleed from the navel, due to scraping off the scab. Currently denies any abnormal vaginal discharge, fever/chills, SOB, chest pain, swelling of the extremities. Incisions are healing well: no redness, swelling or puss discharge. Pt is planning FET with [facility], since that's where the embryo's are. OBJECTIVE: General: well nourished, in no distress ASSESSMENT & PLAN Discussed with Dr. Johnson. message with feedback provided SIGNATURE: Dafne Valdivia PA-C PATIENT NAME: Sheree Bernard DATE: December 21, 2022 TIME: 12:26 PM PAGER/CONTACT #: I spent a total of 40 minutes on the date of the service which included preparing to see the patient, obtaining and/or reviewing separately obtained history, counseling and educating the patient/family/caregiver, communicating with other HCPs (not separately reported), and communicating results to the patient/family/caregiver. documented in this encounter [facility] 12-12-2022 Miscellaneous Notes Summary: Upcoming [facility] Appointment Spoke to pt who stated she had surgery with Dr Johnson on 12/09/2022. She would like to maintain the Dr Spring Appointment till after her pathology is discussed as she feels she may need a second opinion after her results on 12/21/2022. documented in this encounter [facility] 12-09-2022 Note HNO ID: [id number] Author: Nando Gutierrez RN Service: General Surgery Author Type: Registered Nurse Type: Nursing Progress Note Filed: 12/09/2022 4:40 PM Note Text: Other: patient dressed independently [facility] 12-09-2022 Note HNO ID: [id number] Author: Nando Gutierrez RN Service: General Surgery Author Type: Registered Nurse Type: Nursing Progress Note Filed: 12/09/2022 4:07 PM Note Text: Other: patient sat up eating and drinking [facility] 12-09-2022 Note HNO ID: [id number] Author: Perla Banuelos RN Service: Nursing Author Type: Registered Nurse Type: Nursing Progress Note Filed: 12/09/2022 1:34 PM Note Text: THE FLUID DEFICIT FOR HYSTEROSCOPY IS 355 CC [facility] 12-09-2022 Note HNO ID: [id number] Author: Sherron Solorio APRN.STEAMTABLE WORKER Service: Anesthesiology Author Type: Nurse Stars Analytical Lead Type: Anesthesia Procedure Notes Filed: 12/09/2022 12:47 PM Note Text: ANESTHESIOLOGY PROCEDURE NOTE Airway General Information Procedure Start Time/Medication Administration: 12/09/2022 12:40 PM Patient location during procedure: OR Timeout Performed Pre-procedure: timeout performed Consent Obtained: Yes Patient identity confirmed: arm band Staffing Anesthesiologist: Nigel Moyer MD STEAMTABLE WORKER: Sherron Solorio APRN.STEAMTABLE WORKER Indications and Patient Condition Indications for airway management: anesthesia and airway protection Preoxygenated: yes anesthesia circuit Patient position: sniffing Method: asleep Difficult Mask: No Final Airway Details Final airway type: endotracheal airway Final Endotracheal Airway: ETT Cuffed: yes Successful intubation technique: direct laryngoscopy Devices used: intubating stylet Endotracheal tube insertion site: oral Blade: Mica Blade size: #4 ETT size (mm): 7.0 Measured from: lips Measurement (cm): 22 Placement verified by: chest auscultation Cormack-Lehane Classification: grade I - full view of glottis Number of attempts at approach: 1 Ventilation between attempts: BVM Airway not difficult SIGNATURE: Sherron Solorio APRN.STEAMTABLE WORKER PATIENT NAME: Sheree Bernard DATE: December 09, 2022 TIME: 12:46 PM CSN: [id number] [facility] 12-09-2022 Instructions Adarsh Griffith APRN.EARTH SCIENCE TECHNICIAN - 12/09/2022 8:32 AM EDT - May use beta lactam antibiotics in the future - Return at earliest convenience for graded dose challenge with famotidine. Stop all antihistamines 5-7 days prior to appointment documented in this encounter [facility] 12-07-2022 Note HNO ID: [id number] Author: Vivian Zhu APRN.CNP Service: Anesthesiology Author Type: Nurse Practitioner Type: Progress Notes Filed: 12/07/2022 1:06 PM Note Text: Summary: Anesthesia Reviewed HANDP and BMI with Dr. Moyer. Patient with METS >5. Patient is okay to proceed with surgery at [facility]. No immediate anesthesia concerns at this time. [facility] 12-05-2022 Note HNO ID: [id number] Author: Zina Gurrola Service: ? Author Type: ? Type: Progress Notes Filed: 12/09/2022 8:33 AM Note Text: Amoxicillin Oral Challenge Informed consent for Amoxicillin oral challenge obtained per Kalee Griffith. 1140- Amoxicillin ([facility] lot [id number], exp. 11/2024) 1 ml oral suspension po given per Kalee Griffith orders. 1210- BP-123/81 HR-59, RR-16, PO2-98% Patient without signs of symptoms of allergic reaction. 1210- Amoxicillin ([facility] lot [id number], exp.11/2024) 9 ml oral suspension po given per Kalee Griffith's orders. 1241- Amoxicillin Oral Challenge completed. Pt. without signs or symptoms of allergic reaction. BP-145/84 HR-60, RR,-16 PO2-99% 1250- Pt. seen per Kalee Griffith prior to leaving office. Yamila Gurrola RN [facility] 12-05-2022 Note HNO ID: [id number] Author: Adarsh Griffith APRN.EARTH SCIENCE TECHNICIAN Service: ? Author Type: Nurse Specialist Type: Progress Notes Filed: 12/09/2022 8:33 AM Note Text: [facility] Allergy AND Clinical Immunology Jose Manuel Miramontes MD has requested consultation for penicillin allergy. My progress note with assessment and recommendations from today's appointment will be electronically routed to Jose Manuel Miramontes MD. Chief Complaint: penicillin allergy Historian: patient HPI Ms. Bernard is a 42 year old female with a history of endometriosis and a candidate for surgical intervention in clinic for work up of penicillin allergy. Patient took oral penicillin in 2005. She had itching and facial hives within 30 minutes of taking the first dose. She went to the ED for treatment. She has avoided it ever since. She took ranitidine in the remote past and had itching and facial hives within 20 minutes. 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 [employer] PAST MEDICAL HISTORY Diagnosis Date GERD (gastroesophageal reflux disease) Hypothyroidism (acquired) Irritable bowel syndrome (IBS) Migraines Trigeminal neuralgia Raynaud's syndrome PAST SURGICAL HISTORY Procedure Laterality Date EXCISION PILONIDAL CYST/SINUS SIMPLE 1999 PAST SURGICAL HISTORY OF wisdom teeth PAST SURGICAL HISTORY OF egg retrival x 6 TRANSCERVICAL CATHJ FALLOPIAN TUBE RSANDI Bilateral reopened occluded bilateral fallopian tubes FAMILY HISTORY Problem Relation Age of Onset Glaucoma Mother Cataract Mother COPD Mother Lung Cancer Mother other (polio) Father other (Chronic migraine) Maternal Uncle Social History Tobacco Use Smoking status: Never Smokeless tobacco: Never Vaping Use Vaping Use: Never used Substance Use Topics Alcohol use: Yes Comment: rarely Drug use: Never Social History Tobacco Use Smoking status: Never Smokeless tobacco: Never Current Outpatient Medications Medication Sig pantoprazole DR (PROTONIX) 40 mg tablet naltrexone capsule 4.5 mg (CPD) Take 4.5 mg by mouth once daily. oxyCODONE IR (ROXICODONE) 5 mg immediate release tablet Take 1 tablet by mouth every 6 hours as needed for pain for up to 7 doses. acetaminophen (TYLENOL EXTRA STRENGTH) 500 mg tablet Take 2 tablets by mouth every 8 hours for 5 days. ibuprofen (MOTRIN) 800 mg tablet Take 1 tablet by mouth every 8 hours for 5 days. levocarnitine HCl (QDPWWA-Q-XIJWIZGNA MISC) Vitamin E, dl, acetate, (VITAMIN E) 200 unit capsule Take 200 Units by mouth once daily. melatonin 3 mg tablet Take 1 tablet at 9PM nightly except on those nights working until midnight. ubidecarenone (COQ-10 ORAL) Take 1 tablet by mouth. cholecalciferol, vitamin D3, (VITAMIN D3) 100 mcg (4,000 unit) cap omega-3s/dha/epa/algal oil (MEGARED ADVANCED OMEGA-3 ALGAE ORAL) vit calc,iron,folic ( VITAMIN ORAL) levothyroxine 75 mcg cap Take by mouth once daily. hydroxychloroquine (PLAQUENIL) 200 mg tablet Take 200 mg by mouth. fluticasone (FLONASE) 50 mcg/actuation nasal spray 1 [place]. No current facility-administered medications for this visit. ALLERGIES Allergen Reactions Amphetamine Other: See Comments Benzoin Compound Other: See Comments Benzyl peroxide causes swelling and severe dryness Benzoyl Peroxide Swelling swelling Codeine Rash rash Diclofenac Sodium Hives Iodinated Contrast * Other: See Comments Norgestimate Other: See Comments Bad Migraines with ortho tri cyclen lo in HS. Has been fine with Microgestin OCP Penicillins Hives Hives itching Phentermine Other: See Comments Prednisone Other: See Comments migraines Ranitidine Hives Hives itching Tirosint [Levothyro* Mental Status Change, Other: See Comments Severe depression, chest pain Review of Systems Constitutional: Negative for chills and fever. HENT: Positive for congestion. Negative for postnasal drip, rhinorrhea, sore throat and trouble swallowing. Eyes: Negative for redness and itching. Respiratory: Negative for cough, chest tightness, shortness of breath and wheezing. Cardiovascular: Negative for chest pain. Gastrointestinal: Positive for abdominal pain. Negative for diarrhea, nausea and vomiting. Musculoskeletal: Negative for arthralgias and joint swelling. Skin: Negative for rash. Neurological: Negati (more content not included)... [facility] 12-05-2022 History of Present illness Narrative Amoxicillin Oral Challenge Informed consent for Amoxicillin oral challenge obtained per Kalee Griffith. 1140- Amoxicillin ([facility] lot [id number], exp. 11/2024) 1 ml oral suspension po given per J. Damieni orders. 1210- BP-123/81 HR-59, RR-16, PO2-98% Patient without signs of symptoms of allergic reaction. 1210- Amoxicillin ([facility] lot [id number], exp.11/2024) 9 ml oral suspension po given per J. Kubicki's orders. 1241- Amoxicillin Oral Challenge completed. Pt. without signs or symptoms of allergic reaction. BP-145/84 HR-60, RR,-16 PO2-99% 1250- Pt. seen per Kalee Griffith prior to leaving office. Yamila Gurrola RN [facility] Allergy & Clinical Immunology Jose Manuel Miramontes MD has requested consultation for penicillin allergy. My progress note with assessment and recommendations from today's appointment will be electronically routed to Jose Manuel Miramontes MD. Chief Complaint: penicillin allergy Historian: patient HPI Ms. Bernard is a 42 year old female with a history of endometriosis and a candidate for surgical intervention in clinic for work up of penicillin allergy. Patient took oral penicillin in 2005. She had itching and facial hives within 30 minutes of taking the first dose. She went to the ED for treatment. She has avoided it ever since. She took ranitidine in the remote past and had itching and facial hives within 20 minutes. 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[employer]) PAST MEDICAL HISTORY Diagnosis Date GERD (gastroesophageal reflux disease) Hypothyroidism (acquired) Irritable bowel syndrome (IBS) Migraines Trigeminal neuralgia Raynaud's syndrome PAST SURGICAL HISTORY Procedure Laterality Date EXCISION PILONIDAL CYST/SINUS SIMPLE 1999 PAST SURGICAL HISTORY OF wisdom teeth PAST SURGICAL HISTORY OF egg retrival x 6 TRANSCERVICAL CATHJ FALLOPIAN TUBE RS&I Bilateral reopened occluded bilateral fallopian tubes FAMILY HISTORY Problem Relation Age of Onset Glaucoma Mother Cataract Mother COPD Mother Lung Cancer Mother other (polio) Father other (Chronic migraine) Maternal Uncle Social History Tobacco Use Smoking status: Never Smokeless tobacco: Never Vaping Use Vaping Use: Never used Substance Use Topics Alcohol use: Yes Comment: rarely Drug use: Never Social History Tobacco Use Smoking status: Never Smokeless tobacco: Never Current Outpatient Medications Medication Sig pantoprazole DR (PROTONIX) 40 mg tablet naltrexone capsule 4.5 mg (CPD) Take 4.5 mg by mouth once daily. oxyCODONE IR (ROXICODONE) 5 mg immediate release tablet Take 1 tablet by mouth every 6 hours as needed for pain for up to 7 doses. acetaminophen (TYLENOL EXTRA STRENGTH) 500 mg tablet Take 2 tablets by mouth every 8 hours for 5 days. ibuprofen (MOTRIN) 800 mg tablet Take 1 tablet by mouth every 8 hours for 5 days. levocarnitine HCl (QGAQIX-T-DLWNWLRXQ MISC) Vitamin E, dl, acetate, (VITAMIN E) 200 unit capsule Take 200 Units by mouth once daily. melatonin 3 mg tablet Take 1 tablet at 9PM nightly except on those nights working until midnight. ubidecarenone (COQ-10 ORAL) Take 1 tablet by mouth. cholecalciferol, vitamin D3, (VITAMIN D3) 100 mcg (4,000 unit) cap omega-3s/dha/epa/algal oil (MEGARED ADVANCED OMEGA-3 ALGAE ORAL) vit calc,iron,folic ( VITAMIN ORAL) levothyroxine 75 mcg cap Take by mouth once daily. hydroxychloroquine (PLAQUENIL) 200 mg tablet Take 200 mg by mouth. fluticasone (FLONASE) 50 mcg/actuation nasal spray 1 [place]. No current facility-administered medications for this visit. ALLERGIES Allergen Reactions Amphetamine Other: See Comments Benzoin Compound Other: See Comments Benzyl peroxide causes swelling and severe dryness Benzoyl Peroxide Swelling swelling Codeine Rash rash Diclofenac Sodium Hives Iodinated Contrast * Other: See Comments Norgestimate Other: See Comments Bad Migraines with ortho tri cyclen lo in HS. Has been fine with Microgestin OCP Penicillins Hives Hives itching Phentermine Other: See Comments Prednisone Other: See Comments migraines Ranitidine Hives Hives itching Tirosint [Levothyro* Mental Status Change, Other: See Comments Severe depression, chest pain Review of Systems Constitutional: Negative for chills and fever. HENT: Positive for congestion. Negative for postnasal drip, rhinorrhea, sore throat and trouble swallowing. Eyes: Negative for redness and itching. Respiratory: Negative for cough, chest tightness, shortness of breath and wheezing. Cardiovascular: Negative for chest pain. Gastrointestinal: Positive for abdominal pain. Negative for diarrhea, nausea and vomiting. Musculoskeletal: Negative for arthralgias and joint swelling. Skin: Negative for rash. Neurological: Negative for dizziness, syncope, weakness, light-headedness and numbness. Hematological: Negative for adenopathy. Psychiatric/Behavioral: The patient is nervous/anxious. Blood pressure 125/85, pulse 85, temperature 36.1 C (97 F), temperature source Temporal, resp. rate 18, height 157.5 cm (5' 2 ), weight 112 kg (247 lb), last menstrual period 10/08/2022, SpO2 99 %. Body mass index is 45.18 kg/m . Physical Exam Vitals reviewed. Constitutional: General: She is not in acute distress. Appearance: Normal appearance. She is not ill-appearing. HENT: Nose: Mucosal edema and rhinorrhea present. Mouth/Throat: Mouth: Mucous membranes are moist. Pharynx: Oropharynx is clear. Eyes: Conjunctiva/sclera: Conjunctivae normal. Cardiovascular: Rate and Rhythm: Normal rate and regular rhythm. Heart sounds: Normal heart sounds. Pulmonary: Effort: Pulmonary effort is normal. Breath sounds: Normal breath sounds. Lymphadenopathy: Cervical: No cervical adenopathy. Upper Body: Right upper body: No supraclavicular adenopathy. Left upper body: No supraclavicular adenopathy. Comments: No head adenopathy. Skin: General: Skin is warm and dry. Findings: No rash. Neurological: Mental Status: She is alert. Psychiatric: Mood and Affect: Mood normal. Behavior: Behavior is cooperative. Allergy Skin Testing & Oral Drug Challenge: Skin testing performed percutaneously and intradermally to penicillin G and PrePen. Results were negative and personally reviewed and interpreted by me. Risks, benefits, and alternatives were discussed with patient regarding oral amoxicillin challenge, including risk for anaphylaxis. Consent obtained. Patient received oral amoxicillin 250 mg/5 mL in 2 divided doses of 25 mg PO and 225 mg PO. The patient was observed for 61 minutes with no reaction. Assessment and Recommendations (L50.9) Hives (primary encounter diagnosis) (Z88.0) Personal history of allergy to penicillin Previous history of penicillin allergy. Patient without evidence of an IgE-mediated penicillin allergy. The testing and challenge does not predict [id number] reactions to beta lactams (i.e. hepatitis, TENS, SJS,etc.). - May use beta lactam antibiotics in the future (T47.0X5A) Adverse effect of ranitidine History suggests an IgE-mediated reaction to ranitidine. Patient would like options if she should need H2-blockers in the future. - Return at earliest convenience for graded dose challenge with famotidine I spent a total of 51 minutes on the date of the service which included preparing to see the patient, [id number] patient care, completing clinical documentation, obtaining and/or reviewing separately obtained history, performing a medically appropriate examination, counseling and educating the patient/family/caregiver, ordering medications, tests, or procedures, independently interpreting results (not separately reported), and communicating results to the patient/family/caregiver. AVS provided to patient via [employer] and included a recap of today's appointment and medical plan. Adarsh Griffith APRN.EARTH SCIENCE TECHNICIAN Allergy & Clinical Immunology documented in this encounter [facility] 12-02-2022 Note HNO ID: [id number] Author: Savanna Magana APRN.CNP Service: ? Author Type: Nurse Practitioner Type: Progress Notes Filed: 12/02/2022 2:54 PM Note Text: [facility] please review with anesthesia re: BMI 45.47. Scheduled 12-09-2022 Dr. Johnson, laparoscopy, VIKAS with general anesthesia. PMHX: Hypothyroid Morbid obesity (HCC) BMI 45.47 5'2 248# BP 130/84 Pulse 71 Temp 98.6 Resp 16 Ht 5' 2 (1.58m) Wt 248 lb 9.6 oz (112.8kg) SpO2 99% LMP 10/08/2022 BMI 45.46 kg/(m2). METS>5 [facility] 12-02-2022 History of Present illness Narrative [facility] TIMOTHY please review with anesthesia re: BMI 45.47. Scheduled 12-09-2022 Dr. Johnson, laparoscopy, VIKAS with general anesthesia. PMHX: Hypothyroid Morbid obesity (HCC) BMI 45.47 5'2 248# BP 130/84 Pulse 71 Temp 98.6 Resp 16 Ht 5' 2 (1.58m) Wt 248 lb 9.6 oz (112.8kg) SpO2 99% LMP 10/08/2022 BMI 45.46 kg/(m^2). METS>5 documented in this encounter [facility] 12-02-2022 History and physical note HISTORY AND PHYSICAL EXAMINATION SERVICE DATE: 12/02/2022 SERVICE TIME: 2:49 PM PRIMARY CARE PHYSICIAN: Rayna Quintanilla MD REASON FOR VISIT: Sheree Bernard is a 42 year old female who is scheduled for Procedure(s): LAPAROSCOPY, SURGICAL; WITH FULGURATION OR EXCISION OF LESIONS OF THE OVARY, PELVIC VISCERA, OR PERITONEAL SURFACE BY ANY METHOD (N/A) LAPAROSCOPY WITH LYSIS SALPINGOLYSIS/OVARIOLYSIS ADHESIONS (Bilateral) HYSTEROSCOPY SURGICAL W/SAMPLING BIOPSY OF ENDOMETRIUM &/OR POLYPECTOMY W/ OR W/O D&C (TRUCLEAR) (N/A) at the request of Dr. Santiago Johnson for. My final recommendation will be communicated back to the requesting physician by way of shared medical record or letter.Visit type: PST. The reason for this visit is to perform a comprehensive review of the patient's past medical history, assess their current health status and obtain any additional testing required based on anesthesia guidelines. We will also identify any potential anesthesia problems or contraindications to the planned procedure. Subjective The patient has the following: ACTIVE PROBLEM LIST Chronic Right-Sided Low Back Pain Malaise and Fatigue Trigeminal Neuropathy Myalgia Polyarthralgia Diarrhea Abdominal Pain Gastroesophageal Reflux Disease Without Esophagitis Atypical Facial Pain Intractable Chronic Migraine Without Aura and Without Status Migrainosus Chronic Migraine Without Aura, With Intractable Migraine, So Stated, With Status Migrainosus Bilateral Occipital Neuralgia Chronic Daily Headache Cervicalgia Cervical Radicular Pain Paresthesias Primary Stabbing Headache Eye Pain, Bilateral Ndph (New Daily Persistent Headache) Transient Neurological Symptoms Preop Examination Morbid Obesity (Hcc) COVID-19 Immunization Status COVID-19 VACCINE (Series Information) Completed 04/01/2022 Imm Admin: COVID-19 vaccine, age 12+ yr, bivalent (PFIZER-BIONTECH) 03/19/2021 Imm Admin: COVID-19 original vaccine, age 12+ yr, monovalent (PFIZER-BIONTECH - PURPLE TOP) 08/12/2020 Imm Admin: COVID-19 original vaccine, age 12+ yr, monovalent (PFIZER-BIONTECH - PURPLE TOP) Only the first 3 history entries have been loaded, but more history exists. CHIEF COMPLAINT: Endometriosis HPI: Patient presents with history of infertility x several years. Has done 10 cycles of IVF unsuccessfully. Reports several months of abdominal pain, pain today 07/01. Menses are regular. LMP 8-7-23. G0 REVIEW OF SYSTEMS: General: No weight loss, malaise or fevers. Neurological: Migraines, occipital neuralgia Negative for: seizures and strokes. Respiratory: Denies coughing, wheezing, SOB Cardiovascular: Denies chest pain or CHF GI: Negative for: abdominal pain, nausea and vomiting. : Negative for: frequent urination and urgency. FLEET DIRECTOR: See HPI. Endocrine: Hypothyroid Negative for: diabetes mellitus. Hematology: Denies cancer or bleeding/clotting disorder Psych: Negative for: anxiety and depression. Musculoskeletal: Joint pain PAST MEDICAL HISTORY Diagnosis Date GERD (gastroesophageal reflux disease) Hypothyroidism (acquired) Irritable bowel syndrome (IBS) Migraines Trigeminal neuralgia Raynaud's syndrome PAST SURGICAL HISTORY Procedure Laterality Date EXCISION PILONIDAL CYST/SINUS SIMPLE 1999 PAST SURGICAL HISTORY OF wisdom teeth PAST SURGICAL HISTORY OF egg retrival x 6 TRANSCERVICAL CATHJ FALLOPIAN TUBE RS&I Bilateral reopened occluded bilateral fallopian tubes FAMILY HISTORY Problem Relation Age of Onset Glaucoma Mother Cataract Mother COPD Mother Lung Cancer Mother other (polio) Father other (Chronic migraine) Maternal Uncle Social History Tobacco Use Smoking status: Never Smokeless tobacco: Never Vaping Use Vaping Use: Never used Substance Use Topics Alcohol use: Yes Comment: rarely Drug use: Never Prior to Admission medications as of 12/02/22 1407 Medication Sig Last Dose Taking acetaminophen (TYLENOL EXTRA STRENGTH) 500 mg tablet Take 2 tablets by mouth every 8 hours for 5 days. Yes levocarnitine HCl (RHRQBK-A-[id number] MISC) Yes melatonin 3 mg tablet Take 1 tablet at 9PM nightly except on those nights working until midnight. Yes ubidecarenone (COQ-10 ORAL) Take 1 tablet by mouth. Yes cholecalciferol, vitamin D3, (VITAMIN D3) 100 mcg (4,000 unit) cap Yes omega-3s/dha/epa/algal oil (MEGARED ADVANCED OMEGA-3 ALGAE ORAL) Yes vit calc,iron,folic ( VITAMIN ORAL) Yes levothyroxine 75 mcg cap Take by mouth once daily. Yes hydroxychloroquine (PLAQUENIL) 200 mg tablet Take 200 mg by mouth. Yes oxyCODONE IR (ROXICODONE) 5 mg immediate release tablet Take 1 tablet by mouth every 6 hours as needed for pain for up to 7 doses. Senna 8.6 mg tab Take 2 tablets by mouth twice daily as needed for constipation for up to 3 days. ibuprofen (MOTRIN) 800 mg tablet Take 1 tablet by mouth every 8 hours for 5 days. docusate sodium (COLACE) 100 mg capsule Take 1 capsule by mouth twice daily as needed for constipation for up to 3 days. alpha lipoic acid (LIPOIC ACID ORAL) Take by mouth. Vitamin E, dl, acetate, (VITAMIN E) 200 unit capsule Take 200 Units by mouth once daily. fluticasone (FLONASE) 50 mcg/actuation nasal spray 1 [place]. No medication comments found. ALLERGIES Allergen Reactions Amphetamine Other: See Comments Benzoin Compound Other: See Comments Benzyl peroxide causes swelling and severe dryness Benzoyl Peroxide Swelling swelling Codeine Rash rash Diclofenac Sodium Hives Iodinated Contrast * Other: See Comments Norgestimate Other: See Comments Bad Migraines with ortho tri cyclen lo in HS. Has been fine with Microgestin OCP Penicillins Hives Hives itching Phentermine Other: See Comments Prednisone Other: See Comments migraines Ranitidine Hives Hives itching Ranitidine Bismuth * Itching, Hives Tirosint [Levothyro* Mental Status Change, Other: See Comments Severe depression, chest pain Objective PHYSICAL EXAM: General: alert and oriented and healthy appearance. Skin: Warm, dry, no diaphoresis. HEENT: Normocephalic, atraumatic, no lymphadenopathy. Cardiovascular: regular rate and rhythm, normal S1 and S2, no rub, murmurs, or gallop. Respiratory: normal breath sounds, no wheezes or crackles. Abdomen: Soft, nontender, BSx4. Extremities: no deformity, no edema or tenderness, no joint swelling or clubbing. Neurological: normal cognition and motor skills. PAIN ASSESSMENT: VITALS: BP 130/84 Pulse 71 Temp 98.6 Resp 16 Ht 5' 2 (1.58m) Wt 248 lb 9.6 oz (112.8kg) SpO2 99% LMP 10/08/2022 BMI 45.46 kg/(m^2). Diagnostic tests reviewed for today's visit: Lab Value Units Date High Low HB No results within date range. HCT No results within date range. WBC No results within date range. PLT No results within date range. NA No results within date range. K No results within date range. GLUC No results within date range. BUN No results within date range. CREAT No results within date range. PTSEC No results within date range. INR No results within date range. APTT No results within date range. ALT No results within date range. AST No results within date range. TBILI No results within date range. TSH 1.870 mIU/L 08/11/2022 4.200 0.270 Lab Value Units Date High Low HCGQT No results within date range. UHCG No results within date range. HCG, BODY* No results within date range. Lab Value Units Date High Low ABORHD No results within date range. ABSCREEN No results within date range. Hemoglobin A1C (%) Date Value 08/11/2022 5.1 No results found for this or any previous visit (from the past 8760 hour(s)). Recent Results (from the past 51230 hour(s)) ECHO Collection Time: 06/02/21 3:37 PM Impression CONCLUSIONS: - Exam indication: Suspected pulmonary hypertension - The left ventricle is normal in size. Left ventricular systolic function is normal. EF = 63 5% (2D biplane) - The right ventricle is normal in size. Right ventricular systolic function is normal. - There are no significant valvular abnormalities. - The patient has not had a prior CC echocardiographic exam for comparison. * * * Final * * * Assessment Preop examination medical conditions which may affect the valarie-operative course were addressed in the visit today. Morbid obesity (HCC) BMI 45.47 5'2 248# [place] Activity Status Index: METS: Climb a flight of stairs or walk up a hill (5.50 METs) DASI Score: 5.5 Patient denies any chest pain or undue shortness of breath with the above physical activity. ARISCAT Score: Age: <=50 Preoperative SpO2: >=96% Respiratory infection in the last month: No Preoperative anemia: No Surgical incision: peripheral Duration of surgery: <2 hrs Emergency procedure: No ARISCAT Score: 0 ANESTHESIA FINDINGS: Intubation History: No history of difficult intubation Significant Anesthesia Considerations: potential slow emergence Airway History: No history of difficult airway I - PHYSICAL EVALUATION AIRWAY Patient intubated: No. DENTAL Dental findings: teeth intact. II - ANESTHESIA PLAN Anesthetic Plan: general Beta Bharath Monitoring Plan Post Procedure Analgesic Plan Prepared for Surgery: CONSULTS: Planned Anesthetic: general The Following Tests/Procedures Have Been Initiated: No orders of the defined types were placed in this encounter. FAMILY HISTORY OF ANESTHESIA:No known history of adverse anesthetic event Anticoagulation: None Implantable Devices: None Assessment/Plan PLAN Planned Procedure: Procedure(s): LAPAROSCOPY, SURGICAL; WITH FULGURATION OR EXCISION OF LESIONS OF THE OVARY, PELVIC VISCERA, OR PERITONEAL SURFACE BY ANY METHOD (N/A) LAPAROSCOPY WITH LYSIS SALPINGOLYSIS/OVARIOLYSIS ADHESIONS (Bilateral) HYSTEROSCOPY SURGICAL W/SAMPLING BIOPSY OF ENDOMETRIUM &/OR POLYPECTOMY W/ OR W/O D&C (TRUCLEAR) (N/A) Pre-op testing-medical conditions which may affect the valarie-operative course were addressed in the visit today. CONSULTS No consults pending The Following Tests/Procedures Have Been Initiated: No labs ordered in Epic per surgeon I spent a total of 40 minutes on the date of the service which included preparing to see the patient, [id number] patient care, completing clinical documentation, obtaining and/or reviewing separately obtained history, performing a medically appropriate examination, and counseling and educating the patient/family/caregiver. Instructions Given to Patient: Instructions located in the after visit summary. Hibiclens and instructions given to patient. Verbalizes understanding of instructions. Patient given verbal and written preop instructions and voices comprehension and compliance. SIGNATURE: Savanna Magana APRN.CNP PATIENT NAME: Sheree Bernard DATE: December 02, 2022 TIME: 12:23 PM PAGER/CONTACT #: documented in this encounter [facility] 12-01-2022 Miscellaneous Notes Confirmed patient's name and date of over the phone. Patient is scheduled for upcoming surgical procedure. Necessary postoperative medications were prescribed and sent to her preferred pharmacy. documented in this encounter [facility] 12-01-2022 Instructions Savanna Magana APRN.[employer]ER - 12/01/2022 10:18 AM EDT PATIENT PREOPERATIVE INSTRUCTIONS Santiago Johnson, * has scheduled you for your procedure at this surgery center: [facility] [address] [place] [address] ROOM 104 Please read below carefully for your personalized instructions. Date of Surgery: December 09, 2022 -Your surgeon's office will call you with your ARRIVAL TIME for surgery the afternoon before surgery with a scheduled arrival time. If you are scheduled for a Monday surgery they will call you Monday for your arrival time. -Please be aware that emergency situations arise, which may delay or change your surgical time. If this happens, your surgeon's office will notify you as soon as possible and regret any inconvenience. Blood Thinning Medications: - Stop NSAIDS (Ibuprofen, Advil, Aleve, Motrin, Celebrex, Mobic, etc.) 7 days before surgery, as directed by your surgeon. - Stop Vitamin E, fish oil, Ginko, Bill's Wort, flax seed oil, multivitamins, CBD oil, marijuana and other over the counter herbals and dietary supplements 7 days before surgery. This would not apply to cancer patients who are prescribed Marinol or any other prescription form of marijuana or CBD. - If you take any of the following blood thinners, please contact your surgeon and the physician who prescribes it for you in order to get perioperative instructions as soon as possible: Aspirin,Coumadin, Plavix, Eliquis, Pradaxa, Xarelto, Lovenox, Brilinta, Effient, Savaysa, etc. Pain Medications: - You may take Tylenol (Acetaminophen) or any of your current prescribed pain medications that do not contain aspirin or NSAIDS as needed. Dietary Restrictions: - No solid food or liquids after midnight except medications listed below with a sip of water. Medications: Approved medications to take the morning of surgery with a sip of water: Dexamethasone You may take BP, heart, thyroid, anxiety/depression, seizure, and pain medications excluding NSAIDS (see above list of NSAIDS) Use inhalers as prescribed. Please bring inhalers. Preoperative Medication Instructions for Patients with Diabetes Mellitus: Please follow up with the provider that manages your diabetes and how to prepare you for surgery. Do not take the morning of surgery; Trajenta, Metformin, Actos/Pioglitazone and Amaryl/Glimepiride. For the following Medications, please HOLD 2 DAYS PRIOR TO SURGERY: Glucotrol/Glipizide, Januvia/Sitagliptin, Glyburide, Prandin/Repaglinide, Starlix/Nateglinide, Symlin/Pramlintide, For the following Medications, please HOLD 3 DAYS PRIOR TO SURGERY: Canagliflozin/Invokana, Dapagliflozin/Farxiga ,Empagliflozin/Jardiance, Invokamet/canagliflozin and metformin, Xigduo XR/ dapagliglozin and metformin, Glyxambi/ empagliflozin and metformin, Syndardy/ empagliflozin and metformin For the following Medications, please HOLD 4 DAYS PRIOR TO SURGERY: Ertugliflozin/Steglatro For the following Medications, please HOLD 7 DAYS PRIOR TO SURGERY: GLP-1 AGONIST: Adlyxin (lixisenatide), Bydureon BCise (exenatide suspension), Byetta (exenatide), Mounjaro (tirzepatide), Ozempic (semaglutide injection), Rybelsus (semaglutide tablets), Tanzeum (albiglutide), Trulicity (dulaglutide), Victoza (liraglutide), Wegovy (semaglutide), Saxenda (liraglutide) Insulin Medication Instructions: Please follow up with the provider that manages your Insulin and how to prepare you for surgery. If you start any new medications after today's visit, please contact the surgeon's office. Important Reminders: - If you use CPAP/BIPAP, bring the machine with you to the surgery center. - If you are prescribed inhalers for breathing, continue using them AND bring them to the surgery center. - Candy, mints, gum and tobacco products are NOT permitted the morning of surgery. - Hearing aids, dentures and glasses may be worn the morning of surgery - NO jewelry, body piercings, makeup, hairpins or contacts are to be worn the day of surgery. - NO lotion, creams, powders or deodorants on the skin the day of surgery -If you have a stimulator, implant or pump that requires a remote, please bring the remote with you the day of surgery. - You will need to have someone else (Family or friend) drive you home once discharged from the hospital. You cannot take a cab or Uber. You are not allowed to drive yourself home after surgery. You will need someone to stay with you for 24 hours after surgery. -Hibiclens with instructions given day of PST. -Bring urine specimen if applicable. -Surgery Center visitation: Pre surgery- ASC only allows 1 family member into preop. No children allowed into preop. If the family member does bring their child/children, no one will be allowed back to preop. We have very limited space in each room. Recovery Room- No visitors in recovery room unless patient is a minor If you develop symptoms such as a fever, cold, or flu, or have other changes to your health within TWO DAYS of scheduled surgery or the morning of surgery, please contact the surgery center above. Personal Belongings: - Leave ALL valuables and money at home or with family members. - You will need a form of ID and insurance card to check in the morning of surgery. - You will have to wear a hospital gown during your stay but if you wish to bring undergarments for after surgery you may. Savanna Magana APRN.[employer]ER documented in this encounter [facility] 11-04-2022 Miscellaneous Notes Patient called again for surgery. She hasnt heard from anyone. Informed patient we are waiting from orders from the doctor in order to schedule Patient called again about getting set up and scheduled for surgery. Patient is calling to schedule surgery after her consult with Dr. Johnson on 10/26 documented in this encounter [facility] 10-26-2022 Consult note Formatting of th is note is different from the original. Date of Consult: 10/26/2022 Consultation Requested By: Self-referred Sheree Bernard is a 42 year old female presenting with the following history: HISTORY OF PRESENT ILLNESS: Sheree Bernard is a 42 year old female AMA Menstrual cycle regular: 29-30 PBM Failed: CC + IUI Failed: LET + IUI [employer] (has in house financing) Followed It Starts With the Egg 11/2019: Retrieved 5, Mature 3 Synthroid, Zoloft, Plaquenil, Naltrexone 4.5 mg, Vit C 500 mg, Vit D 2,000, Vit E 134 mg, Theralogics Core, R-lipoic Acid 240, Ovasitol 2,000 mg BID, Osgood 3, Ubiquinol 300, Melatonin 5 mg, Dexamethasone 0.5 mg Priming Omnitrope (free vial q21 days) 6 unit(s) X2 months prior to 1st G-f 300, Menopur 150, Lupron 4 mg, Pregnyl 10K Seravital, Omnitrope, G-f 150, Menopur 450 [id number]: Retrieved 4, Mature 2 Calcium ionophore: [facility] PCT: sperm Sperm DFI: 11% Karyotypes: Normal AMH: 0.94. AMH 0.8 HSG: Normal PMHx: GERD, IBS. Migraine headaches PSHx: Pilonidal cyst Meds: MVI Desire for future fertility Discussed IVF cycle planning Discussed pushing past a larger lead follicle in effort to recruit follicles from the smaller remaining cohort Discussed desire to use Menopur Discussed low, slow stimulation Discussed last IVF cycle started weird copious cervical mucous like mid-cycle Discussed not starting IVF stimulation unless menses definitive Discussed sperm DFA concerns Discussed G-f 300-450, Menopur 150, Cetrotide. Dual trigger Discussed Omnitrope 6u daily X2 months Discussed vit C,vit D, vit E, ovisitol. Osgood 3, ubiquinol, R-lipoic acid, low-dose naltrexone, melatonin, DHEA X 2 months, seravital Discussed Ca2+ ionophore Discussed had 2, day 2 embryos for fresh ET: 7 cell and 5 cell: Negative hCG Discussed has new/reset insurance provider Discussed fresh vs frozen ET *Discussed has 3 blasts frozen at [facility] *Discussed Receptiva POS: Endometriosis or hydrosalpinx. *Discussed SIS at [place]: Complicated *Discussed CT X2: Normal *Discussed continuing abdominal/pelvic pain *Discussed Laparoscopy, Hysteroscopy 41 year old male partner without proven fertility PMHx: Denies PSHx: Denies Meds: Lisinopril Fish oil 3,000 mg, Vit D 2,000. Lipoic acid, Conception XR, Ubiquinol, MVI, Keto diet SA: Abnormal Notes from previous encounter: 41 year old female AMA Menstrual cycle regular: 29-30 PBM Failed: CC + IUI Failed: LET + IUI [facility] (has in house financing) Followed It Starts With the Egg 11/2019: Retrieved 5, Mature 3 Synthroid, Zoloft, Plaquenil, Naltrexone 4.5 mg, Vit C 500 mg, Vit D 2,000, Vit E 134 mg, Theralogics Core, R-lipoic Acid 240, Ovasitol 2,000 mg BID, Osgood 3, Ubiquinol 300, Melatonin 5 mg, Dexamethasone 0.5 mg Priming Omnitrope (free vial q21 days) 6 unit(s) X2 months prior to 1st G-f 300, Menopur 150, Lupron 4 mg, Pregnyl 10K Seravital, Omnitrope, G-f 150, Menopur 450 [id number]: Retrieved 4, Mature 2 Calcium ionophore: [facility] PCT: sperm Sperm DFI: 11% Karyotypes: Normal AMH: 0.94. AMH 0.8 HSG: Normal PMHx: GERD, IBS. Migraine headaches PSHx: Pilonidal cyst Meds: MVI Desire for future fertility Discussed IVF cycle planning Discussed pushing past a larger lead follicle in effort to recruit follicles from the smaller remaining cohort Discussed desire to use Menopur Discussed low, slow stimulation Discussed last IVF cycle started weird copious cervical mucous like mid-cycle Discussed not starting IVF stimulation unless menses definitive Discussed sperm DFA concerns *Discussed G-f 300-450, Menopur 150, Cetrotide. Dual trigger *Discussed Omnitrope 6u daily X2 months *Discussed vit C,vit D, vit E, ovisitol. Osgood 3, ubiquinol, R-lipoic acid, low-dose naltrexone, melatonin, DHEA X 2 months, seravital *Discussed Ca2+ ionophore 40 year old male partner without proven fertility PMHx: Denies PSHx: Denies Meds: Lisinopril Fish oil 3,000 mg, Vit D 2,000. Lipoic acid, Conception XR, Ubiquinol, MVI, Keto diet SA: Abnormal Notations from previous visit: 41 year old female AMA Menstrual cycle regular: 29-30 PBM Failed: CC + IUI Failed: LET + IUI [facility] (has in house financing) Followed It Starts With the Egg 11/2019: Retrieved 5, Mature 3 Synthroid, Zoloft, Plaquenil, Naltrexone 4.5 mg, Vit C 500 mg, Vit D 2,000, Vit E 134 mg, Theralogics Core, R-lipoic Acid 240, Ovasitol 2,000 mg BID, Osgood 3, Ubiquinol 300, Melatonin 5 mg, Dexamethasone 0.5 mg Priming Omnitrope (free vial q21 days) 6 unit(s) X2 months prior to 1st G-f 300, Menopur 150, Lupron 4 mg, Pregnyl 10K Seravital, Omnitrope, G-f 150, Menopur 450 [id number]: Retrieved 4, Mature 2 Calcium ionophore: Marco [facility] PCT: sperm Sperm DFI: 11% Karyotypes: Normal AMH: 0.94. AMH 0.8 HSG: Normal PMHx: GERD, IBS. Migraine headaches PSHx: Pilonidal cyst Meds: MVI Primary infertility Desire for future fertility Discussed IVF cycle planning Discussed pushing past a larger lead follicle in effort to recruit follicles from the smaller remaining cohort Discussed desire to use Menopur Discussed low, slow stimulation *Discussed last IVF cycle started weird copious cervical mucous like mid-cycle *Discussed not starting IVF stimulation unless menses definitive *Discussed sperm DFA concerns 40 year old male partner without proven fertility PMHx: Denies PSHx: Denies Meds: Lisinopril Fish oil 3,000 mg, Vit D 2,000. Lipoic acid, Conception XR, Ubiquinol, MVI, Keto diet SA: Abnormal Notations from previous visit: 41 year old female AMA Menstrual cycle regular: 29-30 PBM Failed: CC + IUI Failed: LET + IUI [facility] (has in house financing) Followed It Starts With the Egg 11/2019: Retrieved 5, Mature 3 Synthroid, Zoloft, Plaquenil, Naltrexone 4.5 mg, Vit C 500 mg, Vit D 2,000, Vit E 134 mg, Theralogics Core, R-lipoic Acid 240, Ovasitol 2,000 mg BID, Osgood 3, Ubiquinol 300, Melatonin 5 mg, Dexamethasone 0.5 mg Priming Omnitrope (free vial q21 days) 6 unit(s) X2 months prior to 1st G-f 300, Menopur 150, Lupron 4 mg, Pregnyl 10K Seravital, Omnitrope, G-f 150, Menopur 450 [id number]: Retrieved 4, Mature 2 Calcium ionophore: [facility] PCT: sperm Sperm DFI: 11% Karyotypes: Normal AMH: 0.94. AMH 0.8 HSG: Normal PMHx: GERD, IBS. Migraine headaches PSHx: Pilonidal cyst Meds: MVI Primary infertility Desire for future fertility *Discussed IVF cycle planning *Discussed pushing past a larger lead follicle in effort to recruit follicles from the smaller remaining cohort *Discussed desire to use Menopur *Discussed low, slow stimulation 40 year old male partner without proven fertility PMHx: Denies PSHx: Denies Meds: Lisinopril Fish oil 3,000 mg, Vit D 2,000. Lipoic acid, Conception XR, Ubiquinol, MVI, Keto diet SA: Abnormal Notations from previous visit: 40 year old female AMA Menstrual cycle regular: 29-30 PBM Failed: CC + IUI Failed: LET + IUI [facility] (has in house financing) Followed It Starts With the Egg 11/2019: Retrieved 5, Mature 3 Synthroid, Zoloft, Plaquenil, Naltrexone 4.5 mg, Vit C 500 mg, Vit D 2,000, Vit E 134 mg, Theralogics Core, R-lipoic Acid 240, Ovasitol 2,000 mg BID, Osgood 3, Ubiquinol 300, Melatonin 5 mg, Dexamethasone 0.5 mg Priming Omnitrope (free vial q21 days) 6 unit(s) X2 months prior to 1st G-f 300, Menopur 150, Lupron 4 mg, Pregnyl 10K Seravital, Omnitrope, G-f 150, Menopur 450 [id number]: Retrieved 4, Mature 2 [facility]: [facility] Sperm DFI: 11% Karyotypes: Normal AMH: 0.94 HSG: Normal PMHx: PSHx: Meds: MVI Primary infertility Desire for future fertility 40 year old male partner without proven fertility PMHx: Denies PSHx: Denies Meds: Lisinopril Fish oil 3,000 mg, Vit D 2,000. Lipoic acid, Conception XR, Ubiquinol, MVI, Keto diet SA: Not completed to date Obstetric History T0 L0 SAB0 IAB0 Ectopic0 Multiple0 Live Births0 Fertility Evaluations and Treatments: Eval Checklist Results Date Comments HSG Normal Hysteroscopy Normal Laparoscopy Normal OPK (Ovulation Predictor Kit) Normal Ovarian Ferdinand Abnormal Saline Ultrasound Abnormal Semen Analysis Abnormal Ultrasound Normal Other (See comments) Not done MENSTRUAL HISTORY: Menarche Age: 15 Length of Cycle: Regular Days: Menstrual Flow: Moderate Menstrual Symptoms: Breast Tenderness,Bloating Patient's last menstrual period was 10/08/2022. PAST MEDICAL HISTORY Diagnosis Date Allergies GERD (gastroesophageal reflux disease) Hypothyroidism (acquired) Irritable bowel syndrome (IBS) Migraines Trigeminal neuralgia Raynaud's syndrome PAST SURGICAL HISTORY Procedure Laterality Date EXCISION PILONIDAL CYST/SINUS SIMPLE 1999 TRANSCERVICAL CATHJ FALLOPIAN TUBE RS&I Bilateral reopened occluded bilateral fallopian tubes FAMILY HISTORY Problem Relation Age of Onset Glaucoma Mother Cataract Mother COPD Mother Lung Cancer Mother other (polio) Father other (Chronic migraine) Maternal Uncle ETHNICITY: White OCCUPATION/EXERCISE: Occupation: Exercise: Partner Information Partner's Name: Moisés Bernard Partner's : 02/06/1985 Partner's Partner's Ethnicity: NOT or Partner's Race: White Legally ?: Yes Do they have children together?: No Any other Previous Pregnancies?: No Use of alchol: occ Use of Drugs: none MEDICATIONS: Current Outpatient Medications on File Prior to Visit Medication Sig levocarnitine HCl ([id number]-[id number] MISC) alpha lipoic acid (LIPOIC ACID ORAL) Take by mouth. Vitamin E, dl, acetate, (VITAMIN E) 200 unit capsule Take 200 Units by mouth once daily. melatonin 3 mg tablet Take 1 tablet at 9PM nightly except on those nights working until midnight. ubidecarenone (COQ-10 ORAL) Take 1 tablet by mouth. cholecalciferol, vitamin D3, (VITAMIN D3) 100 mcg (4,000 unit) cap omega-3s/dha/epa/algal oil (MEGARED ADVANCED OMEGA-3 ALGAE ORAL) vit calc,iron,folic ( VITAMIN ORAL) levothyroxine 75 mcg cap Take by mouth once daily. hydroxychloroquine (PLAQUENIL) 200 mg tablet Take 200 mg by mouth. fluticasone (FLONASE) 50 mcg/actuation nasal spray 1 [place]. Norethindrone Acet-Ethinyl Est (MICROGESTIN 05/13) 1-20 mg-mcg per tablet Start day 1 of full flow period, active pills only. Take 1 pill by mouth daily at bedtime. (Patient not taking: Reported on 10/26/2022) chorionic gonadotropin (NOVAREL) 10,000 unit solr 10,000 Units one time only for 1 dose. leuprolide (LUPRON) 1 mg/0.2 mL For microdose leuprolide: inject leuprolide 0.5ml into bacteriostatic sodium chloride 10ml. Inject 40 mcg/0.2ml subcutaneously twice daily (Patient not taking: Reported on 10/26/2022) chorionic gonadotropin (PREGNYL) 10,000 unit solr 10,000 Units as directed. Mix vials as directed per nursing in office. Administer subcutaneous. (Patient not taking: Reported on 10/26/2022) Needle, Disp, 27 G (BD DISPOSABLE NEEDLES) 27 gauge x 1/2 ndle To be used to inject HCG trigger (Patient not taking: Reported on 10/26/2022) Syringe with Needle, Disp, (SYRINGE 3CC/20GX1 ) To be used to mix, draw up and inject HCG trigger (Patient not taking: Reported on 10/26/2022) Syringe-Needle, Safety,Disp Un 5 mL 20 gauge x 1 syrg To be used to mix low dose HCG (Patient not taking: Reported on 10/26/2022) Insulin Syringe-Needle U-100 0.5 mL 29 gauge x 1/2 To be used to draw up and inject low dose HCG and inject microdose Lupron twice daily (Patient not taking: Reported on 10/26/2022) Needle, Disp, 20 G 20 gauge x 1 ndle To be used to mix the microdose Lupron (Patient not taking: Reported on 10/26/2022) Syringe, Disposable, 1 mL To be used to mix the microdose Lupron (Patient not taking: Reported on 10/26/2022) somatropin (OMNITROPE) 5.8 mg solr injection Inject 6 units daily for priming starting 1 month before IVF stimulation (Patient not taking: Reported on 10/26/2022) estradiol (VIVELLE-DOT) 0.1 mg/24 hr Apply 2 patches to abdomen and change every 3 days (Patient not taking: Reported on 10/26/2022) progesterone (CPD) Insert 400 mg progesterone vaginally in AM and 400 mg progesterone vaginally in PM (Patient not taking: Reported on 10/26/2022) bacteriostatic sodium chloride 0.9% 0.9 % injection To be used to mix microdose lupron (Patient not taking: Reported on 10/26/2022) dexAMETHasone (DECADRON) 0.5 mg tablet Take 1 tablet by mouth once daily. (Patient not taking: No sig reported) pantoprazole DR (PROTONIX) 40 mg tablet Take 40 mg by mouth once daily. (Patient not taking: No sig reported) No current facility-administered medications on file prior to visit. ALLERGIES: Amphetamine, Benzoin Compound, Benzoyl Peroxide, Codeine, Diclofenac Sodium, Hydrocodone-Acetaminophen, Iodinated Contrast Media, Norgestimate, Penicillins, Phentermine, Prednisone, Ranitidine, Ranitidine Bismuth Citrate, and Tirosint [Levothyroxine] ASSESSMENT: 42 year old female AMA Menstrual cycle regular: 29-30 PBM Failed: CC + IUI Failed: LET + IUI [facility] (has in house financing) Followed It Starts With the Egg 11/2019: Retrieved 5, Mature 3 Synthroid, Zoloft, Plaquenil, Naltrexone 4.5 mg, Vit C 500 mg, Vit D 2,000, Vit E 134 mg, Theralogics Core, R-lipoic Acid 240, Ovasitol 2,000 mg BID, Osgood 3, Ubiquinol 300, Melatonin 5 mg, Dexamethasone 0.5 mg Priming Omnitrope (free vial q21 days) 6 unit(s) X2 months prior to 1st G-f 300, Menopur 150, Lupron 4 mg, Pregnyl 10K Seravital, Omnitrope, G-f 150, Menopur [id number]: Retrieved 4, Mature 2 Calcium ionophore: Marco [facility] [place] PCT: sperm Sperm DFI: 11% Karyotypes: Normal AMH: 0.94. AMH 0.8 HSG: Normal PMHx: GERD, IBS. Migraine headaches PSHx: Pilonidal cyst Meds: MVI Desire for future fertility Discussed IVF cycle planning Discussed pushing past a larger lead follicle in effort to recruit follicles from the smaller remaining cohort Discussed desire to use Menopur Discussed low, slow stimulation Discussed last IVF cycle started weird copious cervical mucous like mid-cycle Discussed not starting IVF stimulation unless menses definitive Discussed sperm DFA concerns Discussed G-f 300-450, Menopur 150, Cetrotide. Dual trigger Discussed Omnitrope 6u daily X2 months Discussed vit C,vit D, vit E, ovisitol. Osgood 3, ubiquinol, R-lipoic acid, low-dose naltrexone, melatonin, DHEA X 2 months, seravital Discussed Ca2+ ionophore Discussed had 2, day 2 embryos for fresh ET: 7 cell and 5 cell: Negative hCG Discussed has new/reset insurance provider Discussed fresh vs frozen ET *Discussed has 3 blasts frozen at [facility] *Discussed Receptiva POS: Endometriosis or hydrosalpinx. *Discussed SIS at [place]: Complicated *Discussed CT X2: Normal *Discussed continuing abdominal/pelvic pain *Discussed Laparoscopy, Hysteroscopy 41 year old male partner without proven fertility PMHx: Denies PSHx: Denies Meds: Lisinopril Fish oil 3,000 mg, Vit D 2,000. Lipoic acid, Conception XR, Ubiquinol, MVI, Keto diet SA: Abnormal Notes from previous encounter: 41 year old female AMA Menstrual cycle regular: 29-30 PBM Failed: CC + IUI Failed: LET + IUI [facility] (has in house financing) Followed It Starts With the Egg 11/2019: Retrieved 5, Mature 3 Synthroid, Zoloft, Plaquenil, Naltrexone 4.5 mg, Vit C 500 mg, Vit D 2,000, Vit E 134 mg, Theralogics Core, R-lipoic Acid 240, Ovasitol 2,000 mg BID, Osgood 3, Ubiquinol 300, Melatonin 5 mg, Dexamethasone 0.5 mg Priming Omnitrope (free vial q21 days) 6 unit(s) X2 months prior to 1st G-f 300, Menopur 150, Lupron 4 mg, Pregnyl 10K Seravital, Omnitrope, G-f 150, Menopur [id number]: Retrieved 4, Mature 2 Calcium ionophore: Marco Gallegos [facility] PCT: sperm Sperm DFI: 11% Karyotypes: Normal AMH: 0.94. AMH 0.8 HSG: Normal PMHx: GERD, IBS. Migraine headaches PSHx: Pilonidal cyst Meds: MVI Desire for future fertility Discussed IVF cycle planning Discussed pushing past a larger lead follicle in effort to recruit follicles from the smaller remaining cohort Discussed desire to use Menopur Discussed low, slow stimulation Discussed last IVF cycle started weird copious cervical mucous like mid-cycle Discussed not starting IVF stimulation unless menses definitive Discussed sperm DFA concerns Discussed G-f 300-450, Menopur 150, Cetrotide. Dual trigger Discussed Omnitrope 6u daily X2 months Discussed vit C,vit D, vit E, ovisitol. Osgood 3, ubiquinol, R-lipoic acid, low-dose naltrexone, melatonin, DHEA X 2 months, seravital Discussed Ca2+ ionophore Discussed had 2, day 2 embryos for fresh ET: 7 cell and 5 cell: Negative hCG Discussed has new/reset insurance provider Discussed fresh vs frozen ET 40 year old male partner without proven fertility PMHx: Denies PSHx: Denies Meds: Lisinopril Fish oil 3,000 mg, Vit D 2,000. Lipoic acid, Conception XR, Ubiquinol, MVI, Keto diet SA: Abnormal Notations from previous visit: 41 year old female AMA Menstrual cycle regular: 29-30 PBM Failed: CC + IUI Failed: LET + IUI [facility] (has in house financing) Followed It Starts With the Egg 11/2019: Retrieved 5, Mature 3 Synthroid, Zoloft, Plaquenil, Naltrexone 4.5 mg, Vit C 500 mg, Vit D 2,000, Vit E 134 mg, Theralogics Core, R-lipoic Acid 240, Ovasitol 2,000 mg BID, Osgood 3, Ubiquinol 300, Melatonin 5 mg, Dexamethasone 0.5 mg Priming Omnitrope (free vial q21 days) 6 unit(s) X2 months prior to 1st G-f 300, Menopur 150, Lupron 4 mg, Pregnyl 10K Seravital, Omnitrope, G-f 150, Menopur [id number]: Retrieved 4, Mature 2 Calcium ionophore: Marco [facility] PCT: sperm Sperm DFI: 11% Karyotypes: Normal AMH: 0.94. AMH 0.8 HSG: Normal PMHx: GERD, IBS. Migraine headaches PSHx: Pilonidal cyst Meds: MVI Desire for future fertility Discussed IVF cycle planning Discussed pushing past a larger lead follicle in effort to recruit follicles from the smaller remaining cohort Discussed desire to use Menopur Discussed low, slow stimulation Discussed last IVF cycle started weird copious cervical mucous like mid-cycle Discussed not starting IVF stimulation unless menses definitive Discussed sperm DFA concerns *Discussed G-f 300-450, Menopur 150, Cetrotide. Dual trigger *Discussed Omnitrope 6u daily X2 months *Discussed vit C,vit D, vit E, ovisitol. Osgood 3, ubiquinol, R-lipoic acid, low-dose naltrexone, melatonin, DHEA X 2 months, seravital *Discussed Ca2+ ionophore 40 year old male partner without proven fertility PMHx: Denies PSHx: Denies Meds: Lisinopril Fish oil 3,000 mg, Vit D 2,000. Lipoic acid, Conception XR, Ubiquinol, MVI, Keto diet SA: Abnormal Notations from previous visit: 41 year old female AMA Menstrual cycle regular: 29-30 PBM Failed: CC + IUI Failed: LET + IUI [facility] (has in house financing) Followed It Starts With the Egg 11/2019: Retrieved 5, Mature 3 Synthroid, Zoloft, Plaquenil, Naltrexone 4.5 mg, Vit C 500 mg, Vit D 2,000, Vit E 134 mg, Theralogics Core, R-lipoic Acid 240, Ovasitol 2,000 mg BID, Osgood 3, Ubiquinol 300, Melatonin 5 mg, Dexamethasone 0.5 mg Priming Omnitrope (free vial q21 days) 6 unit(s) X2 months prior to 1st G-f 300, Menopur 150, Lupron 4 mg, Pregnyl 10K Seravital, Omnitrope, G-f 150, Menopur 450 [id number]: Retrieved 4, Mature 2 Calcium ionophore: Marco Gallegos [facility] [place] PCT: sperm Sperm DFI: 11% Karyotypes: Normal AMH: 0.94. AMH 0.8 HSG: Normal PMHx: GERD, IBS. Migraine headaches PSHx: Pilonidal cyst Meds: MVI Desire for future fertility Discussed IVF cycle planning Discussed pushing past a larger lead follicle in effort to recruit follicles from the smaller remaining cohort Discussed desire to use Menopur Discussed low, slow stimulation *Discussed last IVF cycle started weird copious cervical mucous like mid-cycle *Discussed not starting IVF stimulation unless menses definitive *Discussed sperm DFA concerns 40 year old male partner without proven fertility PMHx: Denies PSHx: Denies Meds: Lisinopril Fish oil 3,000 mg, Vit D 2,000. Lipoic acid, Conception XR, Ubiquinol, MVI, Keto diet SA: Abnormal Notations from previous visit: 41 year old female AMA Menstrual cycle regular: 29-30 PBM Failed: CC + IUI Failed: LET + IUI [facility] (has in house financing) Followed It Starts With the Egg 11/2019: Retrieved 5, Mature 3 Synthroid, Zoloft, Plaquenil, Naltrexone 4.5 mg, Vit C 500 mg, Vit D 2,000, Vit E 134 mg, Theralogics Core, R-lipoic Acid 240, Ovasitol 2,000 mg BID, Osgood 3, Ubiquinol 300, Melatonin 5 mg, Dexamethasone 0.5 mg Priming Omnitrope (free vial q21 days) 6 unit(s) X2 months prior to 1st G-f 300, Menopur 150, Lupron 4 mg, Pregnyl 10K Seravital, Omnitrope, G-f 150, Menopur 450 [id number]: Retrieved 4, Mature 2 Calcium ionophore: Marco Gallegos [facility] [place] PCT: sperm Sperm DFI: 11% Karyotypes: Normal AMH: 0.94. AMH 0.8 HSG: Normal PMHx: GERD, IBS. Migraine headaches PSHx: Pilonidal cyst Meds: MVI Primary infertility Desire for future fertility *Discussed IVF cycle planning *Discussed pushing past a larger lead follicle in effort to recruit follicles from the smaller remaining cohort *Discussed desire to use Menopur *Discussed low, slow stimulation 40 year old male partner without proven fertility PMHx: Denies PSHx: Denies Meds: Lisinopril Fish oil 3,000 mg, Vit D 2,000. Lipoic acid, Conception XR, Ubiquinol, MVI, Keto diet SA: Abnormal Notations from previous visit: 40 year old female AMA Menstrual cycle regular: 29-30 PBM Failed: CC + IUI Failed: LET + IUI [facility] (has in house financing) Followed It Starts With the Egg 11/2019: Retrieved 5, Mature 3 Synthroid, Zoloft, Plaquenil, Naltrexone 4.5 mg, Vit C 500 mg, Vit D 2,000, Vit E 134 mg, Theralogics Core, R-lipoic Acid 240, Ovasitol 2,000 mg BID, Osgood 3, Ubiquinol 300, Melatonin 5 mg, Dexamethasone 0.5 mg Priming Omnitrope (free vial q21 days) 6 unit(s) X2 months prior to 1st G-f 300, Menopur 150, Lupron 4 mg, Pregnyl 10K Seravital, Omnitrope, G-f 150, Menopur 450 [id number]: Retrieved 4, Mature 2 Calcium ionophore: Marco Gallegos [facility] PCT: sperm Sperm DFI: 11% Karyotypes: Normal AMH: 0.94 HSG: Normal PMHx: PSHx: Meds: MVI Primary infertility Desire for future fertility 40 year old male partner without proven fertility PMHx: Denies PSHx: Denies Meds: Lisinopril Fish oil 3,000 mg, Vit D 2,000. Lipoic acid, Conception XR, Ubiquinol, MVI, Keto diet SA: Not completed to date PLAN: Laparoscopy endometriosis, possible lysis of adhesions Hysteroscopy D&C Notes from previous encounter: IVF cycle planning: Started Omnitrope priming already Repeat IVF stimulation: Same Protocol as IVF #4 Embryo banking planned Likely FETs STI/FDA infectious disease screening tests SIS prior to FET Carrier screening Financial Team: Discuss medical insurance benefits and likely [id number] costs of IVF. IVF nurse coordinator: Schedule IVF nurse teaching. Order meds. Prepare IVF cycle schedule/flowsheet. Sign consents. Dr Johnson: Review lab test results. Determine IVF stimulation protocol and medications dosage. Consultation with couple prior to IVF start if questions, abnormal lab test values or other concerns arise. Notations from previous visit: IVF cycle planning: STI/FDA infectious disease screening tests SIS of office hysteroscopy Salma C: Discuss medical insurance benefits and likely [id number] costs of IVF. IVF nurse coordinator: Schedule IVF nurse teaching. Order meds. Prepare IVF cycle schedule/flowsheet. Sign consents. Dr Johnson: Review lab test results. Determine IVF stimulation protocol and medications dosage. Consultation with couple prior to IVF start if questions, abnormal lab test values or other concerns arise. Notations from previous visit: IVF cycle planning: No OCP Antagonist. G-f 100. Menopur 75. Consider Omnitrope HCG trigger only STI/FDA infectious disease screening tests Office hysteroscopy or SIS prior to FET Salma C: Discuss medical insurance benefits and likely [id number] costs of IVF. IVF nurse coordinator: Schedule IVF nurse teaching. Order meds. Prepare IVF cycle schedule/flowsheet. Sign consents. Dr Johnson: Review lab test results. Confirm IVF stimulation protocol and medications dosage. Consultation with couple prior to IVF start if questions, abnormal lab test values or other concerns arise. Notations from previous visit: Fasting insulin IVF cycle planning: Antagonist. G-f 300. LD hCG 200. Consider Omnitrope Wants to discuss calcium ionophore in culture media STI/FDA infectious disease screening tests Office hysteroscopy Salma C: Discuss medical insurance benefits and likely [id number] costs of IVF. IVF nurse coordinator: Schedule IVF nurse teaching. Order meds. Prepare IVF cycle schedule/flowsheet. Sign consents. Dr Johnson: Review lab test results. Determine IVF stimulation protocol and medications dosage. Consultation with couple prior to IVF start if questions, abnormal lab test values or other concerns arise. I spent a total of 36 minutes on the date of the service which included preparing to see the patient, [id number] patient care, completing clinical documentation, obtaining and/or reviewing separately obtained history, counseling and educating the patient/family/caregiver, ordering medications, tests, or procedures, communicating with other HCPs (not separately reported), independently interpreting results (not separately reported), communicating results to the patient/family/caregiver, and care coordination (not separately reported). Santiago Johnson MD November 07, 2022 5:24 AM documented in this encounter [facility] 08-22-2022 Evaluation + Plan note Future Scheduled TestsUS Hysterosonogram 08/22/22XR Hysterosalpingography 08/23/22 [facility] 06-10-2022 Note HNO ID: [id number] Author: Katya Artis PSYD Service: ? Author Type: Psychologist Type: Progress Notes Filed: 06/10/2022 2:47 PM Note Text: Behavioral Sleep Medicine Follow up Katya Artis PSYD Indiviudal Psychotherapy - 25 mins With the current coronavirus outbreak, we want to minimize the risk of exposing patients to this illness. I have reviewed this patient's chart and, per patient's request for an opportunity to be seen without having to present to the office, feel appropriate that this appointment be made a virtual visit. Those taking part in visit: patient and psychologist via [employer]. Consent for this visit received from patient. Session # 04 TREATMENT MODALITIES: CBTI, CBT for Circadian Rhythm Disorder Motivational Interviewing SUBJECTIVE/OBJECTIVE: Patient update: She has been working on taking the melatonin earlier and has been more consistent - feels that this has helped with sleep onset Reviewed stimulus control guidelines to address conditioned arousal and strengthen the bed as a cue for sleep and weaken it as a cue for wakefulness *Establish a regular morning rise time. This will help strengthen the circadian clock regulating sleep and wakefulness. Collaboratively developed for 9-9:30am waketime *Delay bedtime until sleepy. This will increase the probability that you will fall asleep quickly. It is important to distinguish between fatigue and sleepiness. Fatigue is a state of low energy, physical or mental. Sleepiness is a state of having to struggle to stay awake. *If unable to fall asleep, either at the beginning or in the middle of the night, get out of bed and return to bed only when sleepy again. *Avoid excessive napping during the day. A brief nap (15 to 30 minutes), taken approximately 7 to 9 hours after rise time, can be refreshing and is not likely to disturb nocturnal sleep. Pt did complete sleep logs, reviewed in session. Day Nap (mins) In bed Try sleep IZAIAH (mins) #Wake WASO (mins) Awake Out of bed Quality TIB TST SE -Apr 0 0130 0130 60 2 0 1030 1130 3 10.0 8.0 80% 0 0200 0200 60 1 0 1030 1100 3 9.0 7.5 83% 60 0030 0030 60 1 0 1030 1030 3 10.0 9.0 90% 0 0130 0130 150 4 0 0700 0800 1 6.5 3.0 46% 0 0030 0030 120 2 0 1000 1030 4 10.0 7.5 75% 0 0100 0100 60 1 0 0900 1000 4 9.0 7.0 78% 0 0200 0200 30 2 180 1100 1130 1 9.5 5.5 58% Average 9 1:17 1:17 77 1.9 26 9:47 10:25 2.7 9.1 6.8 74% TST+nap 6.9 Rx: 7.4 Currently undergoing 9th round of IVF so has decreased logging, having harder time keeping consistent with schedule so will get back on track next week DIAGNOSIS: Chronic Insomnia Delayed Sleep-Wake phase sleep disorder Adjustment Disorder with depressed mood and anxiety PROGRESS TO DATE: [facility]pc Progress: Progress Short Term Condition: Progress GOALS/OBJECTIVES/INTERVENTIONS: 1. Continue with CBTI and CBT for delayed phase 2. Continue tracking sleep, medication use, and anything that may have impacted sleep (+/-) on sleep logs. 3. Consistent waketime 9:30am 4. Low dosage of melatonin at 9pm 5. Delay bedtime until sleepy - buffer zone/wind down time after work with goal to be in bed by 12am Katya Artis Psy.D., [facility], Psychologist ([place] License [id number]) [facility] 05-13-2022 Note HNO ID: [id number] Author: RT Paddy(R) Service: Emergency Medicine Author Type: Technologist Type: Progress Notes Filed: 05/13/2022 12:32 PM Note Text: Radiology Service Progress Note DATE OF SERVICE: May 13, 2022 TIME: 12:02 PM PATIENT IDENTITY VERIFICATION COMPLETED USING TWO (2) STANDARD IDENTIFIERS: Name and Date of confirmed by patient verbally. FALL SCREENING: Has the patient had 2 falls in the last year or 1 fall with injury or currently using an Ambulatory Assistive Device (Walker, Cane, Wheelchair, Crutches, etc.)? No PATIENT GENDER DATA: Female. status: : No status: NO. PATIENT RELEVANT IMPLANT DATA REVIEWED: Yes ALLERGIES: Reviewed and unchanged CONTRAST ALLERGY: NO. EXAM: MRI - CONTRAST TYPE: GROUP I OR GROUP III RISK FACTORS: N/A CREATININE: Creatinine Date Value Ref Range Status 07/19/2021 0.75 0.58 - 0.96 mg/dL Final 05/19/2021 0.87 0.58 - 0.96 mg/dL Final 12/04/2018 0.79 0.58 - 0.96 mg/dL Final Estimated Glomerular Filtration Rate Date Value Ref Range Status 07/19/2021 104 >=60 mL/min/1.73m? Final Comment: Estimated Glomerular Filtration Rate (eGFR) is calculated using the 2020 CKD-EPI creatinine equation. This equation utilizes serum creatinine, sex, and age as parameters. The creatinine assay has traceable calibration to isotope dilution-mass spectrometry. Refer to KDIGO guidelines for clinical interpretation. In patients with unstable renal function, e.g. those with acute kidney injury, the eGFR may not accurately reflect actual GFR. eGFR- Date Value Ref Range Status 05/19/2021 >60 Final P.O.C.T. RESULTS: N/A May 13, 2022 TREATMENT: N/A PERIPHERAL IV DATA: Ambulatory: A peripheral IV was started in the Right hand with a Butterfly: 23 gauge. RADIOLOGY DEPARTMENT: MR; Exam(s) Completed: Lower MSK: Tib/Fib, right SIGNATURE: Trina Mahoney RDMS, RVT- Brent ([facility]) PATIENT NAME: Sheree Bernard DATE: May 13, 2022 TIME: 12:02 PM [facility] 05-13-2022 History of Present illness Narrative Radiology Service Progress Note DATE OF SERVICE: May 13, 2022 TIME: 12:02 PM PATIENT IDENTITY VERIFICATION COMPLETED USING TWO (2) STANDARD IDENTIFIERS: Name and Date of confirmed by patient verbally. FALL SCREENING: Has the patient had 2 falls in the last year or 1 fall with injury or currently using an Ambulatory Assistive Device (Walker, Cane, Wheelchair, Crutches, etc.)? No PATIENT GENDER DATA: Female. status: : No status: NO. PATIENT RELEVANT IMPLANT DATA REVIEWED: Yes ALLERGIES: Reviewed and unchanged CONTRAST ALLERGY: NO. EXAM: MRI - CONTRAST TYPE: GROUP I OR GROUP III RISK FACTORS: N/A CREATININE: Creatinine Date Value Ref Range Status 07/19/2021 0.75 0.58 - 0.96 mg/dL Final 05/19/2021 0.87 0.58 - 0.96 mg/dL Final 12/04/2018 0.79 0.58 - 0.96 mg/dL Final Estimated Glomerular Filtration Rate Date Value Ref Range Status 07/19/2021 104 >=60 mL/min/1.73m Final Comment: Estimated Glomerular Filtration Rate (eGFR) is calculated using the 2020 CKD-EPI creatinine equation. This equation utilizes serum creatinine, sex, and age as parameters. The creatinine assay has traceable calibration to isotope dilution-mass spectrometry. Refer to KDIGO guidelines for clinical interpretation. In patients with unstable renal function, e.g. those with acute kidney injury, the eGFR may not accurately reflect actual GFR. eGFR- Date Value Ref Range Status 05/19/2021 >60 Final P.O.C.T. RESULTS: N/A May 13, 2022 TREATMENT: N/A PERIPHERAL IV DATA: Ambulatory: A peripheral IV was started in the Right hand with a Butterfly: 23 gauge. RADIOLOGY DEPARTMENT: MR; Exam(s) Completed: Lower MSK: Tib/Fib, right SIGNATURE: Trina Mahoney RDMS, RVT- Brent ([facility]) PATIENT NAME: Sheree Bernard DATE: May 13, 2022 TIME: 12:02 PM documented in this encounter [facility] 05-04-2022 Note HNO ID: [id number] Author: Katya Artis PSYD Service: ? Author Type: Psychologist Type: Progress Notes Filed: 05/04/2022 11:43 AM Note Text: Behavioral Sleep Medicine Follow up Katya Artis PSYD Indiviudal Psychotherapy - 30 mins With the current coronavirus outbreak, we want to minimize the risk of exposing patients to this illness. I have reviewed this patient's chart and, per patient's request for an opportunity to be seen without having to present to the office, feel appropriate that this appointment be made a virtual visit. Those taking part in visit: patient and psychologist via [email or web address]. Consent for this visit received from patient. Session # 03 TREATMENT MODALITIES: CBTI, CBT for Circadian Rhythm Disorder Motivational Interviewing SUBJECTIVE/OBJECTIVE: Patient update: Pt notes that when on [employer] trip her sleep was disrupted due to multiple factors - temperature, snoring of her and mother in law. She has been working on taking the melatonin earlier but has been somewhat inconsistent - discussed strategies to help her remember to take eralier. Doing better with falling back asleep after awakening and sleep quality is improved Pt did complete sleep logs, reviewed in session. Day TIB TST SE 20-Nov 0 0200 0200 60 3 150 1100 1130 1 9.5 5.5 58% 0 0200 0200 60 2 0 1000 1015 3 8.3 7.0 85% 0 0100 0100 60 5 0 0900 0900 3 8.0 7.0 88% 0 0330 0330 60 2 0 1100 1130 3 8.0 6.5 81% 0 0200 0200 60 2 0 0600 0830 1 6.5 3.0 46% 0 0200 0200 60 3 0 0930 1000 3 8.0 6.5 81% 0 0200 0200 210 2 0 1000 1000 2 8.0 4.5 56% Average 0 2:04 2:04 81 2.7 21 9:30 10:06 2.3 8.0 5.7 71% TST+nap 5.7 Rx: 6.2 Day Nap (mins) In bed Try sleep IZAIAH (mins) #Wake WASO (mins) Awake Out of bed Quality TIB TST SE -Apr 0-Apr 229 0230 60 1 0 0900 0900 2 6.5 5.5 85% 0 0000 0000 60 2 0 0800 0830 4 8.5 7.0 82% 0 0100 0100 30 2 0 1000 1030 4 9.5 8.5 89% 0 0330 0330 120 0 0 0900 0900 3 0 0120 0120 90 2 0 1000 1000 4 8.7 7.2 83% 0 0030 0030 120 1 0 1130 1300 4 12.5 9.0 72% Average 0 1:28 1:28 80 1.3 0 9:35 10:00 3.5 9.1 7.4 81% TST+nap 7.4 Rx: 7.9 Reviewed stimulus control guidelines to address conditioned arousal and strengthen the bed as a cue for sleep and weaken it as a cue for wakefulness *Establish a regular morning rise time. This will help strengthen the circadian clock regulating sleep and wakefulness. Collaboratively developed for 9:30am waketime *Delay bedtime until sleepy. This will increase the probability that you will fall asleep quickly. It is important to distinguish between fatigue and sleepiness. Fatigue is a state of low energy, physical or mental. Sleepiness is a state of having to struggle to stay awake. *If unable to fall asleep, either at the beginning or in the middle of the night, get out of bed and return to bed only when sleepy again. *Avoid excessive napping during the day. A brief nap (15 to 30 minutes), taken approximately 7 to 9 hours after rise time, can be refreshing and is not likely to disturb nocturnal sleep. 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 Continue with CBTI and CBT for delayed phase 2. Continue tracking sleep, medication use, and anything that may have impacted sleep (+/-) on sleep logs. 3. Consistent waketime 9:30am 4. Low dosage of melatonin at 9pm 5. Delay bedtime until sleepy - buffer zone/wind down time after work Mychart message check in 30 mins, follow up in 4-6 weeks Katya Artis Psy.D., [facility], Psychologist ([place] License [id number]) [facility] 05-04-2022 History of Present illness Narrative Behavioral Sleep Medicine Follow up Katya Artis PSYD Indiviudal Psychotherapy - 30 mins With the current coronavirus outbreak, we want to minimize the risk of exposing patients to this illness. I have reviewed this patient's chart and, per patient's request for an opportunity to be seen without having to present to the office, feel appropriate that this appointment be made a virtual visit. Those taking part in visit: patient and psychologist via [employer]. Consent for this visit received from patient. Session # 03 TREATMENT MODALITIES: CBTI, CBT for Circadian Rhythm Disorder Motivational Interviewing SUBJECTIVE/OBJECTIVE: Patient update: Pt notes that when on [employer] trip her sleep was disrupted due to multiple factors - temperature, snoring of her and mother in law. She has been working on taking the melatonin earlier but has been somewhat inconsistent - discussed strategies to help her remember to take eralier. Doing better with falling back asleep after awakening and sleep quality is improved Pt did complete sleep logs, reviewed in session. Day TIB TST SE 20-Nov 0 0200 0200 60 3 150 1100 1130 1 9.5 5.5 58% 0 0200 0200 60 2 0 1000 1015 3 8.3 7.0 85% 0 0100 0100 60 5 0 0900 0900 3 8.0 7.0 88% 0 0330 0330 60 2 0 1100 1130 3 8.0 6.5 81% 0 0200 0200 60 2 0 0600 0830 1 6.5 3.0 46% 0 0200 0200 60 3 0 0930 1000 3 8.0 6.5 81% 0 0200 0200 210 2 0 1000 1000 2 8.0 4.5 56% Average 0 2:04 2:04 81 2.7 21 9:30 10:06 2.3 8.0 5.7 71% TST+nap 5.7 Rx: 6.2 Day Nap (mins) In bed Try sleep IZAIAH (mins) #Wake WASO (mins) Awake Out of bed Quality TIB TST SE 1-Butch 0-Apr 229 0230 60 1 0 0900 0900 2 6.5 5.5 85% 0 0000 0000 60 2 0 0800 0830 4 8.5 7.0 82% 0 0100 0100 30 2 0 1000 1030 4 9.5 8.5 89% 0 0330 0330 120 0 0 0900 0900 3 0 0120 0120 90 2 0 1000 1000 4 8.7 7.2 83% 0 0030 0030 120 1 0 1130 1300 4 12.5 9.0 72% Average 0 1:28 1:28 80 1.3 0 9:35 10:00 3.5 9.1 7.4 81% TST+nap 7.4 Rx: 7.9 Reviewed stimulus control guidelines to address conditioned arousal and strengthen the bed as a cue for sleep and weaken it as a cue for wakefulness *Establish a regular morning rise time. This will help strengthen the circadian clock regulating sleep and wakefulness. Collaboratively developed for 9:30am waketime *Delay bedtime until sleepy. This will increase the probability that you will fall asleep quickly. It is important to distinguish between fatigue and sleepiness. Fatigue is a state of low energy, physical or mental. Sleepiness is a state of having to struggle to stay awake. *If unable to fall asleep, either at the beginning or in the middle of the night, get out of bed and return to bed only when sleepy again. *Avoid excessive napping during the day. A brief nap (15 to 30 minutes), taken approximately 7 to 9 hours after rise time, can be refreshing and is not likely to disturb nocturnal sleep. ASSESSMENT: PHQ PHQ-9 Score: 12 [10-14 = Moderate Depression] not at all on item #9 PHQ-9 03/04/2022 04/05/2022 05/04/2022 Score 14 16 12 MIKAEL MIKAEL-7 Total Score: 12 [10-14 = Moderate Anxiety] MIKAEL - 7 SCORES 03/04/2022 04/05/2022 05/04/2022 MIKAEL-7 Score 18 18 12 Estimated Average sleep time per night = 7-7.5 hrs DIAGNOSIS: Chronic Insomnia Delayed Sleep-Wake phase sleep disorder Adjustment Disorder with depressed mood and anxiety PROGRESS TO DATE: Fpc Progress: Progress Short Term Condition: Progress GOALS/OBJECTIVES/INTERVENTIONS: 1. Continue with CBTI and CBT for delayed phase 2. Continue tracking sleep, medication use, and anything that may have impacted sleep (+/-) on sleep logs. 3. Consistent waketime 9:30am 4. Low dosage of melatonin at 9pm 5. Delay bedtime until sleepy - buffer zone/wind down time after work Mychart message check in 30 mins, follow up in 4-6 weeks Katya Artis Psy.D., [facility], Psychologist ([place] License [id number]) documented in this encounter [facility] 04-05-2022 Note HNO ID: [id number] Author: Katya Artis PSYD Service: ? Author Type: Psychologist Type: Progress Notes Filed: 04/05/2022 2:15 PM Note Text: Behavioral Sleep Medicine Follow up Katya Artis PSYD Indiviudal Psychotherapy - 42mins With the current coronavirus outbreak, we want to minimize the risk of exposing patients to this illness. I have reviewed this patient's chart and, per patient's request for an opportunity to be seen without having to present to the office, feel appropriate that this appointment be made a virtual visit. Those taking part in visit: patient and psychologist via [employer]. Consent for this visit received from patient. Session # 02 TREATMENT MODALITIES: Solution Focused Psychotherapy CBT for Circadian Rhythm Disorder and Insomnia Motivational Interviewing SUBJECTIVE/OBJECTIVE: Patient update: Pt completed sleep logs and will send them to provider at a later time. Reviewed overall baseline sleep patterns for the past 2 weeks without making changes Getting to bed as late as 5:30am and waking up at 10am [employer] with a deadline so this decreased sleep time as well as increased hours at evening job Clenching teeth really hard when she is falling asleep - tried OTC mouth guard but unable to use- working on getting customized bite guard from dentist Lots of tension and tightness in face/jaw/forehead as she is falling asleep [employer] - uncomfortable if the sheets are wrinkled sh Lots of tension overall- high stress with fertility issues, recent of family members Will have 5 nights off work and away at [facility] so will be interested Reviewed plan to work on sleep Take low dosage melatonin at 9pm - brainstormed strategies so that she has with her even when not at home Buffer zone/wind down strategies out of bed Reviewed stimulus control guidelines to address conditioned arousal and strengthen the bed as a cue for sleep and weaken it as a cue for wakefulness *Establish a regular morning rise time. This will help strengthen the circadian clock regulating sleep and wakefulness. Collaboratively developed set waketime of 9am to begin plan *Delay bedtime until sleepy. This will increase the probability that you will fall asleep quickly. It is important to distinguish between fatigue and sleepiness. Fatigue is a state of low energy, physical or mental. Sleepiness is a state of having to struggle to stay awake. Discussed at length via previous [employer] message *If unable to fall asleep, either at the beginning or in the middle of the night, get out of bed and return to bed only when sleepy again. - reading in chair in bedroom until drowsy *Avoid excessive napping during the day. A brief nap (15 to 30 minutes), taken approximately 7 to 9 hours after rise time, can be refreshing and is not likely to disturb nocturnal sleep. 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 Delay bedtime until sleepy - buffer zone/wind down activities in chair 2. Consistent waketime of 9am 3. Relaxation strategies - will send PMR resources 4. Low dosage of melatonin at 9pm Follow up in 3 weeks Katya Artis Psy.D., [facility], Psychologist ([place] License [id number]) [facility] 04-05-2022 History of Present illness Narrative Behavioral Sleep Medicine Follow up Katya Artis PSYD Indiviudal Psychotherapy - 42mins With the current coronavirus outbreak, we want to minimize the risk of exposing patients to this illness. I have reviewed this patient's chart and, per patient's request for an opportunity to be seen without having to present to the office, feel appropriate that this appointment be made a virtual visit. Those taking part in visit: patient and psychologist via [email or web address]. Consent for this visit received from patient. Session # 02 TREATMENT MODALITIES: Solution Focused Psychotherapy CBT for Circadian Rhythm Disorder and Insomnia Motivational Interviewing SUBJECTIVE/OBJECTIVE: Patient update: Pt completed sleep logs and will send them to provider at a later time. Reviewed overall baseline sleep patterns for the past 2 weeks without making changes Getting to bed as late as 5:30am and waking up at 10am [employer] with a deadline so this decreased sleep time as well as increased hours at evening job Clenching teeth really hard when she is falling asleep - tried OTC mouth guard but unable to use- working on getting customized bite guard from dentist Lots of tension and tightness in face/jaw/forehead as she is falling asleep [employer] - uncomfortable if the sheets are wrinkled sh Lots of tension overall- high stress with fertility issues, recent of family members Will have 5 nights off work and away at [facility] so will be interested Reviewed plan to work on sleep Take low dosage melatonin at 9pm - brainstormed strategies so that she has with her even when not at home Buffer zone/wind down strategies out of bed Reviewed stimulus control guidelines to address conditioned arousal and strengthen the bed as a cue for sleep and weaken it as a cue for wakefulness *Establish a regular morning rise time. This will help strengthen the circadian clock regulating sleep and wakefulness. Collaboratively developed set waketime of 9am to begin plan *Delay bedtime until sleepy. This will increase the probability that you will fall asleep quickly. It is important to distinguish between fatigue and sleepiness. Fatigue is a state of low energy, physical or mental. Sleepiness is a state of having to struggle to stay awake. Discussed at length via previous [employer] message *If unable to fall asleep, either at the beginning or in the middle of the night, get out of bed and return to bed only when sleepy again. - reading in chair in bedroom until drowsy *Avoid excessive napping during the day. A brief nap (15 to 30 minutes), taken approximately 7 to 9 hours after rise time, can be refreshing and is not likely to disturb nocturnal sleep. 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 Delay bedtime until sleepy - buffer zone/wind down activities in chair 2. Consistent waketime of 9am 3. Relaxation strategies - will send PMR resources 4. Low dosage of melatonin at 9pm Follow up in 3 weeks Katya Artis Psy.D., [facility], Psychologist ([place] License [id number]) documented in this encounter [facility] 03-29-2022 History of Present illness Narrative [facility] March 29, 2022 Virtual Consult Consent obtained for phone/virtual consult- Sheree Bernard and Moisés Marco Antonio 1980 Dr Johnson pt wishing a second opinion. Sheree Bernard is a 42 year old.G 0 P 0 Ab 0 She presents with follow up. Has done 4 IUIs and 8 IVF cycles. First two cycles failed fertilization and [facility]. Then had several cancelled cycles dur to poor stim. She has low AMH. sperm count if normal and low morphology. He has had full investigation including karyotype and DNA fragmentation. Patient wants second opinion Patient wants to discuss new ivf cycle versus using donor eggs Last Office Visit 03-01-22 Dr Johnson Sheree Bernard is a 42 year old.G 0 P 0 Ab 0 She presents with recent failed cycles x2 at [facility]. 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 Given that patient wants to do two cycles prior to insurance expiring in June, recommend duostim, antagonist protocol with FSH 450, LDhcg 200, omnitrope Discussed with patient that the earliest that this may be feasible would be in April Discussed donor egg. Patient and would like to get more information. Discussed my egg bank and making appointment with IVF director Dr. Escobar to review options Menstrual Hx: Menarche: 15 Cycle length: 29-30 day Duration: 3-5 days Flow: medium Other: cramps Past Medical Hx: PAST MEDICAL HISTORY Diagnosis Date Allergies GERD (gastroesophageal reflux disease) Hypothyroidism (acquired) Irritable bowel syndrome (IBS) Migraines Trigeminal neuralgia Raynaud's syndrome Past Surgical Hx: PAST SURGICAL HISTORY Procedure Laterality Date EXCISION PILONIDAL CYST/SINUS SIMPLE 1999 TRANSCERVICAL CATHJ FALLOPIAN TUBE RS&I Bilateral reopened occluded bilateral fallopian tubes Social History Tobacco Use Smoking status: Never Smokeless tobacco: Never Vaping Use Vaping Use: Never used Substance Use Topics Alcohol use: Yes Comment: rarely Drug use: Never Review of Systems: General: No weight loss, malaise or fevers Respiratory: No cough, hemoptysis, asthma, recent chest infection, wheezing Cardiovascular: No history of chest pain, palpitation, orthopnea, cyanosis, pedal edema Gastrointestinal: No blood in stool, pain with BM, tarry stool, persistent diarrhea or constipation Genitourinary: negative Endocrine: No history of thyroid disorder, diabetes, cold intolerance, heat intolerance, polydypsia Musculoskeletal: Negative I have reviewed the above past medical history and review of systems as completed by my RN. 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 They are however interested in proceeding with use of known frozen donor egg and thus having difficulty finding such eggs. Option of donor embryos were also discussed with them but they are uncomfortable with this option also. I addressed multiple questions and concerns but I do not recommend another IVF cycle using her own oocytes, given her prior 8 cycles. I spent a total of 30 minutes on the date of the service which included preparing to see the patient, [id number] patient care, completing clinical documentation, and counseling and educating the patient/family/caregiver. Wendy Escboar MD documented in this encounter [facility] 03-08-2022 Note HNO ID: [id number] Author: Katya Artis PSYD Service: ? Author Type: Psychologist Type: Progress Notes Filed: 03/08/2022 5:01 PM Note Text: [facility] CBT-Initiate Virtual Group March 08, 2022 Time: 3-4pm Provider: Chandra [id number]: Virtual Group Psychotherapy The CBT-Initiate virtual group is a one-time group that serves as the start of Cognitive Behavioral Therapy for Insomnia (CBT-I) . The following topics were introduced and discussed amongst the group: -Psychoeducation on basic healthy sleep, how sleep changes with age, the 2 Process Model, and the 3-P Model of Insomnia -What is Insomnia AND What is CBT-I -Sleep Hygiene -Stimulus Control -Psychoeducation on sleep medications Ms. Bernard paid good attention during the group, and made several contributions to the discussion. Her understanding of the material presented appeared good. ASSESSMENT: Insomnia Severity Index Total Score: 19 (03/04/2022 1:27 AM) DIAGNOSIS: Chronic Insomnia Delayed Sleep-Wake phase sleep disorder Adjustment Disorder with depressed mood and anxiety GOALS/OBJECTIVES/INTERVENTIONS: Pt was provided the following handouts from today's class Sleep Psychoeducation Sleep Hygiene AND Stimulus Control Sleep Diaries 2. All participants were encouraged to implement Sleep Hygiene AND Stimulus Control techniques, as well as track their sleep via Sleep Diaries 3. Pt is scheduled for follow-up with [facility] provider who completed initial evaluation for remaining sessions of CBT-I Katya Artis PSYD Psychologist [facility] 03-08-2022 History of Present illness Narrative [facility] CBT-Initiate Virtual Group March 08, 2022 Time: 3-4pm Provider: Chandra [id number]: Virtual Group Psychotherapy The CBT-Initiate virtual group is a one-time group that serves as the start of Cognitive Behavioral Therapy for Insomnia (CBT-I) . The following topics were introduced and discussed amongst the group: -Psychoeducation on basic healthy sleep, how sleep changes with age, the 2 Process Model, and the 3-P Model of Insomnia -What is Insomnia & What is CBT-I -Sleep Hygiene -Stimulus Control -Psychoeducation on sleep medications Ms. Bernard paid good attention during the group, and made several contributions to the discussion. Her understanding of the material presented appeared good. ASSESSMENT: Insomnia Severity Index Total Score: 19 (03/04/2022 1:27 AM) DIAGNOSIS: Chronic Insomnia Delayed Sleep-Wake phase sleep disorder Adjustment Disorder with depressed mood and anxiety GOALS/OBJECTIVES/INTERVENTIONS: Pt was provided the following handouts from today's class Sleep Psychoeducation Sleep Hygiene & Stimulus Control Sleep Diaries 2. All participants were encouraged to implement Sleep Hygiene & Stimulus Control techniques, as well as track their sleep via Sleep Diaries 3. Pt is scheduled for follow-up with [facility] provider who completed initial evaluation for remaining sessions of CBT-I Katya Artis PSYD Psychologist documented in this encounter [facility] 03-03-2022 Miscellaneous Notes Called patient to number listed, verified pt. Reviewed allergy to norgestimate Patient reports very bad migraines in HS form ortho tri cyclen lo. Reports she has taken microgestin in the past with no issues. Ayla Henry RN March 03, 2022 10:44 AM Missed Ayla's call (Newest Message First) Yamile Rodriguez Sec routed conversation to [facility] Pool Attempted to call patient to f/u on [employer] LVM to call the office Ayla Henry RN March 03, 2022 8:59 AM Called patient to number listed, verified pt. Patient had OV with Dr. Johnson / Demetrio Miguel yesterday. The plan for the next cycle is to start OCP. OCP pended. She reports the discussed duostim (note not complete at this time) Advised that she needs to speak with financial about this since she will be doing 2 cycles back to back. Verbalizes understanding. Advised due for annual in March, she will schedule. Ayla Henry RN March 02, 2022 2:59 PM Pt calling about her control whats plan , she knows the lab closes in March . documented in this encounter [facility] 03-01-2022 History of Present illness Narrative Consult from: Self-referred Sheree Bernard is a 42 year old.G 0 P 0 Ab 0 She presents with recent failed cycles x2 at [facility]. [facility] IVF #[facility]- 3 eggs, 2 mature, 2 fert, 0 blastocysts; failed fresh transfer of 2 embryos (microdose with FSH 450, LDhcg 200, omnitrope 6U) [facility] IVF #2- 2 eggs, 1 mature, 0 fert (microdose with FSH 450, LDhcg 200, omnitrope 6U) Last Office Visit 12-22-21 ASSESSMENT: 41 year old female AMA Menstrual cycle regular: 29-30 PBM Failed: CC + IUI Failed: LET + IUI [facility] (has in house financing) Followed It Starts With the Egg 11/2019: Retrieved 5, Mature 3 Synthroid, Zoloft, Plaquenil, Naltrexone 4.5 mg, Vit C 500 mg, Vit D 2,000, Vit E 134 mg, Theralogics Core, R-lipoic Acid 240, Ovasitol 2,000 mg BID, Osgood 3, Ubiquinol 300, Melatonin 5 mg, Dexamethasone 0.5 mg Priming Omnitrope (free vial q21 days) 6 unit(s) X2 months prior to 1st G-f 300, Menopur 150, Lupron 4 mg, Pregnyl 10K Seravital, Omnitrope, G-f 150, Menopur 450 [id number]: Retrieved 4, Mature 2 Calcium ionophore: Marco Gallegos [facility] PCT: sperm Sperm DFI: 11% Karyotypes: Normal AMH: 0.94. AMH 0.8 HSG: Normal PMHx: GERD, IBS. Migraine headaches PSHx: Pilonidal cyst Meds: MVI Desire for future fertility Discussed IVF cycle planning Discussed pushing past a larger lead follicle in effort to recruit follicles from the smaller remaining cohort Discussed desire to use Menopur Discussed low, slow stimulation Discussed last IVF cycle started weird copious cervical mucous like mid-cycle Discussed not starting IVF stimulation unless menses definitive Discussed sperm DFA concerns *Discussed G-f 300-450, Menopur 150, Cetrotide. Dual trigger *Discussed Omnitrope 6u daily X2 months *Discussed vit C,vit D, vit E, ovisitol. Osgood 3, ubiquinol, R-lipoic acid, low-dose naltrexone, melatonin, DHEA X 2 months, seravital *Discussed Ca2+ ionophore *Discussed had 2, day 2 embryos for fresh ET: 7 cell and 5 cell: Negative hCG *Discussed has new/reset insurance provider *Discussed fresh vs frozen ET 40 year old male partner without proven fertility PMHx: Denies PSHx: Denies Meds: Lisinopril Fish oil 3,000 mg, Vit D 2,000. Lipoic acid, Conception XR, Ubiquinol, MVI, Keto diet SA: Abnormal Menstrual Hx: Menarche: 15 Cycle length: 28-29 days Duration: 3-5 days Flow: medium Other: cramps Past Medical Hx: PAST MEDICAL HISTORY Diagnosis Date Allergies GERD (gastroesophageal reflux disease) Hypothyroidism (acquired) Irritable bowel syndrome (IBS) Migraines Trigeminal neuralgia Raynaud's syndrome Past Surgical Hx: PAST SURGICAL HISTORY Procedure Laterality Date EXCISION PILONIDAL CYST/SINUS SIMPLE 1999 TRANSCERVICAL CATHJ FALLOPIAN TUBE RS&I Bilateral reopened occluded bilateral fallopian tubes Social History Tobacco Use Smoking status: Never Smokeless tobacco: Never Vaping Use Vaping Use: Never used Substance Use Topics Alcohol use: Yes Comment: rarely Drug use: Never Review of Systems: General: No weight loss, malaise or fevers Respiratory: No cough, hemoptysis, asthma, recent chest infection, wheezing Cardiovascular: No history of chest pain, palpitation, orthopnea, cyanosis, pedal edema Gastrointestinal: No blood in stool, pain with BM, tarry stool, persistent diarrhea or constipation Genitourinary: negative Endocrine: No history of thyroid disorder, diabetes, cold intolerance, heat intolerance, polydypsia Musculoskeletal: Negative I have reviewed the above past medical history and review of systems as completed by my Fellow. Assessment- VIET, advanced reproductive age, male factor infertility, multiple failed cycles with failed fert Plan- Data re: duostim reviewed with primary benefit of shortened time between cycles. Given that patient wants to do two cycles prior to insurance expiring in June, recommend duostim, antagonist protocol with FSH 450, LDhcg 200, omnitrope Discussed with patient that the earliest that this may be feasible would be in April Discussed donor egg. Patient and would like to get more information. Discussed my egg bank and making appointment with IVF director Dr. Escobar to review options Shelbi Miguel MD Reproductive Endocrinology and Infertility Fellow, PGY-7 I spent a total of 29 minutes on the date of the service which included preparing to see the patient, [id number] patient care, completing clinical documentation, obtaining and/or reviewing separately obtained history, counseling and educating the patient/family/caregiver, communicating with other HCPs (not separately reported), independently interpreting results (not separately reported), and communicating results to the patient/family/caregiver. Santiago Johnson MD documented in this encounter [facility] 02-23-2022 Miscellaneous Notes Patient called by lab to give fertilization results. Informed patient that there was no change in fert result. Culture will be terminated today. Ronnie Vaughn February 23, 2022 10:06 AM Patient called by lab to give fertilization results. No fertilization seen so far. We will hold till tomorrow. Ronnie Vaughn February 22, 2022 12:37 PM documented in this encounter [facility] 02-21-2022 History of Present illness Narrative Retrieval procedure performed. Detailed notes can be found in the paper chart in the [facility]. Sagrario Avila documented in this encounter [facility] 02-21-2022 History and physical note HISTORY AND PHYSICAL EXAMINATION SERVICE DATE: 02/21/2022 SERVICE TIME: 10:57 AM PRIMARY CARE PHYSICIAN: Rayna Quintanilla MD, MD Subjective CHIEF COMPLAINT: Scheduled procedure HPI: This is a 42 year old female who presents for their scheduled procedure. FUNCTIONAL STATUS: Independent PAST MEDICAL HISTORY Diagnosis Date Allergies GERD (gastroesophageal reflux disease) Hypothyroidism (acquired) Irritable bowel syndrome (IBS) Migraines Trigeminal neuralgia Raynaud's syndrome PAST SURGICAL HISTORY Procedure Laterality Date EXCISION PILONIDAL CYST/SINUS SIMPLE 1999 TRANSCERVICAL CATHJ FALLOPIAN TUBE RS&I Bilateral reopened occluded bilateral fallopian tubes FAMILY HISTORY Problem Relation Age of Onset Glaucoma Mother Cataract Mother COPD Mother Lung Cancer Mother other (polio) Father other (Chronic migraine) Maternal Uncle Social History Tobacco Use Smoking status: Never Smokeless tobacco: Never Vaping Use Vaping Use: Never used Substance Use Topics Alcohol use: Yes Comment: rarely Drug use: Never perflutren lipid microspheres 1.3 mL in NaCl (PF) 0.9% 10 mL injection (DEFINITY), , INTRAVENOUS, DIRECTED PRN, aLla Coto APRN.EARTH SCIENCE TECHNICIAN sodium chloride 0.9 % (flush) 10 mL (BD POSIFLUSH), 10 mL, INTRAVENOUS, DIRECTED PRNLala APRN.EARTH SCIENCE TECHNICIAN perflutren lipid microspheres 1.3 mL in NaCl (PF) 0.9% 10 mL injection (DEFINITY), , INTRAVENOUS, DIRECTED PRN, Sangeetha Vaughn MD sodium chloride 0.9 % (flush) 10 mL (BD POSIFLUSH), 10 mL, INTRAVENOUS, DIRECTED PRN, Sangeetha Vaughn MD Vitamin E, dl, acetate, (VITAMIN E) 200 unit capsule, Take 200 Units by mouth once daily., Disp: , Rfl: , 02/20/2022 ubidecarenone (COQ-10 ORAL), Take 1 tablet by mouth., Disp: , Rfl: , 02/20/2022 cholecalciferol, vitamin D3, (VITAMIN D3) 100 mcg (4,000 unit) cap, , Disp: , Rfl: , 02/20/2022 omega-3s/dha/epa/algal oil (MEGARED ADVANCED OMEGA-3 ALGAE ORAL), , Disp: , Rfl: , 02/20/2022 vit calc,iron,folic ( VITAMIN ORAL), , Disp: , Rfl: , 02/20/2022 levothyroxine 75 mcg cap, Take by mouth once daily., Disp: , Rfl: , 02/21/2022 at 0800 hydroxychloroquine (PLAQUENIL) 200 mg tablet, Take 200 mg by mouth., Disp: , Rfl: , 02/20/2022 chorionic gonadotropin (NOVAREL) 10,000 unit solr, 10,000 Units one time only for 1 dose., Disp: 1 Each, Rfl: 0 leuprolide (LUPRON) 1 mg/0.2 mL, For microdose leuprolide: inject leuprolide 0.5ml into bacteriostatic sodium chloride 10ml. Inject 40 mcg/0.2ml subcutaneously twice daily, Disp: 1 Kit, Rfl: 1 chorionic gonadotropin (PREGNYL) 10,000 unit solr, 10,000 Units as directed. Mix vials as directed per nursing in office. Administer subcutaneous., Disp: 1 Each, Rfl: 1 Needle, Disp, 27 G (BD DISPOSABLE NEEDLES) 27 gauge x 1/2 ndle, To be used to inject HCG trigger, Disp: 1 Each, Rfl: 1 Syringe with Needle, Disp, (SYRINGE 3CC/20GX1 ), To be used to mix, draw up and inject HCG trigger, Disp: 1 Each, Rfl: 1 Syringe-Needle, Safety,Disp Un 5 mL 20 gauge x 1 syrg, To be used to mix low dose HCG, Disp: 1 Each, Rfl: 1 Insulin Syringe-Needle U-100 0.5 mL 29 gauge x 1/2 , To be used to draw up and inject low dose HCG and inject microdose Lupron twice daily, Disp: 45 Each, Rfl: 1 Needle, Disp, 20 G 20 gauge x 1 ndle, To be used to mix the microdose Lupron, Disp: 1 Each, Rfl: 1 Syringe, Disposable, 1 mL, To be used to mix the microdose Lupron, Disp: 1 Each, Rfl: 1 somatropin (OMNITROPE) 5.8 mg solr injection, Inject 6 units daily for priming starting 1 month before IVF stimulation, Disp: 1 Each, Rfl: 3 melatonin 3 mg tablet, Take 1 tablet at 9PM nightly except on those nights working until midnight., Disp: 30 tablet, Rfl: 2, 02/18/2022 estradiol (VIVELLE-DOT) 0.1 mg/24 hr, Apply 2 patches to abdomen and change every 3 days, Disp: 10 Patch, Rfl: 1 progesterone (CPD), Insert 400 mg progesterone vaginally in AM and 400 mg progesterone vaginally in PM, Disp: 60 Each, Rfl: 3 bacteriostatic sodium chloride 0.9% 0.9 % injection, To be used to mix microdose lupron, Disp: 10 mL, Rfl: 1 dexAMETHasone (DECADRON) 0.5 mg tablet, Take 1 tablet by mouth once daily. (Patient not taking: No sig reported), Disp: 7 tablet, Rfl: 0 albuterol HFA (PROVENTIL HFA, VENTOLIN HFA) 90 mcg/actuation inhaler, Inhale as instructed. (Patient not taking: No sig reported), Disp: , Rfl: pantoprazole DR (PROTONIX) 40 mg tablet, Take 40 mg by mouth once daily. (Patient not taking: No sig reported), Disp: , Rfl: fluticasone (FLONASE) 50 mcg/actuation nasal spray, 1 [place]., Disp: , Rfl: ALLERGIES Allergen Reactions Amphetamine Other: See Comments Benzoin Compound Other: See Comments Benzyl peroxide causes swelling and severe dryness Benzoyl Peroxide Swelling swelling Codeine Rash rash Diclofenac Sodium Hives Hydrocodone-Acetami* Rash Iodinated Contrast * Other: See Comments Norgestimate Other: See Comments Penicillins Hives Hives itching Phentermine Other: See Comments Prednisone Other: See Comments migraines Ranitidine Hives Hives itching Ranitidine Bismuth * Itching, Hives Tirosint [Levothyro* Mental Status Change, Other: See Comments Severe depression, chest pain COMPLETE REVIEW OF SYSTEMS: GENERAL: No weight loss, malaise or fevers RESPIRATORY: Negative for cough, hemoptysis, wheezing, COPD, dyspnea or shortness of breath CARDIOVASCULAR: Negative for chest pain, leg swelling, hypertension, CHF or palpitations FLEET DIRECTOR: Negative for abnormal vaginal bleeding, abnormal vaginal discharge Objective PHYSICAL EXAM: Physical Exam Performed: GENERAL: Alert, no distress, cooperative LUNGS: Breathing comfortably on room air CARDIAC: Well perfused ABDOMEN: Normal abdominal exam EXTREMITIES: Normal extremity exam BP 139/66 Pulse 67 Temp (Src) 98.2 (Temporal) Resp 19 Ht 5' 2 (1.58m) Wt 245 lb (111.1kg) SpO2 98% LMP 11/02/2021 BMI 44.80 kg/(m^2). O2 Therapy: Room Air DATA: Diagnostic tests reviewed for today's visit: Most recent labs and imaging results. Assessment/Plan Active Problems: * No active hospital problems. * Resolved Problems: * No resolved hospital problems. * Medication and Non-Pharmacologic VTE Prophylaxis/Anticoagulants Proceed to the OR for scheduled procedure SIGNATURE: Shelbi Miguel MD PATIENT NAME: Sheree Bernard DATE: February 21, 2022 TIME: 10:57 AM PAGER/CONTACT #: documented in this encounter [facility] 02-20-2022 History of Present illness Narrative Patient did HPT instead of HCG post trigger lab. Took 2 tests and both were positive. Plan for retrieval tomorrow. Deepali Maxwell RN February 20, 2022 10:22 AM documented in this encounter [facility] 02-19-2022 History of Present illness Narrative The patient is here today for follicular ultrasound and blood work. The patient reports no problems or complaints. Ultrasound and blood will be reviewed by the physician, the flow sheet will be updated and instructions will be communicated to the patient. Reviewed cycle with patient. Carmelina Mccarty RN called patient, name and verified. Plan given for IVF cycle per physician, see flowsheet for details. MyChart message sent. Medications reviewed and verified, instructions given. Patient denies any questions or concerns. Message sent to scheduling pool for next appt. Carmelina Mccarty February 19, 2022 12:49 PM documented in this encounter [facility] 02-18-2022 Instructions Simone Quintana PA-C - 02/18/2022 3:34 PM EDT Recommend MRI right leg at end of March to monitor area- call office after you get the biopsy Home exercises for ankle and knee PT if no improvement Topical pain cream- voltaren ( NSAID), lidocaine cream or patches. ICeyhot, Biofreeze, SalonPas, Aspercreme documented in this encounter [facility] 02-18-2022 History of Present illness Narrative SERVICE DATE: February 18, 2022 PCP: Rayna Quintanilla MD, MD Subjective Patient ID: Sheree is a 42 year old female. Chief Complaint: Patient presents with: Right Lower Leg - Established Patient, Follow Up, Pain Right Ankle - Established Patient, Follow Up, Pain PAIN EVALUATION 02/18/2022 1453 Pain Level: 0 Sheree is here for a follow up right lower leg swelling. She feels that the mass may feel slightly larger since her last appointment. She had an MRI which shows subcutaneous edema but no evidence of mass. She states that she followed up with a systems test engineer for them to look at this bump and they did a punch biopsy and told her there was no abnormalities noted. She also complains of some right knee pain and occasional ankle pain as well. She denies any other complaints. She states that she talked with the systems test engineer about getting a deeper tissue sample with the biopsy and they we will plan to do it in about a month. Review of Systems All other systems reviewed and are negative. ACTIVE PROBLEM LIST Chronic Right-Sided Low Back Pain Malaise and Fatigue Trigeminal Neuropathy Myalgia Polyarthralgia Diarrhea Abdominal Pain Gastroesophageal Reflux Disease Without Esophagitis Atypical Facial Pain Intractable Chronic Migraine Without Aura and Without Status Migrainosus Chronic Migraine Without Aura, With Intractable Migraine, So Stated, With Status Migrainosus Bilateral Occipital Neuralgia Chronic Daily Headache Cervicalgia Cervical Radicular Pain Paresthesias Primary Stabbing Headache Eye Pain, Bilateral Ndph (New Daily Persistent Headache) Transient Neurological Symptoms PAST MEDICAL HISTORY Diagnosis Date Allergies GERD (gastroesophageal reflux disease) Hypothyroidism (acquired) Irritable bowel syndrome (IBS) Migraines Trigeminal neuralgia Raynaud's syndrome PAST SURGICAL HISTORY Procedure Laterality Date EXCISION PILONIDAL CYST/SINUS SIMPLE 1999 TRANSCERVICAL CATHJ FALLOPIAN TUBE RS&I Bilateral reopened occluded bilateral fallopian tubes FAMILY HISTORY Problem Relation Age of Onset Glaucoma Mother Cataract Mother COPD Mother Lung Cancer Mother other (polio) Father other (Chronic migraine) Maternal Uncle Social History Tobacco Use Smoking status: Never Smokeless tobacco: Never Vaping Use Vaping Use: Never used Substance Use Topics Alcohol use: Yes Comment: rarely Drug use: Never ALLERGIES Allergen Reactions Amphetamine Other: See Comments Benzoin Compound Other: See Comments Benzyl peroxide causes swelling and severe dryness Benzoyl Peroxide Swelling swelling Codeine Rash rash Diclofenac Sodium Hives Hydrocodone-Acetami* Rash Iodinated Contrast * Other: See Comments Norgestimate Other: See Comments Penicillins Hives Hives itching Phentermine Other: See Comments Prednisone Other: See Comments migraines Ranitidine Hives Hives itching Ranitidine Bismuth * Itching, Hives Tirosint [Levothyro* Mental Status Change, Other: See Comments Severe depression, chest pain MEDICATIONS: azithromycin (ZITHROMAX) 250 mg tablet^Take 2 tablets by mouth once daily for 1 day, THEN 1 tablet once daily for 4 days.^Disp: 6 tablet^Rfl: 0 leuprolide (LUPRON) 1 mg/0.2 mL^For microdose leuprolide: inject leuprolide 0.5ml into bacteriostatic sodium chloride 10ml. Inject 40 mcg/0.2ml subcutaneously twice daily^Disp: 1 Kit^Rfl: 1 chorionic gonadotropin (PREGNYL) 10,000 unit solr^10,000 Units as directed. Mix vials as directed per nursing in office. Administer subcutaneous.^Disp: 1 Each^Rfl: 1 Needle, Disp, 27 G (BD DISPOSABLE NEEDLES) 27 gauge x 1/2 ndle^To be used to inject HCG trigger^Disp: 1 Each^Rfl: 1 Syringe with Needle, Disp, (SYRINGE 3CC/20GX1 )^To be used to mix, draw up and inject HCG trigger^Disp: 1 Each^Rfl: 1 Syringe-Needle, Safety,Disp Un 5 mL 20 gauge x 1 syrg^To be used to mix low dose HCG^Disp: 1 Each^Rfl: 1 Insulin Syringe-Needle U-100 0.5 mL 29 gauge x 1/2 ^To be used to draw up and inject low dose HCG and inject microdose Lupron twice daily^Disp: 45 Each^Rfl: 1 Needle, Disp, 20 G 20 gauge x 1 ndle^To be used to mix the microdose Lupron^Disp: 1 Each^Rfl: 1 Syringe, Disposable, 1 mL^To be used to mix the microdose Lupron^Disp: 1 Each^Rfl: 1 somatropin (OMNITROPE) 5.8 mg solr injection^Inject 6 units daily for priming starting 1 month before IVF stimulation^Disp: 1 Each^Rfl: 3 Vitamin E, dl, acetate, (VITAMIN E) 200 unit capsule^Take 200 Units by mouth once daily.^Disp: ^Rfl: traZODone (DESYREL) 50 mg tablet^Take 1 tablet by mouth daily at bedtime.^Disp: 30 tablet^Rfl: 2 melatonin 3 mg tablet^Take 1 tablet at 9PM nightly except on those nights working until midnight.^Disp: 30 tablet^Rfl: 2 estradiol (VIVELLE-DOT) 0.1 mg/24 hr^Apply 2 patches to abdomen and change every 3 days^Disp: 10 Patch^Rfl: 1 progesterone (CPD)^Insert 400 mg progesterone vaginally in AM and 400 mg progesterone vaginally in PM^Disp: 60 Each^Rfl: 3 bacteriostatic sodium chloride 0.9% 0.9 % injection^To be used to mix microdose lupron^Disp: 10 mL^Rfl: 1 ubidecarenone (COQ-10 ORAL)^Take 1 tablet by mouth.^Disp: ^Rfl: cholecalciferol, vitamin D3, (VITAMIN D3) 100 mcg (4,000 unit) cap^^Disp: ^Rfl: omega-3s/dha/epa/algal oil (MEGARED ADVANCED OMEGA-3 ALGAE ORAL)^^Disp: ^Rfl: vit calc,iron,folic ( VITAMIN ORAL)^^Disp: ^Rfl: levothyroxine 75 mcg cap^Take by mouth once daily.^Disp: ^Rfl: hydroxychloroquine (PLAQUENIL) 200 mg tablet^Take 200 mg by mouth.^Disp: ^Rfl: fluticasone (FLONASE) 50 mcg/actuation nasal spray^1 [place].^Disp: ^Rfl: chorionic gonadotropin (NOVAREL) 10,000 unit solr^10,000 Units one time only for 1 dose.^Disp: 1 Each^Rfl: 0 dexAMETHasone (DECADRON) 0.5 mg tablet^Take 1 tablet by mouth once daily.^Disp: 7 tablet^Rfl: 0 (Patient not taking: No sig reported) albuterol HFA (PROVENTIL HFA, VENTOLIN HFA) 90 mcg/actuation inhaler^Inhale as instructed.^Disp: ^Rfl: (Patient not taking: No sig reported) pantoprazole DR (PROTONIX) 40 mg tablet^Take 40 mg by mouth once daily.^Disp: ^Rfl: (Patient not taking: No sig reported) Allergies, medications, past surgical history, family history and past medical history were reviewed per this encounter. Objective Right Ankle Exam Comments: 1.5 x 2 cm hardened area on the right anterior tibia. There is evidence of a scab from previous punch biopsy. There is no evidence of erythema or ecchymosis. Nontender to palpation. Full range of motion of the knee and the ankle. MRI right lower leg from December 23 Deep to the skin marker, there is focal approximately 3 cm area of edema-like signal and enhancement in the subcutaneous tissues (6:4, 7:32 and 11:4) with ill-defined margins. There is adjacent subcutaneous fat stranding extending in depth to the medial cortex of the tibia and inferiorly to the level of the ankle. No discrete nodular mass is seen. The marrow signal is normal. No fractures or marrow replacing lesions. The deep soft tissues including the visualized musculature, tendons and neurovascular are within normal limits. Assessment/Plan ASSESSMENT Diagnosis (R22.9) Localized superficial swelling, mass, or lump (primary encounter diagnosis) Plan: MRI LOWER LEG WO/W IVCON RT (M25.571, G89.29) Chronic pain of right ankle (M25.561) Acute pain of right knee No orders found for this visit on 02/18/22. PLAN -From my observation and exam, I feel that that swollen area on the anterior tibia has improved and gotten slightly smaller since last appointment. This is reassuring in the fact that it has not enlarged since her last appointment. I discussed with her that she recently had a punch biopsy, and therefore there would be expected soft tissue inflammation so it is hard to fully assess if this area is still swollen and hard from her biopsy. She is planning to undergo another biopsy with the systems test engineer. She states that they want to wait about a month before doing that. I feel that this would be appropriate to give her a peace of mind. -We discussed monitoring this area in the future with repeat MRI in late March, after her biopsy to further assess the area and to ensure that it is improving. -Home exercises for knee and ankle were given to her. This appears to be consistent with tendinitis area and strengthening of the muscles around the knee and ankle should improve the symptoms. -Recommended that she reach out after biopsy so that I can obtain the results, as she sees somebody outside of the clinic. SIGNATURE: Simone Quintana PA-C PATIENT NAME: Sheree Bernard DATE: February 18, 2022 TIME: 3:05 PM documented in this encounter [facility] 02-18-2022 History of Present illness Narrative Call to patient at cell number listed Informed pt to continue all same dose of medications, see cycle flow sheet. RTC 02/19/22 at 0830. Pt verbalized understanding Magdi Glynn RN February 18, 2022 1:38 PM The patient is here today for follicular ultrasound and blood work. The patient reports no problems or complaints. Ultrasound and blood will be reviewed by the physician, the flow sheet will be updated and instructions will be communicated to the patient. Patient wants to proceed regardless of amount of follicles. Clementina Rasheed RN documented in this encounter [facility] 02-15-2022 History of Present illness Narrative The patient is here today for follicular ultrasound and blood work. The patient reports no problems or complaints. Ultrasound and blood will be reviewed by the physician, the flow sheet will be updated and instructions will be communicated to the patient. Pt stayed to meet with nursing. Consents signed. Per MD Camilla, pt ok to have z norbert for her retrieval. Magdi Glynn RN February 15, 2022 9:38 AM Call to patient at cell number listed Informed pt to continue all same dose of medications, see cycle flow sheet. RTC 02/18 at 0800. Pt verbalized understanding Magdi Glynn RN February 15, 2022 2:36 PM Pt says that her z norbert was a five day course and would prefer that. Explained to pt that she will receive antibiotics prior to her retrieval and she still would like the z norbert. documented in this encounter [facility] 02-09-2022 Miscellaneous Notes See previous encounter. Magdi Glynn RN February 09, 2022 3:51 PM Pt told by [facility] that insurance won't cover Pregnyl, but they will cover Novarel. Pt needs a call to [facility] because she may need to start the medication tonight. She also has questions regarding her Lupron and it being a compound medication documented in this encounter [facility] 02-09-2022 History of Present illness Narrative The patient is here today for follicular ultrasound and blood work. The patient reports no problems or complaints. Ultrasound and blood will be reviewed by the physician, the flow sheet will be updated and instructions will be communicated to the patient. Pt stayed to meet with nursing. Pt states that she does not have Lupron to start today but will tomorrow. Informed pt that she does have a cyst so we will see what e2 level is and go from there. Consents given to pt to sign and have notarized. PGTA testing denied by pt. Magdi Glynn RN February 09, 2022 8:56 AM ======== Call pt at number listed. Reviewed IVF plan with pt and how and when to take medications, see cycle flowsheet. Low dose Novarel reveiwed with pt. Pt verbalized understanding. Pt to RTC 02/15/22 at 830. Pt to call with any questions. Magdi Glynn RN February 09, 2022 3:46 PM ======== Call [facility]. Pt , Name and phone number given to pharmacists. Pharmacist states that they do not have pregnyl but has novarel. Gave the ok to switch. [facility] to send medications out today. Magdi Glynn RN February 09, 2022 3:50 PM documented in this encounter [facility] 02-08-2022 Miscellaneous Notes Returned patient call. Patient reports spotting X4 days. Heavier flow on 02/07 in the morning where she needed a tampon and then no bleeding at night. Today she is full flow. Scheduled for baseline tomorrow. Medications ordered. Patient states she doesn't need PA with her new insurance. She needs Omnitrope, Microdose Lupron and one HCG. Ordered to [facility] and [facility] per patient. Advised patient she might not have medications in time to start. Patient declines using OCP for this cycle. Message sent to schedulers. Orders placed for IVF monitoring. Chart sent to non-IVF pool to file. Carmelina Mccarty February 08, 2022 4:27 PM Pt confused by cycle day has been spotting four days and ques on her meds Ayla pt wants to discuss her meds and has been spotting for four days documented in this encounter [facility] 02-08-2022 Miscellaneous Notes See other encounter from today. Carmelina Mccarty February 08, 2022 3:54 PM Please follow up with patient. documented in this encounter [facility] 01-10-2022 Miscellaneous Notes Addended by: SIMONE QUINTANA on: 01/10/2022 12:56 PM Modules accepted: Orders Discussed questions and concerns with Sheree today. MRI does not show a discrete mass, but does show inflammation in the area of concern and she has not felt any change in the size of the mass in the leg. She has a history of elevated CRP and is on plaquenil, even though she does not have a rheumatologi condition diagnosed. We discussed repeating CRP and SED Followup as scheduled PT said she is returning a call from Simone, She said please call her back PH: [phone] Oneyda documented in this encounter [facility] 12-31-2021 Miscellaneous Notes Placed call and LMOM about MRI results showing inflammation and edema in the subcutaneous tissue, no obvious concerning mass noted. Recommend monitoring with repeat clinical exam in 6 weeks documented in this encounter [facility] 12-29-2021 History of Present illness Narrative Medications for upcoming IVF Cycle: Microdose Lupron twice a day (AM / PM). - Microdose Lupron: Lupron 1mg/0.2mL. Mix 0.5mL with 10 mL of bacteriostatic sodium chloride. Follistim or Gonal F: 450 units daily Low dose hCG 10 units daily - Low dose hCG: Chorionic Gonadotropin (pregnyl) 10,000 units. Mix 5ml of bacteriostatic sodium chloride into hCG powder Omnitrope 5.8mg solution: 6 units daily hCG trigger (Chorionic Gonadotropin (pregnyl) 10,000 units): hCG trigger: Mix 1ml of bacteriostatic sodium chloride into hCG powder. hCG trigger will be 0.5mL to 1mL at time of trigger. documented in this encounter [facility] 12-29-2021 Miscellaneous Notes IVF episode created. Checklist complete, awaiting IVF prior auth. sent to patient. Ayla Henry RN December 29, 2021 2:08 PM documented in this encounter [facility] 12-23-2021 History of Present illness Narrative Radiology Service Progress Note DATE OF SERVICE: December 23, 2021 TIME: 11:45 AM PATIENT IDENTITY VERIFICATION COMPLETED USING TWO (2) STANDARD IDENTIFIERS: Name and Date of confirmed by patient verbally. FALL SCREENING: Has the patient had 2 falls in the last year or 1 fall with injury or currently using an Ambulatory Assistive Device (Walker, Cane, Wheelchair, Crutches, etc.)? No PATIENT GENDER DATA: Female. status: : No status: NO. PATIENT RELEVANT IMPLANT DATA REVIEWED: Yes ALLERGIES: Reviewed and unchanged CONTRAST ALLERGY: NO. EXAM: MRI - CONTRAST TYPE: GROUP II PERIPHERAL IV DATA: Ambulatory: A peripheral IV was started in the Left antecubital site with a Angio cath: 22 gauge. RADIOLOGY DEPARTMENT: MR; Exam(s) Completed: Lower MSK: Tib/Fib, right SIGNATURE: RT Miguel A(R) PATIENT NAME: Sheree Bernard DATE: December 23, 2021 TIME: 11:45 AM documented in this encounter [facility] 12-22-2021 Consult note Formatting of th is note is different from the original. VIRTUAL VISIT PROGRESS NOTE This is a virtual visit using [employer] video visit. It required patient-provider interaction for the medical decision making as documented below. Date of Consult: 12/22/2021 Consultation Requested By: Self-referred Sheree Bernard is a 41 year old female presenting with the following history: HISTORY OF PRESENT ILLNESS: Sheree Bernard is a 41 year old year old female with 41 year old female AMA Menstrual cycle regular: 29-30 PBM Failed: CC + IUI Failed: LET + IUI [facility] (has in house financing) Followed It Starts With the Egg 11/2019: Retrieved 5, Mature 3 Synthroid, Zoloft, Plaquenil, Naltrexone 4.5 mg, Vit C 500 mg, Vit D 2,000, Vit E 134 mg, Theralogics Core, R-lipoic Acid 240, Ovasitol 2,000 mg BID, Osgood 3, Ubiquinol 300, Melatonin 5 mg, Dexamethasone 0.5 mg Priming Omnitrope (free vial q21 days) 6 unit(s) X2 months prior to 1st G-f 300, Menopur 150, Lupron 4 mg, Pregnyl 10K Seravital, Omnitrope, G-f 150, Menopur 450 [id number]: Retrieved 4, Mature 2 Calcium ionophore: Marco Check Dwaine [facility] [place] PCT: sperm Sperm DFI: 11% Karyotypes: Normal AMH: 0.94. AMH 0.8 HSG: Normal PMHx: GERD, IBS. Migraine headaches PSHx: Pilonidal cyst Meds: MVI Desire for future fertility Discussed IVF cycle planning Discussed pushing past a larger lead follicle in effort to recruit follicles from the smaller remaining cohort Discussed desire to use Menopur Discussed low, slow stimulation Discussed last IVF cycle started weird copious cervical mucous like mid-cycle Discussed not starting IVF stimulation unless menses definitive Discussed sperm DFA concerns *Discussed G-f 300-450, Menopur 150, Cetrotide. Dual trigger *Discussed Omnitrope 6u daily X2 months *Discussed vit C,vit D, vit E, ovisitol. Osgood 3, ubiquinol, R-lipoic acid, low-dose naltrexone, melatonin, DHEA X 2 months, seravital *Discussed Ca2+ ionophore 40 year old male partner without proven fertility PMHx: Denies PSHx: Denies Meds: Lisinopril Fish oil 3,000 mg, Vit D 2,000. Lipoic acid, Conception XR, Ubiquinol, MVI, Keto diet SA: Abnormal Notations from previous visit: 41 year old female AMA Menstrual cycle regular: 29-30 PBM Failed: CC + IUI Failed: LET + IUI [facility] (has in house financing) Followed It Starts With the Egg 11/2019: Retrieved 5, Mature 3 Synthroid, Zoloft, Plaquenil, Naltrexone 4.5 mg, Vit C 500 mg, Vit D 2,000, Vit E 134 mg, Theralogics Core, R-lipoic Acid 240, Ovasitol 2,000 mg BID, Osgood 3, Ubiquinol 300, Melatonin 5 mg, Dexamethasone 0.5 mg Priming Omnitrope (free vial q21 days) 6 unit(s) X2 months prior to 1st G-f 300, Menopur 150, Lupron 4 mg, Pregnyl 10K Seravital, Omnitrope, G-f 150, Menopur 450 [id number]: Retrieved 4, Mature 2 Calcium ionophore: Marco [facility] PCT: sperm Sperm DFI: 11% Karyotypes: Normal AMH: 0.94. AMH 0.8 HSG: Normal PMHx: GERD, IBS. Migraine headaches PSHx: Pilonidal cyst Meds: MVI Primary infertility Desire for future fertility Discussed IVF cycle planning Discussed pushing past a larger lead follicle in effort to recruit follicles from the smaller remaining cohort Discussed desire to use Menopur Discussed low, slow stimulation *Discussed last IVF cycle started weird copious cervical mucous like mid-cycle *Discussed not starting IVF stimulation unless menses definitive *Discussed sperm DFA concerns 40 year old male partner without proven fertility PMHx: Denies PSHx: Denies Meds: Lisinopril Fish oil 3,000 mg, Vit D 2,000. Lipoic acid, Conception XR, Ubiquinol, MVI, Keto diet SA: Abnormal Notations from previous visit: 41 year old female AMA Menstrual cycle regular: 29-30 PBM Failed: CC + IUI Failed: LET + IUI [facility] (has in house financing) Followed It Starts With the Egg 11/2019: Retrieved 5, Mature 3 Synthroid, Zoloft, Plaquenil, Naltrexone 4.5 mg, Vit C 500 mg, Vit D 2,000, Vit E 134 mg, Theralogics Core, R-lipoic Acid 240, Ovasitol 2,000 mg BID, Osgood 3, Ubiquinol 300, Melatonin 5 mg, Dexamethasone 0.5 mg Priming Omnitrope (free vial q21 days) 6 unit(s) X2 months prior to 1st G-f 300, Menopur 150, Lupron 4 mg, Pregnyl 10K Seravital, Omnitrope, G-f 150, Menopur 450 [id number]: Retrieved 4, Mature 2 Calcium ionophore: Marco Gallegos [facility] PCT: sperm Sperm DFI: 11% Karyotypes: Normal AMH: 0.94. AMH 0.8 HSG: Normal PMHx: GERD, IBS. Migraine headaches PSHx: Pilonidal cyst Meds: MVI Primary infertility Desire for future fertility *Discussed IVF cycle planning *Discussed pushing past a larger lead follicle in effort to recruit follicles from the smaller remaining cohort *Discussed desire to use Menopur *Discussed low, slow stimulation 40 year old male partner without proven fertility PMHx: Denies PSHx: Denies Meds: Lisinopril Fish oil 3,000 mg, Vit D 2,000. Lipoic acid, Conception XR, Ubiquinol, MVI, Keto diet SA: Abnormal Notations from previous visit: 40 year old female AMA Menstrual cycle regular: 29-30 PBM Failed: CC + IUI Failed: LET + IUI [facility] (has in house financing) Followed It Starts With the Egg 11/2019: Retrieved 5, Mature 3 Synthroid, Zoloft, Plaquenil, Naltrexone 4.5 mg, Vit C 500 mg, Vit D 2,000, Vit E 134 mg, Theralogics Core, R-lipoic Acid 240, Ovasitol 2,000 mg BID, Osgood 3, Ubiquinol 300, Melatonin 5 mg, Dexamethasone 0.5 mg Priming Omnitrope (free vial q21 days) 6 unit(s) X2 months prior to 1st G-f 300, Menopur 150, Lupron 4 mg, Pregnyl 10K Seravital, Omnitrope, G-f 150, Menopur 450 [id number]: Retrieved 4, Mature 2 Calcium ionophore: Marco Gallegos [facility] PCT: sperm Sperm DFI: 11% Karyotypes: Normal AMH: 0.94 HSG: Normal PMHx: PSHx: Meds: MVI Primary infertility Desire for future fertility 40 year old male partner without proven fertility PMHx: Denies PSHx: Denies Meds: Lisinopril Fish oil 3,000 mg, Vit D 2,000. Lipoic acid, Conception XR, Ubiquinol, MVI, Keto diet SA: Not completed to date Obstetric History T0 L0 SAB0 IAB0 Ectopic0 Multiple0 Live Births0 Fertility Evaluations and Treatments: Eval Checklist Results Date Comments HSG Normal Hysteroscopy Normal Laparoscopy Normal OPK (Ovulation Predictor Kit) Normal Ovarian Ferdinand Abnormal Saline Ultrasound Normal Semen Analysis Abnormal Ultrasound Normal Other (See comments) Not done MENSTRUAL HISTORY: Menarche Age: 15 Length of Cycle: Regular Days: Menstrual Flow: Moderate Menstrual Symptoms: Breast Tenderness,Bloating Patient's last menstrual period was 11/02/2021. PAST MEDICAL HISTORY Diagnosis Date Allergies GERD (gastroesophageal reflux disease) Hypothyroidism (acquired) Irritable bowel syndrome (IBS) Migraines Trigeminal neuralgia Raynaud's syndrome PAST SURGICAL HISTORY Procedure Laterality Date EXCISION PILONIDAL CYST/SINUS SIMPLE 1999 TRANSCERVICAL CATHJ FALLOPIAN TUBE RS&I Bilateral reopened occluded bilateral fallopian tubes FAMILY HISTORY Problem Relation Age of Onset Glaucoma Mother Cataract Mother COPD Mother Lung Cancer Mother other (polio) Father other (Chronic migraine) Maternal Uncle ETHNICITY: White GENETIC HISTORY: NA OCCUPATION/EXERCISE: Occupation: Exercise: Partner Information Partner's Name: Moisés Bernard Partner's : 02/06/1985 Partner's Partner's Ethnicity: NOT or Partner's Race: White MEDICATIONS: Current Outpatient Medications on File Prior to Visit Medication Sig Vitamin E, dl, acetate, (VITAMIN E) 200 unit capsule Take 200 Units by mouth once daily. traZODone (DESYREL) 50 mg tablet Take 1 tablet by mouth daily at bedtime. melatonin 3 mg tablet Take 1 tablet at 9PM nightly except on those nights working until midnight. estradiol (VIVELLE-DOT) 0.1 mg/24 hr Apply 2 patches to abdomen and change every 3 days progesterone (CPD) Insert 400 mg progesterone vaginally in AM and 400 mg progesterone vaginally in PM bacteriostatic sodium chloride 0.9% 0.9 % injection To be used to mix microdose lupron (Patient not taking: Reported on 11/22/2021 ) dexAMETHasone (DECADRON) 0.5 mg tablet Take 1 tablet by mouth once daily. (Patient not taking: Reported on 11/22/2021 ) albuterol HFA (PROVENTIL HFA, VENTOLIN HFA) 90 mcg/actuation inhaler Inhale as instructed. (Patient not taking: Reported on 11/22/2021 ) ubidecarenone (COQ-10 ORAL) Take 1 tablet by mouth. pantoprazole [address] (PROTONIX) 40 mg tablet Take 40 mg by mouth once daily. (Patient not taking: Reported on 11/22/2021 ) cholecalciferol, vitamin D3, (VITAMIN D3) 100 mcg (4,000 unit) cap omega-3s/dha/epa/algal oil (MEGARED ADVANCED OMEGA-3 ALGAE ORAL) vit calc,iron,folic ( VITAMIN ORAL) levothyroxine 75 mcg cap Take by mouth once daily. hydroxychloroquine (PLAQUENIL) 200 mg tablet Take 200 mg by mouth. fluticasone (FLONASE) 50 mcg/actuation nasal spray 1 [place]. Current Facility-Administered Medications on File Prior to Visit Medication perflutren lipid microspheres 1.3 mL in NaCl (PF) 0.9% 10 mL injection (DEFINITY) sodium chloride 0.9 % (flush) 10 mL (BD POSIFLUSH) perflutren lipid microspheres 1.3 mL in NaCl (PF) 0.9% 10 mL injection (DEFINITY) sodium chloride 0.9 % (flush) 10 mL (BD POSIFLUSH) ALLERGIES: Amphetamine, Benzoin Compound, Benzoyl Peroxide, Codeine, Diclofenac Sodium, Hydrocodone-Acetaminophen, Iodinated Contrast Media, Norgestimate, Penicillins, Phentermine, Prednisone, Ranitidine, Ranitidine Bismuth Citrate, and Tirosint [Levothyroxine] Blood Type: B Positive ASSESSMENT: 41 year old female AMA Menstrual cycle regular: 29-30 PBM Failed: CC + IUI Failed: LET + IUI [facility] (has in house financing) Followed It Starts With the Egg 11/2019: Retrieved 5, Mature 3 Synthroid, Zoloft, Plaquenil, Naltrexone 4.5 mg, Vit C 500 mg, Vit D 2,000, Vit E 134 mg, Theralogics Core, R-lipoic Acid 240, Ovasitol 2,000 mg BID, Osgood 3, Ubiquinol 300, Melatonin 5 mg, Dexamethasone 0.5 mg Priming Omnitrope (free vial q21 days) 6 unit(s) X2 months prior to 1st G-f 300, Menopur 150, Lupron 4 mg, Pregnyl 10K Seravital, Omnitrope, G-f 150, Menopur 450 [id number]: Retrieved 4, Mature 2 Calcium ionophore: Marco Gallegos [facility] PCT: sperm Sperm DFI: 11% Karyotypes: Normal AMH: 0.94. AMH 0.8 HSG: Normal PMHx: GERD, IBS. Migraine headaches PSHx: Pilonidal cyst Meds: MVI Desire for future fertility Discussed IVF cycle planning Discussed pushing past a larger lead follicle in effort to recruit follicles from the smaller remaining cohort Discussed desire to use Menopur Discussed low, slow stimulation Discussed last IVF cycle started weird copious cervical mucous like mid-cycle Discussed not starting IVF stimulation unless menses definitive Discussed sperm DFA concerns *Discussed G-f 300-450, Menopur 150, Cetrotide. Dual trigger *Discussed Omnitrope 6u daily X2 months *Discussed vit C,vit D, vit E, ovisitol. Osgood 3, ubiquinol, R-lipoic acid, low-dose naltrexone, melatonin, DHEA X 2 months, seravital *Discussed Ca2+ ionophore *Discussed had 2, day 2 embryos for fresh ET: 7 cell and 5 cell: Negative hCG *Discussed has new/reset insurance provider *Discussed fresh vs frozen ET *Discussed 40 year old male partner without proven fertility PMHx: Denies PSHx: Denies Meds: Lisinopril Fish oil 3,000 mg, Vit D 2,000. Lipoic acid, Conception XR, Ubiquinol, MVI, Keto diet SA: Abnormal Notations from previous visit: 41 year old female AMA Menstrual cycle regular: 29-30 PBM Failed: CC + IUI Failed: LET + IUI [facility] (has in house financing) Followed It Starts With the Egg 11/2019: Retrieved 5, Mature 3 Synthroid, Zoloft, Plaquenil, Naltrexone 4.5 mg, Vit C 500 mg, Vit D 2,000, Vit E 134 mg, Theralogics Core, R-lipoic Acid 240, Ovasitol 2,000 mg BID, Osgood 3, Ubiquinol 300, Melatonin 5 mg, Dexamethasone 0.5 mg Priming Omnitrope (free vial q21 days) 6 unit(s) X2 months prior to 1st G-f 300, Menopur 150, Lupron 4 mg, Pregnyl 10K Seravital, Omnitrope, G-f 150, Menopur 450 [id number]: Retrieved 4, Mature 2 Calcium ionophore: Marco Gallegos [facility] PCT: sperm Sperm DFI: 11% Karyotypes: Normal AMH: 0.94. AMH 0.8 HSG: Normal PMHx: GERD, IBS. Migraine headaches PSHx: Pilonidal cyst Meds: MVI Desire for future fertility Discussed IVF cycle planning Discussed pushing past a larger lead follicle in effort to recruit follicles from the smaller remaining cohort Discussed desire to use Menopur Discussed low, slow stimulation Discussed last IVF cycle started weird copious cervical mucous like mid-cycle Discussed not starting IVF stimulation unless menses definitive Discussed sperm DFA concerns *Discussed G-f 300-450, Menopur 150, Cetrotide. Dual trigger *Discussed Omnitrope 6u daily X2 months *Discussed vit C,vit D, vit E, ovisitol. Osgood 3, ubiquinol, R-lipoic acid, low-dose naltrexone, melatonin, DHEA X 2 months, seravital *Discussed Ca2+ ionophore 38 year old male partner without proven fertility PMHx: Denies PSHx: Denies Meds: Lisinopril Fish oil 3,000 mg, Vit D 2,000. Lipoic acid, Conception XR, Ubiquinol, MVI, Keto diet SA: Abnormal Notations from previous visit: 41 year old female AMA Menstrual cycle regular: 29-30 PBM Failed: CC + IUI Failed: LET + IUI [facility] (has in house financing) Followed It Starts With the Egg 11/2019: Retrieved 5, Mature 3 Synthroid, Zoloft, Plaquenil, Naltrexone 4.5 mg, Vit C 500 mg, Vit D 2,000, Vit E 134 mg, Theralogics Core, R-lipoic Acid 240, Ovasitol 2,000 mg BID, Osgood 3, Ubiquinol 300, Melatonin 5 mg, Dexamethasone 0.5 mg Priming Omnitrope (free vial q21 days) 6 unit(s) X2 months prior to 1st G-f 300, Menopur 150, Lupron 4 mg, Pregnyl 10K Seravital, Omnitrope, G-f 150, Menopur 450 [id number]: Retrieved 4, Mature 2 Calcium ionophore: Marco Gallegos [facility] PCT: sperm Sperm DFI: 11% Karyotypes: Normal AMH: 0.94. AMH 0.8 HSG: Normal PMHx: GERD, IBS. Migraine headaches PSHx: Pilonidal cyst Meds: MVI Desire for future fertility Discussed IVF cycle planning Discussed pushing past a larger lead follicle in effort to recruit follicles from the smaller remaining cohort Discussed desire to use Menopur Discussed low, slow stimulation *Discussed last IVF cycle started weird copious cervical mucous like mid-cycle *Discussed not starting IVF stimulation unless menses definitive *Discussed sperm DFA concerns 38 year old male partner without proven fertility PMHx: Denies PSHx: Denies Meds: Lisinopril Fish oil 3,000 mg, Vit D 2,000. Lipoic acid, Conception XR, Ubiquinol, MVI, Keto diet SA: Abnormal Notations from previous visit: 41 year old female AMA Menstrual cycle regular: 29-30 PBM Failed: CC + IUI Failed: LET + IUI [facility] (has in house financing) Followed It Starts With the Egg 11/2019: Retrieved 5, Mature 3 Synthroid, Zoloft, Plaquenil, Naltrexone 4.5 mg, Vit C 500 mg, Vit D 2,000, Vit E 134 mg, Theralogics Core, R-lipoic Acid 240, Ovasitol 2,000 mg BID, Osgood 3, Ubiquinol 300, Melatonin 5 mg, Dexamethasone 0.5 mg Priming Omnitrope (free vial q21 days) 6 unit(s) X2 months prior to 1st G-f 300, Menopur 150, Lupron 4 mg, Pregnyl 10K Seravital, Omnitrope, G-f 150, Menopur 450 [id number]: Retrieved 4, Mature 2 Calcium ionophore: Marco Galleg[facility] PCT: sperm Sperm DFI: 11% Karyotypes: Normal AMH: 0.94. AMH 0.8 HSG: Normal PMHx: GERD, IBS. Migraine headaches PSHx: Pilonidal cyst Meds: MVI Primary infertility Desire for future fertility *Discussed IVF cycle planning *Discussed pushing past a larger lead follicle in effort to recruit follicles from the smaller remaining cohort *Discussed desire to use Menopur *Discussed low, slow stimulation 38 year old male partner without proven fertility PMHx: Denies PSHx: Denies Meds: Lisinopril Fish oil 3,000 mg, Vit D 2,000. Lipoic acid, Conception XR, Ubiquinol, MVI, Keto diet SA: Abnormal Notations from previous visit: 40 year old female AMA Menstrual cycle regular: 29-30 PBM Failed: CC + IUI Failed: LET + IUI [facility] (has in house financing) Followed It Starts With the Egg 11/2019: Retrieved 5, Mature 3 Synthroid, Zoloft, Plaquenil, Naltrexone 4.5 mg, Vit C 500 mg, Vit D 2,000, Vit E 134 mg, Theralogics Core, R-lipoic Acid 240, Ovasitol 2,000 mg BID, Osgood 3, Ubiquinol 300, Melatonin 5 mg, Dexamethasone 0.5 mg Priming Omnitrope (free vial q21 days) 6 unit(s) X2 months prior to 1st G-f 300, Menopur 150, Lupron 4 mg, Pregnyl 10K Seravital, Omnitrope, G-f 150, Menopur 450 [id number]: Retrieved 4, Mature 2 Calcium ionophore: Marco Gallegos [facility] PCT: sperm Sperm DFI: 11% Karyotypes: Normal AMH: 0.94 HSG: Normal PMHx: PSHx: Meds: MVI Primary infertility Desire for future fertility 40 year old male partner without proven fertility PMHx: Denies PSHx: Denies Meds: Lisinopril Fish oil 3,000 mg, Vit D 2,000. Lipoic acid, Conception XR, Ubiquinol, MVI, Keto diet SA: Not completed to date PLAN: IVF cycle planning: Started Omnitrope priming already Repeat IVF stimulation: Same Protocol as IVF #4 Embryo banking planned Likely FETs STI/FDA infectious disease screening tests SIS prior to FET Carrier screening Financial Team: Discuss medical insurance benefits and likely [id number] costs of IVF. IVF nurse coordinator: Schedule IVF nurse teaching. Order meds. Prepare IVF cycle schedule/flowsheet. Sign consents. Dr Johnson: Review lab test results. Determine IVF stimulation protocol and medications dosage. Consultation with couple prior to IVF start if questions, abnormal lab test values or other concerns arise. Notations from previous visit: IVF cycle planning: STI/FDA infectious disease screening tests SIS of office hysteroscopy Salma Box: Discuss medical insurance benefits and likely [id number] costs of IVF. IVF nurse coordinator: Schedule IVF nurse teaching. Order meds. Prepare IVF cycle schedule/flowsheet. Sign consents. Dr Johnson: Review lab test results. Determine IVF stimulation protocol and medications dosage. Consultation with couple prior to IVF start if questions, abnormal lab test values or other concerns arise. Notations from previous visit: IVF cycle planning: No OCP Antagonist. G-f 100. Menopur 75. Consider Omnitrope HCG trigger only STI/FDA infectious disease screening tests Office hysteroscopy or SIS prior to FET Salma Box: Discuss medical insurance benefits and likely [id number] costs of IVF. IVF nurse coordinator: Schedule IVF nurse teaching. Order meds. Prepare IVF cycle schedule/flowsheet. Sign consents. Dr Johnson: Review lab test results. Confirm IVF stimulation protocol and medications dosage. Consultation with couple prior to IVF start if questions, abnormal lab test values or other concerns arise. Notations from previous visit: Fasting insulin IVF cycle planning: Antagonist. G-f 300. LD hCG 200. Consider Omnitrope Wants to discuss calcium ionophore in culture media STI/FDA infectious disease screening tests Office hysteroscopy Salma Box: Discuss medical insurance benefits and likely [id number] costs of IVF. IVF nurse coordinator: Schedule IVF nurse teaching. Order meds. Prepare IVF cycle schedule/flowsheet. Sign consents. Dr Johnson: Review lab test results. Determine IVF stimulation protocol and medications dosage. Consultation with couple prior to IVF start if questions, abnormal lab test values or other concerns arise. I spent a total of 29 minutes on the date of the service which included preparing to see the patient, [id number] patient care, completing clinical documentation, obtaining and/or reviewing separately obtained history, counseling and educating the patient/family/caregiver, ordering medications, tests, or procedures, communicating with other HCPs (not separately reported), independently interpreting results (not separately reported), and communicating results to the patient/family/caregiver. Santiago Johnson MD December 22, 2021 4:18 PM documented in this encounter [facility] 12-01-2021 Miscellaneous Notes Patient called office, patient states she took a urine test which is negative. Advised patient to continue medications and stick with plan to have blood HCG drawn when she is back from vacation. It is best to wait until we are sure it is negative before we stop medications. Patient states understanding, will have blood draw on Monday when she returns. Clementina Rasheed RN December 01, 2021 11:42 AM documented in this encounter [facility] 11-22-2021 Miscellaneous Notes Please see OV notes from 11/22 under progress notes. Provider has been reached and pt is aware of update. CHARLES Ibarra Pt requesting PCP, Dr. Rayna Quintanilla look over today's OV notes from Dr. Arevalo to approve starting new medications. TC to office with no answer. Will try again later. CHARLES Ibarra documented in this encounter [facility] 11-22-2021 History of Present illness Narrative TC to patient regarding waiting to start medication until results of her test come back. Patient verbalizes understanding and has no further questions at this time. CHARLES Ibarra Please let patient know that fertility would like pt to not start any medications until they get update regarding test next week. Will then consider starting meds at that time if fertility ok with it. Prakash Arevalo MD NEW PATIENT (CONSULT) HISTORY AND PHYSICAL EXAM PRIMARY CARE PHYSICIAN: Rayna Quintanilla MD, MD REASON FOR CONSULT: Poor sleep REFERRING PHYSICIAN: No ref. provider found CHIEF COMPLAINT: Difficulties getting to sleep Consultation requested by No ref. provider found for an opinion regarding chief complaint of Patient presents with: Poor Sleep and my final recommendations will be communicated back to the requesting physician by way of shared medical record or letter via [place] mail. HISTORY OF PRESENT ILLNESS: Sheree Bernard is a 41 year old female, BMI 44.92 kg/m2 with a PMH significant for undergoing HSAT on 09/09/21 that was normal with the patient having an BETTYE/AHI of 1.4. Note that the patient saw Dr. Santiago Oakes on 07/09/21. Pt reports starting 15 years ago started having problems with complaints of both sleep onset insomnia and maintenance insomnia. 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 Currently works both first and second shifts. Currently she is falling asleep about 230-4AM for well over 2 years. States always has been a night owl. Late is normal for me . States she forces herself to push through the days. Naps do not make her feel better. Endorses racing thoughts at night. Endorses nocturia for which she has seen urology. Once asleep wakes about 3 hours later. Currently going through IVF so meds changing weekly. Typically wakes about 9AM (no matter what shift she is working on). Pt would prefer to sleep in later. States rarely takes a nap -- once done with work always something to be done at home. Pt does not believe she snores, but pt states light snoring heard during the night. Has gained about 100 pound over last 6 years. No dry mouth in the AM. When trying to fall asleep states she has a lot of stuff going on. 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 Recently had 3 family member pass away. States as soon as the lights go off, mind is running about what needs be done, family health... No discomfort at night. No RLS symptoms. Tried melatonin - noticed no changes in sleep but was taking about 2AM. States if tries to fall asleep before 2AM, will just lie there and play on her phone. Tired, but just does not shut down. States when she is awake will notice that she does not breathe. States sometimes will by lying there waiting to fall asleep and will take a large breath. No one in the family with sleep problems, but notes that has severe JOHN and will not use his PAP device. Currently working until midnight for about 1 night per week, but might increase to 3 or 4 nights per need. Sleep Questionnaire Data Depression Screening 12/06/2020 07/09/2021 11/21/2021 PHQ-2 Score 2 3 3 PHQ-9 Score 14 17 13 MIKAEL-2 Total Score 2 - - PED PHQ-9 12/06/2020 07/09/2021 11/21/2021 Little interest or pleasure in doing things Several days Several days Several days Feeling down, depressed, or hopeless Several days More than half the days More than half the days Trouble falling or staying asleep, or sleeping too much Nearly every day Nearly every day Nearly every day Feeling tired or having little energy Nearly every day Nearly every day Nearly every day Poor appetite or overeating Nearly every day Nearly every day Several days Feeling bad about yourself - or that you are a failure or have let yourself or your family down More than half the days Nearly every day More than half the days Trouble concentrating on things, such as reading the newspaper or watching television Several days Several days Several days Moving or speaking so slowly that other people could have noticed. Or the opposite - being so fidgety or restless that you have been moving around a lot more than usual Not at all Several days Not at all Thoughts that you would be better off , or of hurting yourself in some way Not at all Not at all Not at all If you checked off any problems, how difficult have these problems made it for you to do your work, take care of things at home, or get along with other people? Somewhat difficult Extremely difficult Very difficult PHQ-9 Score 14 (Moderate Depression) 17 (Moderately Severe Depression) 13 (Moderate Depression) [place] Sleepiness Scale 12/06/2020 07/09/2021 11/21/2021 Score - 7 (No daytime sleepiness) 10 (No daytime sleepiness) Insomnia Severity Index 12/06/2020 07/09/2021 11/21/2021 Score - 19 18 REVIEW OF SYSTEMS GENERAL:No weight loss, malaise or fevers. HEENT:Negative for frequent or significant headaches, No changes in hearing or vision, no nose bleeds or other nasal problems NECK:Negative for lumps, goiter, pain and significant neck swelling RESPIRATORY: Negative for cough, wheezing or shortness of breath. CARDIOVASCULAR: Negative for chest pain, leg swelling or palpitations. GASTROINTESTINAL: Negative for abdominal discomfort, blood in stools or black stools or change in bowel habits GENITOURINARY: No history of dysuria, frequency or incontinence MUSCULOSKELETAL: Chronic arthralgias. NEUROLOGIC:Negative for focal numbness or weakness, headaches and dizziness or syncope, vision changes, speech/language changes, changes in gait or falls -- besides those complaints as above in HPI. SKIN:Negative for lesions, rash, and itching. HEMATOLOGIC/LYMPHATIC/IMMUNOLOGIC:N egative for prolonged bleeding, bruising easily or swollen nodes. ENDOCRINE: Negative for cold or heat intolerance, polyuria, polydipsia and goiter. The remainder of the ROS was reviewed and is negative. PSYCH: Feels depressed because everyone is dying and is anxious as worries about future possible deaths . Previously treated with Zoloft, but pt felt no difference (no side effects). LAB/IMAGING: Reviewed and include: WBC (k/uL) Date Value 07/19/2021 9.01 RBC (m/uL) Date Value 07/19/2021 5.15 Hemoglobin (g/dL) Date Value 07/19/2021 13.7 Hematocrit (%) Date Value 11/03/2021 43.8 MCV (fL) Date Value 07/19/2021 82.1 MCH (pg) Date Value 07/19/2021 26.6 MCHC (g/dL) Date Value 07/19/2021 32.4 RDW-CV (%) Date Value 07/19/2021 13.9 Platelet Count (k/uL) Date Value 07/19/2021 219 MPV (fL) Date Value 07/19/2021 11.0 Glucose (mg/dL) Date Value 07/19/2021 86 BUN (mg/dL) Date Value 07/19/2021 12 Creatinine (mg/dL) Date Value 07/19/2021 0.75 Sodium (mmol/L) Date Value 07/19/2021 137 Potassium (mmol/L) Date Value 07/19/2021 4.1 Chloride (mmol/L) Date Value 07/19/2021 103 CO2 (mmol/L) Date Value 07/19/2021 27 Protein, Total (g/dL) Date Value 07/19/2021 6.6 Albumin (g/dL) Date Value 07/19/2021 3.8 (L) Calcium, Total (mg/dL) Date Value 07/19/2021 9.0 Alkaline Phosphatase (U/L) Date Value 07/19/2021 107 Bilirubin, Total (mg/dL) Date Value 07/19/2021 0.2 AST (U/L) Date Value 07/19/2021 12 (L) ALT (U/L) Date Value 07/19/2021 13 REAL (no units) Date Value 12/04/2018 Positive (A) Cryoglobulin Quant, Blood (ug/mL) Date Value 12/04/2018 29 Rheumatoid Factor (IU/mL) Date Value 12/04/2018 <10 Hep C Antibody IA (no units) Date Value 10/21/2021 Negative MEDICATIONS: Vitamin E, dl, acetate, (VITAMIN E) 200 unit capsule Take 200 Units by mouth once daily. estradiol (VIVELLE-DOT) 0.1 mg/24 hr Apply 2 patches to abdomen and change every 3 days progesterone (CPD) Insert 400 mg progesterone vaginally in AM and 400 mg progesterone vaginally in PM ubidecarenone (COQ-10 ORAL) Take 1 tablet by mouth. cholecalciferol, vitamin D3, (VITAMIN D3) 100 mcg (4,000 unit) cap omega-3s/dha/epa/algal oil (MEGARED ADVANCED OMEGA-3 ALGAE ORAL) vit calc,iron,folic ( VITAMIN ORAL) levothyroxine 75 mcg cap Take by mouth once daily. hydroxychloroquine (PLAQUENIL) 200 mg tablet Take 200 mg by mouth. fluticasone (FLONASE) 50 mcg/actuation nasal spray 1 [place]. bacteriostatic sodium chloride 0.9% 0.9 % injection To be used to mix microdose lupron dexAMETHasone (DECADRON) 0.5 mg tablet Take 1 tablet by mouth once daily. albuterol HFA (PROVENTIL HFA, VENTOLIN HFA) 90 mcg/actuation inhaler Inhale as instructed. pantoprazole DR (PROTONIX) 40 mg tablet Take 40 mg by mouth once daily. HISTORIES PAST MEDICAL HISTORY Diagnosis Date Allergies GERD (gastroesophageal reflux disease) Hypothyroidism (acquired) Irritable bowel syndrome (IBS) Migraines Trigeminal neuralgia Raynaud's syndrome FAMILY HISTORY Problem Relation Age of Onset Glaucoma Mother Cataract Mother COPD Mother Lung Cancer Mother other (polio) Father other (Chronic migraine) Maternal Uncle SOCIAL HISTORY Social History Tobacco Use Smoking status: Never Smoker Smokeless tobacco: Never Used Vaping Use Vaping Use: Never used Substance Use Topics Alcohol use: Yes Comment: rarely Drug use: Never PHYSICAL EXAMINATION BP 122/74 Pulse (!) 52 Temp 36.5 C (97.7 F) Resp 20 Wt 111.4 kg (245 lb 9.6 oz) LMP 11/02/2021 SpO2 99% BMI 44.92 kg/m GENERAL EXAM: General appearance: NAD, pleasant. HEENT: NC/AT, nasal congestion absent, no oral lesions, membranes moist. Morris IV. NECK: No masses, supple. Lungs: CTA bilaterally. CV: RRR nl S1, S2. No carotid bruits. Extr: No cyanosis, clubbing or edema. Skin: Cool to touch. NEUROLOGICAL EXAM: General: Awake, alert, oriented x3 (person,place,time), speech fluent, no dysarthria; comprehension, naming, repetition intact. CN: PERRL, fundi without papilledema, EOMI and without nystagmus, VFF to confrontation, facial sensation and strength are normal and symmetric, hearing is intact to finger rub bilaterally, palate and tongue movements are intact and symmetric. SCM and trapezius strength normal. Motor: Normal tone, bulk and strength (5/5) bilaterally (throughout extremities x4). Coordination: FNF, MORRIS, HTS intact. No tremors. Sensation: Light touch, vibration, intact throughout. No evidence of neglect. Gait: Stable with nml stride. Assessment and Plan: ASSESSMENT/PLAN: 1. Insomnia, unspecified type - ICD9: 780.52, ICD10: G47.00 (primary diagnosis) 2. 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 The patient endorses being a night owl and has as a result a chronic delayed circadian sleep wake pattern. In addition, the patient is working 2nd shift at times until midnight, further reinforcing the delay in the circadian cycle. Patient also is having racing thoughts at night that appear associated with family stressors as well as possible component of PTSD with the passing of her during the night time hours. Discussed above with patient, and treatment options. She is agreeable with sleep behavioral therapy (CBTi) which should help with all components of her insomnia. In addition, I would like the patient to start on Trazodone 50mg QHS but she is no Plaquenil and would like verification from PCP that she has no history of a prolonged QTc before starting the medication. In order to advance the circadian patter, patient will continue to wake no later than 9AM daily. However, I will have patient start taking melatonin 3mg at 9PM nightly (except on those nights working until midnight). D/w pt means of improving sleep hygiene including no electronics past 9PM. Pt agrees with plan. Also need to get clearance for medications from patient's Fertility specialists. Once med clearance provided, will inform pt. As for repeat PSG, will for now focus on insomnia, but once sleeping better, if complains of daytime sleepiness, will then move forwards with an in lab PSG. Prakash Arevalo MD I spent a total of 43 minutes on the date of the service which included preparing to see the patient, [id number] patient care, completing clinical documentation, obtaining and/or reviewing separately obtained history, performing a medically appropriate examination, counseling and educating the patient/family/caregiver, ordering medications, tests, or procedures, communicating with other HCPs (not separately reported), independently interpreting results (not separately reported) and communicating results to the patient/family/caregiver. documented in this encounter [facility] 11-18-2021 Miscellaneous Notes Returned patient call. No answer, brief VM left. [employer] message sent. Instructed pt. To get first Hcg level drawn on 12/07/21 as soon as she is back from her cruise. Jimena Puente RN November 18, 2021 10:55 AM Pt will be on a cruise 11/26-12/06 during the time of her blood work after her transfer. Pt wants to know if she can go before she leaves or when she gets back. Please follow up documented in this encounter [facility] 11-17-2021 Procedure note [facility] TRANSFER PROCEDURE NOTE Date: 11/17/2021 Primary Proceduralist: Wendy Escobar MD Spray I Painter(s): Not applicable Informed Consent: Consents and Labels Consent Signed: Informed Consent obtained and on the chart Labels Verified With Patient: Yes Indications: Sheree Bernard, is a 41 year old female here today for Embryo Transfer. [place] Protocol: UNIVERSAL PROTOCOL / SAFETY CHECKLIST Procedure to be Performed: embryo transfer Sign In: A Moment of CARE was completed. Personnel directly involved with the procedure wore the appropriate PPE (Personal Protective Equipment). Patient/Surrogate Stated/Verified: PATIENT VERIFIED(optional for EMERGENT procedures): Patient name, Date of , Relevant allergies and The intended procedure Time Out Communication: Intended patient and procedure match the source documents. Consent documented and matches the intended procedure. Sign Out: SIGN OUT (optional for EMERGENT procedures): No specimen collected. Wendy Escobar MD TRANSFER Transfer Date: 11/17/21 Transfer Procedure: Embryo Transfer Transfer Physician: Wendy Escobar M.D. Pre-Procedure Diagnosis: Infertility Post-Procedure Diagnosis: Infertility Source of embryos: Patient Fresh or Frozen Embryos?: Fresh Embryos # of Embryos Transferred: 2 Catheter Type: [place]ar Ease of Transfer: Easy Direction: Mid Distance from fundus (mm): 15 Tissue Status: For Autologous Use Only/ Not Evaluated for Infectious Substances Specimens: None I/primary surgeon/proceduralist performed the entire procedure. SIGNATURE: Wendy Escobar MD PATIENT NAME: Sheree Bernard DATE: November 17, 2021 TIME: 2:40 PM documented in this encounter [facility] 11-17-2021 Instructions Cyndy Chan RN - 11/17/2021 2:05 PM EDT POST EMBRYO TRANSFER INSTRUCTIONS You will need to have your blood drawn for Quantitative HCG on 12/06/2021 at [facility]. You can expect to be called the afternoon of your blood draw with your test results. If for any reason that date or location is changed, please call [phone] to inform us. Continue your current medications as instructed UNTIL YOU ARE 10 WEEKS or until a BLOOD test is confirmed negative. It is not uncommon to have breast tenderness, bloating, vaginal spotting ranging from pink to red to brown and generally feeling premenstrual while waiting to test. You can feel this way and still be - DO NOT STOP YOUR MEDICATIONS until testing is completed. Call the office if you develop: - Pain, redness and heat at your injection sites From the day of your transfer on, please treat yourself as if you are . Things to avoid: - Hot tubs/raising your core temperature - Chemical exposures - Drugs/medications that are not safe in - Processed lunch meat, unpasteurized cheeses - Smoking - Fish that are high in mercury Our recommendations on maintaining a healthy lifestyle during this time include: - Regular physical activity. Bed-rest is NOT recommended and will not increase your chance of - Daily vitamin or folic acid - Healthy diet - Adequate sleep - Sexual intimacy/intercourse/orgasm will not interfere with implantation. It is difficult to maintain the balance between optimism and realism. Remember you have done and are doing all that you can to improve your odds. Set reasonable expectations for yourselves. Keeping yourself busy and mentally distracted will help the time pass while waiting to test. If you have any questions, please call [phone]. documented in this encounter [facility] 11-17-2021 Miscellaneous Notes Patient called by lab to set up embryo transfer. Confirmed ET Sagrario Wilian Avila November 17, 2021 9:27 AM Patient called by lab to set up embryo transfer. Patient not feeling well, will talk to DR about whether to do ET. Sagrario L Austin November 16, 2021 9:17 AM Patient called by lab to give fertilization results. Patient had questions re fresh transfer D3 vs D5? Tatiana Howard November 15, 2021 10:07 AM documented in this encounter [facility] 11-16-2021 Miscellaneous Notes Called pt by listed phone number. Talked with Dr Johnson and relayed to pt. Pt instructed to continue transfer medication as previously instructed. Per Dr Johnson, best time for accupuncture day of transfer. If using OTC decongestant, use only safe medication after transfer until HCG level is back. Pt is scheduled for transfer tomorrow. Pt verbalizes understanding. Lizzette Cruz RN November 16, 2021 2:00 PM Pt returning Lizzette's call. Pt got call from embryology lab that they're going to do a day 3 transfer which would be tomorrow. Has more questions for Camilla including if she can take decongestant, if she should hold off on the patches since the transfer plan changed, acupuncture benefits before transfer, etc Called pt back by listed phone number. Pt states she has multiple questions for Dr Johnson. Questions about doing a fresh transfer with day 3 verses day 5 embryo. Also scheduled for an MRI with contrast this , if this is safe to keep. Another question about taking a decongestant this week. Will follow up with Dr Johnson tomorrow. Lizzette Cruz RN November 15, 2021 3:48 PM Pt wants to know if she can do a fresh transfer starting prog tonight documented in this encounter [facility] 11-14-2021 Procedure note [facility] RETRIEVAL PROCEDURE NOTE Patient Name: Sheree Bernard Log ID: [id number] Surgery/Procedure Date: 11/14/2021 Incisional/Procedure Start time: 10:19 AM Incisional/Procedure End time: 10:32 AM Primary Proceduralist: Juan Jose Meyer MD Spray I Painter(s): Not applicable Informed Consent: Consents and Labels Consent Signed: Informed Consent obtained and on the chart Labels Verified With Patient: Yes Indications: Sheree Bernard, is a 41 year old female here today for egg retrieval. RETRIEVAL Retrieval Date: 11/14/21 Retrieval Physician: Juan Jose Meyer M.D. Procedure: Follicle Punc, Retrieval of Oocyte ([id number]) Real-time ultrasound guidance was used in oocyte retrieval. Probe was removed upon completion of procedure: Yes Anesthesia: Fentanyl, Propofol Pre-op Diagnosis: Infertility Post-Op Diagnosis: Infertility Right Ovary Access: Yes, Difficult Right Ovary Oocytes: 1 Right Ovary Comments: Extremely mobile ovary, required manual pressure from above to keep ovary in place Left Ovary Access: Yes Left Ovary Oocytes: 2 Needle: Single Lumen Total Oocytes Retrieved: 3 Excess vaginal bleeding: No Estimated Blood Loss: Minimal Complications: None Specimens: Oocyte Patient recovering well with stable vital signs after tolerating the procedure well. No qualified resident/fellow was available. SIGNATURE: Juan Jose Meyer MD PATIENT NAME: Sheree Bernard DATE: November 14, 2021 TIME: 10:36 AM documented in this encounter [facility] Specimen Narrative MATERNAL MEDICINE - 11/14/2021 10:32 AM EDT Indication Retrieval Impression Follicles noted Recommendations Continue with retrieval Method Transvaginal ultrasound examination Performed By: Read By: Juan Jose Meyer M.D. MATERNAL MEDICINE [facility]07-23-2022 History of Present illness Narrative* Jimena Puente RN - 11/13/2021 1:50 PM EDT Hcg trigger drawn today. Results unavailable. Notified Dr. Decker that results are unavailable. Called patient to inquire and verify that she took Hcg trigger appropriately. Patient states she tookher Hcg trigger at exactly 10pm. Patient states she put 1ml of the diluent into the hcg powder thenwithdrew the entire amount from vial and injected it subcutaneously in her abdomen. Notifed Dr. Paulo lopez that patient took trigger correctly. Jimena Puente RN November 13, 2021 2:06 PM [facility] History of Present illness Narrative* Simone Quintana PA-C - 11/12/2021 11:24 AM EDT Orthopaedic Oncology New Patient Evaluation Chief Complaint: Mass Right lower leg Referring Physician: Self History of Present Illness: Sheree Bernard is a 41 year old year old female who presents for evaluation of the above chief complaint. This was Present for 3 months. She denies any injury. Saw PCP and was told she had a hematoma and apply heat to it. She has tried this but hasn't noticed a difference. She is now having pain in the right hip pain, knee pain and ankle pain. She denies any changes of the mass since she first noticed it. She feels that it is firm but non tender. She is currently going through infertility treatment and doing injections Review of Systems: PAIN ASSESSMENT: CURRENTLY HAVING PAIN; see HPI GENERAL: No weight loss, malaise or fevers HEENT: Negative for frequent or significant headaches, No changes in hearing or vision, no nose bleeds or other nasal problems NECK: Negative for lumps, goiter, pain and significant neck swelling RESPIRATORY: Negative for cough, hemoptysis, wheezing, COPD, dyspnea or shortness of breath CARDIOVASCULAR: Negative for chest pain, leg swelling, hypertension, CHF or palpitations GI: No nausea, vomiting, or diarrhea MUSCULOSKELETAL: See HPI SKIN: Negative for lesions, rash, and itching PSYCH: Negative for sleep disturbance, mood disorder and recent psychosocial stressors HEMATOLOGY/LYMPHOLOGY: Negative for prolonged bleeding, bruising easily or swollen nodes ENDOCRINE: + Raynauds. Negative for cold or heat intolerance, polyuria, polydipsia and goiter NEURO: No history of headaches, syncope, paralysis, seizures or tremors Going through IVF currently PAST MEDICAL HISTORY Diagnosis Date Allergies GERD (gastroesophageal reflux disease) Hypothyroidism (acquired) Irritable bowel syndrome (IBS) Migraines Trigeminal neuralgia Raynaud's syndrome PAST SURGICAL HISTORY Procedure Laterality Date EXCISION PILONIDAL CYST/SINUS SIMPLE 1999 TRANSCERVICAL CATHJ FALLOPIAN TUBE RS&I Bilateral reopened occluded bilateral fallopian tubes ALLERGIES Allergen Reactions Amphetamine Other: See Comments Benzoin Compound Other: See Comments Benzyl peroxide causes swelling and severe dryness Benzoyl Peroxide Swelling swelling Codeine Rash rash Diclofenac Sodium Hives Hydrocodone-Acetami* Rash Iodinated Contrast * Other: See Comments Norgestimate Other: See Comments Penicillins Hives Hives itching Phentermine Other: See Comments Prednisone Other: See Comments migraines Ranitidine Hives Hives itching Ranitidine Bismuth * Itching, Hives Tirosint [Levothyro* Mental Status Change, Other: See Comments Severe depression, chest pain Current Outpatient Medications on File Prior to Visit Medication Sig bacteriostatic sodium chloride 0.9% 0.9 % injection To be used to mix microdose lupron chorionic gonadotropin (PREGNYL) 10,000 unit solr Inject 10,000 units once for HCG Trigger. Mix vials as directed per nursing in office. Administer subcutaneous. Follitropin Beta (FOLLISTIM AQ) 900 unit/1.08 mL Inject 450 Units subcutaneously once daily. Insulin Syringe-Needle U-100 (INSULIN SYRINGE) 0.5 mL 29 gauge x 1/2 To be used to inject subcutaneous low dose HCG Syringe with Needle, Safety 5 mL 20 gauge x 1 1/2 syrg To be used to mix low dose HCG somatropin (OMNITROPE) 5.8 mg solr injection Inject 6 units daily for priming starting 1 month before IVF stimulation dexAMETHasone (DECADRON) 0.5 mg tablet Take 1 tablet by mouth once daily. albuterol HFA (PROVENTIL HFA, VENTOLIN HFA) 90 mcg/actuation inhaler Inhale as instructed. ubidecarenone (COQ-10 ORAL) Take [address] mouth[address]op[address] (PROTONIX) 40 mg tablet Take 40 mg by mouth once daily. cholecalciferol, vitamin D3, (VITAMIN D3) 100 mcg (4,000 unit) cap omega-3s/dha/epa/algal oil (MEGARED ADVANCED OMEGA-3 ALGAE ORAL) vit calc,iron,folic ( VITAMIN ORAL) levothyroxine 75 mcg cap Take by mouth once daily. hydroxychloroquine (PLAQUENIL) 200 mg tablet Take 200 mg by mouth. fluticasone (FLONASE) 50 mcg/actuation nasal spray 1 [place]. montelukast (SINGULAIR) 10 mg tablet Take 10 mg by mouth daily at bedtime. (Patient not taking: Reported on 07/09/2021 ) fluticasone-vilanterol (BREO ELLIPTA) 100-25 mcg/dose inhaler Inhale 1 Inhalation as instructed once daily. (Patient not taking: Reported on 07/09/2021 ) Current Facility-Administered Medications on File Prior to Visit Medication perflutren lipid microspheres 1.3 mL in NaCl (PF) 0.9% 10 mL injection (DEFINITY) sodium chloride 0.9 % (flush) 10 mL (BD POSIFLUSH) perflutren lipid microspheres 1.3 mL in NaCl (PF) 0.9% 10 mL injection (DEFINITY) sodium chloride 0.9 % (flush) 10 mL (BD POSIFLUSH) FAMILY HISTORY Problem Relation Age of Onset Glaucoma Mother Cataract Mother COPD Mother Lung Cancer Mother other (polio) Father other (Chronic migraine) Maternal Uncle Social History Tobacco Use Smoking status: Never Smoker Smokeless tobacco: Never Used Vaping Use Vaping Use: Never used Substance Use Topics Alcohol use: Yes Comment: rarely Drug use: Never Physical Examination: LMP 11/02/2021 General: alert, oriented, no acute distress Skin: no visible skin lesions HEENT: normocephalic, extraocular movements intact, mucous membranes moist/intact Neck: no cervical lymphadenopathy Cardiovascular: pulse regular, no lower extremity edema Pulmonary: normal respiratory effort and chest wall excursion Abdomen: soft, non-tender, non-distended RLE: 2 cm x 2.5 cm firm mass noted on the mid aspect of lower leg, anterior. Slightly mobile, non tender. No skin changes are noted. SILT Full ROM of the knee and ankle Mild medial joint line knee pain Results Reviewed: Radiographic evaluation: normal right tibia XR Impression: Soft tissue mass right anterior lower leg. Plan: - Recommend MRI with and without contrast to further assess mass. - Will contact her once results are completed to discuss results and management [facility] History of Present illness Narrative* Lizzette Cruz RN - 11/12/2021 10:07 AM EDT The patient is here today for follicular ultrasound and blood work. The patient reports no problemsor complaints. Ultrasound and blood will be reviewed by the physician, the flow sheet will be updated and instructions will be communicated to the patient. Pt did not stay for nursing. Lizzette Cruz RN Called pt by listed phone number. Reviewed HCG trigger instructions and sent by [employer]. Pt scheduled for post trigger labs for tomorrow at office. Reviewed retrieval instructions and sent by [employer]. Pt verbalizes understanding. Pt stating Dr Johnson said it was ok for her to have fresh transfer. Dr Pham stated we could plan for this. Fresh transfer meds ordered. With has a history of a rash reaction to prednisone, Dr Miguel said we can skip Medrol order. Pt has taken progesterone with prior IVF cycles with no issues. 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 Lizzette Cruz RN November 12, 2021 2:08 PM documented in this encounterMem[facility] History of Present illness Narrative* RT Godwin(R) - 11/12/2021 9:40 AM EDT Radiology Service Progress Note PATIENT NAME: Sheree Bernard DATE OF SERVICE: November 12, 2021 TIME: 10:48 AM PATIENT IDENTITY VERIFICATION COMPLETED USING TWO (2) IDENTIFIERS: Name and Date of confirmedby patient verbally. FALL SCREENING: Has the patient had 2 falls in the last year or 1 fall with injury or currently using an Ambulatory Assistive Device (Walker, Cane, Wheelchair, Crutches, etc.)? No PATIENT GENDER DATA: Female. status: : No status: NO. PATIENT RELEVANT IMPLANT DATA REVIEWED: Not Applicable RADIOLOGY DEPARTMENT: General X-ray: Exam(s) Completed: Lower Extremity X- Ray(s): Tibia Fibula, Right PERIPHERAL IV DATA: Not applicable SIGNED BY: RT Godwin(R) November 12, 2021 10:48 AM documented in this encounterMemorial [facility]07-19-2022 History of Present illness Narrative* Deepali Maxwell RN - 11/09/2021 1:39 PM EDT RN called patient, name and verified. Plan given for IVF cycle per physician, see flowsheet fordetails. MyChart message sent. Medications reviewed and verified, instructions given. Patient denies any questions or concerns. Message sent to scheduling pool for next appt. Deepali Maxwell RN November 09, 2021 1:39 PM documented in this encounterMemorial [facility]07-15-2022 Miscellaneous Notes* Telephone Encounter - Ayla Henry RN - 11/05/2021 10:11 AM EDT Patient called into the office, verified patient by name and . She is confirming to start zpack tomorrow with her FSH. She is taking it to mimic her stim at [facility]. Advised okay to start z pack tomorrow. Ayla Henry RN November 05, 2021 10:12 AM documented in this encounterMem[facility]07-11-2022 Miscellaneous Notes* Telephone Encounter - Carmelina Mccarty - 11/01/2021 10:00 AM EDT Returned patient call. Patient cancelled baseline today because her cycle is late and she is spotting. Rescheduled for 11/03 in [place] and updated s-drive. Patient inquiring if she can continue to swim in a pool throughout the IVF cycle. Advised patient it is safe to swim but not to do any diving or anything that will twist the ovaries. Flowsheet updated. Carmelina Mccarty November 01, 2021 10:08 AM Called patient back to make sure she had Lupron for microdose. Patient states she was waiting for Ron to call her for bacteriostatic sodium chloride. Looked at last nursing note and meds were pended to Ron but not signed. Called [facility] and needles available but bacteriostatic sodium chloride not available. Called [facility] and VO meds and needles that were pended on 10/27/21. Call Rx pended and sent to Lili Alcala NP to file. Called patient and advised her of the above. MC with [facility] info sent. Patient will apply and discuss shipping with Ron. Carmelina Mccarty November 01, 2021 10:34 AM * Telephone Encounter - Barby Hubert - 11/01/2021 8:23 AM EDT Patient has not started her period yet so she cancelled her baseline US for today. She wants to know when she should reschedule. She stated she is spotting right now, but its not heavy. documented in this encounterMem[facility]07-05-2022 Miscellaneous Notes* Telephone Encounter - Ayla Henry RN - 10/26/2021 2:20 PM EDT Called patient to number listed, verified pt. Checklist updated Have not received annual records, pt to call FLEET DIRECTOR office again Ayla Henry RN October 26, 2021 2:21 PM * Telephone Encounter - Perla Zelaya Ma - 10/26/2021 1:30 PM EDT Patient would like to know if you received her annual exam records for her clinical services director documented in this encounterMem[facility]06-29-2022 Miscellaneous Notes* Telephone Encounter - Ayla Henry RN - 10/20/2021 9:46 AM EDT Called patient to number listed, verified pt. Sheree would like her husbands STD's ordered as the package. Orders only encounter sent for labs to be signed. They will go get those today. Advised to let me know when done. She will fu with her FLEET DIRECTOR, we are waiting for records. All questions answered. IVF cycle approved. Has a call in to financial team - coverage starts 11/01 which should work for her period unless it comes early. All questions answered. Ayla Henry RN October 20, 2021 9:56 AM documented in this encounterMemorial [facility]06-28-2022 Miscellaneous Notes* Telephone Encounter - Ayla Henry RN - 10/19/2021 11:36 AM EDT Called patient to number listed, verified pt. Pt reports her FLEET DIRECTOR said her pap was done in 2019 and annual was in March. Explained that a 2020 pap is UTD and we would just need those results along with her OV notes. Verbalizes understanding. Ayla Henry RN October 19, 2021 11:39 AM documented in this encounterMemorial [facility]06-27-2022 Miscellaneous Notes* Telephone Encounter - Ayla Henry RN - 10/18/2021 2:36 PM EDT Called patient to number listed, verified pt. Reviewed plan per Dr. Johnson. Reviewed microdose protocol. All questions answered. Reviewed medications. She needs annual notes faxed to us, fax number given. Needs STD testing for her and partner. Orders pended. Ayla Henry RN October 18, 2021 3:06 PM documented in this encounterMemorial [facility]06-07-2022 Miscellaneous Notes* Telephone Encounter - Radha Murillo - 09/28/2021 3:56 PM EDT RY and spoke with patient. Let her know I prepared all of the information for her IVF PA and I will submit it tomorrow for dates starting in mid-October. She asked how long it lasted. Told her she willhave 90 days, PA is still good as long as she has her retrieval before the PA end date. * Telephone Encounter - Waleska Krause - 09/28/2021 3:16 PM EDT Pt needs prior auth taken care of. IVF cycle is mid October. Pt wants to be notified when everything is taken care of documented in this encounterMemorial [facility]05-12-2022 History of Present illness Narrative* Raj James - 09/02/2021 12:06 PM EDT Sleep Study Check-In Documentation Date: September 02, 2021 Name: Sheree Bernard Comments: HST was returned in working order with all sleep questionnaires Raj James * Raj James - 08/30/2021 1:37 PM EDT [facility]# [id number] , date shipped out 08/30 Tracking mailout: [id number] Tracking return: [id number] * Kalani Paredes Pss - 08/20/2021 8:14 AM EDT August 20, 2021 An order has been received for Home Sleep Apnea Test (HSAT) from Dr. Santiago Oakes MD, A. Sleep Center Staff/It Architecture Analyst Staff Orders. Visit prep complete - Please refer to the sleep study order (under procedures tab) for protocol details and special instructions. The sleep study is scheduled for 08/31. Insurance: Payor: [employer] / Plan: [facility] CHOICE PLUS / Product Type: HMO / Payor/Plan Subscr Sex Relation Sub. Ins. ID Effective Group Num 1. [facility]* SHEREE BERNARD 1980 Female Self [id number] 06/[birth year]/20 [id number] [id number] Kalani Paredes Pss documented in this encounterMemorial [facility]03-23-2022 Miscellaneous Notes* Telephone Encounter - Ayla Henry RN - 07/14/2021 2:35 PM EDT Spoke with Dr. Johnson. Pt okay to take supplements with the exceptions: No naltrexone DHEA 25mg - if she decides to take this will do DHEA-S level 2 weeks after starting. Omnitrope: he is okay starting early at 6 units a day or doing it with stimulation at 28 units. For her No R-Lipoic Acid No Ovasitol powder No Melatonin No serovital Called patient to number listed, verified pt. Reviewed supplements Pt would like to prime with omnitrope. DHEA-s level pended/ medications pended. Will confirm protocol Will confirm if Dr. Johnson looked into calcium ionophor for patient. Ayla Henry RN July 14, 2021 3:33 PM * Telephone Encounter - Ayla Henry RN - 07/09/2021 1:17 PM EDT Called patient to number listed, verified pt. Patient reports she was wating on Dr. Johnson to let them know what protocols to use for supplements, what their next IVF protocol will be, if they are going to use omnitrope longer than just for stimulation and calcium ionophor. She plans on taking supplements for about 3 months and then doing another IVF cycle. Pt sent information on previous cycles and current daily meds in message: Me- IVF #1 Thyroid med 60mcg once/day Zoloft 50mg once/day Plaquenil 100mg twice/day Low Dose Naltrexone 4.5mg once/day Vit C 500mg once/day Vit D 2000iu once/day Vit E 134mg once/day Vitamin once/day R-Lipoic Acid 240mg once/day Ovasitol powder 2000mg twice/day Osgood 3- 715mg once/day Ubiquinol 300mg once/day Melatonin 5mg once/day Dexamethasone .5mg once/day DHEA 25mg once/day Zpack 5 days before retrieval (priming) Omnitrope 6 units once/day (stim) Gonal-F 300iu once/day (stim) Menopur 150iu once/day (stim) Cetrotide 0.25mg once/day (trigger) Pregnyl 10,000 units once (trigger) Lupron 4mg once Me- IVF #2 Added SeroVital (priming) Omnitrope 6 units once/day- 1 month before (stim) Gonal-F 150iu once/day- intramuscular (stim) Menopur 450iu once/day- intramuscular (stim) Cetrotide 0.25mg once/day (trigger) Pregnyl 10,000 units once Huey- IVF #1 Fish oil 1000mg 3 times/day Vit D 2000iu once/day R-Lipoic Acid 240mg once/day Conception XR twice/day Ovasitol powder 2000mg twice/day Ubiquinol 300mg once/day Melatonin 5mg once/day Men's One-A-Day Multivitamin once/day Lisinopril 10mg once/day Huey- IVF #2 Added: SeroVital Misc: Switched to all-natural products No BPAs or phthalates Keto diet No exercise No alcohol Acupuncture twice/week for 3 mos. Results: IVF #1 Results: (ICSI) 9 follicles 5 eggs retrieved 3 eggs mature 0 fertilized IVF #2 Results: (PICSI) 7 follicles 4 eggs retrieved 2 eggs mature 0 fertilized Here is a list of our current daily meds, too. Thank you, Sheree Me: Levothyroxine Protonix Vitamin Vitamin D Plaquenil Flonase (as needed) Claritin (as needed) Albuterol (as needed) Breo inhaler (as needed) Zoloft (new prescription- will start soon) Huey: Vimpat (may be discontinuing before next cycle- sees neurologist soon to discuss) Aspirin (full dose) Zoloft Atorvastatin Losartan Amlodipine Lantis Humalog Multivitamin Advised patient this RN will follow up with Dr. Johnson on Monday when he is in the office and call her with a plan/ start of a plan Ayla Henry RN July 09, 2021 1:25 PM * Telephone Encounter - Claire Chowdary Pss - 07/07/2021 11:18 AM EDT Pt wants to discuss her supplement and medication protocol documented in this encounterMemorial [facility]03-08-2022 Consult note* Santiago Johnson MD - 06/29/2021 8:37 AM EST Date of Consult: 06/29/2021 Consultation Requested By: Self-refered Sheree Bernard is a 41 year old female presenting with the following history: HISTORY OF PRESENT ILLNESS: Sheree Bernard is a 41 year old female AMA Menstrual cycle regular: 29-30 PBM Failed: CC + IUI Failed: LET + IUI [facility] (has in house financing) Followed It Starts With the Egg 11/2019: Retrieved 5, Mature 3 Synthroid, Zoloft, Plaquenil, Naltrexone 4.5 mg, Vit C 500 mg, Vit D 2,000, Vit E 134 mg, Theralogics Core, R-lipoic Acid 240, Ovasitol 2,000 mg BID, Osgood 3, Ubiquinol 300, Melatonin 5 mg, Dexamethasone 0.5 mg Priming Omnitrope (free vial q21 days) 6 unit(s) X2 months prior to 1st G-f 300, Menopur 150, Lupron 4 mg, Pregnyl 10K Seravital, Omnitrope, G-f 150, Menopur 450 [id number]: Retrieved 4, Mature 2 Calcium ionophore: Marco Gallegos [facility] PCT: sperm Sperm DFI: 11% Karyotypes: Normal AMH: 0.94. AMH 0.8 HSG: Normal PMHx: GERD, IBS. Migraine headaches PSHx: Pilonidal cyst Meds: MVI Primary infertility Desire for future fertility Discussed IVF cycle planning Discussed pushing past a larger lead follicle in effort to recruit follicles from the smaller remaining cohort Discussed desire to use Menopur Discussed low, slow stimulation *Discussed last IVF cycle started weird copious cervical mucous like mid-cycle *Discussed not starting IVF stimulation unless menses definitive *Discussed sperm DFA concerns 40 year old male partner without proven fertility PMHx: Denies PSHx: Denies Meds: Lisinopril Fish oil 3,000 mg, Vit D 2,000. Lipoic acid, Conception XR, Ubiquinol, MVI, Keto diet SA: Abnormal Notations from previous visit: 41 year old female AMA Menstrual cycle regular: 29-30 PBM Failed: CC + IUI Failed: LET + IUI [facility] (has in house financing) Followed It Starts With the Egg 11/2019: Retrieved 5, Mature 3 Synthroid, Zoloft, Plaquenil, Naltrexone 4.5 mg, Vit C 500 mg, Vit D 2,000, Vit E 134 mg, Theralogics Core, R-lipoic Acid 240, Ovasitol 2,000 mg BID, Osgood 3, Ubiquinol 300, Melatonin 5 mg, Dexamethasone 0.5 mg Priming Omnitrope (free vial q21 days) 6 unit(s) X2 months prior to 1st G-f 300, Menopur 150, Lupron 4 mg, Pregnyl 10K Seravital, Omnitrope, G-f 150, Menopur 450 [id number]: Retrieved 4, Mature 2 Calcium ionophore: Macro Check [facility] PCT: sperm Sperm DFI: 11% Karyotypes: Normal AMH: 0.94. AMH 0.8 HSG: Normal PMHx: GERD, IBS. Migraine headaches PSHx: Pilonidal cyst Meds: MVI Primary infertility Desire for future fertility *Discussed IVF cycle planning *Discussed pushing past a larger lead follicle in effort to recruit follicles from the smaller remaining cohort *Discussed desire to use Menopur *Discussed low, slow stimulation 40 year old male partner without proven fertility PMHx: Denies PSHx: Denies Meds: Lisinopril Fish oil 3,000 mg, Vit D 2,000. Lipoic acid, Conception XR, Ubiquinol, MVI, Keto diet SA: Abnormal Notations from previous visit: 40 year old female AMA Menstrual cycle regular: 29-30 PBM Failed: CC + IUI Failed: LET + IUI [facility] (has in house financing) Followed It Starts With the Egg 11/2019: Retrieved 5, Mature 3 Synthroid, Zoloft, Plaquenil, Naltrexone 4.5 mg, Vit C 500 mg, Vit D 2,000, Vit E 134 mg, Theralogics Core, R-lipoic Acid 240, Ovasitol 2,000 mg BID, Osgood 3, Ubiquinol 300, Melatonin 5 mg, Dexamethasone 0.5 mg Priming Omnitrope (free vial q21 days) 6 unit(s) X2 months prior to 1st G-f 300, Menopur 150, Lupron 4 mg, Pregnyl 10K Seravital, Omnitrope, G-f 150, Menopur 450 [id number]: Retrieved 4, Mature 2 Calcium ionophore: Marco Check [facility] PCT: sperm Sperm DFI: 11% Karyotypes: Normal AMH: 0.94 HSG: Normal PMHx: PSHx: Meds: MVI Primary infertility Desire for future fertility 40 year old male partner without proven fertility PMHx: Denies PSHx: Denies Meds: Lisinopril Fish oil 3,000 mg, Vit D 2,000. Lipoic acid, Conception XR, Ubiquinol, MVI, Keto diet SA: Not completed to date Obstetric History T0 L0 SAB0 IAB0 Ectopic0 Multiple0 Live Births0 Fertility Evaluations and Treatments: Eval Checklist Results Date Comments HSG Normal Hysteroscopy Normal Laparoscopy Normal OPK (Ovulation Predictor Kit) Normal Ovarian Ferdinand Abnormal Saline Ultrasound Normal Semen Analysis Abnormal Ultrasound Normal Other (See comments) Not done MENSTRUAL HISTORY: Menarche Age: 15 Length of Cycle: Regular Days: Menstrual Flow: Moderate Menstrual Symptoms: Breast Tenderness,Bloating Patient's last menstrual period was 06/11/2021. PAST MEDICAL HISTORY Diagnosis Date Allergies GERD (gastroesophageal reflux disease) Hypothyroidism (acquired) Irritable bowel syndrome (IBS) Migraines Trigeminal neuralgia Raynaud's syndrome PAST SURGICAL HISTORY Procedure Laterality Date EXCISION PILONIDAL CYST/SINUS SIMPLE 1999 TRANSCERVICAL CATHJ FALLOPIAN TUBE RS&I Bilateral reopened occluded bilateral fallopian tubes FAMILY HISTORY Problem Relation Age of Onset Glaucoma Mother Cataract Mother COPD Mother Lung Cancer Mother other (polio) Father other (Chronic migraine) Maternal Uncle ETHNICITY: White GENETIC HISTORY: NA OCCUPATION/EXERCISE: Occupation: Exercise: Partner Information Partner's Name: Moisés Bernard Partner's : 02/06/1985 Partner's Partner's Ethnicity: NOT or Partner's Race: White MEDICATIONS: Current Outpatient Medications on File Prior to Visit Medication Sig ubidecarenone (COQ-10 ORAL) Take 1 tablet by mouth. pantoprazole DR (PROTONIX) 40 mg tablet Take 40 mg by mouth once daily. fluticasone-vilanterol (BREO ELLIPTA) 100-25 mcg/dose inhaler Inhale 1 Inhalation as instructed once daily. cholecalciferol, vitamin D3, (VITAMIN D3) 100 mcg (4,000 unit) cap omega-3s/dha/epa/algal oil (MEGARED ADVANCED OMEGA-3 ALGAE ORAL) vit calc,iron,folic ( VITAMIN ORAL) levothyroxine 75 mcg cap Take by mouth once daily. hydroxychloroquine (PLAQUENIL) 200 mg tablet Take 200 mg by mouth. fluticasone (FLONASE) 50 mcg/actuation nasal spray 1 [place]. montelukast (SINGULAIR) 10 mg tablet Take 10 mg by mouth daily at bedtime. Current Facility-Administered Medications on File Prior to Visit Medication perflutren lipid microspheres 1.3 mL in NaCl (PF) 0.9% 10 mL injection (DEFINITY) sodium chloride 0.9 % (flush) 10 mL (BD POSIFLUSH) perflutren lipid microspheres 1.3 mL in NaCl (PF) 0.9% 10 mL injection (DEFINITY) sodium chloride 0.9 % (flush) 10 mL (BD POSIFLUSH) ALLERGIES: Amphetamine, Benzoin Compound, Benzoyl Peroxide, Codeine, Diclofenac Sodium, Hydrocodone-Acetaminophen, Iodinated Contrast Media, Norgestimate, Penicillins, Phentermine, Prednisone, Ranitidine, Ranitidine Bismuth Citrate, and Tirosint [Levothyroxine] Blood Type: B Positive ASSESSMENT: 41 year old female AMA Menstrual cycle regular: 29-30 PBM Failed: CC + IUI Failed: LET + IUI [facility] (has in house financing) Followed It Starts With the Egg 11/2019: Retrieved 5, Mature 3 Synthroid, Zoloft, Plaquenil, Naltrexone 4.5 mg, Vit C 500 mg, Vit D 2,000, Vit E 134 mg, Theralogics Core, R-lipoic Acid 240, Ovasitol 2,000 mg BID, Osgood 3, Ubiquinol 300, Melatonin 5 mg, Dexamethasone 0.5 mg Priming Omnitrope (free vial q21 days) 6 unit(s) X2 months prior to 1st G-f 300, Menopur 150, Lupron 4 mg, Pregnyl 10K Seravital, Omnitrope, G-f 150, Menopur 450 [id number]: Retrieved 4, Mature 2 Calcium ionophore: Marco Gallegos [facility] PCT: sperm Sperm DFI: 11% Karyotypes: Normal AMH: 0.94. AMH 0.8 HSG: Normal PMHx: GERD, IBS. Migraine headaches PSHx: Pilonidal cyst Meds: MVI Desire for future fertility Discussed IVF cycle planning Discussed pushing past a larger lead follicle in effort to recruit follicles from the smaller remaining cohort Discussed desire to use Menopur Discussed low, slow stimulation Discussed last IVF cycle started weird copious cervical mucous like mid-cycle Discussed not starting IVF stimulation unless menses definitive Discussed sperm DFA concerns *Discussed *Discussed *Discussed 38 year old male partner without proven fertility PMHx: Denies PSHx: Denies Meds: Lisinopril Fish oil 3,000 mg, Vit D 2,000. Lipoic acid, Conception XR, Ubiquinol, MVI, Keto diet SA: Abnormal Notations from previous visit: 41 year old female AMA Menstrual cycle regular: 29-30 PBM Failed: CC + IUI Failed: LET + IUI [facility] (has [facility] house financing) Followed It Starts With the Egg 11/2019: Retrieved 5, Mature 3 Synthroid, Zoloft, Plaquenil, Naltrexone 4.5 mg, Vit C 500 mg, Vit D 2,000, Vit E 134 mg, Theralogics Core, R-lipoic Acid 240, Ovasitol 2,000 mg BID, Osgood 3, Ubiquinol 300, Melatonin 5 mg, Dexamethasone 0.5 mg Priming Omnitrope (free vial q21 days) 6 unit(s) X2 months prior to 1st G-f 300, Menopur 150, Lupron 4 mg, Pregnyl 10K Seravital, Omnitrope, G-f 150, Menopur 450 [id number]: Retrieved 4, Mature 2 Calcium ionophore: Marco Gallegos [facility] PCT: sperm Sperm DFI: 11% Karyotypes: Normal AMH: 0.94. AMH 0.8 HSG: Normal PMHx: GERD, IBS. Migraine headaches PSHx: Pilonidal cyst Meds: MVI Desire for future fertility Discussed IVF cycle planning Discussed pushing past a larger lead follicle in effort to recruit follicles from the smaller remaining cohort Discussed desire to use Menopur Discussed low, slow stimulation *Discussed last IVF cycle started weird copious cervical mucous like mid-cycle *Discussed not starting IVF stimulation unless menses definitive *Discussed sperm DFA concerns 38 year old male partner without proven fertility PMHx: Denies PSHx: Denies Meds: Lisinopril Fish oil 3,000 mg, Vit D 2,000. Lipoic acid, Conception XR, Ubiquinol, MVI, Keto diet SA: Abnormal Notations from previous visit: 41 year old female AMA Menstrual cycle regular: 29-30 PBM Failed: CC + IUI Failed: LET + IUI [facility] (has in house financing) Followed It Starts With the Egg 11/2019: Retrieved 5, Mature 3 Synthroid, Zoloft, Plaquenil, Naltrexone 4.5 mg, Vit C 500 mg, Vit D 2,000, Vit E 134 mg, Theralogics Core, R-lipoic Acid 240, Ovasitol 2,000 mg BID, Osgood 3, Ubiquinol 300, Melatonin 5 mg, Dexamethasone 0.5 mg Priming Omnitrope (free vial q21 days) 6 unit(s) X2 months prior to 1st G-f 300, Menopur 150, Lupron 4 mg, Pregnyl 10K Seravital, Omnitrope, G-f 150, Menopur 450 [id number]: Retrieved 4, Mature 2 [facility] Sperm DFI: 11% Karyotypes: Normal AMH: 0.94. AMH 0.8 HSG: Normal PMHx: GERD, IBS. Migraine headaches PSHx: Pilonidal cyst Meds: MVI Primary infertility Desire for future fertility *Discussed IVF cycle planning *Discussed pushing past a larger lead follicle in effort to recruit follicles from the smaller remaining cohort *Discussed desire to use Menopur *Discussed low, slow stimulation 38 year old male partner without proven fertility PMHx: Denies PSHx: Denies Meds: Lisinopril Fish oil 3,000 mg, Vit D 2,000. Lipoic acid, Conception XR, Ubiquinol, MVI, Keto diet SA: Abnormal Notations from previous visit: 40 year old female AMA Menstrual cycle regular: 29-30 PBM Failed: CC + IUI Failed: LET + IUI [facility] (has [facility] house financing) Followed It Starts With the Egg 11/2019: Retrieved 5, Mature 3 Synthroid, Zoloft, Plaquenil, Naltrexone 4.5 mg, Vit C 500 mg, Vit D 2,000, Vit E 134 mg, Theralogics Core, R-lipoic Acid 240, Ovasitol 2,000 mg BID, Osgood 3, Ubiquinol 300, Melatonin 5 mg, Dexamethasone 0.5 mg Priming Omnitrope (free vial q21 days) 6 unit(s) X2 months prior to 1st G-f 300, Menopur 150, Lupron 4 mg, Pregnyl 10K Seravital, Omnitrope, G-f 150, Menopur 450 [id number]: Retrieved 4, Mature 2 Calcium ionophore: [facility] PCT: sperm Sperm DFI: 11% Karyotypes: Normal AMH: 0.94 HSG: Normal PMHx: PSHx: Meds: MVI Primary infertility Desire for future fertility 40 year old male partner without proven fertility PMHx: Denies PSHx: Denies Meds: Lisinopril Fish oil 3,000 mg, Vit D 2,000. Lipoic acid, Conception XR, Ubiquinol, MVI, Keto diet SA: Not completed to date PLAN: IVF cycle planning: STI/FDA infectious disease screening tests SIS of office hysteroscopy Salma C: Discuss medical insurance benefits and likely [id number] costs of IVF. IVF nurse coordinator: Schedule IVF nurse teaching. Order meds. Prepare IVF cycle schedule/flowsheet. Sign consents. Dr Johnson: Review lab test results. Determine IVF stimulation protocol and medications dosage. Consultation with couple prior to IVF start if questions, abnormal lab test values or other concerns arise. Notations from previous visit: IVF cycle planning: No OCP Antagonist. G-f 100. Menopur 75. Consider Omnitrope HCG trigger only STI/FDA infectious disease screening tests Office hysteroscopy or SIS prior to FET Salma C: Discuss medical insurance benefits and likely [id number] costs of IVF. IVF nurse coordinator: Schedule IVF nurse teaching. Order meds. Prepare IVF cycle schedule/flowsheet. Sign consents. Dr Johnson: Review lab test results. Confirm IVF stimulation protocol and medications dosage. Consultation with couple prior to IVF start if questions, abnormal lab test values or other concerns arise. Notations from previous visit: Fasting insulin IVF cycle planning: Antagonist. G-f 300. LD hCG 200. Consider [employer] Wants to discuss calcium ionophore in culture media STI/FDA infectious disease screening tests Office hysteroscopy Salma C: Discuss medical insurance benefits and likely [id number] costs of IVF. IVF nurse coordinator: Schedule IVF nurse teaching. Order meds. Prepare IVF cycle schedule/flowsheet. Sign consents. Dr Johnson: Review lab test results. Determine IVF stimulation protocol and medications dosage. Consultation with couple prior to IVF start if questions, abnormal lab test values or other concerns arise. I spent a total of 29 minutes on the date of the service which included preparing to see the patient, [id number] patient care, completing clinical documentation, obtaining and/or reviewing separately obtained history, counseling and educating the patient/family/caregiver, ordering medications, melani ts, or procedures, communicating with other HCPs (not separately reported), independently interpreting results (not separately reported) and communicating results to the patient/family/caregiver. Santiago Johnson MD June 29, 2021 8:37 AM [facility] History of Present illness Narrative* Santiago Johnson MD - 06/29/2021 8:22 AM EST . [facility] Hospital Discharge instructions Patient Education 04/23/2021 08:03:03 COVID-19 Prevent the Spread of COVID-19 If You Are Sick (09/10/2019)(CUSTOM) Prevent the Spread of COVID-19 If You Are Sick Accessible version: https://www.cdc.gov/coronavirus/2019-ncov/eg-hfq-oic-sick/vujph-qspy-agtr.html If you are sick with COVID-19 or think you might have COVID-19, follow the steps below to help protect other people in your home and community. Stay home except to get medical care. Stay home. Most people with COVID-19 have mild illness and are able to recover at home without medical care. Do not leave your home, except to get medical care. Do not visit public areas. Take care of yourself. Get rest and stay hydrated. Get medical care when needed. Call your doctor before you go to their office for care. But, if you have trouble breathing or other concerning symptoms, call 911 for immediate help. Avoid public transportation, ride-sharing, or taxis. Separate yourself from other people and pets in your home. As much as possible, stay in a specific room and away from other people and pets in your home. Also, you should use a separate bathroom, if available. If you need to be around other people or animalsin or outside of the home, wear a cloth face covering. See COVID-19 and Animals if you have questions about pets: https://www.cdc.gov/coronavirus/2019ncov/faq.html#NJHXI32xjbkuta Monitor your symptoms. Common symptoms of COVID-19 include fever and cough. Trouble breathing is a more serious symptom that means you should get medical attention. Follow care instructions from your healthcare provider and local health department. Your local health authorities will give instructions on checking your symptoms and reporting information. If you develop emergency warning signs for COVID-19 get medical attention immediately. Emergency warning signs include*: Trouble breathing Persistent pain or pressure in the chest New confusion or not able to be woken Bluish lips or face *This list is not all inclusive. Please consult your medical provider for any other symptoms that are severe or concerning to you. Call 911 if you have a medical emergency. If you have a medical emergency and need to call 911, notify the caterpillar tractor operator that you have or think you might have, COVID-19. If possible, put on a facemask before medical help arrives Call ahead before visiting your doctor. Call ahead. Many medical visits for routine care are being postponed or done by phone or telemedicine. If you have a medical appointment that cannot be postponed, call your doctor s office. This will help the office protect themselves and other patients. If you are sick, wear a cloth covering over your nose and mouth. You should wear a cloth face covering over your nose and mouth if you must be around other people or animals, including pets (even at home). You don t need to wear the cloth face covering if you are alone. If you can t put on a cloth face covering (because of trouble breathing for example), cover your coughs and sneezes in some other way.Try to stay at least 6 feet away from other people. This will help protect the people around you. Note: During the COVID-19 pandemic, medical grade facemasks are reserved for healthcare workers andsome first responders. You may need to make a cloth face covering using a scarf or bandana. Cover your coughs and sneezes. Cover your mouth and nose with a tissue when you cough or sneeze. Throw used tissues in a lined trash can. Immediately wash your hands with soap and water for at least 20 seconds. If soap and water are not available, clean your hands with an alcohol-based hand hide splitter that contains at least 60% alcohol. Clean your hands often. Wash your hands often with soap and water for at least 20 seconds. This is especially important after blowing your nose, coughing, or sneezing; going to the bathroom; and before eating or preparing food. Use hand hide splitter if soap and water are not available. Use an alcohol-based hand hide splitter with atleast 60% alcohol, covering all surfaces of your hands and rubbing them together until they feel dry. Soap and water are the best option, especially if your hands are visibly dirty. \ Avoid touching your eyes, nose, and mouth with unwashed hands. Avoid sharing personal household items. Do not share dishes, drinking glasses, cups, eating utensils, towels, or bedding with other people in your home. Wash these items thoroughly after using them with soap and water or put them in the cable testers helper. Clean all high-touch surfaces everyday. Clean and disinfect high-touch surfaces in your sick room and bathroom. Let someone else clean and disinfect surfaces in common areas, but not your bedroom and bathroom. If a caregiver or other person needs to clean and disinfect a sick person s bedroom or bathroom, they should do so on an as-needed basis. The caregiver/other person should wear a mask and wait as long as possible after the sick person has used the bathroom High-touch surfaces include phones, remote controls, counters, tabletops, doorknobs, bathroom fixtures, toilets, keyboards, tablets, and bedside tables. Clean and disinfect areas that may have blood, stool, or body fluids on them. Use household pickers material handlers and disinfectants. Clean the area or item with soap and water or another detergent if it is dirty. Then use a household disinfectant. Be sure to follow the instructions on the label to ensure safe and effective use of the product. Many products recommend keeping the surface wet for several minutes to ensure germs are killed. Many also recommend precautions such as wearing gloves and making sure you have good ventilation during use of the product. Most EPA-registered household disinfectants should be effective. How to discontinue home isolation. People with COVID-19 who have stayed home (home isolated) can stop home isolation under the following conditions: If you will not have a test to determine if you are still contagious, you can leave home after these three things have happened: You have had no fever for at least 72 hours (that is three full days of no fever without the use ofmedicine that reduces fevers) AND other symptoms have improved (for example, when your cough or shortness of breath has improved) AND at least 10 days have passed since your symptoms first appeared. If you will be tested to determine if you are still contagious, you can leave home after these three things have happened: You no longer have a fever (without the use of medicine that reduces fevers) AND other symptoms have improved (for example, when your cough or shortness of breath has improved) AND you received two negative tests in a row, 24 hours apart. Your doctor will follow CDC guidelines. In all cases, follow the guidance of your healthcare provider and local health department. The decision to stop home isolation should be made in consultation with your healthcare provider and [facility] and local health departments. Local decisions depend on local circumstances. cdc.gov/coronavirus Follow Up Care 04/22/2021 16:18:06 With:RAYNA QUINTANILLA MD Address: [facility] [address] [place] [address]- When:2-4 days [facility] 12-26-2021 Hospital Discharge instructions Patient Education 04/18/2021 01:56:16 Back Care Tips Back Care Tips Caring for your back These are things you can do to prevent a recurrence of acute back pain and to reduce symptoms from chronic back pain: Maintain a healthy weight. If you are overweight, losing weight will help most types of back pain. Exercise is an important part of recovery from most types of back pain. The muscles behind and in front of the spine support the back. This means strengthening both the back muscles and the abdominalmuscles will provide better support for your spine. Swimming and brisk walking are good overall exercises to improve your fitness level. Practice safe lifting methods (below). Practice good posture when sitting, standing and walking. Avoid prolonged sitting. This puts more stress on the lower back than standing or walking. Wear quality shoes with sufficient arch support. Foot and ankle alignment can affect back symptoms.Women should avoid wearing high heels. Therapeutic massage can help relax the back muscles without stretching them. During the first 24 to 72 hours after an acute injury or flare-up of chronic back pain, apply an ice pack to the painful area for 20 minutes and then remove it for 20 minutes, over a period of 60 to 90 minutes, or several times a day. As a safety precaution, do not use a heating pad at bedtime. Sleeping on a heating pad can lead to skin keene or tissue damage. You can alternate ice and heat therapies. Medicines Talk to your healthcare provider before using medicines, especially if you have other medical problems or are taking other medicines. You may use acetaminophen or ibuprofen to control pain, unless your healthcare provider prescribed other pain medicine. If you have chronic conditions like diabetes, liver or kidney disease, stomach ulcers, or gastrointestinal bleeding, or are taking blood thinners, talk with your healthcare provider before taking any medicines. Be careful if you are given prescription pain medicines, narcotics, or medicine for muscle spasm. They can cause drowsiness, affect your coordination, reflexes, and judgment. Do not drive or operate heavy machinery while taking these types of medicines. Take prescription pain medicine only as prescribed by your healthcare provider. Lumbar stretch Here is a simple stretching exercise that will help relax muscle spasm and keep your back more limber. If exercise makes your back pain worse, don t do it. Lie on your back with your knees bent and both feet on the ground. Slowly raise your left knee to your chest as you flatten your lower back against the floor. Hold for 5 seconds. Relax and repeat the exercise with your right knee. Do 10 of these exercises for each leg. Safe lifting method Don t bend over at the waist to lift an object off the floor. Instead, bend your knees and hips in a squat. Keep your back and head upright Hold the object close to your body, directly in front of you. Straighten your legs to lift the object. Lower the object to the floor in the reverse fashion. If you must slide something across the floor, push it. Posture tips Sitting Sit in chairs with straight backs or low-back support. Keep your knees lower than your hips, with your feet flat on the floor. When driving, sit up straight. Adjust the seat forward so you are not leaning toward the steering wheel. A small pillow or rolled towel behind your lower back may help if you are driving long distances. Standing When standing for long periods, shift most of your weight to one leg at a time. Alternate legs every few minutes. Sleeping The best way to sleep is on your side with your knees bent. Put a low pillow under your head to support your neck in a neutral spine position. Avoid thick pillows that bend your neck to one side. Puta pillow between your legs to further relax your lower back. If you sleep on your back, put pillowsunder your knees to support your legs in a slightly flexed position. Use a firm mattress. If your mattress sags, replace it, or use a 1/2-inch plywood board under the mattress to add support. Follow-up care Follow up with your healthcare provider, or as advised. If X-rays, a CT scan or an MRI scan were taken, they will be reviewed by a radiologist. You will benotified of any new findings that may affect your care. Call 911 Call 911 if any of the following occur: Trouble breathing Confusion Very drowsy Fainting or loss of consciousness Rapid or very slow heart rate Loss of bowel or bladder control When to seek medical advice Call your healthcare provider right away if any of the following occur: Pain becomes worse or spreads to your arms or legs Weakness or numbness in one or both arms or legs Numbness in the groin area [id number] [employer]. [address] [place] [address]. All rights reserved. This information is not intended as a substitute for professional medical care. Always follow yourhealthcare professional's instructions. 04/18/2021 01:08:14 COVID-19 Prevent the Spread of COVID-19 If You Are Sick (09/10/2019) (CUSTOM) Prevent the Spread of COVID-19 If You Are Sick Accessible version: https://www.cdc.gov/coronavirus/2019-ncov/cb-ecn-nsg-sick/ebink-wjun-uthr.html If you are sick with COVID-19 or think you might have COVID-19, follow the steps below to help protect other people in your home and community. Stay home except to get medical care. Stay home. Most people with COVID-19 have mild illness and are able to recover at home without medical care. Do not leave your home, except to get medical care. Do not visit public areas. Take care of yourself. Get rest and stay hydrated. Get medical care when needed. Call your doctor before you go to their office for care. But, if you have trouble breathing or other concerning symptoms, call 911 for immediate help. Avoid public transportation, ride-sharing, or taxis. Separate yourself from other people and pets in your home. As much as possible, stay in a specific room and away from other people and pets in your home. Also, you should use a separate bathroom, if available. If you need to be around other people or animalsin or outside of the home, wear a cloth face covering. See COVID-19 and Animals if you have questions about pets: https://www.cdc.gov/coronavirus/2019ncov/faq.html#JGAYM19jqvihcm Monitor your symptoms. Common symptoms of COVID-19 include fever and cough. Trouble breathing is a more serious symptom that means you should get medical attention. Follow care instructions from your healthcare provider and local health department. Your local health authorities will give instructions on checking your symptoms and reporting information. If you develop emergency warning signs for COVID-19 get medical attention immediately. Emergency warning signs include*: Trouble breathing Persistent pain or pressure in the chest New confusion or not able to be woken Bluish lips or face *This list is not all inclusive. Please consult your medical provider for any other symptoms that are severe or concerning to you. Call 911 if you have a medical emergency. If you have a medical emergency and need to call 911, notify the caterpillar tractor operator that you have or think you might have, COVID-19. If possible, put on a facemask before medical help arrives Call ahead before visiting your doctor. Call ahead. Many medical visits for routine care are being postponed or done by phone or telemedicine. If you have a medical appointment that cannot be postponed, call your doctor s office. This will help the office protect themselves and other patients. If you are sick, wear a cloth covering over your nose and mouth. You should wear a cloth face covering over your nose and mouth if you must be around other people or animals, including pets (even at home). You don t need to wear the cloth face covering if you are alone. If you can t put on a cloth face covering (because of trouble breathing for example), cover your coughs and sneezes in some other way.Try to stay at least 6 feet away from other people. This will help protect the people around you. Note: During the COVID-19 pandemic, medical grade facemasks are reserved for healthcare workers andsome first responders. You may need to make a cloth face covering using a scarf or bandana. Cover your coughs and sneezes. Cover your mouth and nose with a tissue when you cough or sneeze. Throw used tissues in a lined trash can. Immediately wash your hands with soap and water for at least 20 seconds. If soap and water are not available, clean your hands with an alcohol-based hand hide splitter that contains at least 60% alcohol. Clean your hands often. Wash your hands often with soap and water for at least 20 seconds. This is especially important after blowing your nose, coughing, or sneezing; going to the bathroom; and before eating or preparing food. Use hand hide splitter if soap and water are not available. Use an alcohol-based hand hide splitter with atleast 60% alcohol, covering all surfaces of your hands and rubbing them together until they feel dry. Soap and water are the best option, especially if your hands are visibly dirty. \ Avoid touching your eyes, nose, and mouth with unwashed hands. Avoid sharing personal household items. Do not share dishes, drinking glasses, cups, eating utensils, towels, or bedding with other people in your home. Wash these items thoroughly after using them with soap and water or put them in the cable testers helper. Clean all high-touch surfaces everyday. Clean and disinfect high-touch surfaces in your sick room and bathroom. Let someone else clean and disinfect surfaces in common areas, but not your bedroom and bathroom. If a caregiver or other person needs to clean and disinfect a sick person s bedroom or bathroom, they should do so on an as-needed basis. The caregiver/other person should wear a mask and wait as long as possible after the sick person has used the bathroom High-touch surfaces include phones, remote controls, counters, tabletops, doorknobs, bathroom fixtures, toilets, keyboards, tablets, and bedside tables. Clean and disinfect areas that may have blood, stool, or body fluids on them. Use household pickers material handlers and disinfectants. Clean the area or item with soap and water or another detergent if it is dirty. Then use a household disinfectant. Be sure to follow the instructions on the label to ensure safe and effective use of the product. Many products recommend keeping the surface wet for several minutes to ensure germs are killed. Many also recommend precautions such as wearing gloves and making sure you have good ventilation during use of the product. Most EPA-registered household disinfectants should be effective. How to discontinue home isolation. People with COVID-19 who have stayed home (home isolated) can stop home isolation under the following conditions: If you will not have a test to determine if you are still contagious, you can leave home after these three things have happened: You have had no fever for at least 72 hours (that is three full days of no fever without the use ofmedicine that reduces fevers) AND other symptoms have improved (for example, when your cough or shortness of breath has improved) AND at least 10 days have passed since your symptoms first appeared. If you will be tested to determine if you are still contagious, you can leave home after these three things have happened: You no longer have a fever (without the use of medicine that reduces fevers) AND other symptoms have improved (for example, when your cough or shortness of breath has improved) AND you received two negative tests in a row, 24 hours apart. Your doctor will follow CDC guidelines. In all cases, follow the guidance of your healthcare provider and local health department. The decision to stop home isolation should be made in consultation with your healthcare provider and state and local health departments. Local decisions depend on local circumstances. cdc.gov/coronavirus Follow Up Care 04/18/2021 00:50:54 With:RAYNA QUINTANILLA MD Address: [facility] [address] [place] [address]- When:2-4 days [facility] 01-20-2020 History of Past illness Narrative* Problem Noted Date Resolved Date Chiari I malformation 05/13/2019 12/09/2020 documented as of this encounter (statuses as of 07/22/2021) [facility] of Past illness Narrative* Problem Noted Date Resolved Date Chiari I malformation 05/13/2019 12/09/2020 documented as of this encounter (statuses as of 08/23/2021) [place] [id number] History of Past illness Narrative* Problem Noted Date Resolved Date Chiari I malformation 05/13/2019 12/09/2020 documented as of this encounter (statuses as of 09/02/2021) [place] [address] History of Past illness Narrative* Problem Noted Date Resolved Date Chiari I malformation 05/13/2019 12/09/2020 documented as of this encounter (statuses as of 09/29/2021) [place] [address] History of Past illness Narrative* Problem Noted Date Resolved Date Chiari I malformation 05/13/2019 12/09/2020 documented as of this encounter (statuses as of 10/18/2021) [place] [address] History of Past illness Narrative* Problem Noted Date Resolved Date Chiari I malformation 05/13/2019 12/09/2020 documented as of this encounter (statuses as of 10/19/2021) [place] [address] History of Past illness Narrative* Problem Noted Date Resolved Date Chiari I malformation 05/13/2019 12/09/2020 documented as of this encounter (statuses as of 10/20/2021) [place] [address] History of Past illness Narrative* Problem Noted Date Resolved Date Chiari I malformation 05/13/2019 12/09/2020 documented as of this encounter (statuses as of 10/26/2021) [place] [address] History of Past illness Narrative* Problem Noted Date Resolved Date Chiari I malformation 05/13/2019 12/09/2020 documented as of this encounter (statuses as of 10/29/2021) [place] [address] History of Past illness Narrative* Problem Noted Date Resolved Date Chiari I malformation 05/13/2019 12/09/2020 documented as of this encounter (statuses as of 11/01/2021) [place] [address] History of Past illness Narrative* Problem Noted Date Resolved Date Chiari I malformation 05/13/2019 12/09/2020 documented as of this encounter (statuses as of 11/05/2021) [place] [address] History of Past illness Narrative* Problem Noted Date Resolved Date Chiari I malformation 05/13/2019 12/09/2020 documented as of this encounter (statuses as of 11/12/2021) [address]20-[address] History of Past illness Narrative* Problem Noted Date Resolved Date Chiari I malformation 05/13/2019 12/09/2020 documented as of this encounter (statuses as of 11/12/2021) [address] History of Past illness Narrative* Problem Noted Date Resolved Date Chiari I malformation 05/13/2019 12/09/2020 documented as of this encounter (statuses as of 11/12/2021) [address] History of Past illness Narrative* Problem Noted Date Resolved Date Chiari I malformation 05/13/2019 12/09/2020 documented as of this encounter (statuses as of 11/13/2021) [address] History of Past illness Narrative* Problem Noted Date Resolved Date Chiari I malformation 05/13/2019 12/09/2020 documented as of this encounter (statuses as of 11/13/2021) [address] History of Past illness Narrative* Problem Noted Date Resolved Date Chiari I malformation 05/13/2019 12/09/2020 documented as of this encounter (statuses as of 11/14/2021) [address]-2020 History of Past illness Narrative* Problem Noted Date Resolved Date Chiari I malformation 05/13/2019 12/09/2020 documented as of this encounter (statuses as of 11/16/2021) [address]-2020 History of Past illness Narrative* Problem Noted Date Resolved Date Chiari I malformation 05/13/2019 12/09/2020 documented as of this encounter (statuses as of 11/17/2021) [address]-2020 History of Past illness Narrative* Problem Noted Date Resolved Date Chiari I malformation 05/13/2019 12/09/2020 documented as of this encounter (statuses as of 11/17/2021) [address]-2020 History of Past illness Narrative* Problem Noted Date Resolved Date Chiari I malformation 05/13/2019 12/09/2020 documented as of this encounter (statuses as of 11/18/2021) [place] [id number] History of Past illness Narrative* Problem Noted Date Resolved Date Chiari I malformation 05/13/2019 12/09/2020 documented as of this encounter (statuses as of 11/22/2021) [address]-2020 History of Past illness Narrative* Problem Noted Date Resolved Date Chiari I malformation 05/13/2019 12/09/2020 documented as of this encounter (statuses as of 11/22/2021) [address]-2020 History of Past illness Narrative* Problem Noted Date Resolved Date Chiari I malformation 05/13/2019 12/09/2020 documented as of this encounter (statuses as of 12/01/2021) [address] History of Past illness Narrative* Problem Noted Date Resolved Date Chiari I malformation 05/13/2019 12/09/2020 documented as of this encounter (statuses as of 12/22/2021) [address]-2020 History of Past illness Narrative* Problem Noted Date Resolved Date Chiari I malformation 05/13/2019 12/09/2020 documented as of this encounter (statuses as of 12/24/2021) [address] History of Past illness Narrative* Problem Noted Date Resolved Date Chiari I malformation 05/13/2019 12/09/2020 documented as of this encounter (statuses as of 12/29/2021) [place] [address] History of Past illness Narrative* Problem Noted Date Resolved Date Chiari I malformation 05/13/2019 12/09/2020 documented as of this encounter (statuses as of 12/29/2021) [place] [address] History of Past illness Narrative* Problem Noted Date Resolved Date Chiari I malformation 05/13/2019 12/09/2020 documented as of this encounter (statuses as of 12/31/2021) [place] [address] History of Past illness Narrative* Problem Noted Date Resolved Date Chiari I malformation 05/13/2019 12/09/2020 documented as of this encounter (statuses as of 01/10/2022) [address] History of Past illness Narrative* Problem Noted Date Resolved Date Chiari I malformation 05/13/2019 12/09/2020 documented as of this encounter (statuses as of 02/08/2022) [place] [address] History of Past illness Narrative* Problem Noted Date Resolved Date Chiari I malformation 05/13/2019 12/09/2020 documented as of this encounter (statuses as of 02/09/2022) [place] [address] History of Past illness Narrative* Problem Noted Date Resolved Date Chiari I malformation 05/13/2019 12/09/2020 documented as of this encounter (statuses as of 02/09/2022) [place] [address] History of Past illness Narrative* Problem Noted Date Resolved Date Chiari I malformation 05/13/2019 12/09/2020 documented as of this encounter (statuses as of 02/10/2022) [place] [address] History of Past illness Narrative* Problem Noted Date Resolved Date Chiari I malformation 05/13/2019 12/09/2020 documented as of this encounter (statuses as of 02/16/2022) [place] [address] History of Past illness Narrative* Problem Noted Date Resolved Date Chiari I malformation 05/13/2019 12/09/2020 documented as of this encounter (statuses as of 02/19/2022) [place] [address] History of Past illness Narrative* Problem Noted Date Resolved Date Chiari I malformation 05/13/2019 12/09/2020 documented as of this encounter (statuses as of 02/20/2022) [place] [address] History of Past illness Narrative* Problem Noted Date Resolved Date Chiari I malformation 05/13/2019 12/09/2020 documented as of this encounter (statuses as of 02/21/2022) [place] [address] History of Past illness Narrative* Problem Noted Date Resolved Date Chiari I malformation 05/13/2019 12/09/2020 documented as of this encounter (statuses as of 02/22/2022) [place] [address] History of Past illness Narrative* Problem Noted Date Resolved Date Chiari I malformation 05/13/2019 12/09/2020 documented as of this encounter (statuses as of 02/23/2022) [place] [address] History of Past illness Narrative* Problem Noted Date Resolved Date Chiari I malformation 05/13/2019 12/09/2020 documented as of this encounter (statuses as of 02/24/2022) [place] [address] History of Past illness Narrative* Problem Noted Date Resolved Date Chiari I malformation 05/13/2019 12/09/2020 documented as of this encounter (statuses as of 03/03/2022) [place] [address] History of Past illness Narrative* Problem Noted Date Resolved Date Chiari I malformation 05/13/2019 12/09/2020 documented as of this encounter (statuses as of 03/08/2022) [place] [address] History of Past illness Narrative* Problem Noted Date Resolved Date Chiari I malformation 05/13/2019 12/09/2020 documented as of this encounter (statuses as of 03/28/2022) [place] [address] History of Past illness Narrative* Problem Noted Date Resolved Date Chiari I malformation 05/13/2019 12/09/2020 documented as of this encounter (statuses as of 03/30/2022) [place] [address] History of Past illness Narrative* Problem Noted Date Resolved Date Chiari I malformation 05/13/2019 12/09/2020 documented as of this encounter (statuses as of 04/05/2022) [place] [address] History of Past illness Narrative* Problem Noted Date Resolved Date Chiari I malformation 05/13/2019 12/09/2020 documented as of this encounter (statuses as of 05/04/2022) [place] [address] History of Past illness Narrative* Problem Noted Date Resolved Date Chiari I malformation 05/13/2019 12/09/2020 documented as of this encounter (statuses as of 05/14/2022) [place] [address] History of Past illness Narrative* Problem Noted Date Diagnosed Date Resolved Date Chiari I malformation 05/13/20192020 documented as of this encounter (statuses as of 11/04/2022) [place] [address] History of Past illness Narrative* Problem Noted Date Diagnosed Date Resolved Date Chiari I malformation 05/13/20192020 documented as of this encounter (statuses as of 11/07/2022) [place] [address] History of Past illness Narrative* Problem Noted Date Diagnosed Date Resolved Date Chiari I malformation 05/13/20192020 documented as of this encounter (statuses as of 11/08/2022) [place] [address] History of Past illness Narrative* Problem Noted Date Diagnosed Date Resolved Date Chiari I malformation 05/13/20192020 documented as of this encounter (statuses as of 12/01/2022) [place] [address] History of Past illness Narrative* Problem Noted Date Diagnosed Date Resolved Date Chiari I malformation 05/13/20192020 documented as of this encounter (statuses as of 12/03/2022) [address] History of Past illness Narrative* Problem Noted Date Diagnosed Date Resolved Date Chiari I malformation 05/13/20192020 documented as of this encounter (statuses as of 12/09/2022) [address] History of Past illness Narrative* Problem Noted Date Diagnosed Date Resolved Date Chiari I malformation 05/13/20192020 documented as of this encounter (statuses as of 12/12/2022) [address]2020 History of Past illness Narrative* Problem Noted Date Diagnosed Date Resolved Date Chiari I malformation 05/13/20192020 documented as of this encounter (statuses as of 12/22/2022) [place] [address] History of Past illness Narrative* Problem Noted Date Diagnosed Date Resolved Date Chiari I malformation 05/13/20192020 documented as of this encounter (statuses as of 12/29/2022) [place] [address] History of Past illness Narrative* Problem Noted Date Diagnosed Date Resolved Date Chiari I malformation 05/13/20192020 documented as of this encounter (statuses as of 2023) [place] [address] History of Past illness Narrative* Problem Noted Date Diagnosed Date Resolved Date Chiari I malformation 05/13/20192020 documented as of this encounter (statuses as of 03/31/2023) [facility] Appointment Date:04/22/2021 03:15:00 PM Scheduled Provider: Location:[facility] Appointment Type:CV OV Future Scheduled Tests Radiology* US Pelvis Non-OB W/Transvaginal 06/02/20 [facility] Evaluation + Plan note Future Appointments Appointment Date:05/20/2021 01:30:00 PM Scheduled Provider: Location:[facility] Appointment Type:CV OV Future Scheduled Tests Radiology* US Pelvis Non-OB W/Transvaginal 06/02/20 [facility] Evaluation + Plan note Future Appointments Appointment Date:03/24/2023 09:00:00 AM Scheduled Provider: Location:[facility] Appointment Type:US Transvaginal Non OB Future Scheduled Tests Radiology* US Hysterosonogram 08/22/22 * XR Hysterosalpingography 08/23/22 * US Transvaginal Non OB 03/24/23 [facility] evaluation note* Diagnosis Encounter for fertility testing- Primary Fertility testing documented 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 Other ovarian failure Reproductive mgmt, infertility due to male factor Female infertility of other specified origin Encounter for fertility planning Other specified procreative management documented [facility] Diagnosis Fertility testing- Primary documented [facility] Diagnosis Pain- Primary Generalized pain documented [facility] Diagnosis Female infertility- Primary Female infertility of unspecified origin [facility]* Diagnosis Localized superficial swelling, mass, or lump- Primary Soft tissue mass Disorders of soft tissue, unspecified Female infertility Female infertility of unspecified origin [facility] Diagnosis Female infertility Female infertility of unspecified origin Female infertility Female infertility of unspecified origin [facility] Diagnosis Pain Generalized pain Female infertility Female infertility of unspecified origin [facility] Diagnosis Female infertility- Primary Female infertility of unspecified origin Female infertility Female infertility of unspecified origin [facility] Diagnosis Female infertility- Primary Female infertility of unspecified origin [facility]* Diagnosis Female infertility- Primary Female infertility of unspecified origin examination or test, unconfirmed documented in this encounter [facility] note* Diagnosis Insomnia, unspecified type- Primary Circadian rhythm disorder Circadian rhythm sleep disorder, unspecified documented in this encounter [facility] note* Diagnosis 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- Primary Other ovarian failure Encounter for fertility planning Other specified procreative management documented in this encounter [facility] note* Diagnosis Localized superficial swelling, mass, or lump Soft tissue mass Disorders of soft tissue, unspecified documented in this encounter [facility] note* Diagnosis Localized superficial swelling, mass, or lump- Primary documented in this encounter [facility] note* Diagnosis Primary female infertility- Primary Female infertility of unspecified origin documented in this encounter [facility] note* Diagnosis Primary female infertility Female infertility of unspecified origin documented in this encounter [facility] note* Diagnosis Primary female infertility Female infertility of unspecified origin documented in this encounter [facility] note* Diagnosis Female infertility- Primary Female infertility of unspecified origin Primary female infertility Female infertility of unspecified origin documented in this encounter [facility] note* Diagnosis Primary female infertility Female infertility of unspecified origin documented in this encounter [facility] note* Diagnosis Female infertility- Primary Female infertility of unspecified origin documented in this encounter [facility] note* Diagnosis Female infertility- Primary Female infertility of unspecified origin documented in this encounter [facility] note* Diagnosis Localized superficial swelling, mass, or lump- Primary Chronic pain of right ankle Acute pain of right knee documented in this encounter [facility] note* Diagnosis Chronic insomnia- Primary Insomnia, unspecified Circadian rhythm sleep disorder, delayed sleep phase type Adjustment disorder with mixed anxiety and depressed mood documented in this encounter [facility] note* Diagnosis 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- Primary Other ovarian failure Infertility, female Female infertility of unspecified origin Attempting to conceive documented in this encounter [facility] note* Diagnosis Chronic insomnia- Primary Insomnia, unspecified Circadian rhythm sleep disorder, delayed sleep phase type Adjustment disorder with mixed anxiety and depressed mood documented in this encounter [facility] note* Diagnosis Localized superficial swelling, mass, or lump documented in this encounter [facility] note* Diagnosis Infertility, female- Primary Female infertility of unspecified origin Pelvic pain Dysmenorrhea documented [facility] this 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* Diagnosis Endometriosis of pelvic peritoneum, unspecified [N80.30]- Primary Preop examination Preoperative examination, unspecified Morbid obesity (HCC) Morbid obesity Endometriosis of pelvic peritoneum Female pelvic peritoneal adhesions Pelvic peritoneal adhesions, female (postoperative) (postinfection) Endometrial polyp Polyp of corpus uteri documented in this encounter [facility]* Diagnosis Hives- Primary Urticaria, unspecified Personal history of allergy to penicillin Adverse effect of ranitidine documented in this encounter [facility] note* Diagnosis Post-operative state- Primary Other postprocedural status documented in this encounter [facility] note* Diagnosis Encounter for fertility planning [Z31.89]- Primary Other specified procreative management documented in this encounter [facility] note* Diagnosis Muscle tightness- Primary Unspecified disorder of muscle, ligament, and fascia Pain in joint involving pelvic region and thigh, unspecified laterality [facility] Narrative No data available for this section [facility] Hospital Discharge instructions No data available for this section [facility] Progress note No data available for this section [facility] Reason for referral (narrative)* Diagnostic Procedure Only (Routine) - Authorized Specialty Diagnoses / Procedures Referred By Contac t Referred To Contact XR IMAGING Diagnoses Pain Procedures XR TIBIA FIBULA 2V AP/LAT RIGHT RADIOLOGIC EXAMINATION TIBIA & FIBULA 2 VIEWS Simone Quintana PA-C [address] [place] [address] Xr Imaging Referral ID Status Reason Start Date Expiration Date Visits Requested Visits Authorized [id number] Authorized Auto-Generat ed Referral 10/29/2021 11/28/2022 1 1 [facility] for referral (narrative)* Diagnostic Procedure Only (Routine) - Closed Specialty Diagnoses / Procedures Referred By Contac t Referred To Contact XR IMAGING Diagnoses Pain Procedures XR TIBIA FIBULA 2V AP/LAT RIGHT RADIOLOGIC EXAMINATION TIBIA & FIBULA 2 VIEWS Simone Quintana PA-C [address] [facility] [address] [place] [address] Xr Imaging Referral ID Status Reason Start Date Expiration Date V isits Requested Visits Authorized [id number] Closed Auto-Generate d Referral 10/29/2021 11/28/2022 1 1 [facility] for referral (narrative)* Diagnostic Procedure Only (Routine) - Closed Specialty Diagnoses / Procedures Referred By Contac t Referred To Contact [facility] Diagnoses Primary female infertility Procedures FOLLICULAR US WHI US PELVIC NONOBSTETRIC IMAGE DCMTN LIMITED/F/U Za Jiménez APRN.[employer] [address] [place] [address] [facility] [address] [place] [address] Referral ID Status Reason Start Date Expiration Date V isits Requested Visits Authorized [id number] Closed Auto-Generate d Referral 02/09/2022 04/23/2022 1 1 [facility] Summary Purpose Family History No Family History Records FoundNo Family History Records FoundNo Family History Records FoundNo Family History Records FoundNo Family History Records Found No data available for this section No data available for this section No Family History Records Found No data available for this section No Family History Records Found Advance Directives No Advanced Directives Records FoundNo Advanced Directives Records FoundNo Advanced Directives Records FoundNo Advanced Directives Records FoundNo Advanced Directives Records FoundNo Advanced Directives Records FoundNo Advanced Directives Records Found Reason for Referral Specialty Diagnoses / Procedures Referred By Contac t Referred To Contact MR IMAGING Diagnoses Localized superficial swelling, mass, or lump Soft tissue mass Procedures MRI LOWER LEG WO/W IVCON RT MRI LOWER EXTREM OTH/THN JT W/O & W/CONTR Simone Clemente PA-C [address] [place] [address] Mr Imaging Referral ID Status Reason Start Date Expiration Date Visits Requested Visits Authorized [id number] Authorized Auto-Generat ed Referral 11/12/2021 12/12/2022 1 1 Medications Administered Section Inactive Administered Medications - up to 3 most recent administrations Medication Order MAR Action Action Date Dose Rate Site acetaminophen 1,000 mg tab(s) (TYLENOL) 1,000 mg, ORAL, EVERY 6 HOURS NEEDED, Starting on Mon02/21/22 at 1158, Until Mon02/22/22 at 0304, Mild Pain (1-3) - Enteral, Recovery or Phase I (only) Given 02/21/2022 12:17 PM EDT 1,000 mg Oral diphenhydrAMINE 25 mg injection (BENADRYL) 25 mg, INTRAVENOUS, NEEDED, 1 dose, Starting on Mon02/21/22 at 1158, Until Mon02/22/22 at 0304, itching/rash, Nausea/Vomiting - First Line - Parenteral, FIRST LINE THERAPY, Recovery or Phase I (only) doxycycline 100 mg in NaCl 0.9% 250 mL (VIBRAMYCIN) 100 mg, INTRAVENOUS, at 250 mL/hr, Administer over 1 Hours, ONCE, 1 dose, On Mon02/21/22 at 1030, Refrigerate - Protect From Light, Please document the antimicrobial indication: Prophylaxis, Preprocedure New Bag/Syringe/Bottle 02/21/2022 10:45 AM EDT 100 mg 250 mL/hr fentaNYL 50 mcg/mL 25 mcg injection (SUBLIMAZE) 25 mcg, INTRAVENOUS, POST-OP PRN, 4 doses, Starting on Mon02/21/22 at 1158, Until Mon02/22/22 at 0304, PRN, FIRST LINE THERAPY Every 2 to 5 minutes, To a Maximum Total Dose of 100 mcg USE FOR MODERATE/SEVERE PAIN ONLY IF PATIENT IS UNABLE TO TOLERATE ORAL THERAPY, Recovery or Phase I (only) lactated ringers iv infusion 5-30 mL/hr, INTRAVENOUS, CONTINUOUS, Starting on Mon02/21/22 at 1030, Until Mon02/21/22 at 1159, Infuse IV fluids at KVO rate, Preprocedure New Bag/Syringe/Bottle 02/21/2022 10:44 AM EDT 30 mL/hr 30 mL/hr lactated ringers iv infusion 75 mL/hr, INTRAVENOUS, CONTINUOUS, Starting on Mon02/21/22 at 1200, Until Mon02/22/22 at 0304 meperidine (PF) 12.5 mg injection (DEMEROL) 12.5 mg, INTRAVENOUS, EVERY 6 HOURS NEEDED, Starting on Mon02/21/22 at 1158, Until Mon02/22/22 at 0304, Shivering, May Repeat 12.5 mg in 10 minutes X1 for Continued Shivering, Recovery or Phase I (only) Inactive Administered Medications - up to 3 most recent administrations Medication Order MAR Action Action Date Dose Rate Site amoxicillin 250 mg oral liquid (AMOXIL) 250 mg, ORAL, ONCE, 1 dose, On Mon12/05/22 at 1100, Give 25 mg PO and monitor for 30 minutes. Then give 225 mg PO and monitor for 31 minutes., Please document the antimicrobial indication: Empiric Given 12/05/2022 12:51 PM EDT 250 mg Additional Source Comments INFORMATION SOURCE (unrecogn ized section and content) DATE CREATED AUTHOR AUTHOR'S ORGANIZ ATION 08/06/2021 [facility] DATE CREATED AUTHOR AUTHOR'S ORGANIZ ATION 10/07/2021 [facility] DATE CREATED AUTHOR AUTHOR'S ORGANIZ ATION 05/05/2022 [facility] DATE CREATED AUTHOR AUTHOR'S ORGANIZ ATION 01/07/2023 [facility] DATE CREATED AUTHOR AUTHOR'S ORGANIZ ATION 04/04/2023 [facility] DATE CREATED AUTHOR AUTHOR'S ORGANIZ ATION 04/28/2023 [facility] ([place]) Source Comments (unrecognize d section and content) In the event this informatio n is protected by the Federal Confidentiality of Alcohol and Drug Abuse Patient Records regulations: The Federal rules restrict any use of the information to criminally investigate or prosecute any alcohol or drug abuse patient.[facility] the event this information is protected by the Federal Confidentiality of Alcohol and Drug Abuse Patient Records regulations: The Federal rules restrict any use of the information to criminally investigate or prosecute any alcohol or drug abuse patient.[facility] Hospital[facility] the event this information is protected by the Federal Confidentiality of Alcohol and Drug Abuse Patient Records regulations: The Federal rules restrict any use of the information to criminally investigate or prosecute any alcohol or drug abuse patient.[facility] the event this information is protected by the Federal Confidentiality of Alcohol and Drug Abuse Patient Records regulations: The Federal rules restrict any use of the information to criminally investigate or prosecute any alcohol or drug abuse patient.[facility] the event this information is protected by the Federal Confidentiality of Alcohol and Drug Abuse Patient Records regulations: The Federal rules restrict any use of the information to criminally investigate or prosecute any alcohol or drug abuse patient.[facility] HospitalIn the event this information is protected by the Federal Confidentiality of Alcohol and Drug Abuse Patient Records regulations: The Federal rules restrict any use of the information to criminally investigate or prosecute any alcohol or drug abuse patient.[facility] HospitalIn the event this information is protected by the Federal Confidentiality of Alcohol and Drug Abuse Patient Records regulations: The Federal rules restrict any use of the information to criminally investigate or prosecute any alcohol or drug abuse patient.[facility] HospitalIn the event this information is protected by the Federal Confidentiality of Alcohol and Drug Abuse Patient Records regulations: The Federal rules restrict any use of the information to criminally investigate or prosecute any alcohol or drug abuse patient.[facility] HospitalIn the event this information is protected by the Federal Confidentiality of Alcohol and Drug Abuse Patient Records regulations: The Federal rules restrict any use of the information to criminally investigate or prosecute any alcohol or drug abuse patient.[facility] HospitalIn the event this information is protected by the Federal Confidentiality of Alcohol and Drug Abuse Patient Records regulations: The Federal rules restrict any use of the information to criminally investigate or prosecute any alcohol or drug abuse patient.[facility] HospitalIn the event this information is protected by the Federal Confidentiality of Alcohol and Drug Abuse Patient Records regulations: The Federal rules restrict any use of the information to criminally investigate or prosecute any alcohol or drug abuse patient.[facility] HospitalIn the event this information is protected by the Federal Confidentiality of Alcohol and Drug Abuse Patient Records regulations: The Federal rules restrict any use of the information to criminally investigate or prosecute any alcohol or drug abuse patient.[facility] HospitalIn the event this information is protected by the Federal Confidentiality of Alcohol and Drug Abuse Patient Records regulations: The Federal rules restrict any use of the information to criminally investigate or prosecute any alcohol or drug abuse patient.[facility] HospitalIn the event this information is protected by the Federal Confidentiality of Alcohol and Drug Abuse Patient Records regulations: The Federal rules restrict any use of the information to criminally investigate or prosecute any alcohol or drug abuse patient.[facility] HospitalIn the event this information is protected by the Federal Confidentiality of Alcohol and Drug Abuse Patient Records regulations: The Federal rules restrict any use of the information to criminally investigate or prosecute any alcohol or drug abuse patient.[facility] HospitalIn the event this information is protected by the Federal Confidentiality of Alcohol and Drug Abuse Patient Records regulations: The Federal rules restrict any use of the information to criminally investigate or prosecute any alcohol or drug abuse patient.[facility] HospitalIn the event this information is protected by the Federal Confidentiality of Alcohol and Drug Abuse Patient Records regulations: The Federal rules restrict any use of the information to criminally investigate or prosecute any alcohol or drug abuse patient.[facility] HospitalIn the event this information is protected by the Federal Confidentiality of Alcohol and Drug Abuse Patient Records regulations: The Federal rules restrict any use of the information to criminally investigate or prosecute any alcohol or drug abuse patient.[facility] HospitalIn the event this information is protected by the Federal Confidentiality of Alcohol and Drug Abuse Patient Records regulations: The Federal rules restrict any use of the information to criminally investigate or prosecute any alcohol or drug abuse patient.[facility] HospitalIn the event this information is protected by the Federal Confidentiality of Alcohol and Drug Abuse Patient Records regulations: The Federal rules restrict any use of the information to criminally investigate or prosecute any alcohol or drug abuse patient.[facility] HospitalIn the event this information is protected by the Federal Confidentiality of Alcohol and Drug Abuse Patient Records regulations: The Federal rules restrict any use of the information to criminally investigate or prosecute any alcohol or drug abuse patient.[facility] HospitalIn the event this information is protected by the Federal Confidentiality of Alcohol and Drug Abuse Patient Records regulations: The Federal rules restrict any use of the information to criminally investigate or prosecute any alcohol or drug abuse patient.[facility] HospitalIn the event this information is protected by the Federal Confidentiality of Alcohol and Drug Abuse Patient Records regulations: The Federal rules restrict any use of the information to criminally investigate or prosecute any alcohol or drug abuse patient.[facility] HospitalIn the event this information is protected by the Federal Confidentiality of Alcohol and Drug Abuse Patient Records regulations: The Federal rules restrict any use of the information to criminally investigate or prosecute any alcohol or drug abuse patient.[facility] HospitalIn the event this information is protected by the Federal Confidentiality of Alcohol and Drug Abuse Patient Records regulations: The Federal rules restrict any use of the information to criminally investigate or prosecute any alcohol or drug abuse patient.[facility] HospitalIn the event this information is protected by the Federal Confidentiality of Alcohol and Drug Abuse Patient Records regulations: The Federal rules restrict any use of the information to criminally investigate or prosecute any alcohol or drug abuse patient.[facility] HospitalIn the event this information is protected by the Federal Confidentiality of Alcohol and Drug Abuse Patient Records regulations: The Federal rules restrict any use of the information to criminally investigate or prosecute any alcohol or drug abuse patient.[facility] HospitalIn the event this information is protected by the Federal Confidentiality of Alcohol and Drug Abuse Patient Records regulations: The Federal rules restrict any use of the information to criminally investigate or prosecute any alcohol or drug abuse patient.[facility] HospitalIn the event this information is protected by the Federal Confidentiality of Alcohol and Drug Abuse Patient Records regulations: The Federal rules restrict any use of the information to criminally investigate or prosecute any alcohol or drug abuse patient.[facility] HospitalIn the event this information is protected by the Federal Confidentiality of Alcohol and Drug Abuse Patient Records regulations: The Federal rules restrict any use of the information to criminally investigate or prosecute any alcohol or drug abuse patient.[facility] HospitalIn the event this information is protected by the Federal Confidentiality of Alcohol and Drug Abuse Patient Records regulations: The Federal rules restrict any use of the information to criminally investigate or prosecute any alcohol or drug abuse patient.[facility] HospitalIn the event this information is protected by the Federal Confidentiality of Alcohol and Drug Abuse Patient Records regulations: The Federal rules restrict any use of the information to criminally investigate or prosecute any alcohol or drug abuse patient.[facility] HospitalIn the event this information is protected by the Federal Confidentiality of Alcohol and Drug Abuse Patient Records regulations: The Federal rules restrict any use of the information to criminally investigate or prosecute any alcohol or drug abuse patient.[facility] HospitalIn the event this information is protected by the Federal Confidentiality of Alcohol and Drug Abuse Patient Records regulations: The Federal rules restrict any use of the information to criminally investigate or prosecute any alcohol or drug abuse patient.[facility] HospitalIn the event this information is protected by the Federal Confidentiality of Alcohol and Drug Abuse Patient Records regulations: The Federal rules restrict any use of the information to criminally investigate or prosecute any alcohol or drug abuse patient.[facility] HospitalIn the event this information is protected by the Federal Confidentiality of Alcohol and Drug Abuse Patient Records regulations: The Federal rules restrict any use of the information to criminally investigate or prosecute any alcohol or drug abuse patient.[facility] HospitalIn the event this information is protected by the Federal Confidentiality of Alcohol and Drug Abuse Patient Records regulations: The Federal rules restrict any use of the information to criminally investigate or prosecute any alcohol or drug abuse patient.[facility] HospitalIn the event this information is protected by the Federal Confidentiality of Alcohol and Drug Abuse Patient Records regulations: The Federal rules restrict any use of the information to criminally investigate or prosecute any alcohol or drug abuse patient.[facility] HospitalIn the event this information is protected by the Federal Confidentiality of Alcohol and Drug Abuse Patient Records regulations: The Federal rules restrict any use of the information to criminally investigate or prosecute any alcohol or drug abuse patient.[facility] HospitalIn the event this information is protected by the Federal Confidentiality of Alcohol and Drug Abuse Patient Records regulations: The Federal rules restrict any use of the information to criminally investigate or prosecute any alcohol or drug abuse patient.[facility] HospitalIn the event this information is protected by the Federal Confidentiality of Alcohol and Drug Abuse Patient Records regulations: The Federal rules restrict any use of the information to criminally investigate or prosecute any alcohol or drug abuse patient.[facility] HospitalIn the event this information is protected by the Federal Confidentiality of Alcohol and Drug Abuse Patient Records regulations: The Federal rules restrict any use of the information to criminally investigate or prosecute any alcohol or drug abuse patient.[facility] HospitalIn the event this information is protected by the Federal Confidentiality of Alcohol and Drug Abuse Patient Records regulations: The Federal rules restrict any use of the information to criminally investigate or prosecute any alcohol or drug abuse patient.[facility] HospitalIn the event this information is protected by the Federal Confidentiality of Alcohol and Drug Abuse Patient Records regulations: The Federal rules restrict any use of the information to criminally investigate or prosecute any alcohol or drug abuse patient.[facility] HospitalIn the event this information is protected by the Federal Confidentiality of Alcohol and Drug Abuse Patient Records regulations: The Federal rules restrict any use of the information to criminally investigate or prosecute any alcohol or drug abuse patient.[facility] HospitalIn the event this information is protected by the Federal Confidentiality of Alcohol and Drug Abuse Patient Records regulations: The Federal rules restrict any use of the information to criminally investigate or prosecute any alcohol or drug abuse patient.[facility] HospitalIn the event this information is protected by the Federal Confidentiality of Alcohol and Drug Abuse Patient Records regulations: The Federal rules restrict any use of the information to criminally investigate or prosecute any alcohol or drug abuse patient.[facility] HospitalIn the event this information is protected by the Federal Confidentiality of Alcohol and Drug Abuse Patient Records regulations: The Federal rules restrict any use of the information to criminally investigate or prosecute any alcohol or drug abuse patient.[facility] HospitalIn the event this information is protected by the Federal Confidentiality of Alcohol and Drug Abuse Patient Records regulations: The Federal rules restrict any use of the information to criminally investigate or prosecute any alcohol or drug abuse patient.[facility] HospitalIn the event this information is protected by the Federal Confidentiality of Alcohol and Drug Abuse Patient Records regulations: The Federal rules restrict any use of the information to criminally investigate or prosecute any alcohol or drug abuse patient.[facility] HospitalIn the event this information is protected by the Federal Confidentiality of Alcohol and Drug Abuse Patient Records regulations: The Federal rules restrict any use of the information to criminally investigate or prosecute any alcohol or drug abuse patient.[facility] HospitalIn the event this information is protected by the Federal Confidentiality of Alcohol and Drug Abuse Patient Records regulations: The Federal rules restrict any use of the information to criminally investigate or prosecute any alcohol or drug abuse patient.[facility] HospitalIn the event this information is protected by the Federal Confidentiality of Alcohol and Drug Abuse Patient Records regulations: The Federal rules restrict any use of the information to criminally investigate or prosecute any alcohol or drug abuse patient.[facility] HospitalIn the event this information is protected by the Federal Confidentiality of Alcohol and Drug Abuse Patient Records regulations: The Federal rules restrict any use of the information to criminally investigate or prosecute any alcohol or drug abuse patient.[facility] HospitalIn the event this information is protected by the Federal Confidentiality of Alcohol and Drug Abuse Patient Records regulations: The Federal rules restrict any use of the information to criminally investigate or prosecute any alcohol or drug abuse patient.[facility] HospitalIn the event this information is protected by the Federal Confidentiality of Alcohol and Drug Abuse Patient Records regulations: The Federal rules restrict any use of the information to criminally investigate or prosecute any alcohol or drug abuse patient.[facility] HospitalIn the event this information is protected by the Federal Confidentiality of Alcohol and Drug Abuse Patient Records regulations: The Federal rules restrict any use of the information to criminally investigate or prosecute any alcohol or drug abuse patient.[facility] HospitalIn the event this information is protected by the Federal Confidentiality of Alcohol and Drug Abuse Patient Records regulations: The Federal rules restrict any use of the information to criminally investigate or prosecute any alcohol or drug abuse patient.[facility] HospitalIn the event this information is protected by the Federal Confidentiality of Alcohol and Drug Abuse Patient Records regulations: The Federal rules restrict any use of the information to criminally investigate or prosecute any alcohol or drug abuse patient.[facility] HospitalIn the event this information is protected by the Federal Confidentiality of Alcohol and Drug Abuse Patient Records regulations: The Federal rules restrict any use of the information to criminally investigate or prosecute any alcohol or drug abuse patient.[facility] HospitalIn the event this information is protected by the Federal Confidentiality of Alcohol and Drug Abuse Patient Records regulations: The Federal rules restrict any use of the information to criminally investigate or prosecute any alcohol or drug abuse patient.[facility] Care Teams (unrecognized sec tion and content) Ekg/Ecg Technician Relationship Specialty Start Date End Date Rayna Quintanilla MD [address] [place] [id number] PCP - General Family Practice 12/04/18 Ekg/Ecg Technician Relationship Specialty Start Date End Date Rayna Quintanilla MD [address] [place] [id number] PCP - General Family Practice 12/04/18 Ekg/Ecg Technician Relationship Specialty Start Date End Date Rayna Quintanilla MD [address] [place] [address] PCP - General Family Practice 12/04/18 Ekg/Ecg Technician Relationship Specialty Start Date End Date Rayna Quintanilla MD [address] [place] [address] PCP - General Family Practice 12/04/18 Ekg/Ecg Technician Relationship Specialty Start Date End Date Rayna Quintanilla MD [address] [place] [address] PCP - General Family Practice 12/04/18 Ekg/Ecg Technician Relationship Specialty Start Date End Date Rayna Quintanilla MD [address] [place] [address] PCP - General Family Practice 12/04/18 Ekg/Ecg Technician Relationship Specialty Start Date End Date Rayna Quintanilla MD [address] [place] [address] PCP - General Family Practice 12/04/18 Ekg/Ecg Technician Relationship Specialty Start Date End Date Rayna Quintanilla MD [address] [place] [address] PCP - General Family Practice 12/04/18 Ekg/Ecg Technician Relationship Specialty Start Date End Date Rayna Quintanilla MD [address] [place] [address] PCP - General Family Practice 12/04/18 Ekg/Ecg Technician Relationship Specialty Start Date End Date Rayna Quintanilla MD [address] [place] [address] PCP - General Family Practice 12/04/18 Ekg/Ecg Technician Relationship Specialty Start Date End Date Rayna Quintanilla MD [address] [place] [address] PCP - General Family Practice 12/04/18 Ekg/Ecg Technician Relationship Specialty Start Date End Date Rayna Quintanilla MD [address] [place] [address] PCP - General Family Practice 12/04/18 Ekg/Ecg Technician Relationship Specialty Start Date End Date Rayna Quintanilla MD [address] [place] [address] PCP - General Family Practice 12/04/18 Ekg/Ecg Technician Relationship Specialty Start Date End Date Rayna Quintanilla MD [address] [place] [address] PCP - General Family Practice 12/04/18 Ekg/Ecg Technician Relationship Specialty Start Date End Date Rayna Quintanilla MD [address] [place] [address] PCP - General Family Practice 12/04/18 Ekg/Ecg Technician Relationship Specialty Start Date End Date Rayna Quintanilla MD [address] [place] [address] PCP - General Family Practice 12/04/18 Ekg/Ecg Technician Relationship Specialty Start Date End Date Rayna Quintanilla MD [address] [place] [place] [address] PCP - General Family Practice 12/04/18 Ekg/Ecg Technician Relationship Specialty Start Date End Date Rayna Quintanilla MD [address] [place] [address] PCP - General Family Medicine 12/04/18 Ekg/Ecg Technician Relationship Specialty Start Date End Date Rayna Quintanilla MD [address] [place] [address] PCP - General Family Medicine 12/04/18 Ekg/Ecg Technician Relationship Specialty Start Date End Date Rayna Quintanilla MD [address] [facility] [place] [address] PCP - General Family Medicine 12/04/18 Ekg/Ecg Technician Relationship Specialty Start Date End Date Rayna Quintanilla MD [address] [facility] [place] [address] PCP - General Family Medicine 12/04/18 Ekg/Ecg Technician Relationship Specialty Start Date End Date Rayna Quintanilla MD [address] [facility] [place] [address] PCP - General Family Medicine 12/04/18 Ekg/Ecg Technician Relationship Specialty Start Date End Date Rayna Quintanilla MD [address] [facility] [place] [address] PCP - General Family Medicine 12/04/18 Ekg/Ecg Technician Relationship Specialty Start Date End Date Rayna Quintanilla MD [address] [facility] [place] [address] PCP - General Family Medicine 12/04/18 Ekg/Ecg Technician Relationship Specialty Start Date End Date Rayna Quintanilla MD [address] [facility] [place] [address] PCP - General Family Medicine 12/04/18 Ekg/Ecg Technician Relationship Specialty Start Date End Date Rayna Quintanilla MD [address] [facility] [place] [address] PCP - General Family Medicine 12/04/18 Ekg/Ecg Technician Relationship Specialty Start Date End Date Rayna Quintanilla MD [address] [facility] [place] [address] PCP - General Family Medicine 12/04/18 Ekg/Ecg Technician Relationship Specialty Start Date End Date Rayna Quintanilla MD [address] [facility] [place] [address] PCP - General Family Medicine 12/04/18 Ekg/Ecg Technician Relationship Specialty Start Date End Date Rayna Quintanilla MD [address] [place] [address] PCP - General Family Medicine 12/04/18 Ekg/Ecg Technician Relationship Specialty Start Date End Date Rayna Quintanilla MD [address] [place] [address] PCP - General Family Medicine 12/04/18 Ekg/Ecg Technician Relationship Specialty Start Date End Date Rayna Quintanilla MD [address] [place] [address] PCP - General Family Medicine 12/04/18 Ekg/Ecg Technician Relationship Specialty Start Date End Date Rayna Quintanilla MD [address] [place] [address] PCP - General Family Medicine 12/04/18 Ekg/Ecg Technician Relationship Specialty Start Date End Date Rayna Quintanilla MD [address] [place] [address] PCP - General Family Medicine 12/04/18 Ekg/Ecg Technician Relationship Specialty Start Date End Date Rayna Quintanilla MD [address] [place] [address] PCP - General Family Medicine 12/04/18 Ekg/Ecg Technician Relationship Specialty Start Date End Date Rayna Quintanilla MD [address] [place] [address] PCP - General Family Medicine 12/04/18 Ekg/Ecg Technician Relationship Specialty Start Date End Date Rayna Quintanilla MD [address] [place] [address] PCP - General Family Medicine 12/04/18 Ekg/Ecg Technician Relationship Specialty Start Date End Date Rayna Quintanilla MD [address] [place], [place] [address] PCP - General Family Medicine 12/04/18 Ekg/Ecg Technician Relationship Specialty Start Date End Date Rayna Quintanilla MD [address] [place], [place] [address] PCP - General Family Medicine 12/04/18 Ekg/Ecg Technician Relationship Specialty Start Date End Date Rayna Quintanilla MD [address] [place], [place] [id number] PCP - General Family Medicine 12/04/18 Ekg/Ecg Technician Relationship Specialty Start Date End Date Rayna Quintanilla MD [address] [place], [place] [id number] PCP - General Family Medicine 12/04/18 Reason for Visit (unrecogniz ed section and content) Specialty Diagnoses / Procedures Referred By Contac t Referred To Contact [facility] Diagnoses Female infertility, unspecified Procedures OFFICE/OUTPATIENT ESTABLISHED LOW MDM 20-29 [place] [address] [place] [address] [facility] [address] [place] [phone] Referral ID Status Reason Start Date Expiration Date Visits Requested Visits Authorized [id number] Authorized Benefit Check 03/01/2022 04/23/2022 99 99 Reason Comments Establish Care Reason Comments Infertility Specialty Diagnoses / Procedures Referred By Contac t Referred To Contact [facility] Diagnoses IVF package Procedures IVF package Santiago Johnson MD [address] [place] [address] [facility] [address] [place] [address] Referral ID Status Reason Start Date Expiration Date Visits Requested Visits Authorized [id number] Authorized Financial Clearance Required - Self Pay Do Not Bill Insurance - SP patient Patient Cleared - True Self-Pay required payment collected Financial Clearance Not Required 04/23/2022 99 99 Reason Comments Treatment Planning Specialty Diagnoses / Procedures Referred By [facility] Referred To Contact [facility] Diagnoses ivf [place] [address] [place] [address] [facility] [address] [place] [address] Referral ID Status Reason Start Date Expiration Date Visits Requested Visits Authorized [id number] Authorized Financial Clearance Not Required 10/22/2021 01/20/2022 99 99 Reason Comments Results, Lab Reason Comments HSAT Check In (Adult) Reason Comments prior auth for IVF 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 New Reason Comments Radio Gen A21 Specialty Diagnoses / Procedures Referred By [facility] Referred To Contact XR IMAGING Diagnoses Pain Procedures XR TIBIA FIBULA 2V AP/LAT RIGHT RADIOLOGIC EXAMINATION TIBIA & FIBULA 2 VIEWS Simone Quintana, PA-C [address] [place] [address] Xr Imaging Referral ID Status Reason Start Date Expiration Date V isits Requested Visits Authorized [id number] Closed Auto-Generate d Referral 10/29/2021 11/28/2022 1 1 Specialty Diagnoses / Procedures Referred By [facility] Referred To Contact [facility] Diagnoses ivf [place] [address] [place] [address] [facility] [address] [place] [phone] Reason Comments Questions for Camilla regarding transfer Reason Comments Patient Update Reason Comments HCG level Reason Comments Poor Sleep Specialty Diagnoses / Procedures Referred By [facility] Referred To Contact MR IMAGING Diagnoses Localized superficial swelling, mass, or lump Soft tissue mass Procedures MRI LOWER LEG WO/W IVCON RT MRI LOWER EXTREM OTH/THN JT W/O & W/CONTR Simone Clemente PA-C [address] [place] [address] Mr Imaging Referral ID Status Reason Start Date Expiration Date V isits Requested Visits Authorized [id number] Closed Auto-Generate d Referral 11/12/2021 12/12/2022 1 1 Reason Comments Results Reason Comments Ayla returning your call please call pt Reason Comments spotting ayla confused by cycle day Reason Comments Medication Questions Specialty Diagnoses / Procedures Referred By Contac t Referred To Contact [facility] Diagnoses IVF package Procedures IVF package Santiago Johnson MD [address] [place] [address] [facility] [address] [place] [address] Reason Comments Established Patient Follow Up Pain Reason Comments Erroneous encounter-disregard Reason Comments Insomnia Specialty Diagnoses / Procedures Referred By Contac t Referred To Contact MR IMAGING Diagnoses Localized superficial swelling, mass, or lump Procedures MRI LOWER LEG WO/W IVCON RT MRI LOWER EXTREM OTH/THN JT W/O & W/CONTR Smione Clemente PA-C [address] [place] [address] Mr Imaging Referral ID Status Reason Start Date Expiration Date V isits Requested Visits Authorized [id number] Closed Auto-Generate d Referral 04/13/2022 06/30/2022 1 1 Reason Comments scheudule Surgery Reason Comments Consult Reason Comments Opened In Error Reason Comments Orders Reason Comments Allergy Testing Reason Comments Appointment Upcoming MIGS Appoin tment Reason Comments Post Op Reason Comments PT Eval Specialty Diagnoses / Procedures Referred By Contac t Referred To Contact Physical Therapy / PHYSICAL THERAPY Diagnoses consult to pelvic floor representative carry order Procedures NEW RS PT PELVIC PAIN/INCONT Dafne Valdivia PA-C [address] [place] [address] Nany Sweet, PT [address] [place] [address] Referral ID Status Reason Start Date Expiration Date V isijacquelyn Requested Visits Authorized [id number] Pending Review 03/31/2023 06/27/2023 1 1 Scheduled Active and Recently Administ ered Medications (unrecognized section and content) Continuous Medication Order 02/19/2022 02/20/2022 02/21/2022 lactated ringers iv infusion (CANCELED) 5-30 mL/hr, INTRAVENOUS, CONTINUOUS, Starting on Mon02/21/22 at 1030, Until Mon02/21/22 at 1159, Infuse IV fluids at KVO rate, Preprocedure 1044 (New Bag/Syring e/Bottle - Provider: Jessica Alanis RN)1159 (Due: Infusion Complete) lactated ringers iv infusion 75 mL/hr, INTRAVENOUS, CONTINUOUS, Starting on Mon02/21/22 at 1200, Until Mon02/22/22 at 0304 1200 (Due) PRN Medication Order 02/19/2022 02/20/2022 02/21/2022 acetaminophen 1,000 mg tab(s) (TYLENOL) 1,000 mg, ORAL, EVERY 6 HOURS NEEDED, Starting on Mon02/21/22 at 1158, Until Mon02/22/22 at 0304, Mild Pain (1-3) - Enteral, Recovery or Phase I (only) 1217 (Given - Provid er: Diana Beltran RN) diphenhydrAMINE 25 mg injection (BENADRYL) 25 mg, INTRAVENOUS, NEEDED, 1 dose, Starting on Mon02/21/22 at 1158, Until Mon02/22/22 at 0304, itching/rash, Nausea/Vomiting - First Line - Parenteral, FIRST LINE THERAPY, Recovery or Phase I (only) fentaNYL 50 mcg/mL 25 mcg injection (SUBLIMAZE) 25 mcg, INTRAVENOUS, POST-OP PRN, 4 doses, Starting on Mon02/21/22 at 1158, Until Mon02/22/22 at 0304, PRN, FIRST LINE THERAPY Every 2 to 5 minutes, To a Maximum Total Dose of 100 mcg USE FOR MODERATE/SEVERE PAIN ONLY IF PATIENT IS UNABLE TO TOLERATE ORAL THERAPY, Recovery or Phase I (only) meperidine (PF) 12.5 mg injection (DEMEROL) 12.5 mg, INTRAVENOUS, EVERY 6 HOURS NEEDED, Starting on 02/21/22 at 1158, Until Mon02/22/22 at 0304, Shivering, May Repeat 12.5 mg in 10 minutes X1 for Continued Shivering, Recovery or Phase I (only) Care Team (unrecognized sect ion and content) Care Team Personnel Name: Abel Ward Clerk Rosa Maria PT Position: P3 Scheduling - Program Counselor Advanced Member Role: Other Name: SHAMAR TIAN MD Position: P4 Physician - Cardiology Member Role: Utility Helicopter Repairer Address: Address: [address] [place] [address] [address] [place] [address]- Name: RAYNA QUINTANILLA MD Member Role: Primary Care Physician Address: Address: [facility] [address] [place], [place] [address] Care Team Related Persons Name: MOISÉS BERNARD FOR RECORDS PERTAINING TO PATIENTS WHO ARE OR HAVE BEEN ENROLLED IN A CHEMICAL DEPENDENCY/SUBSTANCEABUSE PROGRAM, SOME INFORMATION MAY BE OMITTED. This clinical summary was aggregated from multiple sources. Caution should be exercised in using it in the provision of clinical care. This summary normalizes information from multiple sources, and as a consequence, information in this document may materially change the coding, format and clinical context of patient data. In addition, data may be omitted in some cases. CLINICAL DECISIONS SHOULD BE BASED ON THE PRIMARY CLINICAL RECORDS. [facility] [employer] [facility]. provides no warranty or guarantee of the accuracy or completeness of information in this document.
[2023-05-06 09:25] LABS: Estradiol 795.5 pg/mL
== END | disposition home or self-care (01) ==
PROVIDERS: PCP Family Medicine; Referring Provider Obstetrics & Gynecology Reproductive Endocrinology; Visit Provider Obstetrics & Gynecology Reproductive Endocrinology
DX: Z31.49 Encounter for other procreative investigation and testing (principal)
CPT/HCPCS: 36415; 82670; 84144

== ENCOUNTER → 2023-05-12 | Outpatient (CLI) | payer OTHER, SELFPAY ==
[2023-05-12 09:54] LABS: Progesterone Level 59.94 ng/mL (See Comment)
[2023-05-12 10:17] LABS: hCG Titer Quant., Serum < 1 mIU/mL (1-3)
== END | disposition home or self-care (01) ==
PROVIDERS: PCP Family Medicine; Referring Provider Obstetrics & Gynecology Reproductive Endocrinology; Visit Provider Obstetrics & Gynecology Reproductive Endocrinology
DX: Z32.00 Encounter for pregnancy test, result unknown (principal)
CPT/HCPCS: 36415; 84144; 84702

== ENCOUNTER 2023-06-13 11:11 | Outpatient (RCR) | payer OTHER, SELFPAY | END 2023-06-22 23:59 | LOC: NS 11:11 | PROVIDERS: PCP Family Medicine; Referring Provider Family Medicine; Visit Provider Family Medicine | DX: Z71.3 Dietary counseling and surveillance (principal); E66.01 Morbid (severe) obesity due to excess calories; Z68.42 Body mass index [BMI] 45.0-49.9, adult; F45.21 Hypochondriasis; K58.9 Irritable bowel syndrome, unspecified | CPT/HCPCS: 97803 ==

== ENCOUNTER → 2023-06-16 | Outpatient (CLI) | payer OTHER, SELFPAY ==
[2023-06-16 11:49] LABS: Erythrocyte Sedimentation Rate 11 mm/hr (0-30)
[2023-06-16 12:18] LABS: T4 Free Direct 1.13 ng/dL (0.76-1.46)
== END | disposition home or self-care (01) ==
LOC: LAB 11:13
PROVIDERS: PCP Family Medicine; Visit Provider Nurse Practitioner Adult Health
DX: E03.8 Other specified hypothyroidism (principal); E06.1 Subacute thyroiditis
CPT/HCPCS: 36415; 84439; 84443; 85652

== ENCOUNTER → 2023-08-03 | Outpatient (CLI) | payer OTHER, SELFPAY ==
[2023-08-03 15:20] LABS: Hematocrit 44.4 % (37-47); Mean Corp Hgb Conc 31.5 g/dL (32-36); Mean Corpuscular Hgb 26.3 pg (27.0-32.0); Mean Corpuscular Volume 83.5 fL (81-99); Mean Platelet Vol. 12.1 fl (6.2-12.0); Platelet Count 209 K/mm3 (150-450); RBC Distribution Width CV 13.6 % (11.6-14.6); RBC Distribution Width SD 41.3 fl (35.1-43.9); Red Blood Count 5.32 M/mm3 (4.2-5.4); White Blood Count 8.2 K/mm3 (4.4-11.0)
[2023-08-03 16:33] LABS: ALB/GLOB Ratio 0.9 RATIO (0.9-2.4); AST(SGOT) 16 U/L (15-37); Alanine Aminotransfer ALT/SGPT 21 U/L (13-56); Albumin, Serum 3.6 g/dL (3.2-5.0); Alkaline Phosphatase 84 U/L (45-117); Anion Gap 3 (5-15); BUN 21 mg/dL (7-18); BUN/Creat Ratio 22.2 RATIO (10-20); Chloride 107 mmol/L (98-107); Creatinine, Serum 0.94 mg/dL (0.55-1.02); EST Glomerular Filtration Rate 69 mL/min (>60); Est Glom Filt Rate - Afr Amer 84 mL/min (>60); Estradiol 18.3 pg/mL; Globulin 4.2 g/dL (2.2-4.2); Glucose 92 mg/dL (74-106); Potassium 3.8 mmol/L (3.5-5.1); Protein, Total 7.8 g/dL (6.4-8.2); Sodium Level 137 mmol/L (136-145); Thyroid Stim Hormone (TSH) 1.15 uIU/mL (0.358-3.74)
[2023-08-03 17:27] LABS: Progesterone Level 0.42 ng/mL (See Comment)
== END | disposition home or self-care (01) ==
LOC: LAB 14:01
PROVIDERS: PCP Family Medicine; Referring Provider Obstetrics & Gynecology Reproductive Endocrinology; Visit Provider Obstetrics & Gynecology Reproductive Endocrinology
DX: Z31.41 Encounter for fertility testing (principal)
CPT/HCPCS: 36415; 80053; 82670; 84144; 84443; 85027

== ENCOUNTER → 2023-09-28 | Outpatient (CLI) | payer OTHER, SELFPAY ==
[2023-09-28 13:55] LABS: Estradiol 624.2 pg/mL; Luteinizing Hormone 0.4 mIU/mL
[2023-09-30 04:08] LABS: PROGESTERONE 0.3 ng/mL (.)
== END | disposition home or self-care (01) ==
LOC: LAB 12:08
PROVIDERS: PCP Family Medicine; Visit Provider Obstetrics & Gynecology Reproductive Endocrinology
DX: Z31.83 Encounter for assisted reproductive fertility procedure cycle (principal)
CPT/HCPCS: 36415; 82670; 83002; 84144

== ENCOUNTER → 2023-10-23 | Outpatient (CLI) | payer OTHER, SELFPAY ==
[2023-10-23 18:01] LABS: Erythrocyte Sedimentation Rate 10 mm/hr (0-30)
[2023-10-23 21:46] LABS: PTHIN 36.5 pg/mL (18.4-80.1)
[2023-10-23 21:51] LABS: Vitamin B12 1395 pg/mL (211-911)
[2023-10-25 16:10] LABS: Endomysial Antibody IgA Negative (Negative); Immunoglobulin A 172 mg/dL (87-352); Thyroglobulin Antibody < 1.0 IU/mL (0.0-0.9); Thyroid Peroxidase AB 53 IU/mL (0-34); t-Transglutaminase IgA <2 U/mL (0-3)
[2023-10-27 14:08] LABS: ANTINUCLEAR ANTIBODIES DIRECT Negative (Negative); Anti-Centromere B Ab <0.2 AI (0.0-0.9); Anti-Chromatin <0.2 AI (0.0-0.9); Anti-Jo <0.2 AI (0.0-0.9); Anti-Nuclear Antibody Test Negative (.); Anti-Scleroderma-70 AB <0.2 AI (0.0-0.9); Anti-dsDNA Ab <1 IU/mL (0-9); RNP Ab <0.2 AI (0.0-0.9); SJOGREN'S Anti-SS-A test < 0.2 AI (0.0-0.9); SJOGREN'S Anti-SS-B test < 0.2 AI (0.0-0.9); Smith Ab <0.2 AI (0.0-0.9)
== END | disposition home or self-care (01) ==
PROVIDERS: PCP Family Medicine; Referring Provider Family Medicine; Visit Provider Family Medicine
DX: R53.83 Other fatigue (principal)
CPT/HCPCS: 36415; 82607; 82746; 82784; 83516; 83970; 85652; 86038; 86140; 86225; 86235; 86255; 86376; 86800

== ENCOUNTER → 2023-11-06 | Outpatient (CLI) | payer OTHER, SELFPAY ==
[2023-11-06 16:11] LABS: T4 Free Direct 1.06 ng/dL (0.76-1.46); Thyroid Stim Hormone (TSH) 0.83 uIU/mL (0.358-3.74)
== END | disposition home or self-care (01) ==
PROVIDERS: PCP Family Medicine; Referring Provider Internal Medicine Endocrinology, Diabetes & Metabolism; Visit Provider Internal Medicine Endocrinology, Diabetes & Metabolism
DX: E03.8 Other specified hypothyroidism (principal)
CPT/HCPCS: 36415; 84439; 84443

== ENCOUNTER → 2023-11-10 | Outpatient (CLI) | payer OTHER, SELFPAY ==
[2023-11-10 18:00] LABS: Thyroid Stim Hormone (TSH) 1.05 uIU/mL (0.358-3.74)
[2023-11-10 18:34] LABS: HIV - WCH Non-Reactive (Nonreactive); Hepatitis B Surface Antigen Non-Reactive (Nonreactive); Hepatitis C Antibody Non-Reactive (Nonreactive); Syphilis Antibodies Non-reactive
[2023-11-12 08:08] LABS: Hepatitis B Core AB IgM Negative (Negative)
== END | disposition home or self-care (01) ==
PROVIDERS: PCP Family Medicine
DX: Z11.4 Encounter for screening for human immunodeficiency virus [HIV] (principal); Z11.59 Encounter for screening for other viral diseases; E06.3 Autoimmune thyroiditis; Z11.3 Encounter for screening for infections with a predominantly sexual mode of transmission
CPT/HCPCS: 36415; 84443; 86703; 86705; 86780; 86803; 87340

== ENCOUNTER → 2023-11-28 | Outpatient (CLI) | payer OTHER, SELFPAY ==
[2023-11-30 05:07] LABS: CMV Acute Antibody IgM < 30.0 AU/mL (0.0-29.9); CMV Antibody IgG < 0.60 U/mL (0.00-0.59)
== END | disposition home or self-care (01) ==
LOC: MTLAB 14:28
PROVIDERS: PCP Family Medicine
DX: Z11.9 Encounter for screening for infectious and parasitic diseases, unspecified (principal); D89.9 Disorder involving the immune mechanism, unspecified
CPT/HCPCS: 86644; 86645

== ENCOUNTER 2023-12-06 10:59 | Outpatient (RCR) | payer OTHER, SELFPAY | END 2023-12-23 23:59 | LOC: NS 10:59 | PROVIDERS: PCP Family Medicine; Referring Provider Family Medicine; Visit Provider Family Medicine | DX: Z71.3 Dietary counseling and surveillance (principal); E66.01 Morbid (severe) obesity due to excess calories; Z68.42 Body mass index [BMI] 45.0-49.9, adult | CPT/HCPCS: 97803 ==

== ENCOUNTER → 2024-01-16 | Outpatient (CLI) | payer OTHER, SELFPAY ==
[2024-01-16 15:50] LABS: Absolute Lymphocyte Count 2.53 X10^3/uL (0.83-4.51); Basophil# 0.05 X10^3/uL; Basophil% 0.5 % (0-1); Eosinophil# 0.18 X10^3/uL; Hemoglobin 13.5 g/dL (12.0-15.0); Lymphocyte # 2.53 X10^3/ul (0.83-4.51); Lymphocyte % 27.4 % (19-41); Mean Corp Hgb Conc 30.7 g/dL (32-36); Mean Corpuscular Volume 81.5 fL (81-99); Mean Platelet Vol. 10.9 fl (6.2-12.0); Monocyte# 0.45 X10^3/uL; Monocyte% 4.9 % (0-10); NRBC Flagged by Analyzer 0 % (0-5); Neutrophil # 5.99 X10^3/uL (2.7-7.7); Neutrophil % 64.9 % (47-70); Platelet Count 222 K/mm3 (150-450); RBC Distribution Width CV 14.3 % (11.6-14.6); RBC Distribution Width SD 41.8 fl (35.1-43.9); White Blood Count 9.2 K/mm3 (4.4-11.0)
[2024-01-16 16:14] LABS: Estradiol 62.4 pg/mL; Follicle Stimulating Hormone 3.6 mIU/mL; Free T3 3.1 pg/mL (2.18-3.98)
[2024-01-16 16:20] LABS: Vitamin B12 1643 pg/mL (211-911); Vitamin D,25 Hydroxy 55.8 ng/mL
[2024-01-18 08:13] LABS: PROGESTERONE 1.2 ng/mL (.)
== END | disposition home or self-care (01) ==
PROVIDERS: PCP Family Medicine; Referring Provider Nurse Practitioner Women's Health; Visit Provider Nurse Practitioner Women's Health
DX: R53.81 Other malaise (principal); E55.9 Vitamin D deficiency, unspecified; E28.8 Other ovarian dysfunction; E03.8 Other specified hypothyroidism
CPT/HCPCS: 36415; 82306; 82607; 82627; 82670; 83001; 84144; 84403; 84443; 84481; 85025; 82626

== ENCOUNTER → 2024-02-02 | Outpatient (CLI) | payer OTHER, SELFPAY ==
[2024-02-02 15:36] LABS: ALB/GLOB Ratio 0.9 RATIO (0.9-2.4); AST(SGOT) 16 U/L (15-37); Alanine Aminotransfer ALT/SGPT 24 U/L (13-56); Albumin, Serum 3.5 g/dL (3.2-5.0); Alkaline Phosphatase 109 U/L (45-117); Anion Gap 4 (5-15); BUN 12 mg/dL (7-18); BUN/Creat Ratio 14.1 RATIO (10-20); Calcium,Total 9.6 mg/dL (8.5-10.1); Chloride 102 mmol/L (98-107); Creatinine, Serum 0.85 mg/dL (0.55-1.02); EST Glomerular Filtration Rate 78 mL/min (>60); Est Glom Filt Rate - Afr Amer 94 mL/min (>60); Glucose 89 mg/dL (74-106); Potassium 3.8 mmol/L (3.5-5.1); Protein, Total 7.5 g/dL (6.4-8.2); Sodium Level 136 mmol/L (136-145)
[2024-02-05 08:30] LABS: T4 Free Direct 0.99 ng/dL (0.76-1.46)
== END | disposition home or self-care (01) ==
PROVIDERS: PCP Family Medicine; Referring Provider Internal Medicine Endocrinology, Diabetes & Metabolism; Visit Provider Internal Medicine Endocrinology, Diabetes & Metabolism
DX: E03.8 Other specified hypothyroidism (principal)
CPT/HCPCS: 36415; 80053; 84439

== ENCOUNTER 2024-02-13 11:05 | Outpatient (RCR) | payer OTHER, SELFPAY | END 2024-02-22 23:59 | LOC: NS 11:05 | PROVIDERS: PCP Family Medicine; Referring Provider Family Medicine; Visit Provider Family Medicine | DX: Z71.3 Dietary counseling and surveillance (principal); E66.01 Morbid (severe) obesity due to excess calories; Z68.42 Body mass index [BMI] 45.0-49.9, adult | CPT/HCPCS: 97803 ==

== ENCOUNTER 2024-03-13 11:30 | Outpatient (RCR) | payer OTHER, SELFPAY | END 2024-03-23 23:59 | LOC: NS 11:30 | PROVIDERS: PCP Family Medicine; Referring Provider Family Medicine; Visit Provider Family Medicine | DX: Z71.3 Dietary counseling and surveillance (principal); E66.01 Morbid (severe) obesity due to excess calories; Z68.42 Body mass index [BMI] 45.0-49.9, adult | CPT/HCPCS: 97803 ==

== ENCOUNTER → 2024-04-12 | Outpatient (CLI) | payer OTHER, SELFPAY ==
[2024-04-12 18:32] LABS: Glucose 82 mg/dL (74-106)
[2024-04-15 15:07] LABS: Insulin Level 9.1 uIU/mL (2.6-24.9)
== END | disposition home or self-care (01) ==
LOC: LAB 17:01
PROVIDERS: PCP Family Medicine
DX: Z51.81 Encounter for therapeutic drug level monitoring (principal); Z79.84 Long term (current) use of oral hypoglycemic drugs
CPT/HCPCS: 36415; 82947; 83525

== ENCOUNTER 2024-05-01 10:04 | Outpatient (RCR) | payer OTHER, SELFPAY | END 2024-05-24 23:59 | LOC: NS 10:04 | PROVIDERS: PCP Family Medicine; Referring Provider Family Medicine; Visit Provider Family Medicine | DX: Z71.3 Dietary counseling and surveillance (principal); E66.01 Morbid (severe) obesity due to excess calories; Z68.42 Body mass index [BMI] 45.0-49.9, adult | CPT/HCPCS: 97803 ==

== ENCOUNTER → 2024-05-02 | Outpatient (CLI) | payer OTHER, SELFPAY ==
[2024-05-02 14:45] LABS: Lyme Scn Total Ab w/Rflx REF LAB
[2024-05-02 17:59] LABS: ALB/GLOB Ratio 0.9 RATIO (0.9-2.4); AST(SGOT) 14 U/L (15-37); Alanine Aminotransfer ALT/SGPT 23 U/L (13-56); Albumin, Serum 3.4 g/dL (3.2-5.0); Alkaline Phosphatase 95 U/L (45-117); Anion Gap 6 (5-15); BUN 13 mg/dL (7-18); BUN/Creat Ratio 14.6 RATIO (10-20); Calcium,Total 8.7 mg/dL (8.5-10.1); Chloride 106 mmol/L (98-107); Creatinine, Serum 0.89 mg/dL (0.55-1.02); EST Glomerular Filtration Rate 74 mL/min (>60); Est Glom Filt Rate - Afr Amer 89 mL/min (>60); Globulin 3.9 g/dL (2.2-4.2); Glucose 102 mg/dL (74-106); Potassium 3.9 mmol/L (3.5-5.1); Protein, Total 7.3 g/dL (6.4-8.2); Sodium Level 138 mmol/L (136-145); T4 Free Direct 1.31 ng/dL (0.76-1.46); Thyroid Stim Hormone (TSH) 0.797 uIU/mL (0.358-3.740)
[2024-05-02 18:03] LABS: Syphilis Antibodies Non-reactive
== END | disposition home or self-care (01) ==
PROVIDERS: PCP Family Medicine; Referring Provider Family Medicine; Visit Provider Family Medicine
DX: R53.83 Other fatigue (principal); E03.8 Other specified hypothyroidism
CPT/HCPCS: 36415; 80053; 82784; 82785; 84439; 84443; 86618; 86644; 86664; 86665; 86747; 86769; 86780

== ENCOUNTER → 2024-05-23 | Outpatient (CLI) | payer OTHER, SELFPAY ==
[2024-05-23 19:06] LABS: HIV - WCH Non-Reactive (Nonreactive); Hepatitis B Surface Antigen Non-Reactive (Nonreactive); Hepatitis C Antibody Non-Reactive (Nonreactive); Rubella IgG Reactive (Nonreactive); Syphilis Antibodies Non-reactive; Vitamin D,25 Hydroxy 80.1 ng/mL
[2024-05-24 12:59] LABS: Hemoglobin A1c 5.3 % (3.8-5.6)
[2024-05-29 02:07] LABS: Anti-Mullerian Hormone,Serum 0.849 ng/mL (.); PROLACTIN 8.9 ng/mL (4.8-33.4); V-Zoster IgG (Immunity) Reactive (Non Reactive)
== END | disposition home or self-care (01) ==
LOC: MTLAB 14:56
PROVIDERS: PCP Family Medicine; Referring Provider Obstetrics & Gynecology Reproductive Endocrinology; Visit Provider Obstetrics & Gynecology Reproductive Endocrinology
DX: Z31.41 Encounter for fertility testing (principal)
CPT/HCPCS: 36415; 82306; 82627; 83036; 83516; 84146; 84403; 86703; 86762; 86780; 86787; 86803; 87340; 82626

== ENCOUNTER → 2024-05-27 | Outpatient (CLI) | payer OTHER, SELFPAY ==
[2024-05-27 16:48] LABS: Glucose 96 mg/dL (74-106)
[2024-05-29 06:09] LABS: Insulin Level 7.9 uIU/mL (2.6-24.9)
== END | disposition home or self-care (01) ==
LOC: LAB 15:09
PROVIDERS: PCP Family Medicine
DX: R73.09 Other abnormal glucose (principal)
CPT/HCPCS: 36415; 82947; 83525

== ENCOUNTER → 2024-06-10 | Outpatient (CLI) | payer OTHER, SELFPAY ==
[2024-06-10 13:45] LABS: Estradiol 159.5 pg/mL
[2024-06-12 04:07] LABS: PROGESTERONE 29.5 ng/mL (.)
== END | disposition home or self-care (01) ==
PROVIDERS: PCP Family Medicine; Referring Provider Obstetrics & Gynecology Reproductive Endocrinology; Visit Provider Obstetrics & Gynecology Reproductive Endocrinology
DX: Z31.83 Encounter for assisted reproductive fertility procedure cycle (principal)
CPT/HCPCS: 36415; 82670; 84144

== ENCOUNTER 2024-07-04 11:01 | Outpatient (RCR) | payer OTHER, SELFPAY | END 2024-07-22 23:59 | LOC: NS 11:01 | PROVIDERS: PCP Family Medicine; Referring Provider Family Medicine; Visit Provider Family Medicine | DX: Z71.3 Dietary counseling and surveillance (principal); E66.01 Morbid (severe) obesity due to excess calories; Z68.42 Body mass index [BMI] 45.0-49.9, adult | CPT/HCPCS: 97803 ==

== ENCOUNTER → 2025-03-26 | Outpatient (CLI) | payer OTHER, SELFPAY ==
[2025-03-26 15:47] LABS: AST(SGOT) 19 U/L (<=31); Alanine Aminotransfer ALT/SGPT 19 U/L (<=34); Albumin, Serum 4.0 g/dL (3.5-5.0); Alkaline Phosphatase 103 U/L (35-104); Anion Gap 13 (5-15); BUN 15 mg/dL (4-19); BUN/Creat Ratio 18.5 RATIO (10-20); Calcium,Total 9.3 mg/dL (7.6-11.0); Carbon Dioxide 24.3 mmol/L (21.0-32.0); Chloride 101 mmol/L (98-108); Globulin 3.2 g/dL (2.2-4.2); Glucose 84 mg/dL (70-99); Potassium 3.9 mmol/L (3.3-5.1)
[2025-03-28 08:09] LABS: Immunoglobulin A 194 mg/dL (87-352); Immunoglobulin G 1199 mg/dL (586-1602); Immunoglobulin M 101 mg/dL (26-217)
== END | disposition home or self-care (01) ==
LOC: MTLAB 12:37
PROVIDERS: PCP Family Medicine; Referring Provider Internal Medicine Endocrinology, Diabetes & Metabolism; Visit Provider Internal Medicine Endocrinology, Diabetes & Metabolism
DX: E03.8 Other specified hypothyroidism (principal); R73.09 Other abnormal glucose; D72.89 Other specified disorders of white blood cells
CPT/HCPCS: 36415; 80053; 82784; 83525; 84439; 84443